=== PATIENT | male | born 1960 | race Two or more races ===

== ENCOUNTER → 2020-01-09 12:40 | Outpatient (BNVA) | payer MEDICAID, SELFPAY | PROVIDERS: PCP Internal Medicine; Visit Provider Nurse Practitioner Family | DX: Z76.89 Persons encountering health services in other specified circumstances (principal) ==

== ENCOUNTER → 2020-03-10 09:43 | Outpatient (BNVA) | payer MEDICAID, SELFPAY | PROVIDERS: PCP Internal Medicine; Referring Provider Internal Medicine; Visit Provider Internal Medicine Endocrinology, Diabetes & Metabolism | DX: E11.65 Type 2 diabetes mellitus with hyperglycemia (principal); E11.21 Type 2 diabetes mellitus with diabetic nephropathy; E11.42 Type 2 diabetes mellitus with diabetic polyneuropathy; E11.649 Type 2 diabetes mellitus with hypoglycemia without coma; E78.00 Pure hypercholesterolemia, unspecified; E66.01 Morbid (severe) obesity due to excess calories; I10 Essential (primary) hypertension; Z79.4 Long term (current) use of insulin | CPT/HCPCS: 82947; 99202 ==

== ENCOUNTER 2020-03-18 07:12 | Day surgery (SDC) | payer MEDICAID, SELFPAY ==
[2020-03-12 15:15] VITALS: BMI 42.7
--- NOTE | 2020-03-17 08:50 | P.CONAN_ITS ---
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 Morbid obesity Polysubstance abuse Sleep apnea Family History Family History (Updated 01/09/20 @ 12:45 by PATRICIA Renee) Father Diabetes Glaucoma Mother Diabetes HTN (hypertension) Asthma Diabetic kidney Brother Spinal cord injuries Diabetes Sister Asthma Surgical History Surgical History (Updated 03/18/20 @ 07:48 by Rae Nguyen RN) H/O hernia repair H/O knee surgery Status post laser lithotripsy of ureteral calculus Social History Social History (Updated 03/12/20 @ 15:31 by Fariha Adames) Household Members: Family Alcohol intake: current Alcohol intake frequency: holidays/special occasions only Smoking Status: Former smoker Tobacco Type: Cigarette Smoked in Last 30 Days: No Smoking Quit Date: 2017 Substance Use Type: Crack/Cocaine, Heroin and Marijuana Substance Use Type Other:: last used 01/2020-taking suboxone Substance Use Frequency: Chronic Longstanding Advance Directives Information Provided: No Recently lost weight without trying: No Meds Allergies Allergy/AdvReac Type Severity Reaction Status Date / Time sulfamethoxazole Allergy Intermediate RASH Verified 03/12/20 15:02 [From BACTRIM DS] trimethoprim Allergy Intermediate RASH Verified 03/12/20 15:02 [From BACTRIM DS] Penicillins Allergy Mild all Verified 03/10/20 10:00 Home Medications Medication Instructions Recorded Confirmed Type albuterol sulfate 90 mcg/actuation 2 puff INHALATION Q6H PRN 01/09/20 03/12/20 History aerosol inhaler aspirin 81 mg tablet,delayed 81 mg PO DAILY 01/09/20 03/12/20 History release atorvastatin 80 mg tablet 80 mg PO DAILY 01/09/20 03/12/20 History buprenorphine 12 mg-naloxone 3 mg 1 film BUCCAL Q24H 01/09/20 03/12/20 History sublingual film clonidine HCl 0.1 mg tablet 0.1 mg PO BEDTIME PRN 01/09/20 03/12/20 History hydrochlorothiazide 25 mg tablet 25 mg PO DAILY 01/09/20 03/12/20 History lisinopril 40 mg tablet 40 mg PO DAILY 01/09/20 03/12/20 History pantoprazole 40 mg tablet,delayed 40 mg PO DAILY 01/09/20 03/12/20 History release blood sugar diagnostic #10 ea 03/10/20 03/10/20 History citalopram 40 mg tablet 40 mg PO DAILY 03/10/20 03/12/20 History lancets 28 gauge #100 ea 03/10/20 03/10/20 History loratadine 10 mg capsule 10 mg PO DAILY 03/10/20 03/12/20 History primidone 50 mg tablet 50 mg PO BEDTIME 03/10/20 03/12/20 History insulin glargine U-300 conc 100 unit SUBCUT QAM 03/12/20 03/12/20 History [Toujeo Max U-300 SoloStar] metformin 2,000 mg PO QAM 03/12/20 03/12/20 History Exam Exam Date and Time: March 17, 2020 0850 Height,Weight and Vital Signs: Height 5 ft 4 in Weight 113 kg Assessment and Plan Assessment Anesthesia Assessment: Chart Reviewed Documented by User: Marcelina Bell 03/18/20 08:35 [facility] Past Medical History 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 with type 2 diabetes mellitus 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 Morbid obesity Polysubstance abuse Sleep apnea Family History Family History (Updated 01/09/20 @ 12:45 by PATRICIA Renee) Father Diabetes Glaucoma Mother Diabetes HTN (hypertension) Asthma Diabetic kidney Brother Spinal cord injuries Diabetes Sister Asthma Surgical History Surgical History (Updated 03/18/20 @ 07:48 by Rae Nguyen RN) H/O hernia repair H/O knee surgery Status post laser lithotripsy of ureteral calculus Social History Social History (Updated 03/12/20 @ 15:31 by Fariha Adames) Household Members: Family Alcohol intake: current Alcohol intake frequency: holidays/special occasions only Smoking Status: Former smoker Tobacco Type: Cigarette Smoked in Last 30 Days: No Smoking Quit Date: 2017 Substance Use Type: Crack/Cocaine, Heroin and Marijuana Substance Use Type Other:: last used 01/2020-taking suboxone Substance Use Frequency: Chronic Longstanding Advance Directives Information Provided: No Recently lost weight without trying: No Meds Allergies Allergy/AdvReac Type Severity Reaction Status Date / Time sulfamethoxazole Allergy Intermediate RASH Verified 03/12/20 15:02 [From BACTRIM DS] trimethoprim Allergy Intermediate RASH Verified 03/12/20 15:02 [From BACTRIM DS] Penicillins Allergy Mild all Verified 03/10/20 10:00 Home Medications Medication Instructions Recorded Confirmed Type albuterol sulfate 90 mcg/actuation 2 puff INHALATION Q6H PRN 01/09/20 03/12/20 History aerosol inhaler aspirin 81 mg tablet,delayed 81 mg PO DAILY 01/09/20 03/12/20 History release atorvastatin 80 mg tablet 80 mg PO DAILY 01/09/20 03/12/20 History buprenorphine 12 mg-naloxone 3 mg 1 film BUCCAL Q24H 01/09/20 03/12/20 History sublingual film clonidine HCl 0.1 mg tablet 0.1 mg PO BEDTIME PRN 01/09/20 03/12/20 History hydrochlorothiazide 25 mg tablet 25 mg PO DAILY 01/09/20 03/12/20 History lisinopril 40 mg tablet 40 mg PO DAILY 01/09/20 03/12/20 History pantoprazole 40 mg tablet,delayed 40 mg PO DAILY 01/09/20 03/12/20 History release blood sugar diagnostic #10 ea 03/10/20 03/10/20 History citalopram 40 mg tablet 40 mg PO DAILY 03/10/20 03/12/20 History lancets 28 gauge #100 ea 03/10/20 03/10/20 History loratadine 10 mg capsule 10 mg PO DAILY 03/10/20 03/12/20 History primidone 50 mg tablet 50 mg PO BEDTIME 03/10/20 03/12/20 History insulin glargine U-300 conc 100 unit SUBCUT QAM 03/12/20 03/12/20 History [Toujeo Max U-300 SoloStar] metformin 2,000 mg PO QAM 03/12/20 03/12/20 History Exam Airway Mallampati Class: III TM Dist: >3cm Neck ROM: Full Heart: RRR Lungs: CTA
[2020-03-18 08:00] VITALS: BP 139/69; PULSE 86; RESP 16; TEMP 36.3; O2SAT 97
[2020-03-18 08:00] LABS: Glucose, Whole Blood 109 mg/dL (60-115)
--- NOTE | 2020-03-18 08:28 | P.HPSUR_ITS ---
Pre-Procedural Eval Section B Chief Complaint: Screening Relevant Family History (Specify if Yes): No Relevant Social History: Other (specify) (cocaine in past, ex smoker) Present Medications: see Short Stay Collaborative assessment Medical History: Significant History (Asthma Diabetes type 2, uncontrolled Diabetic nephropathy associated with type 2 diabetes mellitus Diabetic polyneuropathy associated with type 2 diabetes mellitus HTN (hypertension) Hypercholesteremia 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 associated with type 2 diabetes mellitus alf (current) use of insulin Morbid ob) History of Previous Operations: Relevant previous surgery/procedure and date(s) (hernia, knee surgery) Allergies: Allergies Allergy/AdvReac Type Severity Reaction Status Date / Time sulfamethoxazole Allergy Intermediate RASH Verified 03/12/20 15:02 [From BACTRIM DS] trimethoprim Allergy Intermediate RASH Verified 03/12/20 15:02 [From BACTRIM DS] Penicillins Allergy Mild all Verified 03/10/20 10:00 Review of Systems Sugical H&P ROS: Negative: Constitution, Cardiovascular, Respiratory, Neurologi serena, Psychiatric, Hem-Onc, Allergic/Immunologic, Gastrointestinal, Genitourinary, Musculoskeletal, Integumentary, Endocrine and Eyes/Ears/Nose/Throat Exam Surgical H&P Exam: Normal: HEENT, Normal: Heart, Normal: Lungs, Normal: Extremities, Normal: Abdomen, Normal: Skin and Normal: Neurological Plan Diagnosis/Plan: Unchanged I have reviewed the history and physical and performed a pertinent physical examination on my patient. No changes have occurred unless specified.
--- NOTE | 2020-03-18 08:29 | PM.OP ---
Brief Operative Note Date of Service: 03/18/20 Post-op diagnosis: same Procedure: see op note Surgeon: Maritza Pal MD Anesthesia: MAC Estimated blood loss (mL): 0 Condition: stable Disposition: PACU
--- NOTE | 2020-03-18 08:29 | W.PM.OPN ---
Operative Note Operative Note Date of Service: 03/18/20 Narrative: Operative Information Procedure Description: Colonoscopy COLONOSCOPY Instrument: Olympus variable stiffness pediatric scope 190L Colonoscopy Monitoring: Vital signs and clinical assessment, continuous EKG monitoring, Pulse oximetry, Carbon Dioxide monitoring and blood pressure monitoring were done throughout the procedure. Colon withdrawal time was 32 minutes. Procedure: The patient was placed in the left lateral decubitis position and pre-procedure medications were administered. After a digital rectal examination of the ano-rectum, the video colonoscope was inserted into the rectum and advanced through the colon to the cecum The colonoscope was slowly withdrawn in a retrograde panoramic fashion and the colon mucosa was carefully examined including a retroflexed view of the rectum. Findings and interventions are described below. Procedure Difficulty:moderate difficulty, pressure applied to reach cecum Findings: Terminal Ileum-not intubated due to looping Cecum:normal Ascending Colon: x 2 sessile polyps measuring 7-15 mm removed with cold snare with one clip applied to the large polyp which was oozing, another sessile polyp 6-8 mm seen on retroflexion removed with forceps Transverse Colon - x 2 sessile polyps measuring 8-15 mm removed with cold snare and forceps Descending Colon: 2 cm semi pedunculated polyp injected with few cc of epinephrine and then removed with hot snare, x 2 clips applied to defect. 6-8 mm sessile polyp removed with cold snare Sigmoid Colon: mild diverticulosis noted Rectum: Retroflexion with small internal hemorrhoids, grade I Anorectum - normal Colon preparation: Stryker Bowel Preparation Scale Right colon; 2 Transverse colon: 1 Left colon; 2 (0 = Unprepared colon segment with mucosa not seen due to solid stool that cannot be cleared. 1 = Portion of mucosa of the colon segment seen, but other areas of the colon segment not well seen due to staining, residual stool and/or opaque liquid. 2 = Minor amount of residual staining, small fragments of stool and/or opaque liquid, but mucosa of colon segment seen well. 3 = Entire mucosa of colon segment seen well with no residual staining, small fragments of stool or opaque liquid) Impression and Post Procedure Diagnosis: polyps internal hemorrhoids diverticular disease Plan: High fiber diet leaflet Avoid straining at stool, epsom salts and sitz bath, anusol supps or cream prn Repeat Colonoscopy in 6-12 months or earlier if clinically indicated Next time use adult scope Above findings were reviewed with the patient and relevant handouts were provided if indicated.
[2020-03-18 09:45] VITALS: BP 174/91; PULSE 79; RESP 17; TEMP 37.1; O2SAT 97
[2020-03-18 10:00] VITALS: BP 163/88; PULSE 81; RESP 18; TEMP 37.1; O2SAT 97
--- NOTE | 2020-03-18 10:14 | HO.POSTANES ---
Post Anesthesia Evaluation Post Anesthesia Evaluation Vital Signs: Vital Signs Temp Pulse Resp BP Pulse Ox 03/18/20 10:00 98.8 F 81 18 163/88 H 97 03/18/20 09:45 98.8 F 79 17 174/91 H 97 03/18/20 08:00 97.4 F 86 16 139/69 97 Anesthesia: TIVA Mental Status: Awake Pain Control: Satisfactory Nausea/Vomiting: None Hydration: Adequate Anesthesia-Related Issues: No Anes. Related Issues
== END 2020-03-18 10:21 | disposition home or self-care (01) ==
PROVIDERS: PCP Internal Medicine; Visit Provider Internal Medicine Gastroenterology
PROC: 0DJD8ZZ Inspection of Lower Intestinal Tract, Via Natural or Artificial Opening Endoscopic (ICD-10-PCS; CPT 45378; principal; 2020-03-18 08:40)
DX: Z12.11 Encounter for screening for malignant neoplasm of colon (principal); D12.2 Benign neoplasm of ascending colon; D12.3 Benign neoplasm of transverse colon; D12.4 Benign neoplasm of descending colon; D12.5 Benign neoplasm of sigmoid colon; K57.30 Diverticulosis of large intestine without perforation or abscess without bleeding; K64.0 First degree hemorrhoids; E11.42 Type 2 diabetes mellitus with diabetic polyneuropathy; E11.21 Type 2 diabetes mellitus with diabetic nephropathy; I10 Essential (primary) hypertension; Z79.899 Other long term (current) drug therapy; Z79.82 Long term (current) use of aspirin; E66.01 Morbid (severe) obesity due to excess calories; Z79.4 Long term (current) use of insulin; F11.20 Opioid dependence, uncomplicated
CPT/HCPCS: 45385; 45380; 45381; 82947; 88305

== ENCOUNTER → 2020-03-24 09:23 | Outpatient (BNVA) | payer MEDICAID, SELFPAY | PROVIDERS: PCP Internal Medicine; Visit Provider Internal Medicine Endocrinology, Diabetes & Metabolism | DX: E11.65 Type 2 diabetes mellitus with hyperglycemia (principal); E11.42 Type 2 diabetes mellitus with diabetic polyneuropathy; E11.21 Type 2 diabetes mellitus with diabetic nephropathy; E11.649 Type 2 diabetes mellitus with hypoglycemia without coma; Z79.4 Long term (current) use of insulin; E78.00 Pure hypercholesterolemia, unspecified; I10 Essential (primary) hypertension; E66.01 Morbid (severe) obesity due to excess calories | CPT/HCPCS: 82947; 99212 ==

== ENCOUNTER 2020-03-24 10:34 | Outpatient (REF) | payer MEDICAID, SELFPAY ==
[2020-03-24 14:30] LABS: Alanine Aminotransferase 15 U/L (0-40); Albumin Level 3.9 g/dL (3.5-5.0); Alkaline Phosphatase 123 U/L (39-117); Anion Gap 17 (12-20); Aspartate Amino Transferase 21 U/L (5-37); Bilirubin Total 0.7 mg/dL (0.0-1.0); Blood Urea Nitrogen 29 mg/dL (9-16); Calcium 8.5 mg/dL (8.4-10.2); Carbon Dioxide 28 mmol/L (22-29); Chloride 98 mmol/L (96-108); Cholesterol 137 mg/dL; Estimated Glomerular Filt Rate > 60; Glucose Fasting 209 mg/dL (60-99); HDL Cholesterol 36 mg/dL; LDL Cholesterol Calculated 77 mg/dl; Potassium 3.5 mmol/L (3.3-5.1); Sodium 139 mmol/L (135-145); Total Protein 6.9 g/dL (6.5-8.0); Triglycerides 124 mg/dL
[2020-03-24 14:54] LABS: Free T4 (Free Thyroxine) 1.11 ng/dL (0.71-1.85); Thyroid Stimulating Hormone 1.91 uIU/mL (0.32-4.0)
[2020-03-24 14:57] LABS: Vitamin B12 438 pg/mL (200-900)
[2020-03-25 05:37] LABS: LDL Cholesterol Direct 81 mg/dL (<100)
== END 2020-03-24 10:35 | disposition home or self-care (01) ==
LOC: HO.10HDL 10:34
PROVIDERS: Visit Provider Internal Medicine Endocrinology, Diabetes & Metabolism
DX: E11.65 Type 2 diabetes mellitus with hyperglycemia (principal)
CPT/HCPCS: 36415; 80053; 80061; 82607; 83721; 84439; 84443

== ENCOUNTER 2020-03-26 07:54 | Outpatient (REF) | payer MEDICAID, SELFPAY | END 2020-03-26 07:55 | disposition home or self-care (01) | LOC: HO.LAB 07:54 | PROVIDERS: Visit Provider Internal Medicine | DX: Z20.822 Contact with and (suspected) exposure to COVID-19 (principal) | CPT/HCPCS: 36415; C9803; U0003; U0005 ==

== ENCOUNTER → 2020-04-13 14:17 | Outpatient (BNVA) | payer MEDICAID, SELFPAY | PROVIDERS: PCP Internal Medicine; Visit Provider Nurse Practitioner Family ==

== ENCOUNTER → 2020-04-16 09:10 | Outpatient (BNVA) | payer MEDICAID, SELFPAY | PROVIDERS: PCP Internal Medicine; Visit Provider Dietitian, Registered ==

== ENCOUNTER → 2020-04-20 10:40 | Outpatient (BNVA) | payer MEDICAID, SELFPAY | PROVIDERS: PCP Internal Medicine; Visit Provider Internal Medicine Endocrinology, Diabetes & Metabolism | DX: E11.65 Type 2 diabetes mellitus with hyperglycemia (principal); E11.21 Type 2 diabetes mellitus with diabetic nephropathy; E11.42 Type 2 diabetes mellitus with diabetic polyneuropathy; E11.649 Type 2 diabetes mellitus with hypoglycemia without coma; Z79.4 Long term (current) use of insulin; E78.00 Pure hypercholesterolemia, unspecified; I10 Essential (primary) hypertension; E66.01 Morbid (severe) obesity due to excess calories | CPT/HCPCS: 82947; 99212 ==

== ENCOUNTER → 2020-05-24 10:29 | Outpatient (BNVA) | payer MEDICAID, SELFPAY | PROVIDERS: PCP Internal Medicine; Visit Provider Dietitian, Registered | DX: E11.42 Type 2 diabetes mellitus with diabetic polyneuropathy (principal); E66.01 Morbid (severe) obesity due to excess calories | CPT/HCPCS: 97803 ==

== ENCOUNTER 2020-06-16 14:03 | Emergency (ER) | payer MEDICAID, SELFPAY ==
[2020-06-16 14:30] VITALS: BP 114/60; BP 160/90; PULSE 120; PULSE 126; RESP 16; TEMP 36.6; O2SAT 100; O2SAT 96; BMI 42.9
--- NOTE | 2020-06-16 14:56 | ED.OVERDOSE ---
HPI - Overdose General Chief Complaint: Overdose Stated Complaint: post overdose Source: patient Mode of arrival: ambulatory Limitations: no limitations History of Present Illness HPI Narrative: To the ED for heroin overdose. Patient states she took half a bag of heroin and 2 shots of whiskey. Patient states overdose was not intentional, but accidental. Patient presently denies any physical complaints. Patient does not want detox. Patient denies any suicidal or homicidal ideation. Related Data Home Medications Medication Instructions Recorded Confirmed albuterol sulfate 90 mcg/actuation 2 puff INHALATION Q6H PRN 01/09/20 04/20/20 aerosol inhaler aspirin 81 mg tablet,delayed 81 mg PO DAILY 01/09/20 04/20/20 release atorvastatin 80 mg tablet 80 mg PO DAILY 01/09/20 04/20/20 buprenorphine 12 mg-naloxone 3 mg 1 film BUCCAL Q24H 01/09/20 04/20/20 sublingual film clonidine HCl 0.1 mg tablet 0.1 mg PO BEDTIME PRN 01/09/20 04/20/20 lisinopril 40 mg tablet 40 mg PO DAILY 01/09/20 04/20/20 pantoprazole 40 mg tablet,delayed 40 mg PO DAILY 01/09/20 04/20/20 release blood sugar diagnostic #10 ea 03/10/20 04/20/20 citalopram 40 mg tablet 40 mg PO DAILY 03/10/20 04/20/20 lancets 28 gauge #100 ea 03/10/20 04/20/20 loratadine 10 mg capsule 10 mg PO DAILY 03/10/20 04/20/20 primidone 50 mg tablet 50 mg PO BEDTIME 03/10/20 04/20/20 metformin 2,000 mg PO QAM 03/12/20 04/20/20 Previous Rx's Medication Instructions Recorded bisacodyl 5 mg tablet,delayed 10 mg PO ONCE 1 Days #2 tab 01/09/20 release polyethylene glycol 3350 17 17 g PO ONCE #510 g 01/09/20 gram/dose oral powder dulaglutide 3 mg/0.5 mL 3 mg SUBCUT QWEEK 30 Days #2.5 ml 04/20/20 subcutaneous pen injector insulin glargine U-300 conc 300 80 unit SUBCUT QAM 30 Days #12 ml 04/20/20 unit/mL (3 mL) subcutaneous pen insulin lispro 100 unit/mL 10 unit SUBCUT DAILY 30 Days #15 ml 04/20/20 subcutaneous pen pen needle, diabetic 32 gauge x #100 ea 04/20/20 Allergies Allergy/AdvReac Type Severity Reaction Status Date / Time sulfamethoxazole Allergy Intermediate RASH Verified 03/12/20 15:02 [From BACTRIM DS] trimethoprim Allergy Intermediate RASH Verified 03/12/20 15:02 [From BACTRIM DS] Penicillins Allergy Mild all Verified 03/10/20 10:00 Review of Systems Review of Systems: Yes all other systems are reviewed and are negative Constitutional: Constitutional: Reports as per HPI and Reports no additional constitutional complaints Eyes: Eyes: Reports as per HPI and Reports no additional eye complaints ENT: Reports system reviewed and no additional complaints, except as documented and Reports as per HPI Cardiovascular: Cardiovascular: Reports as per HPI and Reports no additional cardiovascular complaints Respiratory: Respiratory: Reports as per HPI and Reports no additional respiratory complaints Gastrointestinal: Gastrointestinal: Reports as per HPI and Reports no additional gastrointestinal complaints Genitourinary: Genitourinary: Reports no additional male genitourinary complaints and Reports as per HPI Musculoskeletal: Musculoskeletal: Reports no additional musculoskeletal complaints and Reports as per HPI Neurologic: Reports system reviewed and no additional complaints, except as documented and Reports as per HPI Psychiatric: Psychiatric: Reports no additional psychiatric complaints and Reports as per HPI PMF Past Medical History Medical History (Updated 06/16/20 @ 18:25 by ANGEL Brambila) Asthma Diabetes type 2, uncontrolled Diabetic nephropathy associated with type 2 diabetes mellitus Diabetic polyneuropathy associated with type 2 diabetes mellitus HTN (hypertension) Hypercholesteremia 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 associated with type 2 diabetes mellitus 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 Morbid obesity Polysubstance abuse Sleep apnea Tubular adenoma Surgical History (Updated 04/13/20 @ 14:19 by PATRICIA Daniel) H/O hernia repair H/O knee surgery Hx of colonoscopy Status post laser lithotripsy of ureteral calculus Family History Family History (Updated 01/09/20 @ 12:45 by PATRICIA Renee) Father Diabetes Glaucoma Mother Diabetes HTN (hypertension) Asthma Diabetic kidney Brother Spinal cord injuries Diabetes Sister Asthma Social History Social History (Updated 04/13/20 @ 14:22 by PATRICIA Daniel) Household Members: Family Alcohol intake: current Alcohol intake frequency: holidays/special occasions only Smoking Status: Former smoker Tobacco Type: Cigarette Substance Use Type: Crack/Cocaine, Heroin and Marijuana Advance Directives: No Advance Directives Information Provided: No Current occupational status: employed Current occupation: [employer] Physical Exam Vital Signs: Vital Signs: Last Vital Signs Temp 97.7 F 06/16/20 18:00 Pulse 101 H 06/16/20 18:00 Resp 16 06/16/20 18:00 BP 131/81 06/16/20 18:00 Pulse Ox 99 06/16/20 18:00 Body Mass Index 42.9 Const: General: cooperative, healthy appearing, comfortable, no acute distress, well developed, alert and awake Orientation/consciousness: patient oriented x3 HENMT: Head: Yes normal to inspection, Yes No palpable skull fracture present, Yes normocephalic, Yes atraumatic, No abrasion, No Lal's sign, No contusion, No cranial bruits, No hematoma, No laceration, No occipital foramen tenderness, No palpable skull fracture, No raccoon eyes, No scalp lesion, No scalp tenderness, No Temporal artery tenderness present and No periorbital ecchymosis Eyes: General: appearance normal, both eyes and all related structures Neck: Neck: Yes normal visual inspection, Yes full ROM, Yes no lymphadenopathy, Yes no meningeal signs, Yes trachea midline, Yes supple and No tender Chest: Chest palpation & inspection: normal inspection of the chest and normal palpation of entire chest wall Resp: Effort & Inspection: normal respiratory effort and able to speak in complete sentences Auscultation: clear to auscultation bilaterally Cardio: Jugular venous distension: no JVD Heart sounds: S1 normal heart sound present and S2 normal heart sound present GI: Inspection: Yes normal to inspection and No abdominal wall ecchymosis Palpation (GI): Soft to palpation, not firm, nontender, no guarding and not rigid Skin: General skin exam: no rashes or lesions noted and elasticity normal Neuro: General: patient oriented x3, no meningeal signs and CN's II-XI intact bilaterally Cranial nerves: Yes CN's II-XII intact bilaterally Extrem: General: Yes normal to inspection and Yes full ROM Psych: Appearance: grossly normal, well kempt and not disheveled Thought process: Normal thought process present Thought content: Normal thought content present, suicidality and no homicidality Course Course Course Narrative: Patient does not want detox. Patient agreeable to be observed in the ER. Patient informed we will watch his O2 saturation. Reevaluation(s) Reevaluation #1: Patient's O2 saturation has been stable throughout the whole ED visit. Patient once again does not want detox. Patient to be discharged. Time: 18:24 MDM - Overdose MDM Narrative Medical decision making narrative: Opiate abuse Discharge Plan Discharge Clinical Impression: Opiate abuse, continuous Patient Disposition: Home, Self-Care Instructions: Opioid Use Disorder (ED) Additional Instructions: Return to the ED immediately for any chest pain, shortness of breath, weakness, dizziness, headache, vomiting blood, rectal bleeding, abdominal pain, or any other concerning symptoms. Please follow-up with the PCP Prescriptions: No Action metformin 500 mg tablet extended release 24 hr 2,000 mg PO QAM RF: 0 primidone 50 mg tablet 50 mg PO BEDTIME RF: 0 loratadine 10 mg capsule 10 mg PO DAILY RF: 0 citalopram 40 mg tablet 40 mg PO DAILY RF: 0 (DME) lancets [FreeStyle Lancets] 28 gauge misc See Rx Instructions .ROUTE .MEDSUPPLY Qty: 100 RF: 0 (DME) FreeStyle Test Strip See Rx Instructions .ROUTE .MEDSUPPLY Qty: 10 RF: 0 aspirin [Adult Low Dose Aspirin] 81 mg tablet,delayed release (DR/EC) 81 mg PO DAILY RF: 0 lisinopril 40 mg tablet 40 mg PO DAILY RF: 0 atorvastatin 80 mg tablet 80 mg PO DAILY RF: 0 pantoprazole 40 mg tablet,delayed release (DR/EC) 40 mg PO DAILY RF: 0 albuterol sulfate [ProAir HFA] 90 mcg/actuation HFA aerosol inhaler 2 puff inhalation Q6H PRN (Reason: Shortness Of Breath) RF: 0 buprenorphine-naloxone [Suboxone] 12-3 mg film 1 film buccal Q24H RF: 0 clonidine HCl 0.1 mg tablet 0.1 mg PO BEDTIME PRN (Reason: anxiety) RF: 0 bisacodyl [Dulcolax (bisacodyl)] 5 mg tablet,delayed release (DR/EC) 10 mg PO ONCE 1 Days Qty: 2 RF: 0 polyethylene glycol 3350 [Miralax] 17 gram/dose powder 17 g PO ONCE Qty: 510 RF: 0 Toujeo Max U-300 SoloStar 300 unit/mL (3 mL) insulin pen 80 unit SUBCUT QAM 30 Days Qty: 12 RF: 6 insulin lispro [Humalog KwikPen Insulin] 100 unit/mL insulin pen 10 unit subcut DAILY 30 Days Qty: 15 RF: 4 Trulicity 3 mg/0.5 mL pen injector 3 mg subcut QWEEK 30 Days Qty: 2.5 RF: 6 (DME) pen needle, diabetic [BD Ashly 2nd Gen Pen Needle] 32 gauge x 5/32 needle See Rx Instructions .MEDSUPPLY Qty: 100 RF: 4 Interventions: ED Discharge Assessment Last Done: 06/16/20 18:44 Discharge Date/Time: 06/16/20 18:46 Print Language: Bengali
[2020-06-16 15:52] VITALS: BP 97/49; PULSE 109; RESP 16; TEMP 36.6; O2SAT 99
[2020-06-16 18:00] VITALS: BP 131/81; PULSE 101; RESP 16; TEMP 36.5; O2SAT 99
== END 2020-06-16 18:46 | disposition home or self-care (01) ==
PROVIDERS: Emergency Provider Internal Medicine; PCP Internal Medicine
DX: T40.1X1A Poisoning by heroin, accidental (unintentional), initial encounter (principal); Y92.009 Unspecified place in unspecified non-institutional (private) residence as the place of occurrence of the external cause; F11.20 Opioid dependence, uncomplicated; F19.10 Other psychoactive substance abuse, uncomplicated; E11.9 Type 2 diabetes mellitus without complications; I10 Essential (primary) hypertension; E78.00 Pure hypercholesterolemia, unspecified; F17.210 Nicotine dependence, cigarettes, uncomplicated; Z79.4 Long term (current) use of insulin; Z79.02 Long term (current) use of antithrombotics/antiplatelets; Z79.899 Other long term (current) drug therapy
CPT/HCPCS: 99283

== ENCOUNTER 2020-06-21 17:53 | Emergency (ER) | payer MEDICAID, SELFPAY ==
[2020-06-21 18:00] VITALS: BP 160/100; PULSE 115; O2SAT 98
--- NOTE | 2020-06-21 18:04 | PC.NURSE ---
SECURITY AT BEDSIDE FOR A PAT DOWN, PT TO DROWSY TO WALK TO THE BATHROOM. WALLET/PHONE/SHOES TAKEN INTO DECON
[2020-06-21 18:20] VITALS: PULSE 98; RESP 16; TEMP 36.4; O2SAT 96; BMI 42.9
--- NOTE | 2020-06-21 18:50 | MHC.RECOVSUP ---
? Reason for consult Overdose o Current location: [facility] o Identified substance use concern: Heroin - Overdose - Support ? Intervention: o Community resources provided o Harm reduction discussion ? Plan: o Patient to follow up with H after discharge ? Additional information Patient refused any services But we did talk about harm reduction and about resources where he can go to get help when he ready.
--- NOTE | 2020-06-21 19:28 | ED_ITS ---
HPI - Overdose General Chief Complaint: Overdose Stated Complaint: OVERDOSE Source: patient Mode of arrival: ambulatory Limitations: no limitations History of Present Illness HPI Narrative: Patient presents to the ED for heroin overdose. Patient was given Narcan in the field. Patient presently alert oriented x3. Patient does not want detox. Patient would like to be discharged. Patient states overdose was accidental. Patient denies any suicidal thoughts. Related Data Home Medications Medication Instructions Recorded Confirmed albuterol sulfate 90 mcg/actuation 2 puff INHALATION Q6H PRN 01/09/20 04/20/20 aerosol inhaler aspirin 81 mg tablet,delayed 81 mg PO DAILY 01/09/20 04/20/20 release atorvastatin 80 mg tablet 80 mg PO DAILY 01/09/20 04/20/20 buprenorphine 12 mg-naloxone 3 mg 1 film BUCCAL Q24H 01/09/20 04/20/20 sublingual film clonidine HCl 0.1 mg tablet 0.1 mg PO BEDTIME PRN 01/09/20 04/20/20 lisinopril 40 mg tablet 40 mg PO DAILY 01/09/20 04/20/20 pantoprazole 40 mg tablet,delayed 40 mg PO DAILY 01/09/20 04/20/20 release blood sugar diagnostic #10 ea 03/10/20 04/20/20 citalopram 40 mg tablet 40 mg PO DAILY 03/10/20 04/20/20 lancets 28 gauge #100 ea 03/10/20 04/20/20 loratadine 10 mg capsule 10 mg PO DAILY 03/10/20 04/20/20 primidone 50 mg tablet 50 mg PO BEDTIME 03/10/20 04/20/20 metformin 2,000 mg PO QAM 03/12/20 04/20/20 Previous Rx's Medication Instructions Recorded bisacodyl 5 mg tablet,delayed 10 mg PO ONCE 1 Days #2 tab 01/09/20 release polyethylene glycol 3350 17 17 g PO ONCE #510 g 01/09/20 gram/dose oral powder dulaglutide 3 mg/0.5 mL 3 mg SUBCUT QWEEK 30 Days #2.5 ml 04/20/20 subcutaneous pen injector insulin glargine U-300 conc 300 80 unit SUBCUT QAM 30 Days #12 ml 04/20/20 unit/mL (3 mL) subcutaneous pen insulin lispro 100 unit/mL 10 unit SUBCUT DAILY 30 Days #15 ml 04/20/20 subcutaneous pen pen needle, diabetic 32 gauge x #100 ea 04/20/20 Allergies Allergy/AdvReac Type Severity Reaction Status Date / Time sulfamethoxazole Allergy Intermediate RASH Verified 03/12/20 15:02 [From BACTRIM DS] trimethoprim Allergy Intermediate RASH Verified 03/12/20 15:02 [From BACTRIM DS] Penicillins Allergy Mild all Verified 03/10/20 10:00 Review of Systems Review of Systems: Yes all other systems are reviewed and are negative Constitutional: Constitutional: Reports as per HPI and Reports no additional constitutional complaints Eyes: Eyes: Reports as per HPI and Reports no additional eye complaints ENT: Reports system reviewed and no additional complaints, except as documented and Reports as per HPI Cardiovascular: Cardiovascular: Reports as per HPI and Reports no additional cardiovascular complaints Respiratory: Respiratory: Reports as per HPI and Reports no additional respiratory complaints Gastrointestinal: Gastrointestinal: Reports as per HPI and Reports no additional gastrointestinal complaints Genitourinary: Genitourinary: Reports no additional male genitourinary complaints and Reports as per HPI Musculoskeletal: Musculoskeletal: Reports no additional musculoskeletal complaints and Reports as per HPI Neurologic: Reports system reviewed and no additional complaints, except as documented and Reports as per HPI Psychiatric: Psychiatric: Reports no additional psychiatric complaints and Reports as per HPI PMF Past Medical History Medical History (Updated 06/21/20 @ 19:30 by ANGEL Brambila) Asthma Diabetes type 2, uncontrolled Diabetic nephropathy associated with type 2 diabetes mellitus Diabetic polyneuropathy associated with type 2 diabetes mellitus HTN (hypertension) Hypercholesteremia 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 associated with type 2 diabetes mellitus long-term (current) use of insulin Morbid obesity Polysubstance abuse Sleep apnea Tubular adenoma Surgical History (Updated 04/13/20 @ 14:19 by PATRICIA Daniel) H/O hernia repair H/O knee surgery Hx of colonoscopy Status post laser lithotripsy of ureteral calculus Family History Family History (Updated 01/09/20 @ 12:45 by PATRICIA Renee) Father Diabetes Glaucoma Mother Diabetes HTN (hypertension) Asthma Diabetic kidney Brother Spinal cord injuries Diabetes Sister Asthma Social History Social History (Updated 04/13/20 @ 14:22 by PATRICIA aDniel) Household Members: Family Alcohol intake: current Alcohol intake frequency: holidays/special occasions only Smoking Status: Former smoker Tobacco Type: Cigarette Substance Use Type: Crack/Cocaine, Heroin and Marijuana Advance Directives: No Advance Directives Information Provided: Yes Current occupational status: employed Current occupation: [employer] Physical Exam Vital Signs: Vital Signs: Last Vital Signs Temp 97.5 F 06/21/20 18:20 Pulse 98 06/21/20 18:20 Resp 16 06/21/20 18:20 Pulse Ox 96 06/21/20 18:20 Body Mass Index 42.9 Const: General: cooperative, healthy appearing, comfortable, no acute distress, well developed, alert and awake Orientation/consciousness: patient oriented x3 HENMT: Head: Yes normal to inspection, Yes No palpable skull fracture present, Yes normocephalic and Yes atraumatic Eyes: General: appearance normal, both eyes and all related structures Neck: Neck: Yes normal visual inspection, Yes full ROM, Yes no lymphadenopathy, Yes no meningeal signs, Yes trachea midline, Yes supple and No tender Chest: Chest palpation & inspection: normal inspection of the chest and normal palpation of entire chest wall Resp: Effort & Inspection: normal respiratory effort and able to speak in complete sentences Cardio: Jugular venous distension: no JVD Heart sounds: S1 normal heart sound present and S2 normal heart sound present GI: Inspection: Yes normal to inspection and No abdominal wall ecchymosis Palpation (GI): Soft to palpation, not firm, nontender, no guarding and not rigid : General: No CVA tenderness and Yes no CVA tenderness Back/Spine/Pelvis: Back: no CVA tenderness, No CVA tenderness and No back tenderness Skin: General skin exam: no rashes or lesions noted and elasticity normal Neuro: General: patient oriented x3, no meningeal signs and CN's II-XI intact bilaterally Cranial nerves: Yes CN's II-XII intact bilaterally Extrem: General: Yes normal to inspection and Yes full ROM Psych: Appearance: grossly normal, well kempt and not disheveled Course Course Course Narrative: Detox counselor to talk to patient to convince for detox. Reevaluation(s) Reevaluation #1: Detox counselor Dorian spoke with patient and he states patient still refused detox. Patient will be discharged MDM - Overdose MDM Narrative Medical decision making narrative: Opiate abuse Discharge Plan Discharge Clinical Impression: Drug overdose, Opiate abuse, continuous Patient Disposition: Home, Self-Care Instructions: Opioid Use Disorder (ED) Additional Instructions: Return to the ED immediately for any suicidal/homicidal ideation, chest pain, shortness of breath, auditory/visual hallucinations, or any other concerning symptoms. He follow-up with the PCP. Please follow-up with detox resource information given to you by our detox counselor. Prescriptions: No Action metformin 500 mg tablet extended release 24 hr 2,000 mg PO QAM RF: 0 primidone 50 mg tablet 50 mg PO BEDTIME RF: 0 loratadine 10 mg capsule 10 mg PO DAILY RF: 0 citalopram 40 mg tablet 40 mg PO DAILY RF: 0 (DME) lancets [FreeStyle Lancets] 28 gauge misc See Rx Instructions .ROUTE .MEDSUPPLY Qty: 100 RF: 0 (DME) FreeStyle Test Strip See Rx Instructions .ROUTE .MEDSUPPLY Qty: 10 RF: 0 aspirin [Adult Low Dose Aspirin] 81 mg tablet,delayed release (DR/EC) 81 mg PO DAILY RF: 0 lisinopril 40 mg tablet 40 mg PO DAILY RF: 0 atorvastatin 80 mg tablet 80 mg PO DAILY RF: 0 pantoprazole 40 mg tablet,delayed release (DR/EC) 40 mg PO DAILY RF: 0 albuterol sulfate [ProAir HFA] 90 mcg/actuation HFA aerosol inhaler 2 puff inhalation Q6H PRN (Reason: Shortness Of Breath) RF: 0 buprenorphine-naloxone [Suboxone] 12-3 mg film 1 film buccal Q24H RF: 0 clonidine HCl 0.1 mg tablet 0.1 mg PO BEDTIME PRN (Reason: anxiety) RF: 0 bisacodyl [Dulcolax (bisacodyl)] 5 mg tablet,delayed release (DR/EC) 10 mg PO ONCE 1 Days Qty: 2 RF: 0 polyethylene glycol 3350 [Miralax] 17 gram/dose powder 17 g PO ONCE Qty: 510 RF: 0 Toujeo Max U-300 SoloStar 300 unit/mL (3 mL) insulin pen 80 unit SUBCUT QAM 30 Days Qty: 12 RF: 6 insulin lispro [Humalog KwikPen Insulin] 100 unit/mL insulin pen 10 unit subcut DAILY 30 Days Qty: 15 RF: 4 Trulicity 3 mg/0.5 mL pen injector 3 mg subcut QWEEK 30 Days Qty: 2.5 RF: 6 (DME) pen needle, diabetic [BD Ashly 2nd Gen Pen Needle] 32 gauge x 5/32 needle See Rx Instructions .MEDSUPPLY Qty: 100 RF: 4 Interventions: ED Discharge Assessment Last Done: 06/21/20 19:33 Discharge Date/Time: 06/21/20 19:37 Print Language: Stateless
== END 2020-06-21 19:37 | disposition home or self-care (01) ==
PROVIDERS: Emergency Provider Internal Medicine
DX: T40.1X1A Poisoning by heroin, accidental (unintentional), initial encounter (principal); Y92.9 Unspecified place or not applicable; F14.90 Cocaine use, unspecified, uncomplicated; F11.90 Opioid use, unspecified, uncomplicated; I10 Essential (primary) hypertension; E11.9 Type 2 diabetes mellitus without complications; Z79.899 Other long term (current) drug therapy; Z79.82 Long term (current) use of aspirin; Z87.891 Personal history of nicotine dependence; Z71.51 Drug abuse counseling and surveillance of drug abuser; Z79.84 Long term (current) use of oral hypoglycemic drugs
CPT/HCPCS: 99284

== ENCOUNTER 2020-07-20 15:39 | Emergency (ER) | payer MEDICAID, SELFPAY ==
[2020-07-20 15:50] VITALS: BP 129/66; BP 171/79; PULSE 100; PULSE 106; RESP 16; TEMP 36.7; O2SAT 94; O2SAT 95; BMI 45.8
--- NOTE | 2020-07-20 15:50 | ECG_ITS ---
Test Reason : hypertension Blood Pressure : / mmHG Vent. Rate : 095 BPM Atrial Rate : 095 BPM P-R Int : 126 ms QRS Dur : 080 ms QT Int : 356 ms P-R-T Axes : 047 017 031 degrees QTc Int : 447 ms Normal sinus rhythm Normal ECG When compared with ECG of 17-NOV-2010 19:13, Nonspecific T wave abnormality, improved in Inferior leads Referred By: Maricruz Smith Electronically Signed By:Julio C Owen
--- NOTE | 2020-07-20 15:54 | ED_ITS ---
HPI - General Adult General Chief complaint: General Medical Stated complaint: HTN Time Seen by Provider: 07/20/20 15:40 Source: patient and EMS Mode of arrival: EMS Limitations: no limitations History of Present Illness HPI narrative: 59 y/o male with history of DM2, HTN, obesity, active heroin use (last used yesterday) who presents to the ER via EMS with worsening bilateral LE edema. [facility] when he was found to have blood pressure of [address]ations in his EKG. He was sent to ED for evaluation of this. He reports he usually has a small amount of edema in his legs but 2 days ago it got significantly worse. He works at [employer] and is on his feet all day long. He does not elevate his legs when he is home. He used to have compression stockings but lost them. He has been compliant with all of his medications including his Lasix 20 mg per day and HCTZ 12.5. His lisinopril was recently increased to 20 mg per day. BP on arrival 171/78. He denies any chest pain, SOB, headache, vision changes. EKG reviewed - NO ST elevations. MD complaint: LE edema Onset (ago): day(s) (2) Location: left, right and lower extremity Radiation: proximal Severity: moderate Related Data Home Medications Medication Instructions Recorded Confirmed albuterol sulfate 90 mcg/actuation 2 puff INHALATION Q6H PRN 01/09/20 04/20/20 aerosol inhaler aspirin 81 mg tablet,delayed 81 mg PO DAILY 01/09/20 04/20/20 release atorvastatin 80 mg tablet 80 mg PO DAILY 01/09/20 04/20/20 buprenorphine 12 mg-naloxone 3 mg 1 film BUCCAL Q24H 01/09/20 04/20/20 sublingual film clonidine HCl 0.1 mg tablet 0.1 mg PO BEDTIME PRN 01/09/20 04/20/20 lisinopril 40 mg tablet 40 mg PO DAILY 01/09/20 04/20/20 pantoprazole 40 mg tablet,delayed 40 mg PO DAILY 01/09/20 04/20/20 release blood sugar diagnostic #10 ea 03/10/20 04/20/20 citalopram 40 mg tablet 40 mg PO DAILY 03/10/20 04/20/20 lancets 28 gauge #100 ea 03/10/20 04/20/20 loratadine 10 mg capsule 10 mg PO DAILY 03/10/20 04/20/20 primidone 50 mg tablet 50 mg PO BEDTIME 03/10/20 04/20/20 metformin 2,000 mg PO QAM 03/12/20 04/20/20 Previous Rx's Medication Instructions Recorded bisacodyl 5 mg tablet,delayed 10 mg PO ONCE 1 Days #2 tab 01/09/20 release polyethylene glycol 3350 17 17 g PO ONCE #510 g 01/09/20 gram/dose oral powder dulaglutide 3 mg/0.5 mL 3 mg SUBCUT QWEEK 30 Days #2.5 ml 04/20/20 subcutaneous pen injector insulin glargine U-300 conc 300 80 unit SUBCUT QAM 30 Days #12 ml 04/20/20 unit/mL (3 mL) subcutaneous pen insulin lispro 100 unit/mL 10 unit SUBCUT DAILY 30 Days #15 ml 04/20/20 subcutaneous pen pen needle, diabetic 32 gauge x #100 ea 04/20/20 fredi.stocking,knee,reg,xlrg #12 ea 07/20/20 furosemide [Lasix] 40 mg PO QAM #7 tab 07/20/20 Allergies Allergy/AdvReac Type Severity Reaction Status Date / Time sulfamethoxazole Allergy Intermediate RASH Verified 03/12/20 15:02 [From BACTRIM DS] trimethoprim Allergy Intermediate RASH Verified 03/12/20 15:02 [From BACTRIM DS] Penicillins Allergy Mild all Verified 03/10/20 10:00 Review of Systems Review of Systems: Constitutional: No Fever, No Chills ENT/Mouth: No sore throat, No Rhinorrhea, No Swallowing Difficulty Eyes: No Eye Pain, No Swelling, No Redness Cardiovascular: No Chest Pain, No SOB, No Orthopnea, + Edema Respiratory: No Cough, No Sputum, No Wheezing, No dyspnea Gastrointestinal: No Nausea, No Vomiting, No Diarrhea, No abdominal Pain Genitourinary: No Dysuria, No Urinary Frequency, No Hematuria Musculoskeletal: No joint pain, No Myalgias Skin: No Skin Lesions, No rash Neuro: No Weakness, No Numbness, No Dizziness, No Headache Psych: No Anxiety/Panic, No Depression Heme/Lymph: No Bruising, No Lymphadenopathy Endocrine: No Polyuria, No Polydipsia PMFSH Past Medical History Attestation statement: The following information was validated with the patient. 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 Morbid obesity Polysubstance abuse Sleep apnea Tubular adenoma Surgical History (Updated 04/13/20 @ 14:19 by PATRICIA Daniel) H/O hernia repair H/O knee surgery Hx of colonoscopy Status post laser lithotripsy of ureteral calculus Family History Family History (Updated 01/09/20 @ 12:45 by PATRICIA Renee) Father Diabetes Glaucoma Mother Diabetes HTN (hypertension) Asthma Diabetic kidney Brother Spinal cord injuries Diabetes Sister Asthma Social History Social History (Updated 04/13/20 @ 14:22 by PATRICIA Daniel) Household Members: Family Alcohol intake: current Alcohol intake frequency: a few times a week Patient Tobacco Use Status: Never used Tobacco Use of substances other than those prescribed or required for medical reasons: Yes Substance Use Type: Heroin Substance Use Frequency: Occasionally Advance Directives: No Advance Directives Information Provided: No Current occupational status: employed Current occupation: [employer] Physical Exam Vital Signs: Vital Signs: Last Vital Signs Temp 98.1 F 07/20/20 15:50 Pulse 100 07/20/20 17:44 Resp 16 07/20/20 17:44 BP 145/73 H 07/20/20 17:44 Pulse Ox 95 07/20/20 15:50 Body Mass Index 45.8 Appearance: Alert. Oriented X3. No acute distress. Eyes: Pupils equal, round and reactive to light. ENT: Pharynx normal. Neck: Normal inspection. Neck supple. CVS: Normal heart rate and rhythm. Pulses normal. Respiratory: No respiratory distress. Breath sounds normal. Abdomen: Soft and nontender. +BS x4 Skin: Skin warm and dry. Normal skin color. Normal skin turgor. No rashes. Extremities: 3+ lower extremity edema. No calf tenderness. 2+ DP pulses, warm and well perfused Neuro: Oriented X 3. No motor deficit. No sensory deficit. Course Course Course Narrative: 59 y/o male presenting with LE edema and hypertension. Reportedly BP at clinic was 260 systolic. 170/70s here, asymptomatic. No appreciated ST elevations on EKG from clinic, will repeat EKG here. He denies SOB or chest pain. Will check BNP and basic labs. Medical Decision Making Lab Data Result diagrams: 07/20/20 17:12 07/20/20 17:12 Labs: Lab Results 07/20/20 07/20/20 07/20/20 Range/Units 17:12 17:12 17:12 WBC 12.1 H (4.8-10.8) X10*3/uL RBC 3.82 L (4.60-5.80) X10*6/uL Hgb 12.2 L (14.0-18.0) g/dl Hct 36.9 L (42-52) % MCV 96.6 (80-98) fL MCH 31.9 (27.0-33.0) pg MCHC 33.1 (31.0-36.0) g/dl RDW 13.3 (11.0-16.0) % Plt Count 223 (160-400) X10*3/uL MPV 11.2 (9.4-12.4) fL Immature Gran % (Auto) 0.2 (0.0-0.4) % Neut % (Auto) 82.9 H (45-73) % Lymph % (Auto) 10.3 L (20-40) % [place] % (Auto) 3.7 (2-11) % Eos % (Auto) 2.4 (0-4) % Baso % (Auto) 0.5 (0-2) % Lymph # (Auto) 1.2 (1.2-4.9) X10*3/uL [place] # (Auto) 0.5 (0.1-1.2) X10*3/uL Eos # (Auto) 0.3 (0.0-0.4) X10*3/uL Baso # (Auto) 0.1 (0.0-0.2) X10*3/uL Abs Immat Gran (auto) 0.02 (0.00-0.03) X10*3/uL Absolute Neuts (auto) 10.0 H (2.0-8.3) X10*3/uL Absolute Nucleated RBC 0.000 (0.0-0.012) X10*3/uL Nucleated RBC % (auto) 0.0 (0.0-0.2) /100WBC Hold Blue Top SEE NOTE Sodium 141 (135-145) mmol/L Potassium 4.8 D (3.3-5.1) mmol/L Chloride 97 (96-108) mmol/L Carbon Dioxide 35 H (22-29) mmol/L Anion Gap 14 (12-20) BUN 24 H (9-16) mg/dL Creatinine 0.82 (0.5-1.4) mg/dL Estim Creat Clear Calc 115.1 Estimated GFR > 60 Random Glucose 204 H (60-115) mg/dL Calcium 9.3 D (8.4-10.2) mg/dL B-Natriuretic Peptide (<100) pg/mL 07/20/20 Range/Units 17:12 WBC (4.8-10.8) X10*3/uL RBC (4.60-5.80) X10*6/uL Hgb (14.0-18.0) g/dl Hct (42-52) % MCV (80-98) fL MCH (27.0-33.0) pg MCHC (31.0-36.0) g/dl RDW (11.0-16.0) % Plt Count (160-400) X10*3/uL MPV (9.4-12.4) fL Immature Gran % (Auto) (0.0-0.4) % Neut % (Auto) (45-73) % Lymph % (Auto) (20-40) % [place] % (Auto) (2-11) % Eos % (Auto) (0-4) % Baso % (Auto) (0-2) % Lymph # (Auto) (1.2-4.9) X10*3/uL [place] # (Auto) (0.1-1.2) X10*3/uL Eos # (Auto) (0.0-0.4) X10*3/uL Baso # (Auto) (0.0-0.2) X10*3/uL Abs Immat Gran (auto) (0.00-0.03) X10*3/uL Absolute Neuts (auto) (2.0-8.3) X10*3/uL Absolute Nucleated RBC (0.0-0.012) X10*3/uL Nucleated RBC % (auto) (0.0-0.2) /100WBC Hold Blue Top Sodium (135-145) mmol/L Potassium (3.3-5.1) mmol/L Chloride (96-108) mmol/L Carbon Dioxide (22-29) mmol/L Anion Gap (12-20) BUN (9-16) mg/dL Creatinine (0.5-1.4) mg/dL Estim Creat Clear Calc Estimated GFR Random Glucose (60-115) mg/dL Calcium (8.4-10.2) mg/dL B-Natriuretic Peptide 65 (<100) pg/mL ECG Data Attestation: I personally reviewed and interpreted this ECG as follows: Prior ECG tracings: available for review Interpretation: normal sinus rhythm, HR 95 bpm, normal [place] interval, normal QTc, Q waves present in lead III, V1-V2 Critical Care Time Critical Care Time Critical Care Time: No Discharge Plan Discharge Clinical Impression: Bilateral edema of lower extremity Hypertension Qualifiers: Hypertension type: unspecified Qualified Code(s): I10 - Essential (primary) hypertension Patient Disposition: Home, Self-Care Instructions: Leg Edema (ED), Hypertension and Diabetes (ED) Additional Instructions: Your EKG was unremarkable. YOur blood workup was normal. Recommend starting an increased dose of Lasix 40 mg per day, instead of your usual 20 mg per day. This was sent to your pharmacy. You need to be re-evaluated by your doctor next week to see if they would like to continue you on this dose. Recommend medical grade compression stockings. Elevate you feet when able. Stick to a low salt diet. If you develop chest pain, difficulty breathing or any other concerning symptom come back to the ER for further evaluation. Prescriptions: New furosemide [Lasix] 40 mg tablet 40 mg PO QAM Qty: 7 RF: 0 (DME) fredi.stocking,knee,reg,xlrg Misc See Rx Instructions .ROUTE .MEDSUPPLY Qty: 12 RF: 0 No Action metformin 500 mg tablet extended release 24 hr 2,000 mg PO QAM RF: 0 primidone 50 mg tablet 50 mg PO BEDTIME RF: 0 loratadine 10 mg capsule 10 mg PO DAILY RF: 0 citalopram 40 mg tablet 40 mg PO DAILY RF: 0 (DME) lancets [FreeStyle Lancets] 28 gauge misc See Rx Instructions .ROUTE .MEDSUPPLY Qty: 100 RF: 0 (DME) FreeStyle Test Strip See Rx Instructions .ROUTE .MEDSUPPLY Qty: 10 RF: 0 aspirin [Adult Low Dose Aspirin] 81 mg tablet,delayed release (DR/EC) 81 mg PO DAILY RF: 0 lisinopril 40 mg tablet 40 mg PO DAILY RF: 0 atorvastatin 80 mg tablet 80 mg PO DAILY RF: 0 pantoprazole 40 mg tablet,delayed release (DR/EC) 40 mg PO DAILY RF: 0 albuterol sulfate [ProAir HFA] 90 mcg/actuation HFA aerosol inhaler 2 puff inhalation Q6H PRN (Reason: Shortness Of Breath) RF: 0 buprenorphine-naloxone [Suboxone] 12-3 mg film 1 film buccal Q24H RF: 0 clonidine HCl 0.1 mg tablet 0.1 mg PO BEDTIME PRN (Reason: anxiety) RF: 0 bisacodyl [Dulcolax (bisacodyl)] 5 mg tablet,delayed release (DR/EC) 10 mg PO ONCE 1 Days Qty: 2 RF: 0 polyethylene glycol 3350 [Miralax] 17 gram/dose powder 17 g PO ONCE Qty: 510 RF: 0 Toujeo Max U-300 SoloStar 300 unit/mL (3 mL) insulin pen 80 unit SUBCUT QAM 30 Days Qty: 12 RF: 6 insulin lispro [Humalog KwikPen Insulin] 100 unit/mL insulin pen 10 unit subcut DAILY 30 Days Qty: 15 RF: 4 Trulicity 3 mg/0.5 mL pen injector 3 mg subcut QWEEK 30 Days Qty: 2.5 RF: 6 (DME) pen needle, diabetic [BD Ashly 2nd Gen Pen Needle] 32 gauge x 5/32 needle See Rx Instructions .MEDSUPPLY Qty: 100 RF: 4
[2020-07-20 17:16] LABS: MANUAL DIFF FLAG NO
[2020-07-20 17:19] LABS: Basophils Absolute Auto 0.1 X10*3/uL (0.0-0.2); Basophils Percent Auto 0.5 % (0-2); Eosinophils Absolute Auto 0.3 X10*3/uL (0.0-0.4); Eosinophils Percent Auto 2.4 % (0-4); Hematocrit 36.9 % (42-52); Hemoglobin 12.2 g/dl (14.0-18.0); Imm Gran Abs Auto 0.02 X10*3/uL (0.00-0.03); Imm Gran Pct Auto 0.2 % (0.0-0.4); Lymphocytes Absolute Auto 1.2 X10*3/uL (1.2-4.9); Lymphocytes Percent Auto 10.3 % (20-40); Mean Corpuscular HGB Conc 33.1 g/dl (31.0-36.0); Mean Corpuscular Hemoglobin 31.9 pg (27.0-33.0); Mean Corpuscular Volume 96.6 fL (80-98); Mean Platelet Volume 11.2 fL (9.4-12.4); Monocytes Absolute Auto 0.5 X10*3/uL (0.1-1.2); Monocytes Percent Auto 3.7 % (2-11); Neutrophils Percent Auto 82.9 % (45-73); Platelet Count 223 X10*3/uL (160-400); Red Blood Count 3.82 X10*6/uL (4.60-5.80); Red Cell Distribution Width 13.3 % (11.0-16.0); White Blood Count 12.1 X10*3/uL (4.8-10.8)
[2020-07-20 17:44] VITALS: BP 145/73; PULSE 100; RESP 16
[2020-07-20 17:46] LABS: Anion Gap 14 (12-20); Blood Urea Nitrogen 24 mg/dL (9-16); Calcium 9.3 mg/dL (8.4-10.2); Carbon Dioxide 35 mmol/L (22-29); Chloride 97 mmol/L (96-108); Creatinine Clr Calc Pharmacy 115.1; Estimated Glomerular Filt Rate > 60; Glucose Random 204 mg/dL (60-115); Potassium 4.8 mmol/L (3.3-5.1); Sodium 141 mmol/L (135-145)
[2020-07-20 17:54] LABS: B Type Natriuretic Peptide 65 pg/mL (<100)
[2020-07-20 18:27] VITALS: BP 150/67; PULSE 90; RESP 16; O2SAT 96
== END 2020-07-20 18:32 | disposition home or self-care (01) ==
PROVIDERS: Physician Assistant; Emergency Provider Emergency Medicine
DX: R60.0 Localized edema (principal); R06.00 Dyspnea, unspecified; I10 Essential (primary) hypertension; E11.9 Type 2 diabetes mellitus without complications; F11.90 Opioid use, unspecified, uncomplicated; Z79.899 Other long term (current) drug therapy; Z79.82 Long term (current) use of aspirin
CPT/HCPCS: 36415; 80048; 83880; 85025; 93005; 99284

== ENCOUNTER 2020-08-04 13:36 | Outpatient (REF) | payer MEDICAID, SELFPAY ==
--- NOTE | ~2020-08-04 | US_ITS ---
EXAMINATION: US VENOUS ULTRASOUND WITH DOPPLER LOWER EXTREMITY, BILATERAL CLINICAL INFORMATION: Bilateral leg swelling COMPARISON: None TECHNIQUE: Ultrasound of the deep veins is performed from the hip to the calf with compression sonography and color and pulse Doppler assessment. Spectral analysis with color-flow imaging is performed. FINDINGS: RIGHT: There is normal venous compression and respiratory variation and augmented flow. The visualized common femoral vein, superficial femoral vein, profunda femoral vein, popliteal vein, and the trifurcation region shows no evidence of deep venous thrombosis. There is no significant popliteal fossa cyst. LEFT: There is normal venous compression and respiratory variation and augmented flow. The visualized common femoral vein, superficial femoral vein, profunda femoral vein, popliteal vein, and the trifurcation region shows no evidence of deep venous thrombosis. There is no significant popliteal fossa cyst. US/US venous duplex LE BI IMPRESSION: No DVT demonstrated in the bilateral lower extremity.
== END 2020-08-04 13:37 | disposition home or self-care (01) ==
LOC: HO.HMGCX 13:36
PROVIDERS: PCP Internal Medicine; Visit Provider Emergency Medicine
DX: R60.0 Localized edema (principal)
CPT/HCPCS: 93970

== ENCOUNTER → 2021-02-01 13:52 | Outpatient (BNVA) | payer MEDICAID, SELFPAY | PROVIDERS: PCP Internal Medicine; Visit Provider Surgery Vascular Surgery | DX: I83.11 Varicose veins of right lower extremity with inflammation (principal) | CPT/HCPCS: 99202 ==

== ENCOUNTER 2021-02-02 11:34 | Emergency (ER) | payer OTHER, MEDICAID, SELFPAY ==
--- NOTE | ~2021-02-02 | XR_ITS ---
EXAMINATION: XR CHEST CLINICAL INFORMATION: Chest pain. COMPARISON: None TECHNIQUE: 2 views of the chest were obtained. FINDINGS: The lungs are well-expanded and clear. The heart size and pulmonary vascularity is normal. There is moderate spondylosis dorsal spine. No lytic process. XR/XR chest 2V IMPRESSION: Unremarkable chest examination.
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
[2021-02-02 12:03] VITALS: BP 145/81; PULSE 105; RESP 18; TEMP 36.6; O2SAT 98; BMI 41.1
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
[2021-02-02 15:51] VITALS: BP 141/70; PULSE 91; RESP 18; TEMP 36.2; O2SAT 96
== END 2021-02-02 16:07 | disposition home or self-care (01) ==
PROVIDERS: Emergency Provider Emergency Medicine; PCP Internal Medicine
DX: S13.4XXA Sprain of ligaments of cervical spine, initial encounter (principal); R07.89 Other chest pain; M54.9 Dorsalgia, unspecified; I10 Essential (primary) hypertension; E11.9 Type 2 diabetes mellitus without complications; Z79.4 Long term (current) use of insulin; V43.52XA Car driver injured in collision with other type car in traffic accident, initial encounter; Y93.9 Activity, unspecified; Y92.410 Unspecified street and highway as the place of occurrence of the external cause; Y99.9 Unspecified external cause status
CPT/HCPCS: 70450; 71046; 72125; 99283; 99284

== ENCOUNTER 2021-02-17 07:51 | Outpatient (REF) | payer MEDICAID, SELFPAY ==
--- NOTE | ~2021-02-17 | US_ITS ---
EXAMINATION: BILATERAL LOWER EXTREMITY VENOUS ULTRASOUND (Reflux Exam) CLINICAL INDICATION: Bilateral lower extremity varicose veins. History of prior vein procedures bilaterally. COMPARISON: None. TECHNIQUE: Color flow triplex imaging and compression Doppler was performed to evaluate both the deep and the superficial systems bilaterally. To evaluate the superficial system, the examination was performed in the upright position. Color-flow Doppler ultrasound and compression ultrasound were utilized. In addition, maneuvers were utilized to demonstrate reflux. FINDINGS: SUPERFICIAL ULTRASOUND WITH DOPPLER OF RIGHT LOWER EXTREMITY GREAT SAPHENOUS VEIN: Saphenofemoral junction: 0.4 cm Max diameter: 0.5 cm Min diameter: 0.3cm Reflux: No evidence of reflux. DUPLICATED MEDIAL GREAT SAPHENOUS VEIN: Max Diameter: None Imaged Reflux: NA DUPLICATED LATERAL GREAT SAPHENOUS VEIN: Diameter: 0.4 cm at the junction. Reflux: None. SMALL SAPHENOUS VEIN: Proximal Calf: 0.4 cm Distal Calf: 0.3 cm Reflux: No evidence of reflux. VEIN OF GIACOMINI: None Imaged. PERFORATORS: Location: None Imaged Reflux: NA VARICOSITIES: Location: Maximal thigh and distal thigh measuring 3 mm each. Reflux: None. DEEP VENOUS ULTRASOUND OF THE RIGHT LOWER EXTREMITY: Common Femoral Vein: Compressible, normal respiratory variation and augmented flow. Femoral vein: Compressible, normal color flow and augmentation. Popliteal Vein: Compressible, normal augmentation. Deep Reflux: There is no evidence of reflux in the deep system in either the common femoral vein or the popliteal vein. Vega's Cyst: There is no evidence of a Vega's cyst. SUPERFICIAL ULTRASOUND WITH DOPPLER OF LEFT LOWER EXTREMITY GREAT SAPHENOUS VEIN: Saphenofemoral junction: 0.7 cm Max diameter: 0.7 cm Min diameter: 0.2 cm Reflux: No evidence of reflux. DUPLICATED MEDIAL GREAT SAPHENOUS VEIN: Max Diameter: 0.5 cm at the junction. Reflux: None DUPLICATED LATERAL GREAT SAPHENOUS VEIN: Diameter: None Imaged Reflux: NA SMALL SAPHENOUS VEIN: Proximal Calf: 0.3 cm Distal Calf: 0.2 cm Reflux: No evidence of reflux. VEIN OF GIACOMINI: None Imaged. PERFORATORS: Location: Calf, 0.3 cm. Reflux: None. VARICOSITIES: Location: None Imaged Reflux: NA DEEP VENOUS ULTRASOUND OF THE LEFT LOWER EXTREMITY: Common Femoral Vein: Compressible, normal respiratory variation and augmented flow. Femoral vein: Compressible, normal color flow and augmentation. Popliteal Vein: Compressible, normal augmentation. Deep Reflux: There is no evidence of reflux in the deep system in either the common femoral vein or the popliteal vein. Vega's Cyst: There is no evidence of a Vega's cyst. US/US venous duplex LE BI IMPRESSION: 1. No evidence of superficial venous insufficiency. 2. No evidence of deep venous insufficiency. 3. Few nonrefluxing varicosities identified in the right mid thigh. 4. No evidence of DVT.
== END 2021-02-17 07:52 | disposition home or self-care (01) ==
LOC: HO.US 07:51
PROVIDERS: PCP Internal Medicine; Visit Provider Surgery Vascular Surgery
DX: I83.11 Varicose veins of right lower extremity with inflammation (principal)
CPT/HCPCS: 93970

== ENCOUNTER → 2021-02-24 13:49 | Outpatient (BNVA) | payer OTHER, MEDICAID, SELFPAY | PROVIDERS: PCP Internal Medicine; Visit Provider Surgery Vascular Surgery ==

== ENCOUNTER 2021-09-13 02:03 | Emergency (ER) | payer MEDICAID, SELFPAY ==
--- NOTE | 2021-09-13 02:11 | ECG_ITS ---
Test Reason : ALTERED MENTAL Blood Pressure : / mmHG Vent. Rate : 081 BPM Atrial Rate : 081 BPM P-R Int : 144 ms QRS Dur : 086 ms QT Int : 386 ms P-R-T Axes : 051 012 048 degrees QTc Int : 448 ms Normal sinus rhythm Cannot rule out Anterior infarct , age undetermined Abnormal ECG When compared with ECG of 20-JUL-2020 17:22, No significant change was found Referred By: Ana Cortez Electronically Signed By:ISABELLA MENDOZA
[2021-09-13 02:25] VITALS: BP 119/66; BP 123/71; PULSE 81; PULSE 89; RESP 16; TEMP 36.9; O2SAT 94; O2SAT 95; BMI 41.8
[2021-09-13 02:37] LABS: Glucose, Whole Blood 262 mg/dL (60-115)
--- NOTE | 2021-09-13 02:38 | ED.AMS ---
HPI - Altered Mental Status General Chief Complaint: Altered Mental Status Stated Complaint: altered mental Time Seen by Provider: 09/13/21 02:11 Source: patient and EMS Mode of arrival: EMS History of Present Illness HPI narrative: 60-year-old male with history of diabetes who is brought in by EMS who reports that patient has altered mental status. As per EMS patient was found by the police department sleeping in his car outside of [facility]. patient endorses to me that he has consumed 212 packs and then apparently informed the nursing staff that he did 2 bags of heroin. He denies any shortness of breath, chest pain / palpitations, GI or symptoms. Related Data Home Medications Medication Instructions Recorded Confirmed albuterol sulfate 90 mcg/actuation 2 puff inhalation Q6H PRN 01/09/20 04/20/20 aerosol inhaler (ProAir HFA) Shortness Of Breath aspirin 81 mg tablet,delayed 81 mg PO DAILY 01/09/20 04/20/20 release (Adult Low Dose Aspirin) atorvastatin 80 mg tablet 80 mg PO DAILY 01/09/20 04/20/20 buprenorphine 12 mg-naloxone 3 mg 1 film buccal Q24H 01/09/20 04/20/20 sublingual film (Suboxone) clonidine HCl 0.1 mg tablet 0.1 mg PO BEDTIME PRN anxiety 01/09/20 04/20/20 lisinopril 40 mg tablet 40 mg PO DAILY 01/09/20 04/20/20 pantoprazole 40 mg tablet,delayed 40 mg PO DAILY 01/09/20 04/20/20 release blood sugar diagnostic (FreeStyle #10 ea 03/10/20 04/20/20 Test strips) citalopram 40 mg tablet 40 mg PO DAILY 03/10/20 04/20/20 lancets 28 gauge (FreeStyle #100 ea 03/10/20 04/20/20 Lancets) loratadine 10 mg capsule 10 mg PO DAILY 03/10/20 04/20/20 primidone 50 mg tablet 50 mg PO BEDTIME 03/10/20 04/20/20 metformin 500 mg tablet,extended 2,000 mg PO QAM 03/12/20 04/20/20 release 24 hr Previous Rx's Medication Instructions Recorded bisacodyl 5 mg tablet,delayed 10 mg PO ONCE 1 day #2 tabs 01/09/20 release (Dulcolax (bisacodyl)) polyethylene glycol 3350 17 17 g PO ONCE #510 grams 01/09/20 gram/dose oral powder (Miralax) dulaglutide 3 mg/0.5 mL 3 mg (0.5 mL) subcut QWEEK 30 days 04/20/20 subcutaneous pen injector #2.5 mL (Trulicity) insulin glargine U-300 conc 300 80 unit (0.2667 mL) subcut QAM 30 04/20/20 unit/mL (3 mL) subcutaneous pen days #12 mL (Toujeo Max U-300 SoloStar) insulin lispro 100 unit/mL 10 unit (0.1 mL) subcut DAILY 30 04/20/20 subcutaneous pen (Humalog KwikPen days #15 mL (U-100) Insulin) pen needle, diabetic 32 gauge x #100 ea 04/20/20 (BD Ashly 2nd Gen Pen Needle) fredi.stocking,knee,reg,xlrg #12 ea 07/20/20 furosemide 40 mg tablet (Lasix) 40 mg PO QAM #7 tabs 07/20/20 cyclobenzaprine 10 mg tablet 10 mg PO BEDTIME PRN muscle spasm 02/02/21 #7 tabs lidocaine 5 % topical patch 1 patch topical DAILY PRN pain #15 02/02/21 ea naproxen 500 mg tablet 500 mg PO BID PRN pain #14 tabs 02/02/21 Allergies Allergy/AdvReac Type Severity Reaction Status Date / Time sulfamethoxazole Allergy Intermediate RASH Verified 02/24/21 13:56 [From BACTRIM DS] trimethoprim Allergy Intermediate RASH Verified 02/24/21 13:56 [From BACTRIM DS] Penicillins Allergy Mild all Verified 02/24/21 13:56 Review of Systems Review of Systems: Pertinent positives and negatives as stated in HPI 10 point review of systems is otherwise negative. 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 Morbid obesity Polysubstance abuse Sleep apnea Tubular adenoma Surgical History H/O hernia repair H/O knee surgery Hx of colonoscopy Status post laser lithotripsy of ureteral calculus Family History Family History Father Diabetes Glaucoma Mother Diabetes HTN (hypertension) Asthma Diabetic kidney Brother Spinal cord injuries Diabetes Sister Asthma Social History Social History Household Members: Family Alcohol intake: current Alcohol intake frequency: a few times a week Patient Tobacco Use Status: Never used Tobacco Substance Use Type: Heroin Advance Directives: No Advance Directives Information Provided: Yes Current occupational status: employed Current occupation: [employer] Physical Exam ED Vital Signs: Vital Signs - 24 hr 09/13/21 02:25 09/13/21 03:51 Temperature 98.4 F Pulse Rate 81 78 Respiratory Rate 16 16 Blood Pressure 119/66 Pulse Oximetry 94 93 Oxygen Delivery Method Room Air Room Air BMI result Body Mass Index 41.8 VITAL SIGNS: Reviewed. GENERAL: Well developed, well nourished, in no acute distress. HEAD: Normocephalic/atraumatic EYES: PERRLA, EOMI EARS: Ext canals without abnormality OROPHARYNX: no oral lesions noted, posterior pharynx clear LUNGS: Normal breath sounds. No adventitious sounds or accessory muscle use. SpO2<94> CARDIOVASCULAR: Regular rate and rhythm without noted murmurs, no JVD or lower extremity edema. ABDOMEN: Soft, non-tender, non-distended with bowel sounds. MUSCULOSKELETAL: No tenderness, deformities, or effusions noted on gross inspection. EXTREMITIES: No cyanosis, clubbing or edema. SKIN: Inspection of the skin reveals no rashes NEUROLOGIC: Drowsy but easily arousedand oriented x 3. Strength and sensation to light touch were grossly intact x 4. Course Course Course Narrative: 60-year-old male with history and clinical presentation consistent with alcohol and drug use will evaluate and ensure patient is not in DKA / HHS or having any other medical issue and will otherwise allow patient to sober up. CRISTOPHER eval will be [placed And patient will be provided with home Narcan. Patient's sister will be here in 15-20 minutes and he is currently declining any CRISTOPHER evaluation. MDM - Altered Mental Status Lab Data Result diagrams: 09/13/21 03:48 09/13/21 03:48 Labs: Lab Results 09/13/21 09/13/21 09/13/21 Range/Units 02:21 03:48 03:48 WBC 10.9 H (4.8-10.8) X10*3/uL RBC 4.36 L (4.60-5.80) X10*6/uL Hgb 13.5 L (14.0-18.0) g/dl Hct 40.6 L (42.0-52.0) % MCV 93.1 (80.0-98.0) fL MCH 31.0 (27.0-33.0) pg MCHC 33.3 (31.0-36.0) g/dl RDW 12.7 (11.0-16.0) % Plt Count 257 (160-400) X10*3/uL MPV 11.3 (9.4-12.4) fL Immature Gran % (Auto) 0.3 (0.0-0.4) % Neut % (Auto) 64.2 (45-73) % Lymph % (Auto) 26.0 (20-40) % Gulf % (Auto) 5.3 (2-11) % Eos % (Auto) 3.6 (0-4) % Baso % (Auto) 0.6 (0-2) % Lymph # (Auto) 2.8 (1.2-4.9) X10*3/uL Gulf # (Auto) 0.6 (0.1-1.2) X10*3/uL Eos # (Auto) 0.4 (0.0-0.4) X10*3/uL Baso # (Auto) 0.1 (0.0-0.2) X10*3/uL Abs Immat Gran (auto) 0.03 (0.00-0.03) X10*3/uL Absolute Neuts (auto) 7.0 (2.0-8.3) x10*3/uL Absolute Nucleated RBC 0.000 (0.0-0.012) X10*3/uL Nucleated RBC % (auto) 0.0 (0.0-0.2) /100WBC VBG pH (7.32-7.43) VBG pCO2 mmHg VBG pO2 mmHg VBG HCO3 (22-26) mmol/L VBG O2 Saturation % VBG Base Excess mmol/L Sodium 137 (135-145) mmol/L Potassium 4.3 (3.3-5.1) mmol/L Chloride 98 (96-108) mmol/L Carbon Dioxide 29 (22-29) mmol/L Anion Gap 14 (12-20) BUN 28 H (9-16) mg/dL Creatinine 1.45 H (0.5-1.4) mg/dL Estim Creat Clear Calc 61.1 Estimated GFR 50 POC Glucose 262 H (60-115) mg/dL Random Glucose 291 H D (60-115) mg/dL Calcium 9.1 (8.4-10.2) mg/dL Total Bilirubin 1.0 (0.0-1.0) mg/dL AST 13 (5-37) U/L ALT 9 (0-40) U/L Alkaline Phosphatase 114 (39-117) U/L Total Protein 7.0 (6.5-8.0) g/dL Albumin 4.0 (3.5-5.0) g/dL Ethyl Alcohol mg/dL 09/13/21 09/13/21 Range/Units 03:48 03:50 WBC (4.8-10.8) X10*3/uL RBC (4.60-5.80) X10*6/uL Hgb (14.0-18.0) g/dl Hct (42.0-52.0) % MCV (80.0-98.0) fL MCH (27.0-33.0) pg MCHC (31.0-36.0) g/dl RDW (11.0-16.0) % Plt Count (160-400) X10*3/uL MPV (9.4-12.4) fL Immature Gran % (Auto) (0.0-0.4) % Neut % (Auto) (45-73) % Lymph % (Auto) (20-40) % Gulf % (Auto) (2-11) % Eos % (Auto) (0-4) % Baso % (Auto) (0-2) % Lymph # (Auto) (1.2-4.9) X10*3/uL Gulf # (Auto) (0.1-1.2) X10*3/uL Eos # (Auto) (0.0-0.4) X10*3/uL Baso # (Auto) (0.0-0.2) X10*3/uL Abs Immat Gran (auto) (0.00-0.03) X10*3/uL Absolute Neuts (auto) (2.0-8.3) x10*3/uL Absolute Nucleated RBC (0.0-0.012) X10*3/uL Nucleated RBC % (auto) (0.0-0.2) /100WBC VBG pH 7.37 (7.32-7.43) VBG pCO2 55 mmHg VBG pO2 37 mmHg VBG HCO3 33 H (22-26) mmol/L VBG O2 Saturation 59.0 % VBG Base Excess 6.1 mmol/L Sodium (135-145) mmol/L Potassium (3.3-5.1) mmol/L Chloride (96-108) mmol/L Carbon Dioxide (22-29) mmol/L Anion Gap (12-20) BUN (9-16) mg/dL Creatinine (0.5-1.4) mg/dL Estim Creat Clear Calc Estimated GFR POC Glucose (60-115) mg/dL Random Glucose (60-115) mg/dL Calcium (8.4-10.2) mg/dL Total Bilirubin (0.0-1.0) mg/dL AST (5-37) U/L ALT (0-40) U/L Alkaline Phosphatase (39-117) U/L Total Protein (6.5-8.0) g/dL Albumin (3.5-5.0) g/dL Ethyl Alcohol < 10 mg/dL ECG Data ECG #1: Attestation: I personally reviewed and interpreted this ECG as follows: Prior ECG tracings: available for review Interpretation: normal sinus rhythm, HR- 81, no STEMI, MD/QRS/QTC is within normal limits. Discharge Plan Discharge Clinical Impression: Substance use disorder, Heroin use Patient Disposition: Home, Self-Care Instructions: Opioid Use Disorder (ED) Additional Instructions: 1. Stop taking drugs. 2. Drink plenty of water and resume any and all home medications as prescribed. Return to the ER for any worsening of symptoms. Prescriptions: No Action metformin 500 mg tablet extended release 24 hr 2,000 mg PO QAM furosemide [Lasix] 40 mg tablet 40 mg PO QAM Qty: 7 0RF (DME) fredi.stocking,knee,reg,xlrg Misc See Rx Instructions .ROUTE .MEDSUPPLY Qty: 12 0RF Rx Instructions: As directed cyclobenzaprine 10 mg tablet 10 mg PO BEDTIME PRN (Reason: muscle spasm) Qty: 7 0RF naproxen 500 mg tablet 500 mg PO BID PRN (Reason: pain) Qty: 14 0RF Rx Instructions: Take with food lidocaine 5 % adhesive patch,medicated 1 patch topical DAILY PRN (Reason: pain) Qty: 15 0RF Rx Instructions: leave on most painful area for up to 12 hrs primidone 50 mg tablet 50 mg PO BEDTIME loratadine 10 mg capsule 10 mg PO DAILY citalopram 40 mg tablet 40 mg PO DAILY (DME) lancets [FreeStyle Lancets] [facility] See Rx Instructions .ROUTE .MEDSUPPLY Qty: 100 Rx Instructions: As directed (DME) FreeStyle Test Strip See Rx Instructions .ROUTE .MEDSUPPLY Qty: 10 Rx Instructions: As directed aspirin [Adult Low Dose Aspirin] 81 mg tablet,delayed release (DR/EC) 81 mg PO DAILY lisinopril 40 mg tablet 40 mg PO DAILY atorvastatin 80 mg tablet 80 mg PO DAILY pantoprazole 40 mg tablet,delayed release (DR/EC) 40 mg PO DAILY albuterol sulfate [ProAir HFA] 90 mcg/actuation HFA aerosol inhaler 2 puff inhalation Q6H PRN (Reason: Shortness Of Breath) buprenorphine-naloxone [Suboxone] 12-3 mg film 1 film buccal Q24H clonidine HCl 0.1 mg tablet 0.1 mg PO BEDTIME PRN (Reason: anxiety) bisacodyl [Dulcolax (bisacodyl)] 5 mg tablet,delayed release (DR/EC) 10 mg PO ONCE 1 Days Qty: 2 0RF Rx Instructions: take 2 tabs at noon the day before your colonoscopy polyethylene glycol 3350 [Miralax] 17 gram/dose powder 17 g PO ONCE Qty: 510 0RF Rx Instructions: As directed by gastroenterology department at [facility] Elisa Max U-300 SoloStar 300 unit/mL (3 mL) insulin pen 80 unit SUBCUT QAM 30 Days Qty: 12 6RF insulin lispro [Humalog KwikPen Insulin] 100 unit/mL insulin pen 10 unit subcut DAILY 30 Days Qty: 15 4RF Rx Instructions: 10 units with dinner only Trulicity 3 mg/0.5 mL pen injector 3 mg subcut QWEEK 30 Days Qty: 2.5 6RF Rx Instructions: Dose increased to 3 mg weekly (DME) pen needle, diabetic [BD Ashly 2nd Gen Pen Needle] 32 gauge x 5/32 needle See Rx Instructions .MEDSUPPLY Qty: 100 4RF Rx Instructions: Twice a day
[2021-09-13 03:51] VITALS: PULSE 78; RESP 16; O2SAT 93
[2021-09-13 03:53] LABS: MANUAL DIFF FLAG NO
[2021-09-13 03:54] LABS: Basophils Absolute Auto 0.1 X10*3/uL (0.0-0.2); Basophils Percent Auto 0.6 % (0-2); Eosinophils Absolute Auto 0.4 X10*3/uL (0.0-0.4); Eosinophils Percent Auto 3.6 % (0-4); Hematocrit 40.6 % (42.0-52.0); Hemoglobin 13.5 g/dl (14.0-18.0); Imm Gran Abs Auto 0.03 X10*3/uL (0.00-0.03); Imm Gran Pct Auto 0.3 % (0.0-0.4); Lymphocytes Absolute Auto 2.8 X10*3/uL (1.2-4.9); Mean Corpuscular HGB Conc 33.3 g/dl (31.0-36.0); Mean Corpuscular Volume 93.1 fL (80.0-98.0); Mean Platelet Volume 11.3 fL (9.4-12.4); Monocytes Absolute Auto 0.6 X10*3/uL (0.1-1.2); Monocytes Percent Auto 5.3 % (2-11); Neutrophils Percent Auto 64.2 % (45-73); Platelet Count 257 X10*3/uL (160-400); Red Blood Count 4.36 X10*6/uL (4.60-5.80); Red Cell Distribution Width 12.7 % (11.0-16.0); White Blood Count 10.9 X10*3/uL (4.8-10.8)
[2021-09-13 03:57] LABS: Venous Blood Gas Refer to POC result
[2021-09-13 03:57] LABS: VBG Base Excess 6.1 mmol/L; VBG HCO3 33 mmol/L (22-26); VBG pCO2 55 mmHg; VBG pH 7.37 (7.32-7.43); VBG pO2 37 mmHg
[2021-09-13] MEDS: Naloxone HCl Nasal TAKE HOME 4 MG SPRAY NOSTRILALT (04:08)
--- NOTE | 2021-09-13 04:08 | PC.NURSE ---
Fiorella left at bed side for pt to take home.
[2021-09-13 04:10] LABS: Ethanol < 10 mg/dL
[2021-09-13 04:14] LABS: Alanine Aminotransferase 9 U/L (0-40); Alkaline Phosphatase 114 U/L (39-117); Anion Gap 14 (12-20); Aspartate Amino Transferase 13 U/L (5-37); Blood Urea Nitrogen 28 mg/dL (9-16); Calcium 9.1 mg/dL (8.4-10.2); Carbon Dioxide 29 mmol/L (22-29); Chloride 98 mmol/L (96-108); Creatinine Clr Calc Pharmacy 61.1; Estimated Glomerular Filt Rate 50; Glucose Random 291 mg/dL (60-115); Potassium 4.3 mmol/L (3.3-5.1); Sodium 137 mmol/L (135-145)
== END 2021-09-13 06:22 | disposition home or self-care (01) ==
PROVIDERS: Emergency Provider Student in an Organized Health Care Education/Training Program
DX: F19.10 Other psychoactive substance abuse, uncomplicated (principal); E11.9 Type 2 diabetes mellitus without complications; I10 Essential (primary) hypertension; E78.5 Hyperlipidemia, unspecified; E66.01 Morbid (severe) obesity due to excess calories; Z68.41 Body mass index [BMI] 40.0-44.9, adult; Z79.82 Long term (current) use of aspirin; Z79.02 Long term (current) use of antithrombotics/antiplatelets; Z79.899 Other long term (current) drug therapy; Z79.4 Long term (current) use of insulin
CPT/HCPCS: 36415; 80053; 82077; 82803; 82947; 85025; 93005; 99283

== ENCOUNTER 2022-01-26 06:51 | Outpatient (REF) | payer MEDICAID, SELFPAY ==
--- NOTE | ~2022-01-26 | XR_ITS ---
EXAMINATION: BILATERAL AP KNEE STANDING. LEFT KNEE 2 VIEWS CLINICAL INFORMATION: Pain left knee COMPARISON: None TECHNIQUE: AP bilateral knee standing. Left knee 2 views. FINDINGS: AP bilateral knee: There is severe loss of medial compartment joint space with periarticular spurring. The lateral compartment joint space is maintained normal. No visible acute fracture, dislocation subluxation seen. There is no bony erosive changes. Left knee: There is severe loss of patellofemoral and medial compartment joint space. No visible acute fracture, dislocation or subluxation seen. There are no loose bodies. No suprapatellar joint effusion. XR/XR knee standing BI IMPRESSION: Severe degenerative arthritic changes both knees worse in the medial compartment. Mild degenerative changes patellofemoral compartment left knee. . No visible acute fracture, dislocation or subluxation seen.
--- NOTE | ~2022-01-26 | XR_ITS ---
EXAMINATION: BILATERAL AP KNEE STANDING. LEFT KNEE 2 VIEWS CLINICAL INFORMATION: Pain left knee COMPARISON: None TECHNIQUE: AP bilateral knee standing. Left knee 2 views. FINDINGS: AP bilateral knee: There is severe loss of medial compartment joint space with periarticular spurring. The lateral compartment joint space is maintained normal. No visible acute fracture, dislocation subluxation seen. There is no bony erosive changes. Left knee: There is severe loss of patellofemoral and medial compartment joint space. No visible acute fracture, dislocation or subluxation seen. There are no loose bodies. No suprapatellar joint effusion. XR/XR knee LT 2V IMPRESSION: Severe degenerative arthritic changes both knees worse in the medial compartment. Mild degenerative changes patellofemoral compartment left knee. . No visible acute fracture, dislocation or subluxation seen.
== END 2022-01-26 06:52 | disposition home or self-care (01) ==
LOC: HO.HOSX 06:51
PROVIDERS: Visit Provider Physician Assistant
DX: M17.11 Unilateral primary osteoarthritis, right knee (principal); M25.562 Pain in left knee
CPT/HCPCS: 20610; 73560; 73565; 99202; J1020

== ENCOUNTER 2022-12-05 08:44 | Inpatient (IN) | payer MEDICAID, SELFPAY ==
[2022-12-05] VITALS (9 sets, daily range): BP systolic 98–135; BP diastolic 52–69; PULSE 88–111; RESP 14–18; TEMP 36.1–37.9; O2SAT 94–99; BMI 42.9
--- NOTE | ~2022-12-05 | MR_ITS ---
MRI OF THORACIC AND LUMBAR SPINE WITH AND WITHOUT IV CONTRAST INDICATION: Question back trauma. Incontinence of urine. COMPARISON: Thoracolumbar spine CT dated 12/05/2022. Technique: Multiplanar multisequence MR imaging of the thoracolumbar spine obtained before and following the administration of 10 mL of Gadavist intravenous contrast without complication. FINDINGS: THORACIC SPINE MRI: 12 rib bearing thoracic type vertebral bodies. There is a thoracic kyphosis. Moderate to severe disc volume loss at the mid to lower thoracic levels. Modic type I endplate signal changes at T6-T7. No additional bone marrow edema. No acute fractures. No suspicious enhancing intraosseous lesions. There is no pathologic intrathecal enhancement. There are multilevel endplate osteophytes. Chronic endplate Schmorl's nodes at the mid to lower thoracic levels. Nondiagnostic assessment for thoracic cord signal abnormality due to the degree of significant artifact. Paracentral disc protrusions throughout the thoracic spine, the largest at the T5-T6, T6-T7, T7-T8, T8-T9, T9-T10, and T10-T11 levels that mildly flatten the ventral cord at these levels without resulting in significant central canal stenosis. Disc osteophyte and facet arthropathy result in varying degrees of moderate to severe foraminal stenosis bilaterally at the mid to lower thoracic levels. Partially imaged disc osteophyte protrusions at C5-C6 and C6-C7 mildly narrow the central canal at these levels. LUMBAR SPINE MRI: Transitional anatomy with lumbarization of S1 and articulating transverse processes at L1. Bilateral L5 pars defects associated with grade 1 spondylolytic anterolisthesis of L5 on S1 that along with uncovered disc and a diffuse annular disc bulge result in severe bilateral foraminal stenosis with severe compression of the exiting L5 nerve roots bilaterally at L5-S1. There is a thickened fatty filum terminale that is anteriorly positioned at the L2-L4 levels without any enhancing lesion nor collection displacing the thickened fatty filum. Conus is normally positioned however correlation for any tethering symptoms is advised given the history. There are no suspicious enhancing intraosseous lesions. There is no pathologic intrathecal enhancement. There is no pathologic enhancement along the cauda equina nerve roots accounting for artifact. There is no bone marrow edema. There are no acute fractures. Mild chronic upper endplate height loss at the L3-L4 levels and mild chronic inferior endplate height loss at L5. Other than at L5-S1, the remaining lumbar disc contours remain within normal limits and there is no central canal stenosis nor significant foraminal stenosis at the remaining lumbar levels. MR/MR thoracic spine wo/w con IMPRESSION: - No acute fractures within the thoracic spine. Thoracic kyphosis and multilevel thoracic spondylosis. Paracentral disc protrusions throughout the thoracic spine, the largest at the T5-T6, T6-T7, T7-T8, T8-T9, T9-T10, and T10-T11 levels that mildly flatten the ventral cord at these levels without resulting in significant central canal stenosis. Disc osteophyte and facet arthropathy result in varying degrees of moderate to severe foraminal stenosis bilaterally at the mid to lower thoracic levels. Nondiagnostic assessment for thoracic cord signal changes due to the degree of artifact obscuring the thoracic spinal cord. - Bilateral L5 pars defects associated with grade 1 spondylolytic anterolisthesis of L5 on S1 that along with uncovered disc and a diffuse annular disc bulge result in severe bilateral foraminal stenosis with severe compression of the exiting L5 nerve roots bilaterally at L5-S1. - There is a thickened fatty filum terminale that is anteriorly positioned at the L2-L4 levels without any enhancing lesion nor collection displacing the thickened fatty filum. Conus is normally positioned however correlation for any tethering symptoms is advised given the history. Nonspecific undulation of the cauda equina nerve roots without any enhancement nor significant thickening on the axial series. If there is high clinical suspicion for CSF pathology, a lumbar puncture could be performed.
--- NOTE | ~2022-12-05 | CT_ITS ---
CT CERVICAL SPINE WITHOUT IV CONTRAST CT THORACIC SPINE WITHOUT IV CONTRAST CT LUMBAR SPINE WITHOUT IV CONTRAST INDICATION: Weakness. Unable to ambulate. Back pain. COMPARISON: Cervical spine CT 02/02/2021. TECHNIQUE: Multidetector CT acquisitions of the head, maxillofacial region, and cervical spine were obtained without IV contrast. Multiplanar reformats were acquired and utilized for image interpretation. This CT examination was performed using dose optimization techniques as appropriate, variously including the following: *Automated exposure control *Adjustment of mA and/or kV according to patient size (this includes techniques or standardized protocols for targeted exams where dose is matched to indication/reason for exam; i.e. extremities or head) *Use of iterative reconstruction technique FINDINGS: Straightening of the cervical lordosis. The vertebral body heights are maintained. There is moderate disc volume loss at C6-C7 and C7-T1. There are no acute fractures and there are no acute subluxations with assessment partially limited by the degree of motion artifact. Patient's head is tilted to the left side. Nondiagnostic assessment of the central canal the cervical spine due to significant motion artifact. Uncovertebral joint spurring and facet arthropathy result in moderate right-sided bony foraminal encroachment at C6-C7 and mild foraminal encroachment at the remaining cervical levels. Bilateral mastoid effusions. There are 12 rib-bearing thoracic type vertebral bodies. Midthoracic kyphosis. There is severe disc volume loss at the mid to lower thoracic levels with associated vacuum phenomenon and multilevel endplate osteophytes. There is vacuum phenomenon within a few paracentral disc herniations. There is multilevel hypertrophic facet arthropathy. There are paracentral disc osteophyte protrusions at the mid to lower thoracic levels which are not well assessed on CT due to the degree of artifact obscuring the thoracic central canal. Small lymph nodes throughout the mediastinum. There are trickling transverse processes bilaterally at L1. S1 is lumbarized sharing a rudimentary disc with S2. There are bilateral L5 pars defects associated with grade 1 spondylolytic anterolisthesis of L5 and S1 that along with uncovered disc results in severe bilateral foraminal stenosis with compression of the exiting L5 nerve roots bilaterally. There is a thickened fatty filum terminale that appears anteriorly displaced at the L2-L4 level. Lumbar spine MRI with and without IV contrast is recommended to exclude intrathecal/epidural pathology to explain this finding given the patient's symptoms. Vertebral body heights are maintained. Nonobstructing left renal calculus. CT/CT thoracic spine wo IV con IMPRESSION: - There is a thickened fatty filum terminale that appears anteriorly displaced at the L2-L4 level. Lumbar spine MRI with and without IV contrast is recommended to exclude intrathecal/epidural pathology to explain this finding given the patient's symptoms. - Transitional anatomy within the lumbar spine as described with articulating transverse processes at L1 and lumbarization of S1. There are bilateral L5 pars defects associated with grade 1 spondylolytic anterolisthesis of L5 and S1 that along with uncovered disc results in severe bilateral foraminal stenosis with compression of the exiting L5 nerve roots bilaterally. - Moderate to severe mid to lower thoracic spondylosis. There are multilevel paracentral disc osteophyte protrusions or not well characterized on CT and there is nondiagnostic assessment of the central canal due to the degree of artifact. If there is any clinical concern for thoracic myelopathy/thoracic cord compression, a MRI would be recommended for further assessment. Disc osteophyte and facet arthropathy result in varying degrees of moderate to severe bony foraminal stenosis at the mid to lower thoracic levels. There is a thoracic kyphosis. - Very limited and partially nondiagnostic cervical spine CT due to significant motion artifact. There is nondiagnostic assessment of the central canal throughout the cervical spine and if there is any clinical concern for cervical myelopathy/cord compression, a MRI would be recommended for further assessment. Uncovertebral joint spurring and facet arthropathy result in moderate right-sided bony foraminal encroachment at C6-C7 and mild foraminal encroachment at the remaining cervical levels.
--- NOTE | ~2022-12-05 | XR_ITS ---
EXAMINATION: XR CHEST CLINICAL INFORMATION: Altered mental status COMPARISON: Chest 02/02/2021 TECHNIQUE: AP upright view of the chest was obtained. 09:55 FINDINGS: The lungs are well expanded. Trace linear density in the right midlung most likely represents atelectasis. No convincing evidence of focal consolidation. No interstitial pulmonary edema or pneumothorax. No pleural effusion. Again noted is mild elevation the right hemidiaphragm. No significant abnormality is noted involving the heart, mediastinum, bony thorax or soft tissues. XR/XR chest 1V IMPRESSION: No significant cardiopulmonary disease.
--- NOTE | ~2022-12-05 | CT_ITS ---
EXAMINATION: CT HEAD WITHOUT CONTRAST CLINICAL INFORMATION: Headache. Altered mental status. Weakness. COMPARISON: None available. TECHNIQUE: Contiguous axial imaging was performed from the skull base to vertex without intravenous administration of contrast. This CT examination was performed using dose optimization techniques as appropriate, variously including the following: *Automated exposure control. *Adjustment of mA and/or kV according to patient size (this includes techniques or standardized protocols for targeted exams where dose is matched to indication/reason for exam; i.e. extremities or head). *Use of iterative reconstruction technique. DLP: 982 mGy-cm FINDINGS: There is no evidence of acute intracranial hemorrhage or edematous territorial infarction. Freed-white matter differentiation is preserved. A few foci of hypoattenuation in the periventricular and deep white matter are consistent with mild microangiopathy. Proportional prominence of the ventricles and sulcal spaces without evidence of obstructive hydrocephalus. No abnormal mass effect or midline shift. No extra-axial fluid collections. Calcific atherosclerotic disease of the intracranial internal carotid and vertebral arteries. No hyperdense vessel sign. Moderate subgaleal hematoma along the left posterior vertex, measuring up to 1.2 cm in depth. Associated acute osseous abnormalities. Mild mucosal thickening of the paranasal sinuses. Multifocal odontogenic enamel erosions and periapical lucencies. Moderate left-sided mastoid effusion. The right-sided mastoid air cells and middle ear cavity are clear. Multifocal odontogenic enamel erosions and periapical lucencies. CT/CT head/brain wo IV con IMPRESSION: 1. No evidence of acute intracranial hemorrhage or edematous territorial infarction. 2. Moderate left posterior scalp hematoma. No associated osseous abnormalities.
--- NOTE | 2022-12-05 09:27 | ECG_ITS ---
Test Reason : ams Blood Pressure : / mmHG Vent. Rate : 093 BPM Atrial Rate : 093 BPM P-R Int : 138 ms QRS Dur : 072 ms QT Int : 368 ms P-R-T Axes : 071 035 070 degrees QTc Int : 457 ms Sinus rhythm with occasional Premature ventricular complexes Septal infarct (cited on or before 13-SEP-2021) Abnormal ECG When compared with ECG of 13-SEP-2021 02:19, Premature ventricular complexes are now Present Referred By: Annmarie Medellin Electronically Signed By:JOSÉ MIGUEL CASTELLON MD
[2022-12-05 09:44] LABS: Glucose, Whole Blood 474 mg/dL (60-115)
--- NOTE | 2022-12-05 09:53 | ED.GENADULT ---
HPI - General Adult General Chief complaint: Altered Mental Status Stated complaint: HBS-unable to walk/vision issues Time Seen by Provider: 12/05/22 09:53 Source: patient, RN notes reviewed and old records reviewed Mode of arrival: ambulatory History of Present Illness HPI narrative: 62-year-old male with a past medical history of tubular adenoma, polysubstance abuse, sleep apnea, obesity, diabetes, HLD, HTN, asthma, presenting to the ED with sister complaining of weakness, confusion, hyperglycemia, and inability to ambulate x1 week. Sister reports patient was arrested last week, kneeled on by personnel training officer & threw into vehicle w/+LOC. Sister picked patient up from incarceration yesterday & patient was wheelchaired out to her, per officers has not ambulated since his arrest. At baseline patient is A&Ox3 & ambulatory. 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 Patient admits to right-sided neck pain & arm pain with lower extremity weakness & also urinary incontinence x few weeks. Denies chest pain/shortness of breath, abdominal pain, nausea/vomiting Onset (ago): week(s) Related Data Home Medications Medication Instructions Recorded Confirmed albuterol sulfate 90 mcg/actuation 2 puff inhalation Q6H PRN 01/09/20 04/20/20 aerosol inhaler (ProAir HFA) Shortness Of Breath aspirin 81 mg tablet,delayed 81 mg PO DAILY 01/09/20 04/20/20 release (Adult Low Dose Aspirin) atorvastatin 80 mg tablet 80 mg PO DAILY 01/09/20 04/20/20 clonidine HCl 0.1 mg tablet 0.1 mg PO BEDTIME PRN anxiety 01/09/20 04/20/20 lisinopril 40 mg tablet 40 mg PO DAILY 01/09/20 04/20/20 pantoprazole 40 mg tablet,delayed 40 mg PO DAILY 01/09/20 04/20/20 release blood sugar diagnostic (FreeStyle #10 ea 03/10/20 04/20/20 Test strips) citalopram 40 mg tablet 40 mg PO DAILY 03/10/20 04/20/20 lancets 28 gauge (FreeStyle #100 ea 03/10/20 04/20/20 Lancets) loratadine 10 mg capsule 10 mg PO DAILY 03/10/20 04/20/20 primidone 50 mg tablet 50 mg PO BEDTIME 03/10/20 04/20/20 metformin 500 mg tablet,extended 2,000 mg PO QAM 03/12/20 04/20/20 release 24 hr Previous Rx's Medication Instructions Recorded bisacodyl 5 mg tablet,delayed 10 mg (2 x 5 mg) PO ONCE 1 day #2 01/09/20 release (Dulcolax (bisacodyl)) tabs polyethylene glycol 3350 17 17 g PO ONCE #510 grams 01/09/20 gram/dose oral powder (Miralax) dulaglutide 3 mg/0.5 mL 3 mg (0.5 mL) subcut QWEEK 30 days 04/20/20 subcutaneous pen injector #2.5 mL (Trulicity) insulin glargine U-300 conc 300 80 unit (0.2667 mL) subcut QAM 30 04/20/20 unit/mL (3 mL) subcutaneous pen days #12 mL (Toujeo Max U-300 SoloStar) insulin lispro 100 unit/mL 10 unit (0.1 mL) subcut DAILY 30 04/20/20 subcutaneous pen (Humalog KwikPen days #15 mL (U-100) Insulin) fredi.stocking,knee,reg,xlrg #12 ea 07/20/20 cyclobenzaprine 10 mg tablet 10 mg PO BEDTIME PRN muscle spasm 02/02/21 #7 tabs lidocaine 5 % topical patch 1 patch topical DAILY PRN pain #15 02/02/21 ea naproxen 500 mg tablet 500 mg PO BID PRN pain #14 tabs 02/02/21 pen needle, diabetic 32 gauge x #100 ea 02/08/22 (BD Ashly 2nd Gen Pen Needle) Allergies Allergy/AdvReac Type Severity Reaction Status Date / Time sulfamethoxazole Allergy Intermediate RASH Verified 01/26/22 14:55 [From BACTRIM DS] trimethoprim Allergy Intermediate RASH Verified 01/26/22 14:55 [From BACTRIM DS] Penicillins Allergy Mild all Verified 01/26/22 14:55 Review of Systems Review of Systems: Constitutional: No Fever, No Chills, No Fatigue, No Malaise ENT/Mouth: No Ear Pain, No Nasal Congestion, No sore throat, No Rhinorrhea, No Swallowing Difficulty Eyes: No Eye Pain, No Swelling, No Redness, No Vision Changes Cardiovascular: No Chest Pain, No SOB, No Edema, No Palpitations Respiratory: No Cough, No Dyspnea Gastrointestinal: No Nausea, No Vomiting, No Diarrhea, No Constipation, No Abdominal pain Genitourinary: No Dysuria, No Urinary Frequency, No Hematuria, +Urinary Incontinence, No retention, No Flank Pain, No Urinary Flow Changes Musculoskeletal: No joint pain, No Myalgias, No Joint Swelling Skin: No Skin Lesions, No rash Neuro: +Confusion, +Weakness, No Numbness, No Paresthesias, + Loss of Consciousness, No Dizziness, + Headache Yes all other systems are reviewed and are negative Constitutional: Constitutional: Reports as per HPI Neurologic: Denies Abnormal speech present and Denies Sensory deficit (Neuro) (No saddle anesthesia) [facility] Past Medical History Attestation statement: The following information was validated with the patient. 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 Diabetes type 2, uncontrolled Hypercholesteremia HTN (hypertension) Asthma Surgical History Hx of colonoscopy Status post laser lithotripsy of ureteral calculus H/O knee surgery H/O hernia repair Family History Family History Father Diabetes Glaucoma Mother Diabetes HTN (hypertension) Asthma Diabetic kidney Brother Spinal cord injuries Diabetes Sister Asthma Social History Social History Household Members: Family Alcohol intake: current Alcohol intake frequency: a few times a week Patient Tobacco Use Status: Never used Tobacco Smoked in Last 30 Days: Yes Use of substances other than those prescribed or required for medical reasons: Yes Substance Use Type: Heroin Substance Use Frequency: Daily Advance Directives: No Advance Directives Information Provided: Yes Current occupational status: employed 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 Physical Exam ED Vital Signs: Vital Signs - 24 hr 12/05/22 09:00 12/05/22 12:29 12/05/22 12:46 Temperature 97.0 F 97.9 F Pulse Rate 95 88 98 Respiratory Rate 16 16 16 Blood Pressure 98/56 L 117/62 Pulse Oximetry 97 99 99 Oxygen Delivery Method Room Air Room Air Room Air 12/05/22 17:04 Temperature Pulse Rate 100 Respiratory Rate 18 Blood Pressure 135/67 Pulse Oximetry 94 Oxygen Delivery Method Room Air BMI result Body Mass Index 42.9 Const General: cooperative, healthy appearing and no acute distress Orientation/consciousness: oriented to person and oriented to place Limitations: no limitations HENMT Head: Yes normal to inspection and Yes atraumatic Ears: hearing grossly normal bilaterally General nose exam: Normal external nose present Face and sinus: Yes normal facial exam and Yes face symmetric Throat: Yes posterior oropharynx normal, Yes tonsils normal, No uvula laterally displaced and No uvular edema Eyes General: appearance normal, both eyes and all related structures Pupils: Equal, round and reactive pupils present EOM: EOMs intact bilaterally Neck Neck: Yes normal visual inspection and Yes no meningeal signs Resp Effort & Inspection: normal respiratory effort and no respiratory distress Auscultation: clear to auscultation bilaterally Cardio Rate: regular rate Heart sounds: S1 normal heart sound present and S2 normal heart sound present GI Inspection: Yes normal to inspection Palpation (GI): Soft to palpation, nontender, no guarding and not rigid Rectal Exam - Male: Yes normal sphincter tone General: Yes no CVA tenderness Back/Spine/Pelvis Other: No midline cervical/thoracic/lumbar spinous tenderness/step-off or deformity Back: no CVA tenderness Skin Rashes: no rashes Wounds: no wounds Neuro General: oriented to person, oriented to place, tone normal, moves all extremities, no meningeal signs and CN's II-XI intact bilaterally Cranial nerves: Yes CN's II-XII intact bilaterally and Yes Equal, round and reactive pupils present Speech: No Abnormal speech present Motor exam (neuro): Abnormal motor strength present (4/5) right upper extremity Sensory Exam: No Sensory deficit (Neuro) (No saddle anesthesia) Deep tendon reflexes (DTR's): Rt Biceps (C5, C6): 0, Left biceps reflex intensity grade: 0, Right patellar reflex intensity grade: 1+ and Left patellar reflex intensity grade: 1+ Romberg Test: Negative Extrem Other: Chronic bilateral LE skin changes with chronic edema General: Yes edema Course Course Course Narrative: -1113--leukocytosis of 14.9. Mildly acidotic with pH of 7.29 -+ WEN with BUN of 33, creatinine of 2.76 > likely from dehydration/volume depletion rather than severe sepsis. No evidence of infection at this time. Glucose 527. No anion gap. -Mag 1.5 > 2g IV repletion ordered. CK 240. CRP minimally elevated. -1345--UA contaminated, will hold on antibiotic treatment until culture results. Tox screen positive for opiates, fentanyl, benzos, cocaine CT head/brain wo IV con IMPRESSION: 1. No evidence of acute intracranial hemorrhage or edematous territorial infarction. 2. Moderate left posterior scalp hematoma. No associated osseous abnormalities. CT cervical spine wo IV con/CT thoracic spine wo IV con/CT lumbar spine wo IV con IMPRESSION: - There is a thickened fatty filum terminale that appears anteriorly displaced at the L2-L4 level. Lumbar spine MRI with and without IV contrast is recommended to exclude intrathecal/epidural pathology to explain this finding given the patient's symptoms. - Transitional anatomy within the lumbar spine as described with articulating transverse processes at L1 and lumbarization of S1. There are bilateral L5 pars defects associated with grade 1 spondylolytic anterolisthesis of L5 and S1 that along with uncovered disc results in severe bilateral foraminal stenosis with compression of the exiting L5 nerve roots bilaterally. - Moderate to severe mid to lower thoracic spondylosis. There are multilevel paracentral disc osteophyte protrusions or not well characterized on CT and there is nondiagnostic assessment of the central canal due to the degree of artifact. If there is any clinical concern for thoracic myelopathy/thoracic cord compression, a MRI would be recommended for further assessment. Disc osteophyte and facet arthropathy result in varying degrees of moderate to severe bony foraminal stenosis at the mid to lower thoracic levels. There is a thoracic kyphosis. - Very limited and partially nondiagnostic cervical spine CT due to significant motion artifact. There is nondiagnostic assessment of the central canal throughout the cervical spine and if there is any clinical concern for cervical myelopathy/cord compression, a MRI would be recommended for further assessment. Uncovertebral joint spurring and facet arthropathy result in moderate right-sided bony foraminal encroachment at C6-C7 and mild foraminal encroachment at the remaining cervical levels. >> 1400-- Case d/w Dr. Álvarez, patient currently in MRI > will add on MR T-spine MR thoracic spine wo/w conMR lumbar spine wo/w con IMPRESSION: - No acute fractures within the thoracic spine. Thoracic kyphosis and multilevel thoracic spondylosis. Paracentral disc protrusions throughout the thoracic spine, the largest at the T5-T6, T6-T7, T7-T8, T8-T9, T9-T10, and T10-T11 levels that mildly flatten the ventral cord at these levels without resulting in significant central canal stenosis. Disc osteophyte and facet arthropathy result in varying degrees of moderate to severe foraminal stenosis bilaterally at the mid to lower thoracic levels. Nondiagnostic assessment for thoracic cord signal changes due to the degree of artifact obscuring the thoracic spinal cord. - Bilateral L5 pars defects associated with grade 1 spondylolytic anterolisthesis of L5 on S1 that along with uncovered disc and a diffuse annular disc bulge result in severe bilateral foraminal stenosis with severe compression of the exiting L5 nerve roots bilaterally at L5-S1. - There is a thickened fatty filum terminale that is anteriorly positioned at the L2-L4 levels without any enhancing lesion nor collection displacing the thickened fatty filum. Conus is normally positioned however correlation for any tethering symptoms is advised given the history. Nonspecific undulation of the cauda equina nerve roots without any enhancement nor significant thickening on the axial series. If there is high clinical suspicion for CSF pathology, a lumbar puncture could be performed. >> will perform LP. Patient consent signed and in chart. LP performed by myself and Dr. Harrison -1720--ED care transferred to Dr. Harrison pending CSF results & anticipated admission. Medications Administered Discontinued Medications Generic Name Dose Route Start Last Admin Trade Name Freq PRN Reason Stop Dose Admin Gadobutrol 10 ml 12/05/22 15:22 12/05/22 15:22 Gadobutrol 10 Ml Vial IVPUSH 12/05/22 15:23 10 ml ONCE ONE Administration Lactated Ringer's 1,000 mls @ 999 mls/hr 12/05/22 10:15 12/05/22 11:51 Lr IV 12/05/22 11:15 Infused .Q1H1M BETHEL Infusion Lactated Ringer's 1,000 mls @ 999 mls/hr 12/05/22 10:45 12/05/22 13:25 Lr IV 12/05/22 11:45 Infused .Q1H1M BETHEL Infusion Magnesium Sulfate 2 gm in 50 mls @ 25 mls/hr 12/05/22 11:16 12/05/22 18:17 Magnesium Sulfate/H2o IV 12/05/22 13:15 25 mls/hr ONCE ONE Administration Vancomycin HCl 2,000 mg in 500 mls @ 250 mls/hr 12/05/22 11:24 12/05/22 17:26 Vancomycin/Ns IV 12/05/22 13:23 Infused ONCE ONE Infusion Cefepime HCl 2 gm/ Sodium 50 mls @ 100 mls/hr 12/05/22 11:24 12/05/22 13:02 Chloride IV 12/05/22 11:53 Infused ONCE ONE Infusion Insulin Human Regular 10 unit 12/05/22 11:21 12/05/22 12:17 Insulin Regular, Human 100 Unit/Ml 3 Ml Vial IVPUSH 12/05/22 11:22 10 unit ONCE ONE Administration Lidocaine HCl 5 ml 12/05/22 15:57 12/05/22 16:56 Lidocaine Hcl 1 % Mpf 5 Ml Vial INFILTRATI 12/05/22 15:58 5 ml ONCE ONE Administration Lorazepam 2 mg 12/05/22 14:03 12/05/22 14:20 Lorazepam 2 Mg/Ml Vial IVPUSH 12/05/22 14:04 2 mg STAT STA Administration Procedures Lumbar Puncture Patient Position: upright Local Anesthetic: lidocaine 1% Amount of anesthesia used (mL): 5 Spinal Needle Gauge: 22G Interspace Used: L4-L5 Fluid Initially Obtained: clear and bloody Complications: none Additional Comments: LP performed by myself & Dr. Harrison Medical Decision Making Medical Decision Making MDM Narrative: 62-year-old male with a past medical history of tubular adenoma, polysubstance abuse, sleep apnea, obesity, diabetes, HLD, HTN, asthma, presenting to the ED with sister complaining of weakness, confusion, hyperglycemia, and inability to ambulate x1 week. Patient also reports right-sided neck pain & arm pain with lower extremity weakness & also urinary incontinence x few weeks. On exam BP soft, A&Ox2 (unable to tell year), + generalized weakness noted to bilateral lower extremities and RUE. Unable to obtain UE DTRs, LE DRTs present but slightly decreased. Rectal tone WNL. Concern for metabolic/infectious etiologies including cauda equina vs epidural abscess vs fracture vs demyelinating process/mylopathy including Irma [place] or ICH. Concern for hyperglycemia/DKA Case discussed with ED attending Dr. Moreno who evaluated patient and is in agreement with plan Plan: EKG, labs, blood cultures, UA, head/C-spine/thoracic/lumbar CT, MR lumbar spine, admission Low suspicion for severe sepsis at this time Please refer to course for remaining clinical decision making, interpretation of labs/imaging results, and discussions with consultants and/or family members. 630 pm patient diabetic with IV drug user with chronic back problems comes here for increased back pain and weakness difficulty in walking for last 1 week patient walk in the police custody 1 week ago and released today on wheelchair patient stays has lot of back pain and numbness in the lower extremities did not have any viral syndrome or recent vaccine no fever no chills on arrival blood sugar was 527 patient had thoracic and lumbar MRI which was negative for any acute cord compression or osteomyelitis spinal tap was done slightly elevated protein to 79.5 rbc's of 62 WBCs of 4 lymphocyte 100 on examination patient does have decreased sensation to LT and pinprick diminished reflexes but able to elicit Babinski a negative normal tone no weakness in the upper extremities case discussed Dr. Little neurologist seems like diabetic polyneuropathy with elevated glucose likely the cause of elevated protein unlikely GBS at this time advise management will evaluate the patient in the morning Differential Diagnosis Differential Diagnoses: The differential diagnosis associated with the presentation includes As above/GBS/polyneuropathy/acute neuropathy/diabetic/spinal cord compression/epidural abscess Admission/Observation Consideration of admission/observation: Escalation of care including admission/observation considered Consult Healthcare Provider Management of the patient was discussed with: Hospitalist Lab Data [facility] Lab Attestation statement: I reviewed the patient's lab results. 12/05/22 09:50 12/05/22 09:50 Labs: Lab Results 12/05/22 12/05/22 12/05/22 Range/Units 09:39 09:50 09:54 WBC 14.9 H (4.8-10.8) X10*3/uL RBC 5.23 (4.60-5.80) X10*6/uL Hgb 15.2 (14.0-18.0) g/dl Hct 46.6 (42.0-52.0) % MCV 89.1 (80.0-98.0) fL MCH 29.1 (27.0-33.0) pg MCHC 32.6 (31.0-36.0) g/dl RDW 13.9 (11.0-16.0) % Plt Count 260 (160-400) X10*3/uL MPV 12.2 (9.4-12.4) fL Immature Gran % (Auto) 0.5 H (0.0-0.4) % Neut % (Auto) 74.2 H (45-73) % Lymph % (Auto) 12.1 L (20-40) % [place] % (Auto) 6.0 (2-11) % Eos % (Auto) 6.5 H (0-4) % Baso % (Auto) 0.7 (0-2) % Lymph # (Auto) 1.8 (1.2-4.9) X10*3/uL [place] # (Auto) 0.9 (0.1-1.2) X10*3/uL Eos # (Auto) 1.0 H (0.0-0.4) X10*3/uL Baso # (Auto) 0.1 (0.0-0.2) X10*3/uL Abs Immat Gran (auto) 0.08 H (0.00-0.03) X10*3/uL Absolute Neuts (auto) 11.0 H (2.0-8.3) x10*3/uL Absolute Nucleated RBC 0.000 (0.0-0.012) X10*3/uL Nucleated RBC % (auto) 0.0 (0.0-0.2) /100WBC ESR 12 (0-15) MM/HR Hold Purple Top SEE NOTE PT (11.1-13.3) SEC INR (0.9-1.1) VBG pH 7.29 L (7.32-7.43) VBG pCO2 62 mmHg VBG pO2 34 mmHg VBG HCO3 30 H (22-26) mmol/L VBG O2 Saturation 44.0 % VBG Base Excess 2.1 mmol/L Sodium 137 (135-145) mmol/L Potassium 4.1 (3.3-5.1) mmol/L Chloride 99 (96-108) mmol/L Carbon Dioxide 26 (22-29) mmol/L Anion Gap 16 (12-20) BUN 33 H (9-16) mg/dL Creatinine 2.76 H (0.5-1.4) mg/dL Estim Creat Clear Calc 31.7 Estimated GFR 23 POC Glucose 474 H* (60-115) mg/dL Random Glucose 527 H* (60-115) mg/dL Lactic Acid (0.5-2.0) mmol/L Calcium 8.7 (8.4-10.2) mg/dL Magnesium 1.5 L (1.6-2.6) mg/dL Total Bilirubin 0.5 (0.0-1.0) mg/dL Direct Bilirubin 0.2 (0.0-0.5) mg/dL AST 18 (5-37) U/L ALT 23 (0-40) U/L Alkaline Phosphatase 101 (39-117) U/L Ammonia 23 (13-55) umol/L Total Creatine Kinase 240 H (38-174) U/L Troponin I High Sens 4.8 (<3.5-35.0) ng/L C-Reactive Protein 0.98 H (< or = 0.50) mg/dL B-Natriuretic Peptide < 10 (<100) pg/mL Total Protein 7.4 (6.5-8.0) g/dL Albumin 3.8 (3.5-5.0) g/dL Lipase 13 (8-78) U/L Beta-Hydroxybutyrate 0.04 (0.02-0.27) mmol/L Urine Color Urine Appearance Urine pH (5.0-9.0) Ur Specific [place] (1.005-1.025) Urine Protein (Neg-Trace) mg/dL Urine Glucose (UA) (Negative) mg/dL Urine Ketones (Negative) mg/dL Urine Blood (Negative) Urine Nitrite (Negative) Ur Leukocyte Esterase (Negative) Urine RBC (0-2) /HPF Urine WBC (0-5) /HPF Ur Squamous Epith Cells (0-2) /HPF Calcium Oxalate Crystal Urine Bacteria (None Seen) Hyaline Casts (0-2) /LPF CSF Tube Number CSF Volume ML CSF Appearance CSF Color CSF WBC MM*3 CSF RBC MM*3 CSF Neutrophils % CSF Lymphocytes % CSF Monocytes % % CSF Other Cells % % CSF Appearance (b) CSF Glucose mg/dL CSF Total Protein (15-45) mg/dL Urine Opiates Screen (Not Detect) Urine Fentanyl Screen (Not Detect) Ur Barbiturates Screen (Not Detect) Ur Phencyclidine Scrn (Not Detect) Ur Amphetamines Screen (Not Detect) U Benzodiazepines Scrn (Not Detect) Urine Cocaine Screen (Not Detect) U Marijuana (THC) Screen (Not Detect) Ethyl Alcohol < 10 mg/dL COVID-19 ([facility]NY) Negative (Negative) COVID-19 Clin Com See Note 12/05/22 12/05/22 12/05/22 Range/Units 10:27 11:44 12:25 WBC (4.8-10.8) X10*3/uL RBC (4.60-5.80) X10*6/uL Hgb (14.0-18.0) g/dl Hct (42.0-52.0) % MCV (80.0-98.0) fL MCH (27.0-33.0) pg MCHC (31.0-36.0) g/dl RDW (11.0-16.0) % Plt Count (160-400) X10*3/uL MPV (9.4-12.4) fL Immature Gran % (Auto) (0.0-0.4) % Neut % (Auto) (45-73) % Lymph % (Auto) (20-40) % [place] % (Auto) (2-11) % Eos % (Auto) (0-4) % Baso % (Auto) (0-2) % Lymph # (Auto) (1.2-4.9) X10*3/uL [place] # (Auto) (0.1-1.2) X10*3/uL Eos # (Auto) (0.0-0.4) X10*3/uL Baso # (Auto) (0.0-0.2) X10*3/uL Abs Immat Gran (auto) (0.00-0.03) X10*3/uL Absolute Neuts (auto) (2.0-8.3) x10*3/uL Absolute Nucleated RBC (0.0-0.012) X10*3/uL Nucleated RBC % (auto) (0.0-0.2) /100WBC ESR (0-15) MM/HR Hold Purple Top PT 12.4 (11.1-13.3) SEC INR 1.0 (0.9-1.1) VBG pH (7.32-7.43) VBG pCO2 mmHg VBG pO2 mmHg VBG HCO3 (22-26) mmol/L VBG O2 Saturation % VBG Base Excess mmol/L Sodium (135-145) mmol/L Potassium (3.3-5.1) mmol/L Chloride (96-108) mmol/L Carbon Dioxide (22-29) mmol/L Anion Gap (12-20) BUN (9-16) mg/dL Creatinine (0.5-1.4) mg/dL Estim Creat Clear Calc Estimated GFR POC Glucose 390 H* (60-115) mg/dL Random Glucose (60-115) mg/dL Lactic Acid 1.9 (0.5-2.0) mmol/L Calcium (8.4-10.2) mg/dL Magnesium (1.6-2.6) mg/dL Total Bilirubin (0.0-1.0) mg/dL Direct Bilirubin (0.0-0.5) mg/dL AST (5-37) U/L ALT (0-40) U/L Alkaline Phosphatase (39-117) U/L Ammonia (13-55) umol/L Total Creatine Kinase (38-174) U/L Troponin I High Sens (<3.5-35.0) ng/L C-Reactive Protein (< or = 0.50) mg/dL B-Natriuretic Peptide (<100) pg/mL Total Protein (6.5-8.0) g/dL Albumin (3.5-5.0) g/dL Lipase (8-78) U/L Beta-Hydroxybutyrate (0.02-0.27) mmol/L Urine Color Urine Appearance Urine pH (5.0-9.0) Ur Specific [place] (1.005-1.025) Urine Protein (Neg-Trace) mg/dL Urine Glucose (UA) (Negative) mg/dL Urine Ketones (Negative) mg/dL Urine Blood (Negative) Urine Nitrite (Negative) Ur Leukocyte Esterase (Negative) Urine RBC (0-2) /HPF Urine WBC (0-5) /HPF Ur Squamous Epith Cells (0-2) /HPF Calcium Oxalate Crystal Urine Bacteria (None Seen) Hyaline Casts (0-2) /LPF CSF Tube Number CSF Volume ML CSF Appearance CSF Color CSF WBC MM*3 CSF RBC MM*3 CSF Neutrophils % CSF Lymphocytes % CSF Monocytes % % CSF Other Cells % % CSF Appearance (b) CSF Glucose mg/dL CSF Total Protein (15-45) mg/dL Urine Opiates Screen (Not Detect) Urine Fentanyl Screen (Not Detect) Ur Barbiturates Screen (Not Detect) Ur Phencyclidine Scrn (Not Detect) Ur Amphetamines Screen (Not Detect) U Benzodiazepines Scrn (Not Detect) Urine Cocaine Screen (Not Detect) U Marijuana (THC) Screen (Not Detect) Ethyl Alcohol mg/dL COVID-19 ([facility]) (Negative) COVID-19 Clin Com 12/05/22 12/05/22 12/05/22 Range/Units 12:47 12:48 15:21 WBC (4.8-10.8) X10*3/uL RBC (4.60-5.80) X10*6/uL Hgb (14.0-18.0) g/dl Hct (42.0-52.0) % MCV (80.0-98.0) fL MCH (27.0-33.0) pg MCHC (31.0-36.0) g/dl RDW (11.0-16.0) % Plt Count (160-400) X10*3/uL MPV (9.4-12.4) fL Immature Gran % (Auto) (0.0-0.4) % Neut % (Auto) (45-73) % Lymph % (Auto) (20-40) % [place] % (Auto) (2-11) % Eos % (Auto) (0-4) % Baso % (Auto) (0-2) % Lymph # (Auto) (1.2-4.9) X10*3/uL [place] # (Auto) (0.1-1.2) X10*3/uL Eos # (Auto) (0.0-0.4) X10*3/uL Baso # (Auto) (0.0-0.2) X10*3/uL Abs Immat Gran (auto) (0.00-0.03) X10*3/uL Absolute Neuts (auto) (2.0-8.3) x10*3/uL Absolute Nucleated RBC (0.0-0.012) X10*3/uL Nucleated RBC % (auto) (0.0-0.2) /100WBC ESR (0-15) MM/HR Hold Purple Top PT (11.1-13.3) SEC INR (0.9-1.1) VBG pH (7.32-7.43) VBG pCO2 mmHg VBG pO2 mmHg VBG HCO3 (22-26) mmol/L VBG O2 Saturation % VBG Base Excess mmol/L Sodium (135-145) mmol/L Potassium (3.3-5.1) mmol/L Chloride (96-108) mmol/L Carbon Dioxide (22-29) mmol/L Anion Gap (12-20) BUN (9-16) mg/dL Creatinine (0.5-1.4) mg/dL Estim Creat Clear Calc Estimated GFR POC Glucose 146 H (60-115) mg/dL Random Glucose (60-115) mg/dL Lactic Acid (0.5-2.0) mmol/L Calcium (8.4-10.2) mg/dL Magnesium (1.6-2.6) mg/dL Total Bilirubin (0.0-1.0) mg/dL Direct Bilirubin (0.0-0.5) mg/dL AST (5-37) U/L ALT (0-40) U/L Alkaline Phosphatase (39-117) U/L Ammonia (13-55) umol/L Total Creatine Kinase (38-174) U/L Troponin I High Sens (<3.5-35.0) ng/L C-Reactive Protein (< or = 0.50) mg/dL B-Natriuretic Peptide (<100) pg/mL Total Protein (6.5-8.0) g/dL Albumin (3.5-5.0) g/dL Lipase (8-78) U/L Beta-Hydroxybutyrate (0.02-0.27) mmol/L Urine Color Dark Yellow Urine Appearance Cloudy Urine pH 5.0 (5.0-9.0) Ur Specific [place] >= 1.030 H (1.005-1.025) Urine Protein 100 (2+) H (Neg-Trace) mg/dL Urine Glucose (UA) 250 H (Negative) mg/dL Urine Ketones Trace (Negative) mg/dL Urine Blood Negative (Negative) Urine Nitrite Negative (Negative) Ur Leukocyte Esterase Moderate (2+) H (Negative) Urine RBC 0-2 (0-2) /HPF Urine WBC 11-20 H (0-5) /HPF Ur Squamous Epith Cells 11-20 (0-2) /HPF Calcium Oxalate Crystal Present Urine Bacteria None Seen (None Seen) Hyaline Casts 11-20 (0-2) /LPF CSF Tube Number CSF Volume ML CSF Appearance CSF Color CSF WBC MM*3 CSF RBC MM*3 CSF Neutrophils % CSF Lymphocytes % CSF Monocytes % % CSF Other Cells % % CSF Appearance (b) CSF Glucose mg/dL CSF Total Protein (15-45) mg/dL Urine Opiates Screen POSITIVE H (Not Detect) Urine Fentanyl Screen POSITIVE H (Not Detect) Ur Barbiturates Screen Not Detected (Not Detect) Ur Phencyclidine Scrn Not Detected (Not Detect) Ur Amphetamines Screen Not Detected (Not Detect) U Benzodiazepines Scrn POSITIVE H (Not Detect) Urine Cocaine Screen POSITIVE H (Not Detect) U Marijuana (THC) Screen Not Detected (Not Detect) Ethyl Alcohol mg/dL COVID-19 ([facility]) (Negative) COVID-19 Clin Com 12/05/22 12/05/22 Range/Units 16:50 16:50 WBC (4.8-10.8) X10*3/uL RBC (4.60-5.80) X10*6/uL Hgb (14.0-18.0) g/dl Hct (42.0-52.0) % MCV (80.0-98.0) fL MCH (27.0-33.0) pg MCHC (31.0-36.0) g/dl RDW (11.0-16.0) % Plt Count (160-400) X10*3/uL MPV (9.4-12.4) fL Immature Gran % (Auto) (0.0-0.4) % Neut % (Auto) (45-73) % Lymph % (Auto) (20-40) % [place] % (Auto) (2-11) % Eos % (Auto) (0-4) % Baso % (Auto) (0-2) % Lymph # (Auto) (1.2-4.9) X10*3/uL [place] # (Auto) (0.1-1.2) X10*3/uL Eos # (Auto) (0.0-0.4) X10*3/uL Baso # (Auto) (0.0-0.2) X10*3/uL Abs Immat Gran (auto) (0.00-0.03) X10*3/uL Absolute Neuts (auto) (2.0-8.3) x10*3/uL Absolute Nucleated RBC (0.0-0.012) X10*3/uL Nucleated RBC % (auto) (0.0-0.2) /100WBC ESR (0-15) MM/HR Hold Purple Top PT (11.1-13.3) SEC INR (0.9-1.1) VBG pH (7.32-7.43) VBG pCO2 mmHg VBG pO2 mmHg VBG HCO3 (22-26) mmol/L VBG O2 Saturation % VBG Base Excess mmol/L Sodium (135-145) mmol/L Potassium (3.3-5.1) mmol/L Chloride (96-108) mmol/L Carbon Dioxide (22-29) mmol/L Anion Gap (12-20) BUN (9-16) mg/dL Creatinine (0.5-1.4) mg/dL Estim Creat Clear Calc Estimated GFR POC Glucose (60-115) mg/dL Random Glucose (60-115) mg/dL Lactic Acid (0.5-2.0) mmol/L Calcium (8.4-10.2) mg/dL Magnesium (1.6-2.6) mg/dL Total Bilirubin (0.0-1.0) mg/dL Direct Bilirubin (0.0-0.5) mg/dL AST (5-37) U/L ALT (0-40) U/L Alkaline Phosphatase (39-117) U/L Ammonia (13-55) umol/L Total Creatine Kinase (38-174) U/L Troponin I High Sens (<3.5-35.0) ng/L C-Reactive Protein (< or = 0.50) mg/dL B-Natriuretic Peptide (<100) pg/mL Total Protein (6.5-8.0) g/dL Albumin (3.5-5.0) g/dL Lipase (8-78) U/L Beta-Hydroxybutyrate (0.02-0.27) mmol/L Urine Color Urine Appearance Urine pH (5.0-9.0) Ur Specific [place] (1.005-1.025) Urine Protein (Neg-Trace) mg/dL Urine Glucose (UA) (Negative) mg/dL Urine Ketones (Negative) mg/dL Urine Blood (Negative) Urine Nitrite (Negative) Ur Leukocyte Esterase (Negative) Urine RBC (0-2) /HPF Urine WBC (0-5) /HPF Ur Squamous Epith Cells (0-2) /HPF Calcium Oxalate Crystal Urine Bacteria (None Seen) Hyaline Casts (0-2) /LPF CSF Tube Number 4 3 CSF Volume 0.5 ML CSF Appearance CLEAR CSF Color COLORLESS CSF WBC 4 MM*3 CSF RBC 62 MM*3 CSF Neutrophils 0 % CSF Lymphocytes 100 % CSF Monocytes % 0 % CSF Other Cells % 0 % CSF Appearance (b) Bloody CSF Glucose 197 mg/dL CSF Total Protein 79.5 H (15-45) mg/dL Urine Opiates Screen (Not Detect) Urine Fentanyl Screen (Not Detect) Ur Barbiturates Screen (Not Detect) Ur Phencyclidine Scrn (Not Detect) Ur Amphetamines Screen (Not Detect) U Benzodiazepines Scrn (Not Detect) Urine Cocaine Screen (Not Detect) U Marijuana (THC) Screen (Not Detect) Ethyl Alcohol mg/dL COVID-19 ([facility]) (Negative) COVID-19 Clin Com Independent Interpretation I performed an independent interpretation of an: EKG (My interpretation EKG is normal sinus rhythm with occasional PVCs at a rate of 93. UT interval 138. QTC 457. No STEMI. PVC is now present when compared to prior) Radiology Impression Discussion of test interpretation with radiology: I have reviewed the radiologist's reading. Independent Historian Clinical information obtained from an independent historian. History obtained from or confirmed by: Other (Sister) External Record Review External record reviewed: Inpatient record, Office record, Outpatient record, Prior outpatient labs, Prior outpatient radiology, Primary care record and Outside ED record Tests considered The following testing was considered but not selected: As above Prescription Management I considered prescription management with: Antibiotic Chronic Conditions Patient?s care impacted by: Diabetes, Hypertension and Other Social Determinants Patient?s care significantly limited by Social Determinants of Health including: Inadequate housing, Low income, Alcoholism and drug addiction in family, Problems related to primary support group and Other Social Determinant of Health Critical Care Time Critical Care Time Critical Care Time: Yes Total Critical Care Time: 60 Attestation: I have personally provided critical care time exclusive of time spent on separately billable procedures. Time includes review of lab data, radiology results, discussion with consultants, and monitoring for potential decompensation. Intervention performed as documented. Discharge Plan Discharge Clinical Impression: Weakness, Hyperglycemia, WEN (acute kidney injury), Inability to walk, Polysubstance abuse Patient Disposition: Still a Patient Prescriptions: No Action (DME) pen needle, diabetic [BD Ashly 2nd Gen Pen Needle] 32 gauge x / needle See Rx Instructions .MEDSUPPLY Qty: 100 4RF Rx Instructions: Twice a day metformin 500 mg tablet extended release 24 hr 2,000 mg PO QAM (DME) fredi.stocking,knee,reg,xlrg Misc See Rx Instructions .ROUTE .MEDSUPPLY Qty: 12 0RF Rx Instructions: As directed cyclobenzaprine 10 mg tablet 10 mg PO BEDTIME PRN (Reason: muscle spasm) Qty: 7 0RF naproxen 500 mg tablet 500 mg PO BID PRN (Reason: pain) Qty: 14 0RF Rx Instructions: Take with food lidocaine 5 % adhesive patch,medicated 1 patch topical DAILY PRN (Reason: pain) Qty: 15 0RF Rx Instructions: leave on most painful area for up to 12 hrs primidone 50 mg tablet 50 mg PO BEDTIME loratadine 10 mg capsule 10 mg PO DAILY citalopram 40 mg tablet 40 mg PO DAILY (DME) lancets [FreeStyle Lancets] 28 gauge misc See Rx Instructions .ROUTE .MEDSUPPLY Qty: 100 Rx Instructions: As directed (DME) FreeStyle Test Strip See Rx Instructions .ROUTE .MEDSUPPLY Qty: 10 Rx Instructions: As directed aspirin [Adult Low Dose Aspirin] 81 mg tablet,delayed release (DR/EC) 81 mg PO DAILY lisinopril 40 mg tablet 40 mg PO DAILY atorvastatin 80 mg tablet 80 mg PO DAILY pantoprazole 40 mg tablet,delayed release (DR/EC) 40 mg PO DAILY albuterol sulfate [ProAir HFA] 90 mcg/actuation HFA aerosol inhaler 2 puff inhalation Q6H PRN (Reason: Shortness Of Breath) clonidine HCl 0.1 mg tablet 0.1 mg PO BEDTIME PRN (Reason: anxiety) bisacodyl [Dulcolax (bisacodyl)] 5 mg tablet,delayed release (DR/EC) 10 mg PO ONCE 1 Days Qty: 2 0RF Rx Instructions: take 2 tabs at noon the day before your colonoscopy polyethylene glycol 3350 [Miralax] 17 gram/dose powder 17 g PO ONCE Qty: 510 0RF Rx Instructions: As directed by gastroenterology department at [facility] Elisa Cesar U-300 SoloStar 300 unit/mL (3 mL) insulin pen 80 unit SUBCUT QAM 30 Days Qty: 12 6RF insulin lispro [Humalog KwikPen Insulin] 100 unit/mL insulin pen 10 unit subcut DAILY 30 Days Qty: 15 4RF Rx Instructions: 10 units with dinner only Trulicity 3 mg/0.5 mL pen injector 3 mg subcut QWEEK 30 Days Qty: 2.5 6RF Rx Instructions: Dose increased to 3 mg weekly
--- OUTSIDE RECORDS SUMMARY | 2022-12-05 09:53 | XMS_ITS | Continuity of Care Document ---
Author Name Unknown Organization [facility] ter Address [address] [place] [id number]- Care Team Providers Care Telecommunications Analyst Name Role Phone Zee Camacho MD Primary Care Physici an Encounter [facility] Date(s): 05/31/20 - 05/31/[address] [address]- Encounter Diagnosis Opiate overdose(Final) - 05/31/20 Discharge Disposition: A-D/C Home Attending Physician: Joel Trejo DO Admitting Physician: Joel Trejo DO Referring Physician: Not on Staff, Referring MD Allergies, Adverse Reactions, Alerts Substance Reaction Severity Status penicillin Active Immunizations Given and Recorded Vaccine Date Status Refusal Reason pneumococcal 23-valent vaccine 01/24/20 Given Medications Albuterol (Eqv-Proventil HFA) 90 mcg/inh inhalation aerosol TAKE 2 PUFFS BY MOUTH EVERY 4 TO 6 HOURS NEEDED Start Date: 01/22/20 Status: Ordered aspirin 81 mg oral delayed release tablet 81 mg, By Mouth, Daily, Refills 0, Maintenance, 01/24/20 11:16:00 EST, Partial fill upon patient request if the prescription is for a schedule II opioid drug. Start Date: 01/24/20 Status: Ordered atorvastatin 80 mg oral tablet 1 tablet = 80 mg, By Mouth, Daily, # 30 tablet, 0 Refills, Maintenance, 01/22/20 9:34:00 EST, Tablet, Partial fill upon patient request if the prescription is for a schedule II opioid drug. Start Date: 01/22/20 Status: Ordered citalopram 40 mg oral tablet 1 tablet, By Mouth, Daily, # 30 tablet, 0 Refills, Maintenance, Tablet Start Date: 10/23/09 Status: Ordered cloNIDine 0.1 mg oral tablet 0.1 mg, 1, tablet, By Mouth, Daily at bedtime, # 30 tablet, Refills 0, Maintenance, 01/22/20 9:34:00 EST, Partial fill upon patient request if the prescription is for a schedule II opioid drug. Start Date: 01/22/20 Status: Ordered furosemide 20 mg oral tablet 20 mg, 1, tablet, By Mouth, Daily, # 30 tablet, Refills 0, Maintenance, 01/22/20 9:34:00 EST, Partial fill upon patient request if the prescription is for a schedule II opioid drug. Start Date: 01/22/20 Status: Ordered glipiZIDE 5 mg oral tablet TAKE 1 TABLET BY MOUTH TWICE A DAY BEFORE MEALS Start Date: 01/22/20 Status: Ordered hydrochlorothiazide-lisinopril 12.5 mg-20 mg oral tablet 1 tablet, By Mouth, Daily, # 30 tablet, 0 Refills, Maintenance, Tablet Start Date: 10/23/09 Status: Ordered Insulin Lispro 2-10 units, Subcutaneous Injection, 3 times a day before meals, << Sliding Scale Comments >> 150 - 199 2 units Call if less than 100 200 - 249 4 units 250 - 299 6 units 300 - 349 8 units 350 - 399 10 units Call if greater than 400 <... Start Date: 01/24/20 Status: Ordered Lantus Inj 0.4 mL = 40 units, Subcutaneous Injection, Daily at bedtime, 0 Refills, Maintenance, 01/24/20 11:24:00 EST, Injection, Partial fill upon patient request if the prescription is for a schedule II opioid drug. Start Date: 01/24/20 Status: Ordered metformin 1000 mg oral tablet 1 tablet, By Mouth, 2 times a day, # 180 tablet, 0 Refills, Maintenance, Tablet Start Date: 10/23/09 Status: Ordered Narcan 4 mg/0.1 mL nasal spray = 4 mg, Naris, Right, Once, PLEASE SEE ATTACHED FOR DETAILED DIRECTIONS may repeat every 2 to 3 minutes until patient responds, # 2 each, 0 Refills, Soft Stop, 01/24/20 11:32:00 EST, [place], [facility], Partial fill upon patient request... Start Date: 01/24/20 Status: Ordered pantoprazole 40 mg oral delayed release tablet 1 tablet = 40 mg, By Mouth, Daily, # 30 tablet, 0 Refills, Maintenance, 01/22/20 9:34:00 EST, EC Tablet Start Date: 01/22/20 Status: Ordered Trulicity Pen 0.75 mg/0.5 mL subcutaneous solution PLEASE SEE ATTACHED FOR DETAILED DIRECTIONS Start Date: 01/22/20 Status: Ordered Problem List Condition Effective Dates Status Health Status Inform ant Multiple fractures of ribs(Confirmed) 03/02/10 Active Vital Signs Most recent to oldest [Reference Range]: 1 2 3 Oxygen Saturation [94-100 %] 99 % (05/31/20 3:01 PM) 91 % *L* (05/31/20 1:21 PM) 99 % (05/31/20 1:15 PM) Pulse Rate [55-90 bpm] 100 bpm *H* (05/31/20 3:01 PM) 105 bpm *H* (05/31/20 1:15 PM) Blood Pressure [90-138/55-84 mm Hg] 148/63mm Hg *H* (05/31/20 3:01 PM) 152/62mm Hg *H* (05/31/20 1:15 PM) Respiratory Rate [16-30 br/min] 20 br/min (05/31/20 3:01 PM) 20 br/min (05/31/20 1:15 PM) Temperature [96.8-100.4 DegF] 98.5 DegF (05/31/20 3:01 PM) 98.6 DegF (05/31/20 1:15 PM) Mode of Delivery (Oxygen) Room air (05/31/20 3:01 PM) Room air (05/31/20 1:21 PM) Room air (05/31/20 1:15 PM) Blood pressure sites Arm, left (05/31/20 3:01 PM) Leg, left (05/31/20 1:15 PM) Temperature Route Oral (05/31/20 3:01 PM) Oral (05/31/20 1:15 PM)
--- OUTSIDE RECORDS SUMMARY | 2022-12-05 09:53 | XMS_ITS | Continuity of Care Document ---
Author Name Unknown Organization [facility] ter Address [address] [place] [phone]- Care Team Providers Care Aircraft Instrument Mechanic Name Role Phone Zee Camacho MD Primary Care Physici an Encounter [facility] Date(s): 11/16/20 - 11/16/[address] [address]- Encounter Diagnosis Cellulitis of leg, right(Final) - 11/16/20 Cellulitis of leg, right(Final) - 11/16/20 Discharge Disposition: A-D/C Home Attending Physician: Bruce Leo MD Admitting Physician: Bruce Leo MD Referring Physician: Not on Staff, Referring MD [...] opioid drug. Start Date: 01/22/20 Status: Ordered doxycycline hyclate 100 mg oral capsule 1 capsule = 100 mg, By Mouth, 2 times a day, for 7 days, # 14 capsule, 0 Refills, Acute 11/23/20 15:36:00 EDT, 11/16/20 15:36:00 EDT, Capsule, Partial fill upon patient request if the prescription isfor a schedule II opioid drug. Start Date: 11/16/20 Stop Date: 11/23/20 Status: Ordered furosemide 20 mg oral tablet [...] 0 Refills, Soft Stop, 01/24/20 11:32:00 EST, [place], [facility], Partial fill upon patient [...] 1 2 3 Oxygen Saturation [94-100 %] 95 % (11/16/20 11:00 AM) 97 % (11/16/20 10:57 AM) Pulse Rate [55-90 bpm] 96 bpm *H* (11/16/20 5:21 PM) 116 bpm *H* (11/16/20 11:00 AM) 110 bpm *H* (11/16/20 10:57 AM) Blood Pressure [90-138/55-84 mm Hg] 183/81mm Hg *H* (11/16/20 11:00 AM) Respiratory Rate [16-30 br/min] 18 br/min (11/16/20 11:00 AM) Temperature [96.8-100.4 DegF] 99 DegF (11/16/20 11:00 AM) Mode of Delivery (Oxygen) Room air (11/16/20 11:00 AM) Room air (11/16/20 10:57 AM) Blood pressure sites Arm, left (11/16/20 11:00 AM) Temperature Route Oral (11/16/20 11:00 AM)
[2022-12-05 09:56] LABS: MANUAL DIFF FLAG NO
[2022-12-05 10:00] LABS: Basophils Absolute Auto 0.1 X10*3/uL (0.0-0.2); Basophils Percent Auto 0.7 % (0-2); Eosinophils Percent Auto 6.5 % (0-4); Hematocrit 46.6 % (42.0-52.0); Hemoglobin 15.2 g/dl (14.0-18.0); Imm Gran Abs Auto 0.08 X10*3/uL (0.00-0.03); Imm Gran Pct Auto 0.5 % (0.0-0.4); Lymphocytes Absolute Auto 1.8 X10*3/uL (1.2-4.9); Lymphocytes Percent Auto 12.1 % (20-40); Mean Corpuscular HGB Conc 32.6 g/dl (31.0-36.0); Mean Corpuscular Hemoglobin 29.1 pg (27.0-33.0); Mean Corpuscular Volume 89.1 fL (80.0-98.0); Mean Platelet Volume 12.2 fL (9.4-12.4); Monocytes Absolute Auto 0.9 X10*3/uL (0.1-1.2); Neutrophils Percent Auto 74.2 % (45-73); Platelet Count 260 X10*3/uL (160-400); Red Blood Count 5.23 X10*6/uL (4.60-5.80); Red Cell Distribution Width 13.9 % (11.0-16.0); Venous Blood Gas Refer to POC result; White Blood Count 14.9 X10*3/uL (4.8-10.8)
[2022-12-05 10:01] LABS: VBG Base Excess 2.1 mmol/L; VBG HCO3 30 mmol/L (22-26); VBG pCO2 62 mmHg; VBG pH 7.29 (7.32-7.43); VBG pO2 34 mmHg
[2022-12-05 10:10] LABS: Ammonia 23 umol/L (13-55)
[2022-12-05 10:11] LABS: COVID-19 Test Negative (Negative); IDNOW Serial# BCCEAD1C
[2022-12-05 10:25] LABS: Troponin-I High Sensitivity 4.8 ng/L (<3.5-35.0)
[2022-12-05 10:29] LABS: Beta-Hydroxybutyrate 0.04 mmol/L (0.02-0.27)
[2022-12-05] MEDS: Lactated Ringers 1,000 ML 999 ML IV ×2 (10:31→11:50)
[2022-12-05 10:33] LABS: Alanine Aminotransferase 23 U/L (0-40); Albumin Level 3.8 g/dL (3.5-5.0); Alkaline Phosphatase 101 U/L (39-117); Anion Gap 16 (12-20); Aspartate Amino Transferase 18 U/L (5-37); Bilirubin Direct 0.2 mg/dL (0.0-0.5); Bilirubin Total 0.5 mg/dL (0.0-1.0); Blood Urea Nitrogen 33 mg/dL (9-16); Calcium 8.7 mg/dL (8.4-10.2); Carbon Dioxide 26 mmol/L (22-29); Chloride 99 mmol/L (96-108); Creatinine Clr Calc Pharmacy 31.7; Estimated Glomerular Filt Rate 23; Ethanol < 10 mg/dL; Glucose Random 527 mg/dL (60-115); Lipase 13 U/L (8-78); Magnesium 1.5 mg/dL (1.6-2.6); Potassium 4.1 mmol/L (3.3-5.1); Sodium 137 mmol/L (135-145); Total Protein 7.4 g/dL (6.5-8.0)
[2022-12-05 10:57] LABS: C Reactive Protein 0.98 mg/dL (< or = 0.50)
[2022-12-05 11:00] LABS: B Type Natriuretic Peptide < 10 pg/mL (<100)
[2022-12-05 11:30] LABS: Prothrombin Time 12.4 SEC (11.1-13.3)
[2022-12-05 11:39] LABS: Erythrocyte Sedimentation Rate 12 MM/HR (0-15)
--- NOTE | 2022-12-05 11:56 | PC.NURSE ---
delay in starting abx due to medications not crossing over in pyxis, pharmacy aware. MRI screening form completed, pt to CT.
[2022-12-05 12:01] LABS: Lactic Acid 1.9 mmol/L (0.5-2.0)
--- NOTE | 2022-12-05 12:15 | PC.NURSE ---
per pharmacy override pyxis for meds pt medicated per APR, fluids paused for abx.
[2022-12-05] MEDS: Insulin Regular, Human 100 UNIT/ML 3 ML VIAL 10 UNIT IVPUSH (12:17)
[2022-12-05] MEDS: cefEPime HCl 2 GM in 0.9 % Sodium Chloride 50 ML IV (12:19)
[2022-12-05 12:28] LABS: Glucose, Whole Blood 390 mg/dL (60-115)
[2022-12-05 12:57] LABS: Appearance Urine Cloudy; Color Urine Dark Yellow; Glucose Urine UA 250 mg/dL (Negative); Leukocyte Esterase Urine Moderate (2+) (Negative); Nitrite Urine Negative (Negative); Specific Gravity - Urine >= 1.030 (1.005-1.025); UMIC TRIGGER UACC YES; Urine Blood Negative (Negative); Urine Ketones Trace mg/dL (Negative); Urine Protein 100 (2+) mg/dL (Neg-Trace)
[2022-12-05 13:03] LABS: Amphetamine Screen Urine Not Detected (Not Detect); Barbiturates, Urine Not Detected (Not Detect); Benzodiazepines Screen Urine POSITIVE (Not Detect); Cannabinoid Screen Urine Not Detected (Not Detect); Cocaine Screen Urine POSITIVE (Not Detect); Fentanyl, urine POSITIVE (Not Detect); Opiate Screen Urine POSITIVE (Not Detect); Phencyclidine Screen Urine Not Detected (Not Detect)
[2022-12-05 13:09] LABS: Bacteria Urine None Seen (None Seen); Calcium Oxalate Crystals Urine Present; RBC Urine 0-2 /HPF (0-2); UACC Culture Trigger YES
--- NOTE | 2022-12-05 13:25 | PC.NURSE ---
pt to MRI.
[2022-12-05] MEDS: LORazepam 2 MG/ML VIAL IVPUSH (14:20)
--- NOTE | 2022-12-05 14:20 | PC.NURSE ---
UNABLE TO SCAN ATIVAN DUE TO ADMINISTRATION IN MRI
--- NOTE | 2022-12-05 14:47 | PC.NURSE ---
medication continues to be held due to pt in MRI, story teller medicated pt w IV ativan to allow pt to tolerate MRI.
[2022-12-05] MEDS: vancomycin/NS 2,000 MG/500 ML PLAST..BAG 250 MG IV (15:20)
[2022-12-05] MEDS: gadobutroL 10 ML VIAL IVPUSH (15:22)
--- NOTE | 2022-12-05 15:23 | PC.NURSE ---
pt back from MRI, POC 146, medicated per MAR.
[2022-12-05 15:25] LABS: Glucose, Whole Blood 146 mg/dL (60-115)
[2022-12-05] MEDS: Lidocaine HCl 1 % MPF 5 ML VIAL INFILTRATI (16:56)
--- NOTE | 2022-12-05 17:26 | PC.NURSE ---
lumbar puncture performed by provider and another RN, pt tolerated well, instructed to lie flat for 1 hr.
--- NOTE | 2022-12-05 17:30 | PC.NURSE ---
pt continues to report neck/right shoulder pain, intermittent vision changes, provider aware. difficulty ambulating per pt, on further discussion w pt symptoms have been ongoing x 8 months, but worsened after [facility] the past [facility]. pt reports recent ETOH/heroin use yesterday.
[2022-12-05 18:08] LABS: CSF Appearance Bloody; CSF Tube # 4
[2022-12-05 18:17] LABS: Glucose CSF 197 mg/dL; Total Protein CSF 79.5 mg/dL (15-45)
[2022-12-05] MEDS: Magnesium Sulfate/H2O 2 GM/50 ML PIGGYBACK IV (18:17)
[2022-12-05 18:27] LABS: Appearance CSF CLEAR; CSF Monos 0 %; CSF Other Cells % 0 %; CSF Tube # 3; CSF Volume 0.5 ML; Color CSF COLORLESS; Lymphocytes CSF 100 %; Neutrophils CSF 0 %; Red Blood Cell CSF 62 MM*3; White Blood Cell CSF 4 MM*3
--- NOTE | 2022-12-05 19:13 | PHA.MEDREC ---
Pharmacy Consult ? Medication Reconciliation Pharmacy has completed the medication reconciliation. Patient's sister confirmed medications. Billie Phillips, AdeltiaD
[2022-12-05 19:25] LABS: Cryptococcus neoformans/gattii Not Detected (Not Detect.); Enterovirus Not Detected (Not Detect.); Escherichia coli K1 Not Detected (Not Detect.); Haemophilus influenzae Not Detected (Not Detect.); Herpes simplex virus 1 Not Detected (Not Detect.); Herpes simplex virus 2 Not Detected (Not Detect.); Human herpesvirus 6 Not Detected (Not Detect.); Human parechovirus Not Detected (Not Detect.); Listeria monocytogenes Not Detected (Not Detect.); Neisseria meningitidis Not Detected (Not Detect.); Streptococcus agalactiae Not Detected (Not Detect.); Streptococcus pneumoniae Not Detected (Not Detect.); Varicella zoster virus Not Detected (Not Detect.)
[2022-12-05] MEDS: ondansetron HCL 4 MG/2 ML VIAL IVPUSH (19:26)
[2022-12-05] MEDS: Morphine Sulfate 4 MG/ML CARTRIDGE IVPUSH (19:26)
--- NOTE | 2022-12-05 19:31 | PC.NURSE ---
Shayna ORTIZ at bedside for admission. sister at bedside. vss. pt medicated per apr. awaiting bed assignment.
--- NOTE | 2022-12-05 19:44 | PM.IMHP ---
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 severe bilateral foraminal narrowing with severe compression of the exiting nerve roots in the lumbar spine and nonspecific undulation of the cauda equina nerve -lumbar puncture reassuring -resultant weakness in the bilateral upper and lower extremities and inability to walk -neurology consult -PT evaluation # insulin-dependent type 2 diabetes with hyperglycemia -hemoglobin A1c pending -dose adjusted basal insulin -hold Humalog at this time as patient is NPO -advanced a diabetic diet and add sliding scale -hold oral antihyperglycemics # hypertension -blood pressure stable at this time -hold l lisinopril and chlorthalidone in the setting of WEN # mild intermittent asthma -no acute exacerbation -albuterol p.r.n. # GERD -continue PPI # morbid obesity BMI greater than 42\ -weight loss efforts encouraged # nicotine dependence -nicotine patch -smoking cessation encouraged DVT prophylaxis-Lovenox Full code Patient requires inpatient stay at least 2 midnights for management of acute kidney injury with acute toxic metabolic encephalopathy Time Spent With Patient Time: Total time managing care of this patient today ____ minutes. Quality Stroke Does the patient have a stroke diagnosis?: No VTE Prior VTE?: No VTE Risk Level:: Medical - moderate - high VTE Device Contraindication: Treatment Not Indicated VTE Drug Contraindication: N/A - Med Ordered
[2022-12-05 21:12] LABS: Glucose, Whole Blood 181 mg/dL (60-115)
--- NOTE | 2022-12-05 21:12 | PC.NURSE ---
iv infiltrated; attempt 2x however unable to obtain access. pharmacist in charge owner aware will attempt.
[2022-12-05] MEDS: Lactated Ringers 1,000 ML 100 ML IVCONT (22:00)
--- NOTE | 2022-12-05 22:06 | PC.NURSE ---
20G IV placed left upper arm, LR running @ 100ml/hr.
[2022-12-05] MEDS: Enoxaparin Sodium 40 MG/0.4 ML SYRINGE 30 MG SUBCUT (22:07)
[2022-12-05] MEDS: Acetaminophen 325 MG TABLET 650 MG PO (22:07)
--- NOTE | 2022-12-06 01:57 | PC.NURSE ---
pt continent with urine past 2 eisodes able to use urinal appropriately. otherwise no changes to previous assessment by this rn. ivf infusing. pt sleeping in stretcher respirations even and unlabored. awaiting bed assignement. call welch within reach.
--- NOTE | 2022-12-06 04:34 | PC.NURSE ---
pt reports he would like to leave AMA d/t being hungry; i educated him as his orders state NPO and the need for a swallow eval by specialist per Nery ORTIZ however pt refusing. Harman ORTIZ aware.
[2022-12-06] MEDS: LORazepam 2 MG/ML VIAL 1 MG IVPUSH (05:10)
[2022-12-06 06:09] LABS: MANUAL DIFF FLAG NO
[2022-12-06 06:12] LABS: Basophils Absolute Auto 0.1 X10*3/uL (0.0-0.2); Basophils Percent Auto 0.8 % (0-2); Eosinophils Absolute Auto 1.1 X10*3/uL (0.0-0.4); Eosinophils Percent Auto 9.8 % (0-4); Hemoglobin 13.9 g/dl (14.0-18.0); Imm Gran Abs Auto 0.06 X10*3/uL (0.00-0.03); Imm Gran Pct Auto 0.5 % (0.0-0.4); Lymphocytes Absolute Auto 2.8 X10*3/uL (1.2-4.9); Lymphocytes Percent Auto 25.4 % (20-40); Mean Corpuscular HGB Conc 32.3 g/dl (31.0-36.0); Mean Corpuscular Hemoglobin 28.5 pg (27.0-33.0); Mean Corpuscular Volume 88.3 fL (80.0-98.0); Mean Platelet Volume 12.2 fL (9.4-12.4); Monocytes Absolute Auto 0.6 X10*3/uL (0.1-1.2); Monocytes Percent Auto 5.4 % (2-11); Neutrophils Absolute Auto 6.5 x10*3/uL (2.0-8.3); Neutrophils Percent Auto 58.1 % (45-73); Platelet Count 235 X10*3/uL (160-400); Red Blood Count 4.87 X10*6/uL (4.60-5.80); Red Cell Distribution Width 13.7 % (11.0-16.0); White Blood Count 11.1 X10*3/uL (4.8-10.8)
[2022-12-06 06:38] LABS: Anion Gap 16 (12-20); Blood Urea Nitrogen 28 mg/dL (9-16); Calcium 8.1 mg/dL (8.4-10.2); Carbon Dioxide 24 mmol/L (22-29); Chloride 104 mmol/L (96-108); Creatinine Clr Calc Pharmacy 65.3; Estimated Glomerular Filt Rate 54; Glucose Random 236 mg/dL (60-115); Magnesium 1.7 mg/dL (1.6-2.6); Potassium 3.9 mmol/L (3.3-5.1); Sodium 140 mmol/L (135-145)
--- NOTE | 2022-12-06 06:41 | PC.NURSE ---
report given to s3 perla blake.
[2022-12-06 07:21] VITALS: BP 134/82; PULSE 105; RESP 18; TEMP 36.6; O2SAT 95
[2022-12-06 07:40] VITALS: BP 134/82; PULSE 105; O2SAT 95
[2022-12-06 07:42] LABS: Glucose, Whole Blood 334 mg/dL (60-115)
[2022-12-06 08:12] VITALS: BMI 39.0
[2022-12-06] MEDS: Aspirin Enteric Coated 81 MG TABLET.DR PO (08:26)
[2022-12-06] MEDS: Omeprazole 20 MG CAPSULE.DR PO (08:26)
[2022-12-06] MEDS: Lidocaine 4 % Patch ADH..PATCH 1 PATCH TRANSDERMA (08:35)
[2022-12-06] MEDS: Acetaminophen 325 MG TABLET 650 MG PO (11:24)
[2022-12-06 11:30] LABS: Glucose, Whole Blood 380 mg/dL (60-115)
--- NOTE | 2022-12-06 11:38 | P.PNIM_ITS ---
Subjective Subjective Date of Service: 12/06/22 Interval History: Reports pain in LUE, right side neck Denies ongoing radicular pain BLE, RUE No back pain No incontinence still slow to ambulate mentation improved Review of Systems Review of Systems: Yes all other systems are reviewed and are negative Physical Exam 2 Vital Signs: Vital Signs: Last Vital Signs Temp 97.8 F 12/06/22 07:21 Pulse 105 H 12/06/22 07:40 Resp 18 12/06/22 07:21 BP 134/82 12/06/22 07:40 Pulse Ox 95 12/06/22 07:40 O2 Del Method Room Air 12/06/22 07:21 BMI result Body Mass Index 39.0 Constitutional - Awake and Alert, No apparent distress Eyes - PERRLA, EOMI Cardiovascular - S1S2, RRR, No edema Respiratory - Normal lung expansion, Normal respiratory effort, No respiratory distress, CTA bilaterally Extremities - no calf tenderness bilaterally, no swelling Skin - Warm/Dry Neurological - Alert & oriented x3, 5/5 strength BUE and 4/5 BLE Psychological - Appropriate affect Objective Data Active Medications Acetaminophen (Acetaminophen 325 Mg Tablet) 650 mg PO Q6H PRN PRN Reason: Pain, Mild (Pain Scale 1-3) Last Admin: 12/06/22 11:24 Dose: 650 mg Documented By: BEE Albuterol Sulfate (Albuterol Sulfate 90 Mcg 8 Gm Inhaler) 2 puff INHALE Q6H PRN PRN Reason: Shortness Of Breath Aspirin (Aspirin Enteric Coated 81 Mg Tablet.) 81 mg PO DAILY [facility] Last Admin: 12/06/22 08:26 Dose: 81 mg Documented By: BEE Clonidine HCl (Clonidine Hcl 0.1 Mg Tablet) 0.1 mg PO BEDTIME PRN; Protocol PRN Reason: anxiety Cyclobenzaprine HCl (Cyclobenzaprine Hcl 10 Mg Tablet) 10 mg PO BEDTIME PRN PRN Reason: muscle spasm Dextrose (Dextrose 50 % 25 Gm/50 Ml Syringe) 25 gm IVPUSH Q15M PRN; Protocol PRN Reason: per 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 Standing Ord. Docusate Sodium (Docusate Sodium 100 Mg Capsule) 100 mg PO DAILY PRN PRN Reason: Constipation Enoxaparin Sodium (Enoxaparin Sodium 40 Mg/0.4 Ml Syringe) 30 mg SUBCUT Q24H [facility] Last Admin: 12/05/22 22:07 Dose: 30 mg Documented By: KARISHMA Glucose (Glucose Gel 15 Gm Gel..Gram.) 15 gm PO Q15M PRN; Protocol PRN Reason: per 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 Standing Ord. Lactated Ringer's (Lr) 1,000 mls @ 100 mls/hr IVCONT .Q10H [facility] Last Admin: 12/05/22 22:00 Dose: 100 mls/hr Documented By: CHANA Lidocaine (Lidocaine 4 % Patch Adh..Patch) 1 patch TRANSDERMA DAILY [facility] Last Admin: 12/06/22 08:35 Dose: 1 patch Documented By: BEE Loratadine (Loratadine 10 Mg Tablet) 10 mg PO DAILY PRN PRN Reason: Allergy Symptoms Nicotine (Nicotine 21 Mg Patch.Td24) 21 mg TRANSDERMA DAILY [facility] Last Admin: 12/06/22 08:38 Dose: Not Given Documented By: BEE Non-Admin Reason: Patient Refused Omeprazole (Omeprazole 20 Mg Capsule.) 20 mg PO DAILY@0630 [facility] Last Admin: 12/06/22 08:26 Dose: 20 mg Documented By: BEE Ondansetron HCl (Ondansetron Hcl 4 Mg/2 Ml Vial) 4 mg IVPUSH Q8H PRN PRN Reason: Nausea and Vomiting Sodium Chloride (0.9 % Sodium Chloride Flush 3 Ml Syringe) 3 ml IVFLUSH QSHIFT [facility] Last Admin: 12/06/22 08:40 Dose: Not Given Documented By: BEE Non-Admin Reason: IV Running Labs 12/06/22 05:50 12/06/22 05:50 Labs: Laboratory Results - last 24 hr 12/05/22 12/05/22 12/05/22 09:50 11:44 12:25 MCV MCH MCHC RDW Plt Count MPV Immature Gran % (Auto) Neut % (Auto) Lymph % (Auto) [place] % (Auto) Eos % (Auto) Baso % (Auto) Lymph # (Auto) [place] # (Auto) Eos # (Auto) Baso # (Auto) Abs Immat Gran (auto) Absolute Neuts (auto) Absolute Nucleated RBC Nucleated RBC % (auto) ESR 12 Anion Gap Estim Creat Clear Calc Estimated GFR POC Glucose 390 H* Random Glucose Lactic Acid 1.9 Calcium Magnesium Urine Color Urine Appearance Urine pH Ur Specific [place] Urine Protein Urine Glucose (UA) Urine Ketones Urine Blood Urine Nitrite Ur Leukocyte Esterase Urine RBC Urine WBC Ur Squamous Epith Cells Calcium Oxalate Crystal Urine Bacteria Hyaline Casts CSF Tube Number CSF Volume CSF Appearance CSF Color CSF WBC CSF RBC CSF Neutrophils CSF Lymphocytes CSF Monocytes % CSF Other Cells % CSF Appearance (b) CSF Glucose CSF Total Protein CSF C.neoform/gat PCR CSF CMV DNA (PCR) CSF Enterovirus (PCR) CSF E. coli K1 (PCR) CSF H. influenzae (PCR) CSF HSV I (PCR) CSF HSV II (PCR) CSF HHV 6 (PCR) CSF L.monocytogenes PCR CSF N. meningitidis PCR CSF Parechovirus (PCR) CSF S. agalactiae (PCR) CSF S. pneumoniae (PCR) CSF VZV (PCR) Urine Opiates Screen Urine Fentanyl Screen Ur Barbiturates Screen Ur Phencyclidine Scrn Ur Amphetamines Screen U Benzodiazepines Scrn Urine Cocaine Screen U Marijuana (THC) Screen 12/05/22 12/05/22 12/05/22 12:47 12:48 15:21 MCV MCH MCHC RDW Plt Count MPV Immature Gran % (Auto) Neut % (Auto) Lymph % (Auto) [place] % (Auto) Eos % (Auto) Baso % (Auto) Lymph # (Auto) [place] # (Auto) Eos # (Auto) Baso # (Auto) Abs Immat Gran (auto) Absolute Neuts (auto) Absolute Nucleated RBC Nucleated RBC % (auto) ESR Anion Gap Estim Creat Clear Calc Estimated GFR POC Glucose 146 H Random Glucose Lactic Acid Calcium Magnesium Urine Color Dark Yellow Urine Appearance Cloudy Urine pH 5.0 Ur Specific [place] >= 1.030 H Urine Protein 100 (2+) H Urine Glucose (UA) 250 H Urine Ketones Trace Urine Blood Negative Urine Nitrite Negative Ur Leukocyte Esterase Moderate (2+) H Urine RBC 0-2 Urine WBC 11-20 H Ur Squamous Epith Cells 11-20 Calcium Oxalate Crystal Present Urine Bacteria None Seen Hyaline Casts 11-20 CSF Tube Number CSF Volume CSF Appearance CSF Color CSF WBC CSF RBC CSF Neutrophils CSF Lymphocytes CSF Monocytes % CSF Other Cells % CSF Appearance (b) CSF Glucose CSF Total Protein CSF C.neoform/gat PCR CSF CMV DNA (PCR) CSF Enterovirus (PCR) CSF E. coli K1 (PCR) CSF H. influenzae (PCR) CSF HSV I (PCR) CSF HSV II (PCR) CSF HHV 6 (PCR) CSF L.monocytogenes PCR CSF N. meningitidis PCR CSF Parechovirus (PCR) CSF S. agalactiae (PCR) CSF S. pneumoniae (PCR) CSF VZV (PCR) Urine Opiates Screen POSITIVE H Urine Fentanyl Screen POSITIVE H Ur Barbiturates Screen Not Detected Ur Phencyclidine Scrn Not Detected Ur Amphetamines Screen Not Detected U Benzodiazepines Scrn POSITIVE H Urine Cocaine Screen POSITIVE H U Marijuana (THC) Screen Not Detected 12/05/22 12/05/22 12/05/22 16:50 16:50 21:08 MCV MCH MCHC RDW Plt Count MPV Immature Gran % (Auto) Neut % (Auto) Lymph % (Auto) [place] % (Auto) Eos % (Auto) Baso % (Auto) Lymph # (Auto) [place] # (Auto) Eos # (Auto) Baso # (Auto) Abs Immat Gran (auto) Absolute Neuts (auto) Absolute Nucleated RBC Nucleated RBC % (auto) ESR Anion Gap Estim Creat Clear Calc Estimated GFR POC Glucose 181 H Random Glucose Lactic Acid Calcium Magnesium Urine Color Urine Appearance Urine pH Ur Specific [place] Urine Protein Urine Glucose (UA) Urine Ketones Urine Blood Urine Nitrite Ur Leukocyte Esterase Urine RBC Urine WBC Ur Squamous Epith Cells Calcium Oxalate Crystal Urine Bacteria Hyaline Casts CSF Tube Number 4 3 CSF Volume 0.5 CSF Appearance CLEAR CSF Color COLORLESS CSF WBC 4 CSF RBC 62 CSF Neutrophils 0 CSF Lymphocytes 100 CSF Monocytes % 0 CSF Other Cells % 0 CSF Appearance (b) Bloody CSF Glucose 197 CSF Total Protein 79.5 H CSF C.neoform/gat PCR Not Detected CSF CMV DNA (PCR) Not Detected CSF Enterovirus (PCR) Not Detected CSF E. coli K1 (PCR) Not Detected CSF H. influenzae (PCR) Not Detected CSF HSV I (PCR) Not Detected CSF HSV II (PCR) Not Detected CSF HHV 6 (PCR) Not Detected CSF L.monocytogenes PCR Not Detected CSF N. meningitidis PCR Not Detected CSF Parechovirus (PCR) Not Detected CSF S. agalactiae (PCR) Not Detected CSF S. pneumoniae (PCR) Not Detected CSF VZV (PCR) Not Detected Urine Opiates Screen Urine Fentanyl Screen Ur Barbiturates Screen Ur Phencyclidine Scrn Ur Amphetamines Screen U Benzodiazepines Scrn Urine Cocaine Screen U Marijuana (THC) Screen 12/06/22 12/06/22 12/06/22 05:50 07:15 11:14 MCV 88.3 MCH 28.5 MCHC 32.3 RDW 13.7 Plt Count 235 MPV 12.2 Immature Gran % (Auto) 0.5 H Neut % (Auto) 58.1 Lymph % (Auto) 25.4 [place] % (Auto) 5.4 Eos % (Auto) 9.8 H Baso % (Auto) 0.8 Lymph # (Auto) 2.8 [place] # (Auto) 0.6 Eos # (Auto) 1.1 H Baso # (Auto) 0.1 Abs Immat Gran (auto) 0.06 H Absolute Neuts (auto) 6.5 Absolute Nucleated RBC 0.000 Nucleated RBC % (auto) 0.0 ESR Anion Gap 16 Estim Creat Clear Calc 65.3 Estimated GFR 54 POC Glucose 334 H 380 H* Random Glucose 236 H Lactic Acid Calcium 8.1 L D Magnesium 1.7 Urine Color Urine Appearance Urine pH Ur Specific [place] Urine Protein Urine Glucose (UA) Urine Ketones Urine Blood Urine Nitrite Ur Leukocyte Esterase Urine RBC Urine WBC Ur Squamous Epith Cells Calcium Oxalate Crystal Urine Bacteria Hyaline Casts CSF Tube Number CSF Volume CSF Appearance CSF Color CSF WBC CSF RBC CSF Neutrophils CSF Lymphocytes CSF Monocytes % CSF Other Cells % CSF Appearance (b) CSF Glucose CSF Total Protein CSF C.neoform/gat PCR CSF CMV DNA (PCR) CSF Enterovirus (PCR) CSF E. coli K1 (PCR) CSF H. influenzae (PCR) CSF HSV I (PCR) CSF HSV II (PCR) CSF HHV 6 (PCR) CSF L.monocytogenes PCR CSF N. meningitidis PCR CSF Parechovirus (PCR) CSF S. agalactiae (PCR) CSF S. pneumoniae (PCR) CSF VZV (PCR) Urine Opiates Screen Urine Fentanyl Screen Ur Barbiturates Screen Ur Phencyclidine Scrn Ur Amphetamines Screen U Benzodiazepines Scrn Urine Cocaine Screen U Marijuana (THC) Screen Microbiology Microbiology Results: Microbiology 12/05/22 16:50 Gram Stain - Final Cerebrospinal Fluid CSF Examination - Final Fluid Description - Final CSF Culture - Preliminary No growth to date. Assessment and Plan Plan 62-year-old male with history of tubular adenoma, polysubstance abuse, obstructive sleep apnea noncompliant with CPAP, insulin-dependent type 2 diabetes, hyperlipidemia, hypertension, asthma, and morbid obesity admitted for acute toxic metabolic encephalopathy, WEN, and peripheral neuropathy. Today reports improvement in pain with improvement in mentation # acute toxic metabolic encephalopathy- resolved -head CT negative for any acute intracranial abnormality -suspect secondary to polysubstance abuse. Urine tox screen positive for opiates, fentanyl, benzos, and cocaine -monitor mentation -addiction medicine consult # acute kidney injury- resolved -baseline renal function unknown, suspect has CKD stage 4 -creatinine 2.26--> 1.34 -dc ivf -avoid nephrotoxins -follow BMP # peripheral neuropathy/radiculopathy- suspect r/t diabetes -thoracic spine/lumbar spine MRI showing multiple level paracentral disc protrusions with flattening of the ventral cord but no significant spinal canal stenosis as well as severe bilateral foraminal narrowing with severe compression of the exiting nerve roots in the lumbar spine and nonspecific undulation of the cauda equina nerve -lumbar puncture reassuring -resultant weakness in the bilateral upper and lower extremities and inability to walk -neurology consult -PT evaluation # insulin-dependent type 2 diabetes with hyperglycemia -hemoglobin A1c pending -dose adjusted basal insulin -hold Humalog at this time as patient is NPO -advanced a diabetic diet and add sliding scale -hold oral antihyperglycemics # hypertension -blood pressure stable at this time -hold l lisinopril and chlorthalidone in the setting of WEN # mild intermittent asthma -no acute exacerbation -albuterol p.r.n. # GERD -continue PPI # morbid obesity BMI greater than 42 -weight loss efforts encouraged # nicotine dependence -nicotine patch -smoking cessation encouraged DVT prophylaxis-Lovenox Full code Patient requires inpatient stay at least 2 midnights for management of acute kidney injury with acute toxic metabolic encephalopathy Time Spent With Patient Time: Total time managing care of this patient today ____ minutes. Quality Stroke Does the patient have a stroke diagnosis?: No VTE Prior VTE?: No VTE Risk Level:: Medical - moderate - high VTE Device Contraindication: Treatment Not Indicated VTE Drug Contraindication: N/A - Med Ordered
--- NOTE | 2022-12-06 11:47 | PM.NEUROCN ---
History of Present Illness Data of Consult Service Date: 12/06/22 Primary Care Provider: Zee Vasquez MD HPI Reason for consult: Neuropathy 62 years old man with longstanding history of diabetes and polydrug abuse who apparently was incarcerated recently. There was no history of any recent cold or flu-like illness, diarrhea, vaccination or surgical procedure. He came to hospital yesterday complaining that he could and walk well and was investigated for Guillain-Williston syndrome and I was consulted. After listening to his story yesterday, my impression was that the overall story was not consistent with diagnosis of Guillain-Williston syndrome. I saw him today in his room when his only complaint was that his right shoulder was hurting. He said they wanted to go home. I also noted that he was found positive for cocaine and benzodiazepine and his initial blood sugar was 500+. Review of Systems Review of Systems: As in HPI. 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 Diabetes type 2, uncontrolled Hypercholesteremia HTN (hypertension) Asthma Family History Family History Father Diabetes Glaucoma Mother Diabetes HTN (hypertension) Asthma Diabetic kidney Brother Spinal cord injuries Diabetes Sister Asthma Surgical History Surgical History Hx of colonoscopy Status post laser lithotripsy of ureteral calculus H/O knee surgery H/O hernia repair Social History Social History Household Members: Other Household Members Other:: room mate Housing: Apartment Housing Other:: handicapped facility Do you presently have visiting nurse or other home services: No Alcohol intake: current Alcohol intake frequency: a few times a week Patient Tobacco Use Status: Current everyday Tobacco user Tobacco use type: Cigarette Cigarette Packs Per Day: 2 Cigarettes Per Day: 40.0 Second Hand Smoke Exposure: No Substance Use Type: Crack/Cocaine and Heroin Current occupational status: employed 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 Meds Allergies Allergy/AdvReac Type Severity Reaction Status Date / Time sulfamethoxazole Allergy Intermediate RASH Verified 01/26/22 14:55 [From BACTRIM DS] trimethoprim Allergy Intermediate RASH Verified 01/26/22 14:55 [From BACTRIM DS] Penicillins Allergy Mild all Verified 01/26/22 14:55 Active Medications: Current Medications Acetaminophen (Acetaminophen 325 Mg Tablet) 650 mg PO Q6H PRN PRN Reason: Pain, Mild (Pain Scale 1-3) Last Admin: 12/06/22 11:24 Dose: 650 mg Albuterol Sulfate (Albuterol Sulfate 90 Mcg 8 Gm Inhaler) 2 puff INHALE Q6H PRN PRN Reason: Shortness Of Breath Aspirin (Aspirin Enteric Coated 81 Mg Tablet.Dr) 81 mg PO DAILY [facility] Last Admin: 12/06/22 08:26 Dose: 81 mg Clonidine HCl (Clonidine Hcl 0.1 Mg Tablet) 0.1 mg PO BEDTIME PRN; Protocol PRN Reason: anxiety Cyclobenzaprine HCl (Cyclobenzaprine Hcl 10 Mg Tablet) 10 mg PO BEDTIME PRN PRN Reason: muscle spasm Dextrose (Dextrose 50 % 25 Gm/50 Ml Syringe) 25 gm IVPUSH Q15M PRN; Protocol PRN Reason: per 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 Standing Ord. Docusate Sodium (Docusate Sodium 100 Mg Capsule) 100 mg PO DAILY PRN PRN Reason: Constipation Enoxaparin Sodium (Enoxaparin Sodium 40 Mg/0.4 Ml Syringe) 30 mg SUBCUT Q24H [facility] Last Admin: 12/05/22 22:07 Dose: 30 mg Glucose (Glucose Gel 15 Gm Gel..Gram.) 15 gm PO Q15M PRN; Protocol PRN Reason: per 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 Standing Ord. Lactated Ringer's (Lr) 1,000 mls @ 100 mls/hr IVCONT .Q10H [facility] Last Admin: 12/05/22 22:00 Dose: 100 mls/hr Lidocaine (Lidocaine 4 % Patch Adh..Patch) 1 patch TRANSDERMA DAILY [facility] Last Admin: 12/06/22 08:35 Dose: 1 patch Loratadine (Loratadine 10 Mg Tablet) 10 mg PO DAILY PRN PRN Reason: Allergy Symptoms Nicotine (Nicotine 21 Mg Patch.Td24) 21 mg TRANSDERMA DAILY [facility] Last Admin: 12/06/22 08:38 Dose: Not Given Omeprazole (Omeprazole 20 Mg Capsule.) 20 mg PO DAILY@0630 [facility] Last Admin: 12/06/22 08:26 Dose: 20 mg Ondansetron HCl (Ondansetron Hcl 4 Mg/2 Ml Vial) 4 mg IVPUSH Q8H PRN PRN Reason: Nausea and Vomiting Sodium Chloride (0.9 % Sodium Chloride Flush 3 Ml Syringe) 3 ml IVFLUSH QSHIFT [facility] Last Admin: 12/06/22 08:40 Dose: Not Given Home Medications Medication Instructions Recorded Confirmed Last Taken Type albuterol sulfate 90 mcg/actuation 2 puff inhalation Q6H PRN 01/09/20 12/05/22 Unknown History aerosol inhaler (ProAir HFA) Shortness Of Breath aspirin 81 mg tablet,delayed 81 mg PO DAILY 01/09/20 12/05/22 Unknown History release (Adult Low Dose Aspirin) atorvastatin 80 mg tablet 80 mg PO BEDTIME 01/09/20 12/05/22 Unknown History clonidine HCl 0.1 mg tablet 0.1 mg PO BEDTIME PRN anxiety 01/09/20 12/05/22 Unknown History lisinopril 40 mg tablet 40 mg PO DAILY 01/09/20 12/05/22 12/05/22 History pantoprazole 40 mg tablet,delayed 40 mg PO DAILY 01/09/20 12/05/22 Unknown History release blood sugar diagnostic (FreeStyle #10 ea 03/10/20 04/20/20 Unknown History Test strips) lancets 28 gauge (FreeStyle #100 ea 03/10/20 04/20/20 Unknown History Lancets) loratadine 10 mg capsule 10 mg PO DAILY PRN Allergy Symptoms 03/10/20 12/05/22 Unknown History chlorthalidone 25 mg tablet 25 mg PO QAM 12/05/22 12/05/22 12/05/22 History insulin glargine U-300 conc 300 70 unit subcut QAM 12/05/22 12/05/22 Unknown History unit/mL (3 mL) subcutaneous pen (Toujeo Max U-300 SoloStar) insulin lispro 100 unit/mL See Protocol subcut QIDACHS 12/05/22 12/05/22 12/05/22 History subcutaneous pen (Humalog KwikPen (U-100) Insulin) lidocaine 5 % topical patch 1 patch topical DAILY pain 12/05/22 12/05/22 Unknown History metformin 1,000 mg tablet 1,000 mg PO BID 12/05/22 12/05/22 12/05/22 History naproxen 500 mg tablet 500 mg PO DAILY pain 12/05/22 12/05/22 Unknown History Physical Exam Vital Signs: Vital Signs: Last Vital Signs Temp 97.8 F 12/06/22 07:21 Pulse 105 H 12/06/22 07:40 Resp 18 12/06/22 07:21 BP 134/82 12/06/22 07:40 Pulse Ox 95 12/06/22 07:40 O2 Del Method Room Air 12/06/22 07:21 BMI result Body Mass Index 39.0 Neuro: Other: He is alert and awake with normal spontaneity of speech fluency comprehension and affect. Scaly darken rashes noted on is for legs. Deep tendon reflexes are absent with flexor plantars. Results Labs 12/06/22 05:50 12/06/22 05:50 Labs: Short CBC 12/06/22 Range/Units 05:50 WBC 11.1 H (4.8-10.8) X10*3/uL Hgb 13.9 L (14.0-18.0) g/dl Hct 43.0 (42.0-52.0) % Plt Count 235 (160-400) X10*3/uL BMP 12/06/22 05:50 Sodium 140 Potassium 3.9 Chloride 104 Carbon Dioxide 24 BUN 28 H Creatinine 1.34 Calcium 8.1 L D Urine 12/05/22 Range/Units 12:47 Urine Color Dark Yellow Urine Appearance Cloudy Urine pH 5.0 (5.0-9.0) Ur Specific [place] >= 1.030 H (1.005-1.025) Urine Protein 100 (2+) H (Neg-Trace) mg/dL Urine Glucose (UA) 250 H (Negative) mg/dL CSF results were reviewed. His MRI of lumbosacral spine revealed L5-S1 disc osteophyte complexes narrowing the left exiting for a min. Microbiology Microbiology Results: Microbiology 12/05/22 16:50 Cerebrospinal Fluid Gram Stain - Final 12/05/22 16:50 Cerebrospinal Fluid CSF Examination - Final 12/05/22 16:50 Cerebrospinal Fluid Fluid Description - Final 12/05/22 16:50 Cerebrospinal Fluid CSF Culture - Preliminary No growth to date. Assessment and Plan (1) Polysubstance abuse: Status: Acute (2) Lumbar disc disease: Status: Acute (3) Diabetic neuropathy: Status: Acute 62 years old man with chronic probably diabetic peripheral neuropathy. Overall clinical picture was not typical of or suggestive of Guillain-Williston syndrome. There when number of confounding factors including uncontrolled diabetes with quite high sugar, polydrug abuse, and chronic signs of peripheral neuropathy. As far as disc osteophyte complexes concerned, it was asymptomatic and not causing any symptoms at this time. Recommendation is better control of diabetes, PT OT, avoidance of drug of abuse, and conservative pain management with avoidance of habit-forming medicines. Time Spent With Patient Time: Total time managing care of this patient today ____ minutes. Procedures Date of Service Date of Service: 12/06/22
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
--- NOTE | 2022-12-06 13:22 | MHC.CM.PN ---
Referrals were sent to 27 VNA's for skilled home care services including OT and PT per PT and Neurologist recommendations. None have accepted patient. CM sent message to Pt's PCP to request she refer him to outpt PT and OT.
--- NOTE | 2022-12-06 13:35 | MHC.CM.PN ---
Pt was accepted by a [facility]NA called [facility].
--- NOTE | 2022-12-06 14:21 | MHC.RECOVRN ---
Met with pt in 380 after consult placed to Addiction Medicine for polysubstance use. Pt had presented to the ED complaining of weakness, confusion, hyperglycemia, and inability to ambulate x1 week. Upon evaluation, pt admitted for treatment of acute toxic metabolic encephalopathy, WEN, hyperglycemia, and diabetic polyneuropathy. Pt sitting on edge of bed, reporting pain in right shoulder, writhing around at times on bed. Difficult to engage in conversation. Pt requesting discharge. Pts sister had called the hospital asking for information how to connect pt to [facility] as pt had expressed interest in ATS to sister. When t/w spoke with pt, pt states Yeah, I'm going to but I have some things to take care of first. Pt is not interested in ATS today. Pt denies current withdrawal symptoms, continues to c/o right shoulder pain. Pt does not engage in further conversation. Discussed with Zee Farnsworth APRN.
[2022-12-13 19:34] LABS: Lyme IgG CSF Immunoblot NO BANDS DETECTED; Lyme IgM CSF Immunoblot NO BANDS DETECTED
== END 2022-12-06 15:59 | disposition home health service (06) | DRG 420 ==
LOC: HO.ED 18:53 → HO.EDOVER 19:47 → HO.S3 12-06 05:59
PROVIDERS: Physician Assistant; Student in an Organized Health Care Education/Training Program; Admitting Provider Physician Assistant; Emergency Provider Emergency Medicine Emergency Medical Services; PCP Internal Medicine; Visit Provider Physician Assistant
DX: E11.65 Type 2 diabetes mellitus with hyperglycemia (principal); G92.8 Other toxic encephalopathy; N17.9 Acute kidney failure, unspecified; N18.4 Chronic kidney disease, stage 4 (severe); E11.42 Type 2 diabetes mellitus with diabetic polyneuropathy; K21.9 Gastro-esophageal reflux disease without esophagitis; E78.00 Pure hypercholesterolemia, unspecified; G47.30 Sleep apnea, unspecified; F19.90 Other psychoactive substance use, unspecified, uncomplicated; E66.01 Morbid (severe) obesity due to excess calories; E11.22 Type 2 diabetes mellitus with diabetic chronic kidney disease; M51.36 Other intervertebral disc degeneration, lumbar region; I12.9 Hypertensive chronic kidney disease with stage 1 through stage 4 chronic kidney disease, or unspecified chronic kidney disease; F17.210 Nicotine dependence, cigarettes, uncomplicated; Z20.822 Contact with and (suspected) exposure to COVID-19; Z91.199 Patient's noncompliance with other medical treatment and regimen due to unspecified reason; Z71.6 Tobacco abuse counseling; Z79.4 Long term (current) use of insulin; Z68.39 Body mass index [BMI] 39.0-39.9, adult; Z79.82 Long term (current) use of aspirin; Z79.84 Long term (current) use of oral hypoglycemic drugs; Z79.899 Other long term (current) drug therapy
CPT/HCPCS: 36415; 70450; 71045; 72125; 72128; 72131; 72157; 72158; 80048; 80076; 80307; 81001; 82010; 82140; 82550; 82803; 82945; 82947; 83605; 83690; 83735; 83880; 84157; 84484; 85025; 85610; 85652; 86140; 86617; 87015; 87040; 87070; 87086; 87205; 87483; 87635; 89051; 93005; 97162; 99285; A9585; J0692; J1650; J2060; J2270; J2405; J3370; J3475

== ENCOUNTER → 2022-12-05 19:34 | Outpatient (BNV) | payer MEDICAID, SELFPAY | PROVIDERS: Admitting Provider Physician Assistant; Emergency Provider Emergency Medicine Emergency Medical Services; PCP Internal Medicine; Visit Provider Physician Assistant | DX: F19.10 Other psychoactive substance abuse, uncomplicated (principal); N17.9 Acute kidney failure, unspecified; R73.9 Hyperglycemia, unspecified; E11.42 Type 2 diabetes mellitus with diabetic polyneuropathy; M51.9 Unspecified thoracic, thoracolumbar and lumbosacral intervertebral disc disorder; E11.40 Type 2 diabetes mellitus with diabetic neuropathy, unspecified | CPT/HCPCS: 99223; 99239 ==

== ENCOUNTER 2022-12-07 17:22 | Emergency (ER) | payer MEDICAID, SELFPAY ==
[2022-12-07 17:47] VITALS: BP 100/68; PULSE 106; RESP 14; TEMP 36.7; O2SAT 91
[2022-12-07 17:56] VITALS: BP 152/80; PULSE 105; O2SAT 94; BMI 38.1
[2022-12-07 18:01] VITALS: BP 112/55; PULSE 99; RESP 12; O2SAT 97
[2022-12-07] MEDS: Naloxone HCl Nasal 4 MG SPRAY NOSTRILALT (18:01)
[2022-12-07 18:11] LABS: Glucose, Whole Blood 576 mg/dL (60-115)
--- NOTE | 2022-12-07 18:22 | ED.AMS ---
HPI - Altered Mental Status General Chief Complaint: Altered Mental Status Stated Complaint: coming from home w/ hyperglycemia Time Seen by Provider: 12/07/22 17:35 Source: patient, family and EMS Mode of arrival: EMS History of Present Illness HPI narrative: Is a 62-year-old male who is arriving via EMS from home with hyperglycemia. EMS noted that he was very altered on their arrival and received report from family at the home stated that patient was given 20 units of Humalog prior to arrival without good results and endorse that patient took an oxy prior to arrival. Although patient has history of overdose EMS did not provide any Narcan. Related Data Home Medications Medication Instructions Recorded Confirmed albuterol sulfate 90 mcg/actuation 2 puff inhalation Q6H PRN 01/09/20 12/05/22 aerosol inhaler (ProAir HFA) Shortness Of Breath aspirin 81 mg tablet,delayed 81 mg PO DAILY 01/09/20 12/05/22 release (Adult Low Dose Aspirin) atorvastatin 80 mg tablet 80 mg PO BEDTIME 01/09/20 12/05/22 clonidine HCl 0.1 mg tablet 0.1 mg PO BEDTIME PRN anxiety 01/09/20 12/05/22 lisinopril 40 mg tablet 40 mg PO DAILY 01/09/20 12/05/22 pantoprazole 40 mg tablet,delayed 40 mg PO DAILY 01/09/20 12/05/22 release blood sugar diagnostic (FreeStyle #10 ea 03/10/20 04/20/20 Test strips) lancets 28 gauge (FreeStyle #100 ea 03/10/20 04/20/20 Lancets) loratadine 10 mg capsule 10 mg PO DAILY PRN Allergy Symptoms 03/10/20 12/05/22 chlorthalidone 25 mg tablet 25 mg PO QAM 12/05/22 12/05/22 insulin lispro 100 unit/mL See Protocol subcut QIDACHS 12/05/22 12/05/22 subcutaneous pen (Humalog KwikPen (U-100) Insulin) lidocaine 5 % topical patch 1 patch topical DAILY pain 12/05/22 12/05/22 metformin 1,000 mg tablet 1,000 mg PO BID 12/05/22 12/05/22 naproxen 500 mg tablet 500 mg PO DAILY pain 12/05/22 12/05/22 Previous Rx's Medication Instructions Recorded fredi.stocking,knee,reg,xlrg #12 ea 07/20/20 cyclobenzaprine 10 mg tablet 10 mg PO BEDTIME PRN muscle spasm 02/02/21 #7 tabs pen needle, diabetic 32 gauge x #100 ea 02/08/22/32 (BD Ashly 2nd Gen Pen Needle) gabapentin 300 mg capsule 300 mg PO BEDTIME #30 caps 12/06/22 insulin glargine U-300 conc 300 80 unit (0.2667 mL) subcut QAM #24 12/06/22 unit/mL (3 mL) subcutaneous pen mL (Toujeo Max U-300 SoloStar) nicotine 21 mg/24 hr daily 21 mg transdermal DAILY #28 ea 12/06/22 transdermal patch clindamycin HCl 300 mg capsule 600 mg (2 x 300 mg) PO TID 5 days 12/07/22 #30 caps Allergies Allergy/AdvReac Type Severity Reaction Status Date / Time sulfamethoxazole Allergy Intermediate RASH Verified 01/26/22 14:55 [From BACTRIM DS] trimethoprim Allergy Intermediate RASH Verified 01/26/22 14:55 [From BACTRIM DS] Penicillins Allergy Mild all Verified 01/26/22 14:55 Review of Systems Review of Systems: Pertinent positives and negatives as stated in HPI [facility] Past Medical History Source: nursing notes reviewed Medical History Tubular adenoma Polysubstance abuse Sleep apnea Morbid obesity 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 associated with type 2 diabetes mellitus Diabetic polyneuropathy associated with type 2 diabetes mellitus Diabetic nephropathy associated with type 2 diabetes mellitus 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 Diabetes type 2, uncontrolled Hypercholesteremia HTN (hypertension) Asthma Surgical History Hx of colonoscopy Status post laser lithotripsy of ureteral calculus H/O knee surgery H/O hernia repair Family History Family History Father Diabetes Glaucoma Mother Diabetes HTN (hypertension) Asthma Diabetic kidney Brother Spinal cord injuries Diabetes Sister Asthma Social History Social History Household Members: Other Household Members Other:: room mate Housing: Apartment Housing Other:: handicapped facility Do you presently have visiting nurse or other home services: No Alcohol intake: current Alcohol intake frequency: a few times a week Patient Tobacco Use Status: Current everyday Tobacco user Tobacco use type: Cigarette Cigarette Packs Per Day: 2 Cigarettes Per Day: 40.0 Second Hand Smoke Exposure: No Substance Use Type: Crack/Cocaine and Heroin Advance Directives: No Advance Directives Information Provided: No Current occupational status: employed 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 GENERAL: Well nourished, in no acute distress. HEAD: Normocephalic/atraumatic EYES: PERRLA, EOMI EARS: Ext canals without abnormality NOSE: Nares patent bilateral OROPHARYNX: no oral lesions noted, posterior pharynx clear NECK: Supple, no adenopathy LUNGS: Normal breath sounds. No adventitious sounds or accessory muscle use. SpO2<97> CARDIOVASCULAR: Regular rate and rhythm without noted murmurs ABDOMEN: Soft, non-tender, non-distended with bowel sounds. MUSCULOSKELETAL: No tenderness, deformities, or effusions noted on gross inspection. EXTREMITIES: No cyanosis, clubbing or edema. SKIN: Inspection of the skin reveals no rashes NEUROLOGIC: Drowsy and oriented x 2. Strength and sensation to light touch were grossly intact x 4. Medications Administered Discontinued Medications Generic Name Dose Route Start Last Admin Trade Name Freq PRN Reason Stop Dose Admin Insulin Human Lispro 6 unit 12/07/22 18:17 12/07/22 19:18 Insulin Lispro 100 Unit/Ml 3 Ml Vial SUBCUT 12/07/22 18:18 6 unit ONCE ONE Administration Naloxone HCl 4 mg 12/07/22 17:55 12/07/22 18:01 Naloxone Hcl Nasal 4 Mg [place] NOSTRILALT 12/07/22 17:56 4 mg ONCE ONE Administration Medical Decision Making Medical Decision Making MDM Narrative: 62-year-old male with history and clinical presentation of being discharged from this hospital yesterday and known to have polysubstance abuse disorder as well as overdose history, 4 mg of intranasal Narcan provided, 6 units of subcutaneous list pro provided, will obtain basic lab work if there are no changes from yesterday he will be discharged back home. I reviewed all investigations and hematologic indices are negative for leukocytosis or left shift, there is no anemia but there is thrombocytopenia -150. Chemistry indices are grossly within normal limits, there is no WEN or electrolyte/liver enzyme abnormalities. Patient arrived hyperglycemic without evidence of DKA are HHS and after the 6 units as well as the insulin that he received a home glucose levels are starting to trend down words. When I discussed the results with the patient and his family member at bedside they say that he has been having right lower jaw pain and on clinical exam patient has an obvious draining tooth abscess with some gingival swelling. After reviewing patient's chart he is allergic to penicillins and will be started on clindamycin 600 mg. In addition, will provide patient with combination analgesics. Otherwise, patient will be discharged after repeat point of care as long as glucose level continues to trend downward. Differential Diagnosis Differential Diagnoses: The differential diagnosis associated with the presentation includes Please see the discussion above Admission/Observation Consideration of admission/observation: Escalation of care including admission/observation considered Please see the discussion above Lab Data MDM Lab Attestation statement: I reviewed the patient's lab results. Please see the discussion above 12/07/22 19:04 12/07/22 19:04 Labs: Lab Results 12/07/22 12/07/22 12/07/22 Range/Units 17:51 19:04 19:10 WBC 9.8 (4.8-10.8) X10*3/uL RBC 5.22 (4.60-5.80) X10*6/uL Hgb 14.9 (14.0-18.0) g/dl Hct 44.9 (42.0-52.0) % MCV 86.0 (80.0-98.0) fL MCH 28.5 (27.0-33.0) pg MCHC 33.2 (31.0-36.0) g/dl RDW 13.4 (11.0-16.0) % Plt Count 150 L D (160-400) X10*3/uL MPV 11.9 (9.4-12.4) fL Immature Gran % (Auto) 0.3 (0.0-0.4) % Neut % (Auto) 68.6 (45-73) % Lymph % (Auto) 19.0 L (20-40) % [place] % (Auto) 4.4 (2-11) % Eos % (Auto) 6.9 H (0-4) % Baso % (Auto) 0.8 (0-2) % Lymph # (Auto) 1.9 (1.2-4.9) X10*3/uL [place] # (Auto) 0.4 (0.1-1.2) X10*3/uL Eos # (Auto) 0.7 H (0.0-0.4) X10*3/uL Baso # (Auto) 0.1 (0.0-0.2) X10*3/uL Abs Immat Gran (auto) 0.03 (0.00-0.03) X10*3/uL Absolute Neuts (auto) 6.8 (2.0-8.3) x10*3/uL Absolute Nucleated RBC 0.000 (0.0-0.012) X10*3/uL Nucleated RBC % (auto) 0.0 (0.0-0.2) /100WBC Sodium 136 (135-145) mmol/L Potassium 4.0 (3.3-5.1) mmol/L Chloride 100 (96-108) mmol/L Carbon Dioxide 23 (22-29) mmol/L Anion Gap 17 (12-20) BUN 18 H (9-16) mg/dL Creatinine 1.25 (0.5-1.4) mg/dL Estim Creat Clear Calc 65.7 Estimated GFR 59 POC Glucose 576 H* 530 H* (60-115) mg/dL Random Glucose 550 H* (60-115) mg/dL Calcium 9.2 D (8.4-10.2) mg/dL Total Bilirubin 0.5 (0.0-1.0) mg/dL AST 13 (5-37) U/L ALT 20 (0-40) U/L Alkaline Phosphatase 125 H (39-117) U/L Total Protein 7.6 (6.5-8.0) g/dL Albumin 3.9 (3.5-5.0) g/dL 10/19/23 Range/Units 19:31 WBC (4.8-10.8) X10*3/uL RBC (4.60-5.80) X10*6/uL Hgb (14.0-18.0) g/dl Hct (42.0-52.0) % MCV (80.0-98.0) fL MCH (27.0-33.0) pg MCHC (31.0-36.0) g/dl RDW (11.0-16.0) % Plt Count (160-400) X10*3/uL MPV (9.4-12.4) fL Immature Gran % (Auto) (0.0-0.4) % Neut % (Auto) (45-73) % Lymph % (Auto) (20-40) % [place] % (Auto) (2-11) % Eos % (Auto) (0-4) % Baso % (Auto) (0-2) % Lymph # (Auto) (1.2-4.9) X10*3/uL [place] # (Auto) (0.1-1.2) X10*3/uL Eos # (Auto) (0.0-0.4) X10*3/uL Baso # (Auto) (0.0-0.2) X10*3/uL Abs Immat Gran (auto) (0.00-0.03) X10*3/uL Absolute Neuts (auto) (2.0-8.3) x10*3/uL Absolute Nucleated RBC (0.0-0.012) X10*3/uL Nucleated RBC % (auto) (0.0-0.2) /100WBC Sodium (135-145) mmol/L Potassium (3.3-5.1) mmol/L Chloride (96-108) mmol/L Carbon Dioxide (22-29) mmol/L Anion Gap (12-20) BUN (9-16) mg/dL Creatinine (0.5-1.4) mg/dL Estim Creat Clear Calc Estimated GFR POC Glucose 486 H* (60-115) mg/dL Random Glucose (60-115) mg/dL Calcium (8.4-10.2) mg/dL Total Bilirubin (0.0-1.0) mg/dL AST (5-37) U/L ALT (0-40) U/L Alkaline Phosphatase (39-117) U/L Total Protein (6.5-8.0) g/dL Albumin (3.5-5.0) g/dL External Record Review External record reviewed: Inpatient record, Outpatient record and Prior outpatient labs Chronic Conditions Patient?s care impacted by: Diabetes Critical Care Time Critical Care Time Critical Care Time: Yes Total Critical Care Time: 30 Attestation: I personally attest to this time spent taking care of the patient. Discharge Plan Discharge Clinical Impression: Hyperglycemia due to diabetes mellitus, Abscess, dental, Overdose Patient Disposition: Home, Self-Care Instructions: Dental Abscess (ED), Diabetic Hyperglycemia (ED), Adult Overdose (ED) Additional Instructions: 1. Reanude todos los medicamentos caseros seg?n lo prescrito, lo m?s importante es shah insulina. 2. Complete todo el ciclo de antibi?ticos seg?n lo prescrito. Por favor hamida un seguimiento con shah dentista lo antes posible. 3. Recomiende Tylenol/ibuprofeno de venta padmini para shah dolor dental. Tambi?n puede usar Anbesol, que es un medicamento anest?sico y est? disponible sin receta. 4. Hamida un seguimiento con shah m?dico de atenci?n primaria llamando al consultorio a primera hora de la ma?meño. Regrese a la ene de emergencias si los s?ntomas empeoran. 1. Resume all home medications as prescribed, most importantly your insulin. 2. Complete the entire course of antibiotics as prescribed. Please follow-up with your dentist as soon as possible. 3. Recommend kukk-yvi-rpjqqor Tylenol/ibuprofen for your dental pain, you can also use Anbesol which is a numbing medication and available mrno-xoo-updsbdm. 4. Follow-up with your primary care doctor by calling the office 1st thing in the morning. Return to the ER for any worsening symptoms. Prescriptions: New clindamycin HCl 300 mg capsule 600 mg PO TID 5 Days Qty: 30 0RF No Action (DME) pen needle, diabetic [BD Ashly 2nd Gen Pen Needle] 32 gauge x 5/32 needle See Rx Instructions .MEDSUPPLY Qty: 100 4RF Rx Instructions: Twice a day (DME) fredi.stocking,knee,reg,xlrg Misc See Rx Instructions .ROUTE .MEDSUPPLY Qty: 12 0RF Rx Instructions: As directed cyclobenzaprine 10 mg tablet 10 mg PO BEDTIME PRN (Reason: muscle spasm) Qty: 7 0RF chlorthalidone 25 mg tablet 25 mg PO QAM metformin 1,000 mg tablet 1,000 mg PO BID lidocaine 5 % adhesive patch,medicated 1 patch topical DAILY Rx Instructions: leave on most painful area for up to 12 hrs naproxen 500 mg tablet 500 mg PO DAILY Rx Instructions: Take with food insulin lispro [Humalog KwikPen Insulin] 100 unit/mL insulin pen See Protocol subcut QIDACHS Protocol: Insulin Correction Scale Less than or equal to 110 ---- Give (units): 0 111 to 150 Give (units): 0 151 to 200 Give (units): 2 201 to 250 Give (units): 4 251 to 300 Give (units): 6 301 to 350 Give (units): 8 Greater than 350 Give (units): 10 Call MD if Blood Glucose > : 350 gabapentin 300 mg capsule 300 mg PO BEDTIME Qty: 30 1RF nicotine 21 mg/24 hr Patch 24 Hour 21 mg transdermal DAILY Qty: 28 2RF Toujeo Max U-300 SoloStar 300 unit/mL (3 mL) insulin pen 80 unit SUBCUT QAM Qty: 24 0RF loratadine 10 mg capsule 10 mg PO DAILY PRN (Reason: Allergy Symptoms) (DME) lancets [FreeStyle Lancets] 28 gauge misc See Rx Instructions .ROUTE .MEDSUPPLY Qty: 100 Rx Instructions: As directed (DME) FreeStyle Test Strip See Rx Instructions .ROUTE .MEDSUPPLY Qty: 10 Rx Instructions: As directed aspirin [Adult Low Dose Aspirin] 81 mg tablet,delayed release (DR/EC) 81 mg PO DAILY lisinopril 40 mg tablet 40 mg PO DAILY atorvastatin 80 mg tablet 80 mg PO BEDTIME pantoprazole 40 mg tablet,delayed release (DR/EC) 40 mg PO DAILY albuterol sulfate [ProAir HFA] 90 mcg/actuation HFA aerosol inhaler 2 puff inhalation Q6H PRN (Reason: Shortness Of Breath) clonidine HCl 0.1 mg tablet 0.1 mg PO BEDTIME PRN (Reason: anxiety) Referrals: [facility] [Primary Care Provider] - Print Language: Arabic
[2022-12-07 18:28] VITALS: BP 92/59; PULSE 103; RESP 20; O2SAT 100
[2022-12-07 19:08] LABS: MANUAL DIFF FLAG NO
[2022-12-07 19:15] LABS: Glucose, Whole Blood 530 mg/dL (60-115)
[2022-12-07 19:15] LABS: Basophils Absolute Auto 0.1 X10*3/uL (0.0-0.2); Basophils Percent Auto 0.8 % (0-2); Eosinophils Absolute Auto 0.7 X10*3/uL (0.0-0.4); Eosinophils Percent Auto 6.9 % (0-4); Hematocrit 44.9 % (42.0-52.0); Hemoglobin 14.9 g/dl (14.0-18.0); Imm Gran Abs Auto 0.03 X10*3/uL (0.00-0.03); Imm Gran Pct Auto 0.3 % (0.0-0.4); Lymphocytes Absolute Auto 1.9 X10*3/uL (1.2-4.9); Mean Corpuscular HGB Conc 33.2 g/dl (31.0-36.0); Mean Corpuscular Hemoglobin 28.5 pg (27.0-33.0); Mean Platelet Volume 11.9 fL (9.4-12.4); Monocytes Absolute Auto 0.4 X10*3/uL (0.1-1.2); Monocytes Percent Auto 4.4 % (2-11); Neutrophils Absolute Auto 6.8 x10*3/uL (2.0-8.3); Neutrophils Percent Auto 68.6 % (45-73); PLT CLUMP 1; Red Blood Count 5.22 X10*6/uL (4.60-5.80); Red Cell Distribution Width 13.4 % (11.0-16.0); SCAN SMEAR FLAG 1
[2022-12-07] MEDS: Insulin Lispro 100 UNIT/ML 3 ML VIAL 6 UNIT SUBCUT (19:18)
--- NOTE | 2022-12-07 19:22 | PC.NURSE ---
Took over care at 19:00 from ALICIA Small, Medicated per Apr , pt reposition for care, Notified provider of elevated POC, Will continue to monitor.
[2022-12-07 19:27] LABS: Alanine Aminotransferase 20 U/L (0-40); Albumin Level 3.9 g/dL (3.5-5.0); Alkaline Phosphatase 125 U/L (39-117); Anion Gap 17 (12-20); Aspartate Amino Transferase 13 U/L (5-37); Bilirubin Total 0.5 mg/dL (0.0-1.0); Blood Urea Nitrogen 18 mg/dL (9-16); Calcium 9.2 mg/dL (8.4-10.2); Carbon Dioxide 23 mmol/L (22-29); Chloride 100 mmol/L (96-108); Creatinine Clr Calc Pharmacy 65.7; Estimated Glomerular Filt Rate 59; Glucose Random 550 mg/dL (60-115); Sodium 136 mmol/L (135-145); Total Protein 7.6 g/dL (6.5-8.0)
[2022-12-07 19:34] LABS: Platelet Count 150 X10*3/uL (160-400); White Blood Count 9.8 X10*3/uL (4.8-10.8)
[2022-12-07 19:35] LABS: Glucose, Whole Blood 486 mg/dL (60-115)
[2022-12-07 20:00] VITALS: BP 120/59; PULSE 99; RESP 18; TEMP 36.8; O2SAT 95
--- NOTE | 2022-12-07 20:05 | MHC.EDTECH ---
Patient check for inc and is dry
[2022-12-07] MEDS: Acetaminophen 325 MG TABLET 975 MG PO (20:11)
[2022-12-07] MEDS: Naloxone HCl Nasal TAKE HOME 4 MG SPRAY 8 MG NOSTRILALT (20:12)
[2022-12-07] MEDS: Ibuprofen 400 MG TABLET PO (20:12)
[2022-12-07] MEDS: Clindamycin HCL 300 MG CAPSULE 600 MG PO (20:12)
--- NOTE | 2022-12-07 20:17 | PC.NURSE ---
pt a&o, no respiratory distress, Medicated pt Mar. Will continue to monitor.
[2022-12-07 20:22] LABS: Glucose, Whole Blood 478 mg/dL (60-115)
[2022-12-07] MEDS: Insulin Lispro 100 UNIT/ML 3 ML VIAL SUBCUT (20:29)
== END 2022-12-07 20:33 | disposition home or self-care (01) ==
PROVIDERS: Emergency Provider Student in an Organized Health Care Education/Training Program
DX: E11.65 Type 2 diabetes mellitus with hyperglycemia (principal); K04.7 Periapical abscess without sinus; T50.901A Poisoning by unspecified drugs, medicaments and biological substances, accidental (unintentional), initial encounter; R41.82 Altered mental status, unspecified; Y92.9 Unspecified place or not applicable; F19.10 Other psychoactive substance abuse, uncomplicated; F17.210 Nicotine dependence, cigarettes, uncomplicated
CPT/HCPCS: 36415; 80053; 82947; 85025; 99284; 99285

== ENCOUNTER 2023-01-17 09:14 | Outpatient (REF) | payer MEDICAID, SELFPAY | END 2023-01-17 09:15 | disposition home or self-care (01) | LOC: HO.HOSX 09:14 | PROVIDERS: Visit Provider Physician Assistant | DX: M17.12 Unilateral primary osteoarthritis, left knee (principal) | CPT/HCPCS: 20610; 99212; J1020 ==

== ENCOUNTER 2023-01-17 13:04 | Outpatient (AMB) | payer MEDICAID, SELFPAY ==
--- NOTE | 2023-01-17 13:18 | MHC.OFFVIS ---
Intake Vital Signs 01/17/23 13:27 Height 5 ft 4 in Weight 222 lb BMI 38.1 Intake Visit Reasons: ov- b/l knee pain Intake Note: Amber 62 year old male presents today for an evaluation of bilateral knee pain, last left knee injection on 01/26/22. Patient reports injection to left knee provided him relief for about 3 months. He states his left knee is the worse and hears clunking. States his knees have been giving out frequently. Finds no relief with Tylenol and Motrin. Allergies sulfamethoxazole [From BACTRIM DS] Allergy (Intermediate, Verified 01/26/22 14:55) RASH trimethoprim [From BACTRIM DS] Allergy (Intermediate, Verified 01/26/22 14:55) RASH Penicillins Allergy (Mild, Verified 01/26/22 14:55) all HPI ov- b/l knee pain HPI Details 62-year-old male who returns to the office today for a follow-up of bilateral knee pain. He had his last left knee injection on 01/26/22 which provided him relief for about 3 months. He currently states he has bilateral knee pain which is worse on his left knee and he hears a ?clunking? sound from the left knee. He also c/o knee giving out frequently. He finds no relief with Tylenol and Motrin. He has a history of diabetes. 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 Diabetes type 2, uncontrolled Hypercholesteremia HTN (hypertension) Asthma Surgical History Hx of colonoscopy Status post laser lithotripsy of ureteral calculus H/O knee surgery H/O hernia repair Family History Father Diabetes Glaucoma Mother Diabetes HTN (hypertension) Asthma Diabetic kidney Brother Spinal cord injuries Diabetes Sister Asthma Social History Household Members: Other Household Members Other:: room mate Housing: Apartment Housing Other:: handicapped facility Do you presently have visiting nurse or other home services: No Alcohol intake: current Alcohol intake frequency: a few times a week Patient Tobacco Use Status: Current everyday Tobacco user Tobacco use type: Cigarette Cigarette Packs Per Day: 2 Cigarettes Per Day: 40.0 Second Hand Smoke Exposure: No Substance Use Type: Prescription Drugs Current occupational status: employed 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 Tenderness along the medial and lateral joint line. Full ROM with crepitus. Negative Radha?s. No ligamentous laxity. NVI. Office Procedures Joint Injection/Drain Joint Injection/Drain Primary Site: left knee Prep: site was prepped using aseptic technique, ethochloride spray was applied and injection warnings given Injected: 40 mg of, 80 mg of, with 8 mL of, 1% plain lidocaine and in the joint Approach Used: anterolateral Procedure: The patient tolerated the procedure well and there was some relief with the local anesthesia Coding 14837 - Glenohumeral/Tronchanteric Bursa/Intraarticular Procedure code (CPT) selection complete Assessment & Plan Assessment & Plan (1) Osteoarthritis of left knee: Code(s): M17.12 - Unilateral primary osteoarthritis, left knee Qualifiers: Osteoarthritis type: primary Qualified Code(s): M17.12 - Unilateral primary osteoarthritis, left knee Plan We discussed options today which include steroid injection. They did consent to move forward with the left knee injection, which was tolerated well. I recommended rest, ice and elevation and OTC anti-inflammatories PRN for discomfort. We also discussed their diabetes and the effect the steroid can have on their blood glucose levels; therefore, they will continue to monitor these very closely over the next 72 hours. If there are any concerns, they should report to the ED immediately. Orders: Orders XR shoulder LT min 2V Today M25.512 - Pain in left shoulder Patient Instructions: Scribed for Ally Tran PA-C, by Mor Sierra certified medical records coder, on 01/17/2023 at 1:30 PM TIARA. I, Ally Tran PA-C, have personally reviewed and agree with the information entered by the scribe. Coding Level of Care Code Est Pt Level 3 (74138) Diagnoses Primary osteoarthritis of left knee M17.12 Osteoarthritis type: primary CPT Codes Coding - Joint 7: 60807 - Glenohumeral/Tronchanteric Bursa/Intraarticular ([id number])
[2023-01-17 13:27] VITALS: BMI 38.1
== END 2023-01-17 13:45 | disposition home or self-care (01) ==
PROVIDERS: Visit Provider Physician Assistant
DX: M17.12 Unilateral primary osteoarthritis, left knee (principal)
CPT/HCPCS: 20610; 99213

== ENCOUNTER 2023-01-24 08:59 | Outpatient (AMB) | payer MEDICAID, SELFPAY ==
--- NOTE | 2023-01-24 09:18 | A.OFFVIS_ITS ---
Intake Vital Signs 01/24/23 09:29 Height 5 ft 4 in Weight 222 lb BMI 38.1 Intake Visit Reasons: Ov- RT knee injection, last injection 01/26/22 Intake Note: Amber 62 year old male presents today for a follow up of right knee pain, last right knee injection on 01/26/22. Patient reports this injection helped and would like to repeat today . Allergies sulfamethoxazole [From BACTRIM DS] Allergy (Intermediate, Verified 01/24/23 09:28) RASH trimethoprim [From BACTRIM DS] Allergy (Intermediate, Verified 01/24/23 09:28) RASH Penicillins Allergy (Mild, Verified 01/24/23 09:28) all HPI Ov- RT knee injection, last injection 01/26/22 HPI Details 62-year-old male who returns to the [facility] today for a follow-up of left knee pain. He saw me on 01/17/23 for right knee injection and is doing well. He had his last left knee injection on 01/26/22 which provided him relief up until recently. [facility] Medical History Tubular adenoma Polysubstance abuse Sleep apnea Morbid obesity 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 associated with type 2 diabetes mellitus Diabetic polyneuropathy associated with type 2 diabetes mellitus Diabetic nephropathy associated with type 2 diabetes mellitus [employer] (current) use of insulin Diabetes type 2, uncontrolled Hypercholesteremia HTN (hypertension) Asthma Surgical History Hx of colonoscopy Status post laser lithotripsy of ureteral calculus H/O knee surgery H/O hernia repair Family History Father Diabetes Glaucoma Mother Diabetes HTN (hypertension) Asthma Diabetic kidney Brother Spinal cord injuries Diabetes Sister Asthma Social History Household Members: Other Household Members Other:: room mate Housing: Apartment Housing Other:: handicapped facility Do you presently have visiting nurse or other home services: No Alcohol intake: current Alcohol intake frequency: a few times a week Patient Tobacco Use Status: Current everyday Tobacco user Tobacco use type: Cigarette Cigarette Packs Per Day: 2 Cigarettes Per Day: 40.0 Second Hand Smoke Exposure: No Substance Use Type: Prescription Drugs Current occupational status: employed 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 Tenderness along the medial and lateral joint line. Full ROM with crepitus. Negative Radha?s. No ligamentous laxity. NVI. Office Procedures Joint Injection/Drain Joint Injection/Drain Primary Site: left knee Prep: site was prepped using aseptic technique, ethochloride spray was applied and injection warnings given Injected: 40 mg of, 80 mg of, DepoMedrol, with 8 mL of, 1% plain lidocaine and in the joint Approach Used: anterolateral Procedure: The patient tolerated the procedure well and there was some relief with the local anesthesia Coding 06672 - Glenohumeral/Tronchanteric Bursa/Intraarticular Procedure code (CPT) selection complete Assessment & Plan Assessment & Plan (1) Osteoarthritis of left knee: Code(s): M17.12 - Unilateral primary osteoarthritis, left knee Plan We discussed options today which include steroid injection. They did consent to move forward with the left knee injection, which was tolerated well. I recomm ended rest, ice and elevation and OTC anti-inflammatories PRN for discomfort. We also discussed their diabetes and the effect the steroid can have on their blood glucose levels; therefore, they will continue to monitor these very closely over the next 72 hours. If there are any concerns, they should report to the ED immediately. Patient Instructions: Scribed for Ally Tran PA-C, by Mor Sierra medical officer psychiatry, on 01/24/2023 at 9:30 AM Ally ALLNE PA-C, have personally reviewed and agree with the information entered by the scribe. Coding Level of Care Code Est Pt Level 3 (68069) Diagnoses Osteoarthritis of left knee M17.12 CPT Codes Coding - Joint 7: 94312 - Glenohumeral/Tronchanteric Bursa/Intraarticular ([id number])
[2023-01-24 09:29] VITALS: BMI 38.1
== END 2023-01-24 10:25 | disposition home or self-care (01) ==
PROVIDERS: Visit Provider Physician Assistant
DX: M17.12 Unilateral primary osteoarthritis, left knee (principal)
CPT/HCPCS: 20610; 99213

== ENCOUNTER → 2023-01-24 08:59 | Outpatient (BNVA) | payer MEDICAID, SELFPAY | PROVIDERS: Visit Provider Physician Assistant | DX: M17.12 Unilateral primary osteoarthritis, left knee (principal) | CPT/HCPCS: 20610; 99212 ==

== ENCOUNTER 2023-02-14 06:31 | Outpatient (REF) | payer MEDICAID, SELFPAY | END 2023-02-14 06:32 | disposition home or self-care (01) | LOC: HO.HOSX 06:31 | PROVIDERS: Visit Provider Physician Assistant | DX: M19.011 Primary osteoarthritis, right shoulder (principal); M75.81 Other shoulder lesions, right shoulder | CPT/HCPCS: 73030; 99212 ==

== ENCOUNTER 2023-02-14 09:17 | Outpatient (AMB) | payer MEDICAID, SELFPAY ==
[2023-02-14 09:29] VITALS: BMI 38.1
--- NOTE | 2023-02-14 09:29 | A.OFFVIS_ITS ---
Intake Vital Signs 02/14/23 09:29 Height 5 ft 4 in Weight 222 lb BMI 38.1 Intake Visit Reasons: New Prob- right shoulder pain Intake Note: Amber 62 year old male presents today for an evaluation of right shoulder pain. Patient reports pain has been present for a few months. He states pain starts in his shoulder and at times radiates into his shoulder blade. No other tx. Allergies sulfamethoxazole [From BACTRIM DS] Allergy (Intermediate, Verified 02/14/23 09:33) RASH trimethoprim [From BACTRIM DS] Allergy (Intermediate, Verified 02/14/23 09:33) RASH Penicillins Allergy (Mild, Verified 02/14/23 09:33) all HPI New Prob- right shoulder pain HPI Details 62-year-old male who presents to the off ice today for evaluation of right shoulder pain. He states he has pain in his right shoulder which occasional radiates into his shoulder blade. His pain is aggravated with sleeping at night. He denies pain with overhead reaching or reaching back. He has not had any treatment in the past. He has a history of diabetes. 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 Diabetes type 2, uncontrolled Hypercholesteremia HTN (hypertension) Asthma Surgical History Hx of colonoscopy Status post laser lithotripsy of ureteral calculus H/O knee surgery H/O hernia repair Family History Father Diabetes Glaucoma Mother Diabetes HTN (hypertension) Asthma Diabetic kidney Brother Spinal cord injuries Diabetes Sister Asthma Social History Household Members: Other Household Members Other:: room mate Housing: Apartment Housing Other:: handicapped facility Do you presently have visiting nurse or other home services: No Alcohol intake: current Alcohol intake frequency: a few times a week Patient Tobacco Use Status: Current everyday Tobacco user Tobacco use type: Cigarette Cigarette Packs Per Day: 2 Cigarettes Per Day: 40.0 Second Hand Smoke Exposure: No Substance Use Type: Prescription Drugs Current occupational status: employed 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 Tenderness over the bicipital groove and along the deltoid region of the shoulder. Forward flexion to 175, external rotation to 90, internal rotation to S1. 5/5 RTC strength. Negative Holder and cross body abduction. NVI. Results Reviewed Results Reviewed: Xrays were obtained in the office today and personally reviewed by me of the right shoulder show mild ghj oa Assessment & Plan Assessment & Plan (1) Arthritis of right shoulder region: Code(s): M19.011 - Primary osteoarthritis, right shoulder (2) Rotator cuff tendonitis: Code(s): M75.80 - Other shoulder lesions, unspecified shoulder Qualifiers: Laterality: right Qualified Code(s): M75.81 - Other shoulder lesions, right shoulder Plan We discussed options which include PT, NSAIDs and injections. The patient will defer on the injection today and proceed with PT and NSAIDs. If symptoms persist, the patient will contact me for an injection, otherwise, PRN. Orders: Orders XR shoulder RT min 2V Today M25.511 - Pain in right shoulder PT Evaluation and Treatment Today M19.011 - Primary osteoarthritis, right shoulder, M75.80 - Other shoulder lesions, unspecified shoulder Patient Instructions: Scribed for Ally Tran PA-C, by Mor Sierra nuclear medicine medical director, on 02/14/2023 at 9:30 AM EST. IAlly PA-C, have personally reviewed and agree with the information entered by the scribe. Coding Level of Care Code Est Pt Level 3 (05997) Diagnoses Arthritis of right shoulder region M19.011 Tendinitis of right rotator cuff M75.81 Laterality: right
== END 2023-02-14 10:03 | disposition home or self-care (01) ==
PROVIDERS: Visit Provider Physician Assistant
DX: M19.011 Primary osteoarthritis, right shoulder (principal); M75.81 Other shoulder lesions, right shoulder
CPT/HCPCS: 99213

== ENCOUNTER 2023-03-26 14:31 | Outpatient (REF) | payer MEDICAID, SELFPAY ==
[2023-03-26 17:13] LABS: Alanine Aminotransferase 13 U/L (0-40); Albumin Level 3.9 g/dL (3.5-5.0); Alkaline Phosphatase 125 U/L (39-117); Anion Gap 16 (12-20); Aspartate Amino Transferase 17 U/L (5-37); Bilirubin Total 0.3 mg/dL (0.0-1.0); Blood Urea Nitrogen 34 mg/dL (9-16); Calcium 9.4 mg/dL (8.4-10.2); Carbon Dioxide 32 mmol/L (22-29); Chloride 102 mmol/L (96-108); Cholesterol 122 mg/dL (<200); Estimated Glomerular Filt Rate 50; Glucose Random 243 mg/dL (60-115); HDL Cholesterol 31 mg/dL (>40); LDL Cholesterol Calculated 49 mg/dL (<100); Potassium 4.4 mmol/L (3.3-5.1); Sodium 146 mmol/L (135-145); Total Protein 7.3 g/dL (6.5-8.0); Triglycerides 214 mg/dL (<150)
[2023-03-26 17:27] LABS: Estimated Average Glucose 183 mg/dL
[2023-03-26 18:53] LABS: Creatinine Urine 74.26 mg/dL; Microalbum/Creatinine Ratio Ur 118.5 ug/mg cr (<30)
== END 2023-03-26 14:32 | disposition home or self-care (01) ==
LOC: HO.HHCL 14:31
PROVIDERS: Visit Provider General Practice
DX: E11.65 Type 2 diabetes mellitus with hyperglycemia (principal); Z79.4 Long term (current) use of insulin
CPT/HCPCS: 36415; 80053; 80061; 82043; 82570; 83036

== ENCOUNTER 2023-07-06 12:05 | Outpatient (AMB) | payer MEDICAID, SELFPAY ==
[2023-07-06 12:12] VITALS: BP 132/68; PULSE 115; O2SAT 97; BMI 42.9
--- NOTE | 2023-07-06 12:12 | HO.NEPHOV_ITS ---
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 He has diabetes over 20 years. He has history of polysubstance abuse. He continues to use cocaine, last usage was a week ago. He has no hypoglycemia. He takes nonsteroidal anti-inflammatories. He is on CARYN inhibitor and diuretics. He has obesity. He denies any retinopathy, coronary artery disease, congestive heart failure, CVA, carotid stenosis, renal artery stenosis or peripheral arterial disease. He maintains good hydration. His mother was on hemodialysis due to ESRD from diabetes mellitus. He does not monitor his blood pressure at home. He has no history of any hepatitis C or HIV. There were no new complaints at the time of this office visit. 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 Diabetes type 2, uncontrolled Hypercholesteremia Asthma Surgical History Hx of colonoscopy Status post laser lithotripsy of ureteral calculus H/O knee surgery H/O hernia repair Family History Father Diabetes Glaucoma Mother Diabetes HTN (hypertension) Asthma Diabetic kidney Brother Spinal cord injuries Diabetes Sister Asthma Social History Household Members: Other Household Members Other:: room mate Housing: Apartment Housing Other:: handicapped facility Do you presently have visiting nurse or other home services: No Alcohol intake: current Alcohol intake frequency: a few times a week Patient Tobacco Use Status: Current everyday Tobacco user Tobacco use type: Cigarette Cigarette Packs Per Day: 2 Cigarettes Per Day: 40.0 Second Hand Smoke Exposure: No Substance Use Type: Prescription Drugs Current occupational status: employed 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 Physical Exam Vital Signs: Last Vital Signs Pulse 115 H 07/06/23 12:12 BP 132/68 07/06/23 12:12 Pulse Ox 97 07/06/23 12:12 Oxygen Delivery Method Room Air 07/06/23 12:12 BMI result Body Mass Index 42.9 Const General: comfortable and no acute distress Orientation/consciousness: patient oriented x3 HEENT Head: Yes normocephalic Mouth: Normal oral and palatal mucosa present Eyes EOM: EOMs intact bilaterally Neck Neck: Yes supple Resp Auscultation: clear to auscultation bilaterally Cardio Jugular venous distension: no JVD Rate: regular rate GI Palpation (GI): Soft to palpation Auscultation: normal bowel sounds General: Yes no CVA tenderness Back/Spine/Pelvis Back: no CVA tenderness Skin General skin exam: no rashes or lesions noted Neuro General: patient oriented x3 and moves all extremities Extrem General: Yes no pedal edema Results Reviewed Nephrology Results: Hgb 14.9 g/dl (14.0-18.0) 12/07/22 WBC 9.8 X10*3/uL (4.8-10.8) 12/07/22 Plt Count 150 X10*3/uL (160-400) L 12/07/22 Sodium 146 mmol/L (135-145) H 03/26/23 Potassium 4.4 mmol/L (3.3-5.1) 03/26/23 Chloride 102 mmol/L (96-108) 03/26/23 Carbon Dioxide 32 mmol/L (22-29) H 03/26/23 BUN 34 mg/dL (9-16) H 03/26/23 Creatinine 1.43 mg/dL (0.5-1.4) H 03/26/23 Calcium 9.4 mg/dL (8.4-10.2) 03/26/23 Urine Protein 100 (2+) mg/dL (Neg-Trace) H 12/05/22 Urine Creatinine 74.26 mg/dL 03/26/23 Assessment & Plan Assessment & Plan (1) Diabetic nephropathy associated with type 2 diabetes mellitus: Code(s): E11.21 - Type 2 diabetes mellitus with diabetic nephropathy Category: Medical (2) WEN (acute kidney injury): Code(s): N17.9 - Acute kidney failure, unspecified Category: Medical Plan Merlin has CKD stage 3 at baseline. He has acute kidney injury due to compromise in renal perfusion as a result of using cocaine and in his 80s while being on CARYN inhibitor when having CKD. He has not on any Jardiance or Farxiga. I discontinued his naproxen. I reduced his chlorthalidone to 12.5 mg daily. He has good urine output. There was no recent suspect any obstructive uropathy. Though AIN or GN are in the differentials, it seems unlikely. Given history of cocaine use I have ordered ANCA. I asked him to abstain from nonsteroidal anti- inflammatories and maintain good hydration. He should stay away from cocaine as well. Hopefully just with continue supportive care his serum creatinine will settle to baseline. If not, he will need more workup including renal biopsy. He is going to be seeing me in follow-up in 4-6 weeks for continued care. Orders: Orders Immunofixation Pnl, Serum Today E11.21 - Type 2 diabetes mellitus with diabetic nephropathy Creatinine Today E11.21 - Type 2 diabetes mellitus with diabetic nephropathy Blood Urea Nitrogen Today E11.21 - Type 2 diabetes mellitus with diabetic nephropathy Electrolytes Today E11.21 - Type 2 diabetes mellitus with diabetic nephropathy Protein Creatinine Ratio, Ur Today E11.21 - Type 2 diabetes mellitus with diabetic nephropathy Hepatitis A,B,C Profile Today E11.21 - Type 2 diabetes mellitus with diabetic nephropathy Calcium Today E11.21 - Type 2 diabetes mellitus with diabetic nephropathy ANCA Vasculitides Today N17.9 - Acute kidney failure, unspecified Coding Level of Care Code New Pt Level 4 (24680) Diagnoses Diabetic nephropathy associated with type 2 diabetes mellitus E11.21 WEN (acute kidney injury) N17.9
== END 2023-07-06 12:34 | disposition home or self-care (01) ==
PROVIDERS: Referring Provider Internal Medicine; Visit Provider Internal Medicine Nephrology
DX: E11.21 Type 2 diabetes mellitus with diabetic nephropathy (principal); N17.9 Acute kidney failure, unspecified
CPT/HCPCS: 99204

== ENCOUNTER → 2023-07-06 12:05 | Outpatient (BNVA) | payer MEDICAID, SELFPAY | PROVIDERS: Referring Provider Internal Medicine; Visit Provider Internal Medicine Nephrology | DX: E11.21 Type 2 diabetes mellitus with diabetic nephropathy (principal); E11.22 Type 2 diabetes mellitus with diabetic chronic kidney disease; I12.9 Hypertensive chronic kidney disease with stage 1 through stage 4 chronic kidney disease, or unspecified chronic kidney disease; N18.30 Chronic kidney disease, stage 3 unspecified; E66.01 Morbid (severe) obesity due to excess calories; Z68.41 Body mass index [BMI] 40.0-44.9, adult; N17.9 Acute kidney failure, unspecified | CPT/HCPCS: 99202 ==

== ENCOUNTER 2023-07-25 10:14 | Outpatient (AMB) | payer MEDICAID, SELFPAY ==
--- NOTE | 2023-07-25 10:18 | A.OFFVIS_ITS ---
Intake Visit Reasons: [facility] Req./ last seen 2021/ leg edema Intake Note: Patient presemnts for bilateral leg swelling. He has been experiencing leg swelling for about a year. He has a open blister on the left leg. Patient states his legs get numb occasionally. Also has discoloration on both legs in the pretibial area. Accompanied by: Self / Same As Patient Allergies sulfamethoxazole [From BACTRIM DS] Allergy (Intermediate, Verified 07/25/23 10:21) RASH trimethoprim [From BACTRIM DS] Allergy (Intermediate, Verified 07/25/23 10:21) RASH Penicillins Allergy (Mild, Verified 07/25/23 10:21) all HPI HPI [facility] Req./ last seen 2021/ leg edema: Details: Very pleasant 62-year-old gentleman presents for evaluation regarding swollen lower extremities and nonhealing ulcer. 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 He developed this left pretibial ulcer. He would nearly seen us 2- 1/2 years prior and at that time he had a right pretibial ulcer. 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 Diabetes type 2, uncontrolled Hypercholesteremia Asthma Surgical History Hx of colonoscopy Status post laser lithotripsy of ureteral calculus H/O knee surgery H/O hernia repair Family History Father Diabetes Glaucoma Mother Diabetes HTN (hypertension) Asthma Diabetic kidney Brother Spinal cord injuries Diabetes Sister Asthma Social History Household Members: Other Household Members Other:: room mate Housing: Apartment Housing Other:: handicapped facility Do you presently have visiting nurse or other home services: No Alcohol intake: current Alcohol intake frequency: a few times a week Patient Tobacco Use Status: Current everyday Tobacco user Tobacco use type: Cigarette Cigarette Packs Per Day: 2 Cigarettes Per Day: 40.0 Second Hand Smoke Exposure: No Substance Use Type: Prescription Drugs Current occupational status: employed 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 Review of Systems Const Reports as per HPI ENT Reports no additional complaints Card Denies chest pain, Denies chest pain at rest and Denies chest pain with activity Resp Denies chest congestion and Denies cough GI Reports no additional complaints Musc Details: pain over varicosities, aching of lower extremities, swelling, cramping, heaviness and tiredness, itching Denies abnormal gait Skin/Breast Reports pruritus and Denies wounds Neuro Reports no additional complaints and Denies abnormal gait Psych Denies no additional complaints Physical Exam Const General: cooperative, healthy appearing and comfortable Orientation/consciousness: oriented to person, oriented to place and oriented to time Neck Carotids: no bruits Chest Chest palpation & inspection: normal inspection of the chest and normal palpation of entire chest wall Resp Effort & Inspection: normal respiratory effort and able to speak in complete sentences Cardio Rate: regular rate Heart sounds: S1 normal heart sound present and S2 normal heart sound present Peripheral pulses: Peripheral pulses 2+ throughout GI Inspection: Yes normal to inspection Skin Other: +2 edema, left pretibial ulcer CEAP Classification C6r - recurrent venous ulceration Ep - Etiology Primary As - superficial veins P - reflux General skin exam: dry skin Neuro General: oriented to person, oriented to place and oriented to time Extrem Right lower extremity: full ROM, normal capillary refill and edema Left lower extremity: full ROM, normal capillary refill and edema Psych Mental Status: mental status grossly normal Results Reviewed Results Reviewed: Venous insufficiency testing from 02/17/2021 was negative for reflux at that time. Assessment & Plan Assessment & Plan (1) Varicose veins of right lower extremity with inflammation: Code(s): I83.11 - Varicose veins of right lower extremity with inflammation Category: Medical Plan: In short patient has significantly swollen lower extremities. This may be multifactorial in nature as he is morbidly obese. We did discuss routine conservative measures including compression elevation and exercise. Sample compression stocks were given to the patient. We did discuss conservative measures including compression elevation and exercise. He will follow up with us after testing. Thank you for allowing us to assist in his care. Orders: Orders US venous duplex LE BI 1 Week I83.11 - Varicose veins of right lower extremity with inflammation Coding Level of Care Code Est Pt Level 4 (19645) Diagnoses Varicose veins of right lower extremity with inflammation I83.11
== END 2023-07-25 10:37 | disposition home or self-care (01) ==
PROVIDERS: PCP Internal Medicine; Visit Provider Surgery Vascular Surgery
DX: I83.11 Varicose veins of right lower extremity with inflammation (principal)
CPT/HCPCS: 99213

== ENCOUNTER → 2023-07-25 10:14 | Outpatient (BNVA) | payer MEDICAID, SELFPAY | PROVIDERS: PCP Internal Medicine; Visit Provider Surgery Vascular Surgery | DX: I83.11 Varicose veins of right lower extremity with inflammation (principal) | CPT/HCPCS: 99212 ==

== ENCOUNTER → 2023-07-27 14:48 | Outpatient (REF) | payer MEDICAID, SELFPAY ==
--- NOTE | 2023-07-27 14:54 | CA_ITS ---
Transthoracic Echocardiogram Patient (Last, First, Middle): Merlin Cm R Gender: Male Date of : 1960 Age: 62 Procedure Date: 07/27/2023 Procedure Type: Transthoracic Echocardiogram Location: OP Height: 162.56 cm Weight: 113.4 kg BSA: 2.15 m2 Heart Rate: 109 bpm BP: 122 / 76 mmHg Steam Station Supervisor: TATE Referring MD: Zee Vasquez MD Clip On Sunglasses Assembler: Rolly Humphrey MD Symptoms: R60.0 L EXT EDEMA Study Quality: Technically Difficult ECG Rhythm: Tachycardia Conclusions: - 1. Technically limited study despite use of contrast agent 2. Hyperdynamic LV EF of greater than 70% 3. Cardiac valvular Doppler was within normal limits Findings Procedure Information Contrast agent, definity, is being given per protocol without apparent complications. The quality of the study was technically difficult. The study quality is limited by patients body habitus. Left Ventricle Normal left ventricular cavity size. There is normal left ventricular wall thickness. The left ventricular systolic function is hyperdynamic. The visually estimated ejection fraction is >70%. Spectral Doppler is indicative of an impaired relaxation filling pattern. Elevated filling pressures. E/E prime ratio is >15, consistent with elevated filling pressures. Right Ventricle The right ventricle was not well visualized. There is normal right ventricular systolic function. Atria The left atrium is likely dilated. Interatrial shunt cannot be excluded. The right atrium was not well visualized. Aortic Valve The aortic valve was not well visualized. There is no aortic valve stenosis. There is no aortic valve regurgitation. Mitral Valve The mitral valve was not well visualized. There is trace mitral valve regurgitation. There is no mitral valve stenosis. Pulmonic Valve The pulmonic valve was not well visualized. Tricuspid Valve The tricuspid valve was not well visualized. Tricuspid regurgitation envelope is inadequate for calculation of right ventricular systolic pressure. Indeterminate right atrial pressure. Great Vessels The aorta was not well visualized. The pulmonary artery was not well visualized. Venous The inferior vena cava was not well visualized. Pericardium/Pleural The pericardium was not well visualized. Prior Study Comparison no previous study in the last 5 years for comparison Measurements 2D Linear Measurements IVSd: 1.61 0.6-0.9/0.6-1.0 cm LVIDd: 3.40 3.9-5.3/4.2-5.9 cm LVIDd Index: 1.58 2.4-3.2/2.2-3.1 cm/m2 LVPWd: 1.04 0.7-1.1 cm LA Diam: 3.80 2.7-3.8/3.0-4.0 cm LAIDs Index: 1.77 1.5-2.3 cm/m2 LV Mass: 189.43 67-162/88-224 g LV Mass Index: 88.11 43-95/49-115 g/m2 LVOT Diam: 2.40 3.0+(-)1.3 cm 2D Systolic Function EF 4C: 74.50 >55% EF 2C: 72.40 >55% EF BiP: 73.30 >55% Mitral Valve MV Pk E: 1.22 MV PK A: 1.34 MV Decel Time: 139.00 E/A: 0.90 E'Lateral: 7.29 E'Medial: 7.83 E/E' Med: 15.60 E/E' Lat: 16.70 PHT: 41.00 MVA PHT: 5.37 Decel Lamar: 8.78 Aortic Valve AoV Pk Hakan: 1.35 AoV Pk Grad: 7.00 JUS: 3.74 LVOT LVOT Pk Hakan: 1.16 LVOT Mn Hakan: 0.82 LVOT VTI: 0.22 LVOT Pk Grad: 5.00 LVOT Mn Grad: 3.00 LVOT Diam: 2.40 LVOT Area: 4.52 Diastolic Function MV Pk E: 1.22 MV Pk A: 1.34 E/A: 0.90 E'Medial: 7.83 E/E' Med: 15.60 E' Laterial: 7.29 E/E' Lat: 16.70 Right Ventricle TAPSE (mm): 33.00 TVS' Hakan: 23.00 Tricuspid Valve RA Press: 3.00 Great Vessels Aorta Sinus of Valsalva: 3.60 2.0-3.5 cm Ao Asc: 3.20 2.1-3.4 cm Pulmonary Veins Pulm Vein S/D 1.60 Pulmonary Valve PV Pk Hakan: 1.35 Peak PV Grad: 7.00 Updated in Other Vendor System with Status of Final Rolly Humphrey MD electronically signed on 07/30/2023 12:29:12 PM with status of Final
== END ==
LOC: HO.CARD 14:48
PROVIDERS: Visit Provider Internal Medicine
DX: R60.0 Localized edema (principal)
CPT/HCPCS: 93306; Q9957

== ENCOUNTER → 2023-07-27 14:54 | Outpatient (BNV) | payer MEDICAID, SELFPAY | PROVIDERS: Visit Provider Internal Medicine Cardiovascular Disease | DX: I34.0 Nonrheumatic mitral (valve) insufficiency (principal) | CPT/HCPCS: 93306 ==

== ENCOUNTER 2023-08-15 10:27 | Outpatient (REF) | payer MEDICAID, SELFPAY ==
--- NOTE | ~2023-08-15 | US_ITS ---
EXAMINATION: US LOWER EXTREMITY VENOUS (REFLUX EXAM), BILATERAL CLINICAL INDICATION: Chronic venous insufficiency with lower extremity varicose veins with inflammation COMPARISON: 02/17/2021 TECHNIQUE: Color flow triplex imaging and compression Doppler was performed to evaluate both the deep and the superficial systems bilaterally. To evaluate the superficial system, the examination was performed in the upright position. Color-flow Doppler ultrasound and compression ultrasound were utilized. In addition, maneuvers were utilized to demonstrate reflux. FINDINGS: 1. DEEP VENOUS ULTRASOUND OF THE RIGHT LOWER EXTREMITY: Common Femoral Vein: Compressible, normal respiratory variation and augmented flow. Femoral Vein: Compressible, normal color flow and augmentation. Popliteal Vein: Compressible, normal augmentation. Deep Reflux: There is no evidence of reflux in the deep system in either the common femoral vein, superficial femoral or the popliteal vein. There is no evidence of a Vega's cyst. 2. SUPERFICIAL ULTRASOUND WITH DOPPLER OF RIGHT LOWER EXTREMITY: GREAT SAPHENOUS VEIN: Saphenofemoral Junction: 0.5 cm; Reflux: 0 ms Proximal Thigh: 0.4 cm; Reflux: 0 ms Mid Thigh: 0.2 cm; Reflux: 0 ms Above Knee: 0.2 cm; Reflux: 0 ms At Knee: 0.3 cm; Reflux: 0 ms Below Knee: 0.2 cm; Reflux: 0 ms Mid Calf: 0.3 cm; Reflux: 0 ms Ankle: 0.3 cm; Reflux: 0 ms DUPLICATED MEDIAL GREAT SAPHENOUS VEIN: Diameter: None imaged Reflux: NA DUPLICATED LATERAL GREAT SAPHENOUS VEIN: Diameter: 0.3 cm Reflux: None SMALL SAPHENOUS VEIN: Saphenopopliteal Junction: 0.4 cm; Reflux: 0 ms with scattered wall calcifications Mid: 0.3 cm; Reflux: 0 ms. Scattered wall adherent calcifications Distal: 0.2 cm; Reflux: 0 ms VEIN OF GIACOMINI: Size: NA Reflux: NA PERFORATORS: Location: Mid thigh Size: 0.3 cm Reflux: None VARICOSITIES: Location: Proximal thigh off the great saphenous vein and posterior calf off the small saphenous vein Size: 0.3 cm Reflux: None 3. DEEP VENOUS ULTRASOUND OF THE LEFT LOWER EXTREMITY: Common Femoral Vein: Compressible, normal respiratory variation and augmented flow. Femoral Vein: Compressible, normal color flow and augmentation. Popliteal Vein: Compressible, normal augmentation. Deep Reflux: There is no evidence of reflux in the deep system in either the common femoral vein, superficial femoral or the popliteal vein. There is no evidence of a Vega's cyst. 4. SUPERFICIAL ULTRASOUND WITH DOPPLER OF LEFT LOWER EXTREMITY: GREAT SAPHENOUS VEIN: Saphenofemoral Junction: 0.5 cm; Reflux: 0 ms Proximal Thigh: 0.4 cm; Reflux: 0 ms Mid Thigh: 0.2 cm; Reflux: 0 ms Above Knee: 0.4 cm; Reflux: 0 ms At Knee: 0.4 cm; Reflux: 0 ms Below Knee: 0.1 cm; Reflux: 0 ms Mid Calf: 0.2 cm; Reflux: 0 ms Ankle: 0.2 cm; Reflux: 0 ms DUPLICATED MEDIAL GREAT SAPHENOUS VEIN: Diameter: None imaged Reflux: NA DUPLICATED LATERAL GREAT SAPHENOUS VEIN: Diameter: 0.2 cm Reflux: None SMALL SAPHENOUS VEIN: Saphenopopliteal Junction: 0.4 cm; Reflux: 0 ms. Scattered wall calcifications Proximal: 0.2 cm; Reflux: 0 ms Distal: 0.1 cm; Reflux: 0 ms VEIN OF GIACOMINI: Size: NA Reflux: NA PERFORATORS: Location: Distal calf Size: 0.3 cm Reflux: None VARICOSITIES: Location: Proximal and mid to thigh, medial knee off the great saphenous vein Size: 0.3 to 0.4 cm Reflux: None US/US venous duplex LE BI IMPRESSION: Right: No significant venous insufficiency or reflux in the great saphenous vein or small saphenous vein. Chronic findings in the small saphenous vein consistent with prior thrombophlebitis with recanalization. Scattered nonrefluxing varicose veins as described above Left: No significant venous insufficiency or reflux in the great saphenous vein or small saphenous vein. Chronic findings in the small saphenous vein consistent with prior thrombophlebitis with recanalization. Scattered nonrefluxing varicose veins as described above
== END 2023-08-15 10:28 | disposition home or self-care (01) ==
LOC: HO.US 10:27
PROVIDERS: Visit Provider Surgery Vascular Surgery
DX: I83.11 Varicose veins of right lower extremity with inflammation (principal)
CPT/HCPCS: 93970

== ENCOUNTER 2023-08-29 10:19 | Outpatient (REF) | payer MEDICAID, SELFPAY ==
[2023-08-29 13:32] LABS: Anion Gap 14 (12-20); Blood Urea Nitrogen 35 mg/dL (9-16); Calcium 8.8 mg/dL (8.4-10.2); Carbon Dioxide 32 mmol/L (22-29); Chloride 104 mmol/L (96-108); Estimated Glomerular Filt Rate 59; Potassium 4.6 mmol/L (3.3-5.1); Sodium 145 mmol/L (135-145)
[2023-08-29 14:56] LABS: Creatinine Urine 121.17 mg/dL; Protein/Creatinine Ratio, Ur 0.12 (<0.2); Total Protein Urine Random 15 mg/dL (<12)
[2023-08-30 08:39] LABS: HBS Num1 > 1000.00 mIU/mL (0-7.99); HBc Num1 0.11 S/CO (0.00-0.79); HBsAGNum1 0.27 S/CO (0.00-0.99); Hepatitis B Core Antibody Nonreactive (Nonreactive); Hepatitis B Surface Antigen Negative (Negative); ~Hepatitis A Antibody IgM Nonreactive (Nonreactive); ~Hepatitis B Surface Antibody REACTIVE (Nonreactive); ~Hepatitis C Antibody Nonreactive (Nonreactive)
[2023-08-30 22:28] LABS: Myeloperoxidase Antibody <1.0 AI; Proteinase 3 PR3 Antibodies <1.0 AI
[2023-09-04 11:20] LABS: IgA 339 mg/dL (70-320); IgG 851 mg/dL (600-1540); IgM 31 mg/dL (50-300)
== END 2023-08-29 10:20 | disposition home or self-care (01) ==
LOC: HO.HHCL 10:19
PROVIDERS: Visit Provider Internal Medicine Nephrology
DX: N17.9 Acute kidney failure, unspecified (principal); E11.21 Type 2 diabetes mellitus with diabetic nephropathy
CPT/HCPCS: 36415; 80051; 82310; 82565; 82570; 82784; 84156; 84520; 86021; 86334; 86704; 86706; 86709; 86803; 87340

== ENCOUNTER 2023-09-03 11:56 | Outpatient (AMB) | payer MEDICAID, SELFPAY ==
[2023-09-03 11:58] VITALS: BP 158/70; PULSE 127; O2SAT 96; BMI 42.7
--- NOTE | 2023-09-03 11:58 | HO.NEPHOV ---
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 He has diabetes over 20 years. He has history of polysubstance abuse. He continues to use cocaine, last usage was a week ago. He has no hypoglycemia. He takes nonsteroidal anti-inflammatories. He is on CARYN inhibitor and diuretics. He has obesity. He denies any retinopathy, coronary artery disease, congestive heart failure, CVA, carotid stenosis, renal artery stenosis or peripheral arterial disease. He maintains good hydration. His mother was on hemodialysis due to ESRD from diabetes mellitus. He does not monitor his blood pressure at home. He has no history of any hepatitis C or HIV. There were no new complaints at the time of this office visit. COUNT INCLUDES [facility] Medical History HTN (hypertension) Tubular adenoma Polysubstance abuse Sleep apnea Morbid obesity 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 associated with type 2 diabetes mellitus Diabetic polyneuropathy associated with type 2 diabetes mellitus Diabetic nephropathy associated with type 2 diabetes mellitus correction (current) use of insulin Diabetes type 2, uncontrolled Hypercholesteremia Asthma Surgical History Hx of colonoscopy Status post laser lithotripsy of ureteral calculus H/O knee surgery H/O hernia repair Family History Father Diabetes Glaucoma Mother Diabetes HTN (hypertension) Asthma Diabetic kidney Brother Spinal cord injuries Diabetes Sister Asthma Social History Household Members: Other Household Members Other:: room mate Housing: Apartment Housing Other:: handicapped facility Do you presently have visiting nurse or other home services: No Alcohol intake: current Alcohol intake frequency: a few times a week Patient Tobacco Use Status: Current everyday Tobacco user Tobacco use type: Cigarette Cigarette Packs Per Day: 2 Cigarettes Per Day: 40.0 Second Hand Smoke Exposure: No Substance Use Type: Prescription Drugs Current occupational status: employed 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 Physical Exam Vital Signs: Last Vital Signs Pulse 127 H 09/03/23 11:58 BP 158/70 H 09/03/23 11:58 Pulse Ox 96 09/03/23 11:58 Oxygen Delivery Method Room Air 09/03/23 11:58 BMI result Body Mass Index 42.7 Const General: comfortable and no acute distress Orientation/consciousness: patient oriented x3 HEENT Head: Yes normocephalic Mouth: Normal oral and palatal mucosa present Eyes EOM: EOMs intact bilaterally Neck Neck: Yes supple Resp Auscultation: clear to auscultation bilaterally Cardio Jugular venous distension: no JVD Rate: regular rate GI Palpation (GI): Soft to palpation Auscultation: normal bowel sounds General: Yes no CVA tenderness Back/Spine/Pelvis Back: no CVA tenderness Skin General skin exam: no rashes or lesions noted Neuro General: patient oriented x3 and moves all extremities Extrem General: Yes no pedal edema Results Reviewed Nephrology Results: Sodium 145 mmol/L (135-145) 08/29/23 Potassium 4.6 mmol/L (3.3-5.1) 08/29/23 Chloride 104 mmol/L (96-108) 08/29/23 Carbon Dioxide 32 mmol/L (22-29) H 08/29/23 BUN 35 mg/dL (9-16) H 08/29/23 Creatinine 1.24 mg/dL (0.5-1.4) 08/29/23 Calcium 8.8 mg/dL (8.4-10.2) 08/29/23 Urine Creatinine 121.17 mg/dL 08/29/23 Protein/Creatinin Ratio 0.12 (<0.2) 08/29/23 Assessment & Plan Assessment & Plan (1) HTN (hypertension): Code(s): I10 - Essential (primary) hypertension Category: Medical Qualifiers: Hypertension type: primary hypertension Qualified Code(s): I10 - Essential (primary) hypertension (2) CKD stage 3a, GFR 45-59 ml/min: Code(s): N18.31 - Chronic kidney disease, stage 3a Category: Medical Plan Merlin has CKD stage 3 at baseline. He had acute kidney injury due to compromise in renal perfusion as a result of using cocaine and in his 80s while being on CARYN inhibitor when having CKD. He is not on any Jardiance or Farxiga. I discontinued his naproxen at the last visit. I reduced his chlorthalidone to 12.5 mg daily at the last visit which he could continue at the current dose. He has good urine output. I asked him to abstain from nonsteroidal anti-inflammatories and maintain good hydration. He should stay away from cocaine as well. I did not make any medication changes today. Labs ordered for F/U. Answered all questions Orders: Orders Blood Urea Nitrogen Today I10 - Essential (primary) hypertension, N18.31 - Chronic kidney disease, stage 3a Creatinine Today I10 - Essential (primary) hypertension, N18.31 - Chronic kidney disease, stage 3a Electrolytes Today I10 - Essential (primary) hypertension, N18.31 - Chronic kidney disease, stage 3a Coding Level of Care Code Est Pt Level 4 (19266) Diagnoses Primary hypertension I10 Hypertension type: primary hypertension CKD stage 3a, GFR 45-59 ml/min N18.31
== END 2023-09-03 12:38 | disposition home or self-care (01) ==
LOC: HO.HKA 11:56
PROVIDERS: Visit Provider Internal Medicine Nephrology
DX: I10 Essential (primary) hypertension (principal); N18.31 Chronic kidney disease, stage 3a
CPT/HCPCS: 99214

== ENCOUNTER → 2023-09-03 11:56 | Outpatient (BNVA) | payer MEDICAID, SELFPAY | PROVIDERS: Visit Provider Internal Medicine Nephrology | DX: I12.9 Hypertensive chronic kidney disease with stage 1 through stage 4 chronic kidney disease, or unspecified chronic kidney disease (principal); N18.31 Chronic kidney disease, stage 3a | CPT/HCPCS: 99212 ==

== ENCOUNTER 2023-10-09 15:00 | Outpatient (AMB) | payer MEDICAID, SELFPAY ==
--- NOTE | 2023-10-09 15:02 | MHC.OFFVIS ---
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 Accompanied by: Self / Same As Patient Allergies sulfamethoxazole [From BACTRIM DS] Allergy (Intermediate, Verified 09/03/23 12:00) RASH trimethoprim [From BACTRIM DS] Allergy (Intermediate, Verified 09/03/23 12:00) RASH Penicillins Allergy (Mild, Verified 09/03/23 12:00) all Medication List - Last Reconciled 10/09/23 by Walt Whitman MD albuterol sulfate 90 mcg/actuation (ProAir HFA) 2 puffs inhalation Q6H PRN aspirin (Adult Low Dose Aspirin) 81 mg PO DAILY atorvastatin 80 mg PO BEDTIME blood sugar diagnostic (FreeStyle Test strips) As directed chlorthalidone 25 mg PO QAM fredi.stocking,knee,reg,xlrg As directed cyclobenzaprine 10 mg PO BEDTIME PRN gabapentin 300 mg PO BEDTIME insulin glargine U-300 conc (Toujeo Max U-300 SoloStar) 80 units (0.2667 mL) subcut QAM insulin lispro (Humalog KwikPen (U-100) Insulin) See Protocol sliding scale doses subcut QIDACHS lancets (FreeStyle Lancets) As directed lidocaine 5% 1 patch topical DAILY lisinopril 40 mg PO DAILY loratadine 10 mg PO DAILY PRN metformin 1,000 mg PO BID naproxen 500 mg PO DAILY pantoprazole 40 mg PO DAILY pen needle, diabetic (BD Ashly 2nd Gen Pen Needle) Twice a day HPI Comments Details: Meriln has been referred for evaluation because of lower extremity edema. Patient himself does not have any known cardiac issues like coronary disease myocardial infarction. Many comorbidities including diabetes, high blood pressure, dyslipidemia, active drug use including cocaine and heroin. He states that he used drugs just last week. He does not have any complaints like angina or shortness of breath. He does have chronic leg swelling but not profound. Patient states he does have sleep apnea as well but does not use CPAP mask. [facility]LY [facility], [facility] Medical History HTN (hypertension) Tubular adenoma Polysubstance abuse Sleep apnea Morbid obesity 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 associated with type 2 diabetes mellitus Diabetic polyneuropathy associated with type 2 diabetes mellitus Diabetic nephropathy associated with type 2 diabetes mellitus residential (current) use of insulin Diabetes type 2, uncontrolled Hypercholesteremia Asthma Surgical History Hx of colonoscopy Status post laser lithotripsy of ureteral calculus H/O knee surgery H/O hernia repair Family History Father Diabetes Glaucoma Mother Diabetes HTN (hypertension) Asthma Diabetic kidney Brother Spinal cord injuries Diabetes Sister Asthma Social History Household Members: Other Household Members Other:: room mate Housing: Apartment Housing Other:: handicapped facility Do you presently have visiting nurse or other home services: No Alcohol intake: current Alcohol intake frequency: a few times a week Patient Tobacco Use Status: Current everyday Tobacco user Tobacco use type: Cigarette Cigarette Packs Per Day: 2 Cigarettes Per Day: 40.0 Second Hand Smoke Exposure: No Substance Use Type: Prescription Drugs Current occupational status: employed 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 Review of Systems Const Denies chills, Denies daytime sleepiness, Denies fatigue, Denies fever(s), Denies poor appetite, Denies snoring, Denies stops breathing during sleep, Denies weakness, Denies weight gain and Denies weight loss Eyes Denies loss of vision ENT Denies dizziness and Denies hearing loss Card Denies chest pain, Denies irregular heart rhythm, Denies claudication, Denies leg edema, Denies lightheadedness, Denies palpitations, Denies dyspnea on exertion and Denies orthopnea Resp Denies cough, Denies excessive phlegm production, Denies dyspnea on exertion, Denies snoring and Denies wheezing GI Denies abdominal pain, Denies hematochezia, Denies change in bowel habits, Denies nausea and Denies vomiting Denies dysuria and Denies urinary frequency Musc Denies arthralgias, Denies muscle weakness, Denies numbness and Denies other Skin/Breast Denies nail changes and Denies rash Neuro Denies Abnormal speech present, Denies dizziness, Denies loss of vision, Denies memory loss, Denies numbness and Denies weakness Psych Denies depression and Denies memory loss Endo Denies fatigue and Denies palpitations Blaine/Lymph Denies easy bruising Aller/Immun Denies wheezing Physical Exam Vital Signs: Last Vital Signs Pulse 107 H 10/09/23 15:03 BP 144/78 H 10/09/23 15:03 BMI result Body Mass Index 42.7 Const General: comfortable and no acute distress Orientation/consciousness: patient oriented x3 HEENT Other: Unremarkable Head: Yes normal to inspection Neck Neck: Yes normal visual inspection Chest Chest palpation & inspection: normal inspection of the chest Resp Auscultation: clear to auscultation bilaterally Cardio Palpation: normal PMI Heart sounds: S1 normal heart sound present, S2 normal heart sound present, no gallops, no murmurs and no rubs GI Palpation (GI): Soft to palpation Back/Spine/Pelvis Other: unremarkable Skin General skin exam: no rashes or lesions noted Neuro General: patient oriented x3 Speech: No Abnormal speech present Extrem Other: 1+ leg swelling General: Yes normal to inspection Psych Mental Status: mental status grossly normal Office Procedures EKG Details: EKG with underlying sinus tachycardia at 107/Min; no significant ST-T changes; [place] [id number], Complete Assessment & Plan Assessment & Plan (1) Edema: Code(s): R60.9 - Edema, unspecified Category: Medical (2) Diabetic nephropathy associated with type 2 diabetes mellitus: Code(s): E11.21 - Type 2 diabetes mellitus with diabetic nephropathy Category: Medical (3) Morbid obesity: Code(s): E66.01 - Morbid (severe) obesity due to excess calories Category: Medical (4) HTN (hypertension): Code(s): I10 - Essential (primary) hypertension Category: Medical Qualifiers: Hypertension type: primary hypertension Qualified Code(s): I10 - Essential (primary) hypertension (5) Polysubstance abuse: Code(s): F19.10 - Other psychoactive substance abuse, uncomplicated Category: Medical Plan In the recent echocardiogram, hyperdynamic LVEF > 70%; no significant valvular findings. Inadequate TR jet to calculate RVSP. Overall, suspect edema is multifactorial and could be related to some combination of obesity, venous insufficiency, right heart dysfunction related to untreated sleep apnea, chronic kidney disease. Also, actively using drugs including heroin and cocaine. Discussed in detail about dangers from above including myocardial infarction, stroke and . Strongly advised to refrain. With regard to treatment for edema, he is already on some diuretics through Nephrology. Aggressive risk factor modification including management of diabetes, hypertension and CKD. His RAFAEL will also need to be appropriately treated for the swelling to improve. Plan discussed and patient states he understood. Coding Level of Care Code New Pt Level 4 (34279) Diagnoses Edema R60.9 Diabetic nephropathy associated with type 2 diabetes mellitus E11.21 Morbid obesity E66.01 Primary hypertension I10 Hypertension type: primary hypertension Polysubstance abuse F19.10 CPT Codes EKG - CPT: 12199-[id number], Complete ([id number])
[2023-10-09 15:03] VITALS: BP 144/78; PULSE 107; BMI 42.7
== END 2023-10-09 15:20 | disposition home or self-care (01) ==
PROVIDERS: Referring Provider Internal Medicine; Visit Provider Internal Medicine
DX: E11.21 Type 2 diabetes mellitus with diabetic nephropathy (principal); F19.10 Other psychoactive substance abuse, uncomplicated; E66.01 Morbid (severe) obesity due to excess calories; R60.9 Edema, unspecified; I10 Essential (primary) hypertension; R00.0 Tachycardia, unspecified
CPT/HCPCS: 93010; 99214

== ENCOUNTER → 2023-10-09 15:00 | Outpatient (BNVA) | payer MEDICAID, SELFPAY | PROVIDERS: Visit Provider Internal Medicine | DX: R60.9 Edema, unspecified (principal); E11.649 Type 2 diabetes mellitus with hypoglycemia without coma; E11.65 Type 2 diabetes mellitus with hyperglycemia; E11.42 Type 2 diabetes mellitus with diabetic polyneuropathy; E11.21 Type 2 diabetes mellitus with diabetic nephropathy; I10 Essential (primary) hypertension; E66.01 Morbid (severe) obesity due to excess calories; F19.10 Other psychoactive substance abuse, uncomplicated; Z68.41 Body mass index [BMI] 40.0-44.9, adult; Z79.4 Long term (current) use of insulin | CPT/HCPCS: 93005; 99212 ==

== ENCOUNTER 2023-10-11 14:25 | Outpatient (AMB) | payer MEDICAID, SELFPAY ==
[2023-10-11 14:26] VITALS: BMI 42.6
--- NOTE | 2023-10-11 14:26 | A.OFFVIS_ITS ---
Vital Signs 10/11/23 14:26 Height 5 ft 4 in Weight 248 lb BMI 42.6 Intake Visit Reasons: follow up s/p US 08/27/23 Intake Note: follow up US bilateral LE 08/27/23. Pt has bilateral LE swelling w/ reoccuring blisters on Left LE that keep rupturing causing ulcers. Has bandage on Left pre- tibial wound. Also has bilateral LE discoloration. Accompanied by: Self / Same As Patient Allergies sulfamethoxazole [From BACTRIM DS] Allergy (Intermediate, Verified 10/11/23 14:30) RASH trimethoprim [From BACTRIM DS] Allergy (Intermediate, Verified 10/11/23 14:30) RASH Penicillins Allergy (Mild, Verified 10/11/23 14:30) all HPI HPI follow up s/p US 08/27/23: Details: Really obese 62-year-old gentleman presents for follow-up regarding venous insufficiency. CAD significant swelling bilateral lower extremities including pretibial blistering of the left lower extremity. Now presents for routine follow-up with venous insufficiency testing. There have been no significant interval changes. He reports that the swelling and discomfort have been quite an issue for him. [facility] Medical History HTN (hypertension) Tubular adenoma Polysubstance abuse Sleep apnea Morbid obesity 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 associated with type 2 diabetes mellitus Diabetic polyneuropathy associated with type 2 diabetes mellitus Diabetic nephropathy associated with type 2 diabetes mellitus FPC (current) use of insulin Diabetes type 2, uncontrolled Hypercholesteremia Asthma Surgical History Hx of colonoscopy Status post laser lithotripsy of ureteral calculus H/O knee surgery H/O hernia repair Family History Father Diabetes Glaucoma Mother Diabetes HTN (hypertension) Asthma Diabetic kidney Brother Spinal cord injuries Diabetes Sister Asthma Social History (Updated 10/11/23 @ 14:31 by PATRICIA Daugherty) Household Members: Other Household Members Other:: room mate Housing: Apartment Housing Other:: handicapped facility Do you presently have visiting nurse or other home services: No Alcohol intake: current Alcohol intake frequency: a few times a week Patient Tobacco Use Status: Current everyday Tobacco user Tobacco use type: Cigarette Cigarette Packs Per Day: 0.5 Cigarettes Per Day: 10 Second Hand Smoke Exposure: No Substance Use Type: Prescription Drugs Current occupational status: employed 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 Review of Systems Const All systems reviewed & are unremarkable except as noted in HPI and below Reports no additional complaints ENT Reports Normal hearing present Card Denies chest pain, Denies chest pain at rest, Denies chest pain with activity and Denies pedal edema Resp Denies cough GI Denies abdominal pain Musc Denies abnormal gait, Denies muscle cramps and Denies radiating pain into limb Skin/Breast Denies skin ulcer and Denies wounds Neuro Reports Normal hearing present and Denies abnormal gait Psych Reports no additional complaints Physical Exam Vital Signs: BMI result Body Mass Index 42.6 Const General: cooperative, healthy appearing and comfortable Orientation/consciousness: oriented to person, oriented to place and oriented to time HEENT Head: Yes normal to inspection Neck Neck: Yes normal visual inspection Carotids: no bruits Chest Chest palpation & inspection: normal inspection of the chest Resp Effort & Inspection: normal respiratory effort and able to speak in complete sentences Auscultation: clear to auscultation bilaterally, no crackles, no rales, no rhonchi and no wheezes Cardio Rate: regular rate Rhythm: regular rhythm Heart sounds: S1 normal heart sound present and S2 normal heart sound present Bruits: no carotid bruits Peripheral pulses: Peripheral pulses 2+ throughout GI Inspection: Yes normal to inspection Skin Wounds: no wounds Hair: normal Neuro General: oriented to person, oriented to place and oriented to time Cranial nerves: Yes CN's II-XII intact bilaterally and Yes Normal hearing present Cognition (Neuro): normal cognition Motor exam (neuro): 5/5 motor strength present throughout Extrem Other: venous exam: +2 edema Right in cm: Thigh 59 Knee 47 Calf 45.5 Ankle 32 Left in cm: Thigh 61 Knee 46.5 Calf 46 Ankle 32.5 Hip/waist 133 General: No clubbing, No cyanosis and Yes edema Psych Appearance: grossly normal Mental Status: mental status grossly normal Speech and movement: Normal speech and movement present Results Reviewed Results Reviewed: Brief summary of venous insufficiency testing is as follows: right great saphenous vein: negative right small saphenous vein: negative right accessory vein: none present left great saphenous vein: negative left small saphenous vein: negative left accessory vein: none present Please note there is no evidence of any venous aneurysms or significant tortuosity Assessment & Plan Assessment & Plan (1) Varicose veins of right lower extremity with inflammation: Code(s): I83.11 - Varicose veins of right lower extremity with inflammation Category: Medical Plan: Findings are negative. Will treat for lymphedema (2) Lymphedema: Code(s): I89.0 - Lymphedema, not elsewhere classified Category: Medical Plan: In short the patient has late on sent lymphedema. The patient has been on conservative treatment for at least 3 months with minimal relief. Patient has tried 30 mm of mercury compression garments, elevation, exercise healthy diet and doing manual says self MLD to the best of their ability for over 4 weeks but with no significant relief. She has been compliant with the program but has provided minimal relief. In addition on physical we are noticing hyperpigmentation, lymphorrhea, and hyperplasia. It appears that she has stage 2 lymphedema. Patient has completed multiple forms of conservative therapy yet significant symptoms remain. Patient requires the use of a pneumatic compression device which we will assist in trying to have the patient obtain them. A pneumatic compression device will help reduce swelling and other lymphedema comorbidities. Thank you for allowing us to assist in this patient's care. Coding Level of Care Code Est Pt Level 4 (67485) Diagnoses Varicose veins of right lower extremity with inflammation I83.11 Lymphedema I89.0
== END 2023-10-11 14:45 | disposition home or self-care (01) ==
PROVIDERS: Visit Provider Surgery Vascular Surgery
DX: I83.11 Varicose veins of right lower extremity with inflammation (principal); I89.0 Lymphedema, not elsewhere classified
CPT/HCPCS: 99214

== ENCOUNTER → 2023-10-11 14:25 | Outpatient (BNVA) | payer MEDICAID, SELFPAY | PROVIDERS: Visit Provider Surgery Vascular Surgery | DX: I83.11 Varicose veins of right lower extremity with inflammation (principal); I89.0 Lymphedema, not elsewhere classified; I25.10 Atherosclerotic heart disease of native coronary artery without angina pectoris | CPT/HCPCS: 99212 ==

== ENCOUNTER 2023-10-20 06:17 | Emergency (ER) | payer MEDICAID, SELFPAY ==
--- NOTE | ~2023-10-20 | XR_ITS ---
EXAMINATION: XR CHEST CLINICAL INFORMATION: Shortness of breath and chest pain COMPARISON: Chest 12/05/2022 TECHNIQUE: 2 views of the chest were obtained. FINDINGS: No significant abnormality is noted involving the heart, lungs, mediastinum, bony thorax or soft tissues. XR/XR chest 2V IMPRESSION: Unremarkable chest examination. Electronically signed by: Eric Kim MD 10/20/2023 07:39 AM EDT RP
[2023-10-20 06:21] VITALS: BP 169/75; PULSE 97; RESP 20; TEMP 36.7; O2SAT 92; BMI 42.6
--- NOTE | 2023-10-20 06:24 | ECG_ITS ---
Test Reason : SOB Blood Pressure : / mmHG Vent. Rate : 079 BPM Atrial Rate : 079 BPM P-R Int : 124 ms QRS Dur : 076 ms QT Int : 370 ms P-R-T Axes : 041 007 064 degrees QTc Int : 424 ms Normal sinus rhythm with sinus arrhythmia Septal infarct (cited on or before 13-SEP-2021) Abnormal ECG When compared with ECG of 05-DEC-2022 09:32, Premature ventricular complexes are no longer Present Referred By: Generic ED Physician Electronically Signed By:DENISE MOLINA
--- NOTE | 2023-10-20 06:46 | ED_ITS ---
HPI - General Adult General Chief complaint: Dyspnea Stated complaint: SOB Time Seen by Provider: 10/20/23 06:46 Source: patient Mode of arrival: ambulatory Limitations: no limitations History of Present Illness ED Provider: wild MCBRIDE narrative: Patient is a 62-year-old male with history of CKD, smoking, HTN, sleep apnea, morbid obesity, T2 DM, diabetic neuropathy, asthma, hypercholesterolemia, polysubstance abuse on Suboxone presenting to the emergency department with 2 days of shortness of breath, productive cough, subjective fever. Reports he is coughing up white sputum. Yesterday felt hot to touch, did not check temperature with a thermometer. Also complains of chest tightness as well as heartburn. Used Tums without relief. Denies palpitations. Reports chronic bilateral lower extremity edema with blisters. Denies recent medication changes. MD complaint: shortness of breath Onset (ago): day(s) Associated symptoms: chest pain, cough, fever/chills and shortness of breath Treatments prior to arrival: other Related Data Home Medications ?Medication ?Instructions ?Recorded ?Confirmed albuterol sulfate 90 mcg/actuation 2 puff inhalation Q6H PRN 01/09/20 10/09/23 aerosol inhaler (ProAir HFA) Shortness Of Breath aspirin 81 mg tablet,delayed 81 mg PO DAILY 01/09/20 10/09/23 release (Adult Low Dose Aspirin) atorvastatin 80 mg tablet 80 mg PO BEDTIME 01/09/20 10/09/23 lisinopril 40 mg tablet 40 mg PO DAILY 01/09/20 10/09/23 pantoprazole 40 mg tablet,delayed 40 mg PO DAILY 01/09/20 10/09/23 release blood sugar diagnostic (FreeStyle #10 ea 03/10/20 10/09/23 Test strips) lancets 28 gauge (FreeStyle #100 ea 03/10/20 10/09/23 Lancets) loratadine 10 mg capsule 10 mg PO DAILY PRN Allergy Symptoms 03/10/20 10/09/23 chlorthalidone 25 mg tablet 25 mg PO QAM 12/05/22 10/09/23 insulin lispro 100 unit/mL See Protocol subcut QIDACHS 12/05/22 10/09/23 subcutaneous pen (Humalog KwikPen (U-100) Insulin) lidocaine 5 % topical patch 1 patch topical DAILY pain 12/05/22 10/09/23 metformin 1,000 mg tablet 1,000 mg PO BID 12/05/22 10/09/23 naproxen 500 mg tablet 500 mg PO DAILY pain 12/05/22 10/09/23 Previous Rx's ?Medication ?Instructions ?Recorded fredi.stocking,knee,reg,xlrg #12 ea 07/20/20 cyclobenzaprine 10 mg tablet 10 mg PO BEDTIME PRN muscle spasm 02/02/21 #7 tabs pen needle, diabetic 32 gauge x #100 ea 02/08/22 (BD Ashly 2nd Gen Pen Needle) gabapentin 300 mg capsule 300 mg PO BEDTIME #30 caps 12/06/22 insulin glargine U-300 conc 300 80 unit (0.2667 mL) subcut QAM #24 12/06/22 unit/mL (3 mL) subcutaneous pen mL (Toujeo Max U-300 SoloStar) albuterol sulfate 90 mcg/actuation 2 puff inhalation Q4-6H PRN 10/20/23 aerosol inhaler shortness of breath or wheezing #6.7 grams azithromycin 250 mg tablet 250 mg PO DAILY 4 days #4 tabs 10/20/23 prednisone 20 mg tablet 40 mg (2 x 20 mg) PO DAILY #10 tabs 10/20/23 Allergies Allergy/AdvReac Type Severity Reaction Status Date / Time sulfamethoxazole Allergy Intermediate RASH Verified 10/20/23 06:23 [From BACTRIM DS] trimethoprim Allergy Intermediate RASH Verified 10/20/23 06:23 [From BACTRIM DS] Penicillins Allergy Mild all Verified 10/20/23 06:23 Review of Systems 2 Review of Systems: As per HPI. Yes all other systems are reviewed and are negative Constitutional: Constitutional: Reports as per HPI [facility] Past Medical History Medical History HTN (hypertension) Tubular adenoma Polysubstance abuse Sleep apnea Morbid obesity 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 associated with type 2 diabetes mellitus Diabetic polyneuropathy associated with type 2 diabetes mellitus Diabetic nephropathy associated with type 2 diabetes mellitus residential (current) use of insulin Diabetes type 2, uncontrolled Hypercholesteremia Asthma Surgical History Hx of colonoscopy Status post laser lithotripsy of ureteral calculus H/O knee surgery H/O hernia repair Family History Family History Father Diabetes Glaucoma Mother Diabetes HTN (hypertension) Asthma Diabetic kidney Brother Spinal cord injuries Diabetes Sister Asthma Social History Social History (Updated 10/11/23 @ 14:31 by PATRICIA Daugherty) Household Members: Other Household Members Other:: room mate Housing: Apartment Housing Other:: handicapped facility Do you presently have visiting nurse or other home services: No Alcohol intake: current Alcohol intake frequency: a few times a week Patient Tobacco Use Status: Current everyday Tobacco user Tobacco use type: Cigarette Cigarette Packs Per Day: 0.5 Cigarettes Per Day: 10 Second Hand Smoke Exposure: No Substance Use Type: Prescription Drugs Advance Directives: No Advance Directives Information Provided: Yes Do you have a plan to hurt others: No Plan Current occupational status: employed 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 Blood pressure elevated. Heart rate normal. Respiratory rate normal. Temperature normal. Oxygen saturation normal. Const General: cooperative and no acute distress Orientation/consciousness: oriented to person, oriented to place, oriented to time and patient oriented x3 Limitations: no limitations [facility] Head: Yes normocephalic and Yes atraumatic Ears: external ears normal General nose exam: Normal external nose present Face and sinus: Yes face symmetric Mouth: oropharynx normal and moist mucous membranes Throat: Yes uvula midline Eyes Pupils: Equal, round and reactive pupils present Neck Neck: Yes normal visual inspection and Yes supple Resp Effort & Inspection: normal respiratory effort and able to speak in complete sentences Auscultation: wheezes throughout Cardio Rate: regular rate Rhythm: regular rhythm Heart sounds: S1 normal heart sound present and S2 normal heart sound present GI Palpation (GI): Soft to palpation and nontender Auscultation: normoactive bowel sounds General: Yes no CVA tenderness Back/Spine/Pelvis Back: no CVA tenderness Skin General skin exam: elasticity normal and turgor normal Neuro General: oriented to person, oriented to place, oriented to time, patient oriented x3, moves all extremities, no focal motor deficits and CN's II-XI intact bilaterally Cranial nerves: Yes Equal, round and reactive pupils present Cognition (Neuro): normal cognition Extrem Other: 3+ bilateral lower extremity edema, 2+ DP and PT pulses, chronic bilateral skin changes General: Yes full ROM and Yes no calf tenderness Psych Mental Status: mental status grossly normal Affect: normal affect Thought process: Normal thought process present Medications Administered Discontinued Medications Generic Name Dose Route Start Last Admin Trade Name Freq PRN Reason Stop Dose Admin Azithromycin 500 mg 10/20/23 08:45 10/20/23 09:01 Azithromycin 500 Mg Tablet PO 10/20/23 08:46 500 mg ONCE ONE Administration Albuterol Sulfate 2.5 mg/ 0 mg 10/20/23 08:54 10/20/23 09:01 Albuterol/Ipratropium 3 ml INHALE 10/20/23 08:55 3 dose ONCE ONE Administration Prednisone 60 mg 10/20/23 08:45 10/20/23 09:01 Prednisone 20 Mg Tablet PO 10/20/23 08:46 60 mg ONCE ONE Administration Medical Decision Making Medical Decision Making [facility] Narrative: Patient is a 62-year-old male with history of CKD, smoking, HTN, sleep apnea, morbid obesity, T2 DM, diabetic neuropathy, asthma, hypercholesterolemia, polysubstance abuse on Suboxone presenting to the emergency department with 2 days of shortness of breath, productive cough, subjective fever. On exam patient is awake, A+Ox3, BP elevated, VS otherwise WNL, afebrile, normal neurological exam without focal deficits, physical exam findings as above. Given reported symptoms and physical exam findings, initial differential includes viral illness, covid, flu, bronchitis, pneumonia, CHF, ACS. Labs notable for hyperglycemia without anion gap, normal beta hydroxybutyrate, no leukocytosis. Initial troponin 7.4, repeat down trending. X-ray notable for no evidence of CHF, pneumonia. My interpretation is in agreement with the radiologist's interpretation. EKG shows normal sinus rhythm. Will discharge patient home on azithromycin, prednisone. All results discussed with patient and all questions answered. Follow-up with PCP. Return precautions discussed at bedside. Patient verbalized understanding of and agreement with plan. Differential Diagnosis Differential Diagnoses: The differential diagnosis associated with the presentation includes As per [facility] Admission/Observation Consideration of admission/observation: Escalation of care including admission/observation considered Patient would have been admitted to the hospital had their work up had any findings where hospital admission was appropriate and their clinical presentation warranted hospital admission. Lab Data [facility] Lab Attestation statement: I reviewed the patient's lab results. As per [facility] 10/20/23 07:01 10/20/23 07:01 Labs: Lab Results 10/20/23 10/20/23 10/20/23 Range/Units 06:55 07:01 07:09 WBC 7.0 (4.8-10.8) X10*3/uL RBC 3.77 L D (4.60-5.80) X10*6/uL Hgb 12.0 L (14.0-18.0) g/dl Hct 34.9 L D (42.0-52.0) % MCV 92.6 (80.0-98.0) fL MCH 31.8 (27.0-33.0) pg MCHC 34.4 (31.0-36.0) g/dl RDW 13.0 (11.0-16.0) % Plt Count 222 D (160-400) X10*3/uL MPV 11.4 (9.4-12.4) fL Immature Gran % (Auto) 0.4 (0.0-0.4) % Neut % (Auto) 77.9 H (45-73) % Lymph % (Auto) 12.1 L (20-40) % [place] % (Auto) 4.4 (2-11) % Eos % (Auto) 4.5 H (0-4) % Baso % (Auto) 0.7 (0-2) % Lymph # (Auto) 0.9 L (1.2-4.9) X10*3/uL [place] # (Auto) 0.3 (0.1-1.2) X10*3/uL Eos # (Auto) 0.3 (0.0-0.4) X10*3/uL Baso # (Auto) 0.1 (0.0-0.2) X10*3/uL Abs Immat Gran (auto) 0.03 (0.00-0.03) X10*3/uL Absolute Neuts (auto) 5.5 (2.0-8.3) x10*3/uL Absolute Nucleated RBC 0.000 (0.0-0.012) X10*3/uL Nucleated RBC % (auto) 0.0 (0.0-0.2) /100WBC VBG pH 7.38 (7.32-7.43) VBG pCO2 55 mmHg VBG pO2 45 mmHg VBG HCO3 33 H (22-26) mmol/L VBG O2 Saturation 80.0 % VBG Base Excess 6.9 mmol/L Sodium 142 (135-145) mmol/L Potassium 4.6 (3.3-5.1) mmol/L Chloride 101 (96-108) mmol/L Carbon Dioxide 32 H (22-29) mmol/L Anion Gap 14 (12-20) BUN 14 (9-16) mg/dL Creatinine 1.00 (0.5-1.4) mg/dL Estim Creat Clear Calc 87.2 Estimated GFR > 60 Random Glucose 405 H* (60-115) mg/dL Calcium 9.2 (8.4-10.2) mg/dL Total Bilirubin 0.2 (0.0-1.0) mg/dL AST 11 (5-37) U/L ALT 13 (0-40) U/L Alkaline Phosphatase 129 H (39-117) U/L Troponin I High Sens 7.4 D (<3.5-35.0) ng/L B-Natriuretic Peptide 32 (<100) pg/mL Total Protein 7.1 (6.5-8.0) g/dL Albumin 3.7 (3.5-5.0) g/dL Beta-Hydroxybutyrate 0.09 (0.02-0.27) mmol/L Influenza Type A (PCR) NEGATIVE (Negative) Influenza Type B (PCR) NEGATIVE (Negative) RSV RNA Qual (PCR) NEGATIVE (Negative) SARS-CoV-2 RNA (RT-PCR) NEGATIVE (Negative) 10/20/23 Range/Units 09:06 WBC (4.8-10.8) X10*3/uL RBC (4.60-5.80) X10*6/uL Hgb (14.0-18.0) g/dl Hct (42.0-52.0) % MCV (80.0-98.0) fL MCH (27.0-33.0) pg MCHC (31.0-36.0) g/dl RDW (11.0-16.0) % Plt Count (160-400) X10*3/uL MPV (9.4-12.4) fL Immature Gran % (Auto) (0.0-0.4) % Neut % (Auto) (45-73) % Lymph % (Auto) (20-40) % [place] % (Auto) (2-11) % Eos % (Auto) (0-4) % Baso % (Auto) (0-2) % Lymph # (Auto) (1.2-4.9) X10*3/uL [place] # (Auto) (0.1-1.2) X10*3/uL Eos # (Auto) (0.0-0.4) X10*3/uL Baso # (Auto) (0.0-0.2) X10*3/uL Abs Immat Gran (auto) (0.00-0.03) X10*3/uL Absolute Neuts (auto) (2.0-8.3) x10*3/uL Absolute Nucleated RBC (0.0-0.012) X10*3/uL Nucleated RBC % (auto) (0.0-0.2) /100WBC VBG pH (7.32-7.43) VBG pCO2 mmHg VBG pO2 mmHg VBG HCO3 (22-26) mmol/L VBG O2 Saturation % VBG Base Excess mmol/L Sodium (135-145) mmol/L Potassium (3.3-5.1) mmol/L Chloride (96-108) mmol/L Carbon Dioxide (22-29) mmol/L Anion Gap (12-20) BUN (9-16) mg/dL Creatinine (0.5-1.4) mg/dL Estim Creat Clear Calc Estimated GFR Random Glucose (60-115) mg/dL Calcium (8.4-10.2) mg/dL Total Bilirubin (0.0-1.0) mg/dL AST (5-37) U/L ALT (0-40) U/L Alkaline Phosphatase (39-117) U/L Troponin I High Sens 5.4 (<3.5-35.0) ng/L B-Natriuretic Peptide (<100) pg/mL Total Protein (6.5-8.0) g/dL Albumin (3.5-5.0) g/dL Beta-Hydroxybutyrate (0.02-0.27) mmol/L Influenza Type A (PCR) (Negative) Influenza Type B (PCR) (Negative) RSV RNA Qual (PCR) (Negative) SARS-CoV-2 RNA (RT-PCR) (Negative) Independent Interpretation I performed an independent interpretation of an: Plain X-Ray Interpretation: No evidence of pneumonia or CHF on x-ray Radiology Impression Discussion of test interpretation with radiology: I have reviewed the radiologist's reading. Radiologist Impression: XR/XR chest 2V IMPRESSION: Unremarkable chest examination. Electronically signed by: Eric Kim MD 10/20/2023 07:39 AM EDT RP External Record Review External record reviewed: Inpatient record, Office record and Outpatient record Prescription Management I considered prescription management with: Antibiotic and Other Discharge Plan Discharge Clinical Impression: Bronchitis Patient Disposition: Home, Self-Care Instructions: How to Use a Metered-Dose Inhaler (ED), Acute Bronchitis (ED) Additional Instructions: You were evaluated in the emergency department today for cough and shortness of breath. You are being treated for bronchitis with an antibiotic, please complete the full course as prescribed. You are also being prescribed a short course of steroids to decrease inflammation. You are being prescribed an inhaler which you can use every 4-6 hours as needed for shortness of breath. Please follow-up with your primary care provider this week. Return to the emergency department if you develop worsening shortness of breath, difficulty breathing, chest pain, fever not improved with Tylenol or ibuprofen, or any other concerning symptoms. Prescriptions: New azithromycin 250 mg tablet 250 mg PO DAILY 4 Days Qty: 4 0RF Rx Instructions: start on day 2 of therapy prednisone 20 mg tablet 40 mg PO DAILY Qty: 10 0RF albuterol sulfate 90 mcg/actuation HFA aerosol inhaler 2 puff inhalation Q4-6H PRN (Reason: shortness of breath or wheezing) Qty: 6.7 0RF No Action (DME) pen needle, diabetic [BD Ashly 2nd Gen Pen Needle] 32 gauge x 5/32 needle See Rx Instructions .MEDSUPPLY Qty: 100 4RF Rx Instructions: Twice a day (DME) fredi.stocking,knee,reg,xlrg Misc See Rx Instructions .ROUTE .MEDSUPPLY Qty: 12 0RF Rx Instructions: As directed cyclobenzaprine 10 mg tablet 10 mg PO BEDTIME PRN (Reason: muscle spasm) Qty: 7 0RF chlorthalidone 25 mg tablet 25 mg PO QAM metformin 1,000 mg tablet 1,000 mg PO BID lidocaine 5 % adhesive patch,medicated 1 patch topical DAILY Rx Instructions: leave on most painful area for up to 12 hrs naproxen 500 mg tablet 500 mg PO DAILY Rx Instructions: Take with food insulin lispro [Humalog KwikPen Insulin] 100 unit/mL insulin pen See Protocol subcut QIDACHS Protocol: Insulin Correction Scale Less than or equal to 110 ---- Give (units): 0 111 to 150 Give (units): 0 151 to 200 Give (units): 2 201 to 250 Give (units): 4 251 to 300 Give (units): 6 301 to 350 Give (units): 8 Greater than 350 Give (units): 10 Call MD if Blood Glucose > : 350 gabapentin 300 mg capsule 300 mg PO BEDTIME Qty: 30 1RF Toujeo Max U-300 SoloStar 300 unit/mL (3 mL) insulin pen 80 unit SUBCUT QAM Qty: 24 0RF loratadine 10 mg capsule 10 mg PO DAILY PRN (Reason: Allergy Symptoms) (DME) lancets [FreeStyle Lancets] 28 gauge [facility] See Rx Instructions .ROUTE .MEDSUPPLY Qty: 100 Rx Instructions: As directed (DME) FreeStyle Test Strip See Rx Instructions .ROUTE .MEDSUPPLY Qty: 10 Rx Instructions: As directed aspirin [Adult Low Dose Aspirin] 81 mg tablet,delayed release (DR/EC) 81 mg PO DAILY lisinopril 40 mg tablet 40 mg PO DAILY atorvastatin 80 mg tablet 80 mg PO BEDTIME pantoprazole 40 mg tablet,delayed release (DR/EC) 40 mg PO DAILY albuterol sulfate [ProAir HFA] 90 mcg/actuation HFA aerosol inhaler 2 puff inhalation Q6H PRN (Reason: Shortness Of Breath) Print Language: Belarusian
--- NOTE | 2023-10-20 06:46 | PC.NURSE ---
pt to ed3 from reporting sob. sats 89-92% on RA. +3 pitting edema noted BLE. pt reports its been the same x 3 months. is on 20mg lasix. rales/wheezing ausc. no accessory muscle use noted ,resp even and unlabored. ekg obtained and viewed by MD. Morrell [employer]PERVISOR [employer] made aware.
[2023-10-20 07:09] LABS: MANUAL DIFF FLAG NO
[2023-10-20 07:16] LABS: VBG Base Excess 6.9 mmol/L; VBG HCO3 33 mmol/L (22-26); VBG pCO2 55 mmHg; VBG pH 7.38 (7.32-7.43); VBG pO2 45 mmHg
[2023-10-20 07:20] LABS: Basophils Absolute Auto 0.1 X10*3/uL (0.0-0.2); Basophils Percent Auto 0.7 % (0-2); Eosinophils Absolute Auto 0.3 X10*3/uL (0.0-0.4); Eosinophils Percent Auto 4.5 % (0-4); Hematocrit 34.9 % (42.0-52.0); Imm Gran Abs Auto 0.03 X10*3/uL (0.00-0.03); Imm Gran Pct Auto 0.4 % (0.0-0.4); Lymphocytes Absolute Auto 0.9 X10*3/uL (1.2-4.9); Lymphocytes Percent Auto 12.1 % (20-40); Mean Corpuscular HGB Conc 34.4 g/dl (31.0-36.0); Mean Corpuscular Hemoglobin 31.8 pg (27.0-33.0); Mean Corpuscular Volume 92.6 fL (80.0-98.0); Mean Platelet Volume 11.4 fL (9.4-12.4); Monocytes Absolute Auto 0.3 X10*3/uL (0.1-1.2); Monocytes Percent Auto 4.4 % (2-11); Neutrophils Absolute Auto 5.5 x10*3/uL (2.0-8.3); Neutrophils Percent Auto 77.9 % (45-73); Platelet Count 222 X10*3/uL (160-400); Red Blood Count 3.77 X10*6/uL (4.60-5.80)
[2023-10-20 07:34] LABS: Venous Blood Gas Refer to POC result
[2023-10-20 07:42] LABS: B Type Natriuretic Peptide 32 pg/mL (<100)
[2023-10-20 07:42] LABS: Troponin-I High Sensitivity 7.4 ng/L (<3.5-35.0)
[2023-10-20 07:43] LABS: Alanine Aminotransferase 13 U/L (0-40); Albumin Level 3.7 g/dL (3.5-5.0); Alkaline Phosphatase 129 U/L (39-117); Anion Gap 14 (12-20); Aspartate Amino Transferase 11 U/L (5-37); Bilirubin Total 0.2 mg/dL (0.0-1.0); Blood Urea Nitrogen 14 mg/dL (9-16); Calcium 9.2 mg/dL (8.4-10.2); Carbon Dioxide 32 mmol/L (22-29); Chloride 101 mmol/L (96-108); Creatinine Clr Calc Pharmacy 87.2; Estimated Glomerular Filt Rate > 60; Glucose Random 405 mg/dL (60-115); Potassium 4.6 mmol/L (3.3-5.1); Sodium 142 mmol/L (135-145); Total Protein 7.1 g/dL (6.5-8.0)
[2023-10-20 07:52] LABS: Influenza A PCR NEGATIVE (Negative); Influenza B PCR NEGATIVE (Negative); Resp Syncy Virus RNA Qual PCR NEGATIVE (Negative); SARS COV2 PCR INHOUSE NEGATIVE (Negative)
[2023-10-20 08:12] VITALS: BP 160/78; PULSE 78; RESP 16; TEMP 36.9; O2SAT 95
[2023-10-20 08:18] LABS: Beta-Hydroxybutyrate 0.09 mmol/L (0.02-0.27)
[2023-10-20] MEDS: Azithromycin 500 MG TABLET PO (09:01)
[2023-10-20] MEDS: predniSONE 20 MG TABLET 60 MG PO (09:01)
[2023-10-20] MEDS: Albuterol Sulfate 2.5 MG, Albuterol/Iprat 2.5/0.5MG 3 ML 3 ML INHALE (09:01)
[2023-10-20 09:03] VITALS: PULSE 76; RESP 18; O2SAT 97
[2023-10-20 09:38] LABS: Troponin-I High Sensitivity 5.4 ng/L (<3.5-35.0)
[2023-10-20 10:01] VITALS: BP 172/83; PULSE 89; RESP 18; O2SAT 96
[2023-10-20 10:12] VITALS: BP 172/83; PULSE 89; RESP 18; TEMP 36.7; O2SAT 96
== END 2023-10-20 10:12 | disposition home or self-care (01) ==
PROVIDERS: Registered Nurse Emergency; Emergency Provider Emergency Medicine; PCP Internal Medicine
DX: J40 Bronchitis, not specified as acute or chronic (principal); Z03.818 Encounter for observation for suspected exposure to other biological agents ruled out; R06.02 Shortness of breath; J45.909 Unspecified asthma, uncomplicated; E11.9 Type 2 diabetes mellitus without complications; I10 Essential (primary) hypertension; E78.00 Pure hypercholesterolemia, unspecified; F19.10 Other psychoactive substance abuse, uncomplicated; F17.210 Nicotine dependence, cigarettes, uncomplicated; Z79.82 Long term (current) use of aspirin; Z79.02 Long term (current) use of antithrombotics/antiplatelets; Z79.899 Other long term (current) drug therapy; Z79.84 Long term (current) use of oral hypoglycemic drugs; Z79.4 Long term (current) use of insulin
CPT/HCPCS: 0241U; 36415; 71046; 80053; 82010; 82803; 83880; 84484; 85025; 93005; 94640; 99284

== ENCOUNTER → 2023-10-29 13:33 | Outpatient (BNVA) | payer MEDICAID, SELFPAY | PROVIDERS: PCP Internal Medicine; Visit Provider Surgery Vascular Surgery ==

== ENCOUNTER 2023-12-07 10:31 | Outpatient (AMB) | payer MEDICAID, SELFPAY ==
[2023-12-07 10:58] VITALS: BP 144/72; PULSE 111; O2SAT 93; BMI 41.2
--- NOTE | 2023-12-07 10:58 | HO.NEPHOV ---
Vital Signs 12/07/23 10:58 Height 5 ft 4 in Weight 240 lb BMI 41.2 BP 144/72 H Blood Pressure Location Lt brachial Position Sitting Pulse 111 H Pulse Source Pulse Oximeter Pulse Oximetry (%) 93 Oxygen Delivery Method Room Air Intake Visit Reasons: WEN Educational/Development Assistant Required: No Accompanied by: Self / Same As Patient Allergies sulfamethoxazole [From BACTRIM DS] Allergy (Intermediate, Verified 12/07/23 11:02) RASH trimethoprim [From BACTRIM DS] Allergy (Intermediate, Verified 12/07/23 11:02) RASH Penicillins Allergy (Mild, Verified 12/07/23 11:02) all HPI Comments Details: I had the pleasure of seeing Merlin in follow up for WEN on a backdrop of CKD and hypertension. He has diabetes over 20 years. He has history of polysubstance abuse. He continues to use cocaine. He has no hypoglycemia. He takes nonsteroidal anti-inflammatories. He is on CARYN inhibitor and diuretics. He has obesity. He denies any retinopathy, coronary artery disease, congestive heart failure, CVA, carotid stenosis, renal artery stenosis or peripheral arterial disease. He maintains good hydration. His mother was on hemodialysis due to ESRD from diabetes mellitus. He does not monitor his blood pressure at home. He has no history of any hepatitis C or HIV. There were no new complaints at the time of this office visit. 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 Diabetes type 2, uncontrolled Hypercholesteremia Asthma Surgical History Hx of colonoscopy Status post laser lithotripsy of ureteral calculus H/O knee surgery H/O hernia repair Family History Father Diabetes Glaucoma Mother Diabetes HTN (hypertension) Asthma Diabetic kidney Brother Spinal cord injuries Diabetes Sister Asthma Social History Household Members: Other Household Members Other:: room mate Housing: Apartment Housing Other:: handicapped facility Do you presently have visiting nurse or other home services: No Alcohol intake: current Alcohol intake frequency: a few times a week Patient Tobacco Use Status: Current everyday Tobacco user Tobacco use type: Cigarette Cigarettes Per Day: 1 Second Hand Smoke Exposure: No Substance Use Type: Prescription Drugs Current occupational status: employed 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 Review of Systems Const All systems reviewed & are unremarkable except as noted in HPI and below Physical Exam Vital Signs: Last Vital Signs Pulse 111 H 12/07/23 10:58 BP 144/72 H 12/07/23 10:58 Pulse Ox 93 12/07/23 10:58 Oxygen Delivery Method Room Air 12/07/23 10:58 BMI result Body Mass Index 41.2 Const General: comfortable and no acute distress Orientation/consciousness: patient oriented x3 HEENT Head: Yes normocephalic Mouth: Normal oral and palatal mucosa present Eyes EOM: EOMs intact bilaterally Neck Neck: Yes supple Resp Auscultation: clear to auscultation bilaterally Cardio Jugular venous distension: no JVD Rate: regular rate GI Palpation (GI): Soft to palpation Auscultation: normal bowel sounds General: Yes no CVA tenderness Back/Spine/Pelvis Back: no CVA tenderness Skin General skin exam: no rashes or lesions noted Neuro General: patient oriented x3 and moves all extremities Results Reviewed Nephrology Results: Hgb 12.0 g/dl (14.0-18.0) L 10/20/23 WBC 7.0 X10*3/uL (4.8-10.8) 10/20/23 Plt Count 222 X10*3/uL (160-400) 10/20/23 Sodium 142 mmol/L (135-145) 10/20/23 Potassium 4.6 mmol/L (3.3-5.1) 10/20/23 Chloride 101 mmol/L (96-108) 10/20/23 Carbon Dioxide 32 mmol/L (22-29) H 10/20/23 BUN 14 mg/dL (9-16) 10/20/23 Creatinine 1.00 mg/dL (0.5-1.4) 10/20/23 Calcium 9.2 mg/dL (8.4-10.2) 10/20/23 Urine Creatinine 121.17 mg/dL 08/29/23 Protein/Creatinin Ratio 0.12 (<0.2) 08/29/23 Assessment & Plan Assessment & Plan (1) CKD stage 3a, GFR 45-59 ml/min: Code(s): N18.31 - Chronic kidney disease, stage 3a Category: Medical (2) HTN (hypertension): Code(s): I10 - Essential (primary) hypertension Category: Medical Qualifiers: Hypertension type: primary hypertension Qualified Code(s): I10 - Essential (primary) hypertension Plan Merlin has CKD stage 3 at baseline. He had acute kidney injury due to compromise in renal perfusion as a result of using cocaine and in his 80s while being on CARYN inhibitor when having CKD. He is not on any Jardiance or Farxiga. He has good urine output. I asked him to abstain from nonsteroidal anti-inflammatories and maintain good hydration. He should stay away from cocaine as well. I did not make any medication changes today. Labs ordered for F/U. Answered all questions Orders: Orders Electrolytes 6 Months I10 - Essential (primary) hypertension, N18.31 - Chronic kidney disease, stage 3a Creatinine 6 Months I10 - Essential (primary) hypertension, N18.31 - Chronic kidney disease, stage 3a Blood Urea Nitrogen 6 Months I10 - Essential (primary) hypertension, N18.31 - Chronic kidney disease, stage 3a Coding Level of Care Code Est Pt Level 4 (99844) Diagnoses CKD stage 3a, GFR 45-59 ml/min N18.31 Primary hypertension I10 Hypertension type: primary hypertension
== END 2023-12-07 11:18 | disposition home or self-care (01) ==
PROVIDERS: Visit Provider Internal Medicine Nephrology
DX: I12.9 Hypertensive chronic kidney disease with stage 1 through stage 4 chronic kidney disease, or unspecified chronic kidney disease (principal); N18.31 Chronic kidney disease, stage 3a
CPT/HCPCS: 99214

== ENCOUNTER → 2023-12-07 10:31 | Outpatient (BNVA) | payer MEDICAID, SELFPAY | PROVIDERS: Visit Provider Internal Medicine Nephrology | DX: I12.9 Hypertensive chronic kidney disease with stage 1 through stage 4 chronic kidney disease, or unspecified chronic kidney disease (principal); N18.31 Chronic kidney disease, stage 3a | CPT/HCPCS: 99212 ==

== ENCOUNTER 2024-05-05 08:48 | Outpatient (REF) | payer MEDICAID, SELFPAY ==
[2024-05-05 11:55] LABS: Anion Gap 12 (12-20); Blood Urea Nitrogen 13 mg/dL (9-16); Carbon Dioxide 33 mmol/L (22-29); Chloride 102 mmol/L (96-108); Cholesterol 153 mg/dL (<200); Estimated Average Glucose 200 mg/dL; Estimated Glomerular Filt Rate > 60; HDL Cholesterol 29 mg/dL (>40); Hemoglobin A1c % 8.6 % (<6.0); LDL Cholesterol Calculated 82 mg/dL (<100); Potassium 4.2 mmol/L (3.3-5.1); Sodium 143 mmol/L (135-145); Triglycerides 212 mg/dL (<150)
[2024-05-05 12:22] LABS: Vitamin B12 315 pg/mL (200-900)
[2024-05-05 12:30] LABS: Creatinine Urine 106.85 mg/dL; Microalbum/Creatinine Ratio Ur 382.7 ug/mg cr (<30)
== END 2024-05-05 08:49 | disposition home or self-care (01) ==
LOC: HO.HHCL 08:48
PROVIDERS: Internal Medicine; Visit Provider Internal Medicine Nephrology
DX: E11.65 Type 2 diabetes mellitus with hyperglycemia (principal); Z79.4 Long term (current) use of insulin; I10 Essential (primary) hypertension; N18.31 Chronic kidney disease, stage 3a
CPT/HCPCS: 36415; 80051; 80061; 82043; 82565; 82570; 82607; 83036; 84520

== ENCOUNTER 2024-06-06 10:43 | Outpatient (AMB) | payer MEDICAID, SELFPAY ==
--- NOTE | 2024-06-06 11:06 | HO.NEPHOV ---
Vital Signs 06/06/24 11:10 Height 5 ft 4 in Weight 247 lb 2 oz BMI 42.4 BP 136/70 Blood Pressure Location Lt brachial Position Sitting Pulse 104 H Pulse Source Pulse Oximeter Pulse Oximetry (%) 96 Oxygen Delivery Method Room Air Intake Visit Reasons: 6mon follow up-[facility] Mercantile Agent Required: No Accompanied by: Self / Same As Patient Allergies sulfamethoxazole [From BACTRIM DS] Allergy (Intermediate, Verified 06/06/24 11:10) RASH trimethoprim [From BACTRIM DS] Allergy (Intermediate, Verified 06/06/24 11:10) RASH Penicillins Allergy (Mild, Verified 06/06/24 11:10) all HPI Comments Details: I had the pleasure of seeing Merlin in follow up for CKD and hypertension. He has diabetes over 20 years. He has history of polysubstance abuse. He denies using cocaine now. He has no hypoglycemia. He takes nonsteroidal anti-inflammatories. He is on CARYN inhibitor and diuretics.He denies any retinopathy, coronary artery disease, congestive heart failure, CVA, carotid stenosis, renal artery stenosis or peripheral arterial disease. He maintains good hydration. His mother was on hemodialysis due to ESRD from diabetes mellitus. He does not monitor his blood pressure at home. He has no history of any hepatitis C or HIV. 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 Diabetes type 2, uncontrolled Hypercholesteremia Asthma Surgical History Hx of colonoscopy Status post laser lithotripsy of ureteral calculus H/O knee surgery H/O hernia repair Family History Father Diabetes Glaucoma Mother Diabetes HTN (hypertension) Asthma Diabetic kidney Brother Spinal cord injuries Diabetes Sister Asthma Social History Household Members: Other Household Members Other:: room mate Housing: Apartment Housing Other:: handicapped facility Do you presently have visiting nurse or other home services: No Alcohol intake: current Alcohol intake frequency: a few times a week Patient Tobacco Use Status: Current everyday Tobacco user Tobacco use type: Cigarette Cigarettes Per Day: 1 Second Hand Smoke Exposure: No Substance Use Type: Prescription Drugs Current occupational status: employed 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 Review of Systems Const All systems reviewed & are unremarkable except as noted in HPI and below Physical Exam Vital Signs: Last Vital Signs Pulse 104 H 06/06/24 11:10 BP 136/70 06/06/24 11:10 Pulse Ox 96 06/06/24 11:10 Oxygen Delivery Method Room Air 06/06/24 11:10 BMI result Body Mass Index 42.4 Const General: comfortable and no acute distress Orientation/consciousness: patient oriented x3 HEENT Head: Yes normocephalic Mouth: Normal oral and palatal mucosa present Eyes EOM: EOMs intact bilaterally Neck Neck: Yes supple Resp Auscultation: clear to auscultation bilaterally Cardio Jugular venous distension: no JVD Rate: regular rate GI Palpation (GI): Soft to palpation Auscultation: normal bowel sounds General: Yes no CVA tenderness Back/Spine/Pelvis Back: no CVA tenderness Skin General skin exam: no rashes or lesions noted Neuro General: patient oriented x3 and moves all extremities Extrem General: Yes no pedal edema Results Reviewed Nephrology Results: Sodium 143 mmol/L (135-145) 05/05/24 Potassium 4.2 mmol/L (3.3-5.1) 05/05/24 Chloride 102 mmol/L (96-108) 05/05/24 Carbon Dioxide 33 mmol/L (22-29) H 05/05/24 BUN 13 mg/dL (9-16) 05/05/24 Creatinine 0.77 mg/dL (0.5-1.4) 05/05/24 Protein/Creatinin Ratio 0.12 (<0.2) 08/29/23 Assessment & Plan Assessment & Plan (1) HTN (hypertension): Code(s): I10 - Essential (primary) hypertension Category: Medical Qualifiers: Hypertension type: primary hypertension Qualified Code(s): I10 - Essential (primary) hypertension (2) Diabetic nephropathy associated with type 2 diabetes mellitus: Code(s): E11.21 - Type 2 diabetes mellitus with diabetic nephropathy Category: Medical (3) CKD stage 3a, GFR 45-59 ml/min: Code(s): N18.31 - Chronic kidney disease, stage 3a Category: Medical Plan Merlin has CKD stage 3 at baseline. He had acute kidney injury due to compromise in renal perfusion as a result of using cocaine while being on CARYN inhibitor when having CKD, which has resolved now. He is on Jardiance as well as ACEI now. He has good urine output. I asked him to abstain from nonsteroidal anti-inflammatories and maintain good hydration. He should stay away from cocaine as well. I did not make any medication changes today. Labs ordered for F/U. Answered all questions Orders: Orders Creatinine 3 Months N18.31 - Chronic kidney disease, stage 3a, I10 - Essential (primary) hypertension, E11.21 - Type 2 diabetes mellitus with diabetic nephropathy Electrolytes 3 Months N18.31 - Chronic kidney disease, stage 3a, I10 - Essential (primary) hypertension, E11.21 - Type 2 diabetes mellitus with diabetic nephropathy Blood Urea Nitrogen 3 Months N18.31 - Chronic kidney disease, stage 3a, I10 - Essential (primary) hypertension, E11.21 - Type 2 diabetes mellitus with diabetic nephropathy Protein Creatinine Ratio, Ur 3 Months N18.31 - Chronic kidney disease, stage 3a, I10 - Essential (primary) hypertension, E11.21 - Type 2 diabetes mellitus with diabetic nephropathy Medications: New empagliflozin (Jardiance) 10 mg PO DAILY 30 tabs 3RF Coding Level of Care Code Est Pt Level 4 (50278) Diagnoses Primary hypertension I10 Hypertension type: primary hypertension Diabetic nephropathy associated with type 2 diabetes mellitus E11.21 CKD stage 3a, GFR 45-59 ml/min N18.31
[2024-06-06 11:10] VITALS: BP 136/70; PULSE 104; O2SAT 96; BMI 42.4
--- OUTSIDE RECORDS SUMMARY | 2024-06-06 11:46 | XMS_ITS | Encounter Summary ---
Author Organization [employer] Address [address] [facility] 7t [place] [address] Care Team Providers Care Emergency Worker Name Role Phone Zee Camacho MD Primary Care Provide r Sebastián Duncan PharmD Unavailable [phone] Encounter Details Date Type Department Care Team (Late st Contact Info) Description 08/27/2023 Telephone [facility] [address] [place], [place] [phone] Zee Camacho MD [address] [place], [place] [phone] Social History Tobacco Use Types Packs/Day Years Used Date Smoking Tobacco: Some Days Cigarettes Passive Smoke Exposure: Current Smokeless Tobacco: Never Alcohol Use Standard Drinks/Week Comments Yes 0 (1 standard drink = 0.6 oz pur e alcohol) Depression Answer Date Recorded Patient Health Questionnaire-9 Score 16 06/20/2023 Patient Health Questionnaire-9 Score 16 06/20/2023 Last PHQ-9: Questionnaire Data Not on file 0 06/20/2023 Housing Stability Answer Date Recorded What is your housing situation today? I have julio del angel 06/20/[address] you li ve. Do you have problems with any of the following? None of the above 06/20/2023 Food Insecurity Answer Date Recorded Within the past 12 months, y ou worried that your food would run out before you got money to buy more: Never True 06/20/2023 Within the past 12 months,th e food you bought just didn't last and you didn't have enough money to get more: Never True 02/2023 Transportation Answer Date Recorded In the past 12 months, has l ack of transportation kept you from medical appts, meetings, work or from getting things needed for daily living? I am not sure 06/20/2023 Utilities Answer Date Recorded In the past 12 months, has t he electric, gas, oil or water company threatened to shut off services in your home? I am not sure 06/20/2023 Depression Answer Date Recorded Patient Health Questionnaire-2 Score 3 06/20/2023 Sex and Gender Information Value Date Recorded Sex Assigned at Male 12/19/2021 10:20 AM EDT Legal Sex Male 10:20 AM EDT Gender Identity Male 12/19/2021 10:20 AM EDT Sexual Orientation Straight 12/19/2021 10 :20 AM EDT documented as of this encounter Plan of Treatment Not on file documented as of this encounter Visit Diagnoses Not on filedocumented in this encounter Additional Health Concerns Assessment Noted Time PHQ-9 Depression Total Score: 16 024 10:03 AM EDT documented as of this encounter Care Teams Emergency Worker Relationship Specialty Start Date End Date Zee Camacho MD [address] [place] [address] PCP - General Family Medicine 09/17/20 Sebastián Duncan, AdelitaD [address] [place] [address] Pharmacist Internal Medicine 05/01/24 Verito 03/13/24 documented as of this encounter
--- OUTSIDE RECORDS SUMMARY | 2024-06-06 11:46 | XMS_ITS | Encounter Summary ---
Author Organization [employer] [facility] Address [address] [facility] 7t [place] [address] Care Team Providers Care Telegraph Office Manager Name Role Phone Zee Camacho MD Primary Care Provide r Sebastián Duncan PharmD Unavailable [phone] Reason for Visit * Reason Comments Med Refill Encounter Details Date Type Department Care Team ([facility] st Contact Info) Description 12/07/2022 Refill [facility] [address] [place] [phone] Adam Cazares MD [address] [place] [id number] Social History Tobacco Use Types Packs/Day Years Used Date Smoking Tobacco: Some Days Cigarettes Passive Smoke Exposure: Current Smokeless Tobacco: Never Sex and Gender Information Value Date Recorded Sex Assigned at Male 12/19/2021 10:20 AM EDT Legal Sex Male 10:20 AM EDT Gender Identity Male 12/19/2021 10:20 AM EDT Sexual Orientation Straight 12/19/2021 10 :20 AM EDT documented as of this encounter Plan of Treatment Not on file documented as of this encounter Visit Diagnoses Not on filedocumented in this encounter Care Teams Telegraph Office Manager Relationship Specialty Start Date End Date Zee Camacho MD [address] [place] [phone] PCP - General Family Medicine 09/17/20 Sebastián Duncan, PharmD [address] [place] [phone] Pharmacist Internal Medicine 05/01/24 Verito 03/13/24 documented as of this encounter
--- OUTSIDE RECORDS SUMMARY | 2024-06-06 11:46 | XMS_ITS | Encounter Summary ---
Author Organization [employer] [facility] Address [address] [facility] 7t [place] [address] Care Team Providers Care Panel Coverer Name Role Phone Zee Camacho MD Primary Care Provide r Sebastián Duncan PharmD Unavailable [phone] Encounter Details Date Type Department Care Team (Late st Contact Info) Description 10/30/2022 Orders Only [facility] MEDICINE [address] [place] [address] Provider, Libert[place], Social History Tobacco Use Types Packs/Day Years [...] on file documented as of this encounter Procedures Procedure Name Priority Date/Time Associated Diagnosis Comments HM COLONOSCOPY Routine 03/18/2020 documented in this encounter Results * Hm Colonoscopy (03/18/2020) Historical Provider HEALTH MAINTENANCE Final Result documented in this encounter Visit Diagnoses Not on filedocumented in this encounter Care Teams Panel Coverer Relationship Specialty Start Date End Date Zee Camacho MD [address] [place] [address] PCP - General Family Medicine 09/17/20 Sebastián Duncan, PharmD [address] [place] [phone] Pharmacist Internal Medicine 05/01/24 Verito 03/13/24 documented as of this encounter
--- OUTSIDE RECORDS SUMMARY | 2024-06-06 11:46 | XMS_ITS | Encounter Summary ---
Author Organization [employer] Address [address] [facility] [address] 7t [place] [address] Care Team Providers Care Steel Barrel Reamer Name Role Phone Zee Camacho MD Primary Care Provide r Sebastián Duncan PharmD Unavailable [phone] Encounter Details Date Type Department Care Team (Late st Contact Info) Description 12/07/2022 Orders Only [facility] MED [facility] PEDS [address] [place] [address] Charlene Aranda LPN Social History Tobacco Use Types Packs/Day Years [...] Procedure Name Priority Date/Time Associated Diagnosis Comments GLUCOSE, WHOLE BLOOD Routine 12/07/2022 8:18 PM EDT GLUCOSE, WHOLE BLOOD Routine 12/07/2022 7:31 PM EDT GLUCOSE, WHOLE BLOOD Routine 12/07/2022 7:10 PM EDT CBC WITH AUTO DIFFERENTIAL Routine 12/07/2022 7:04 PM EDT COMPREHENSIVE METABOLIC PANEL Routine 12/07/2022 7:04 PM EDT documented in this encounter Results * (ABNORMAL) Glucose, Whole Blood (12/07/2022 8:18 PM EDT) Glucose, Whole Blood 478(HH) 60 - 115 mg/dL [facility] Comment:METER #: [id number] 12/07/2022 8:18 PM EDT 12/07/2022 8:22 PM EDT [facility] External Provider LAB BLO OD ORDERABLES Final Result Performing Organization Address City/[facility]/ZIP Co de Phone Number [facility] [address] [place] [address] [phone] * (ABNORMAL) Glucose, Whole Blood (12/07/2022 7:31 PM EDT) Glucose, Whole Blood 486(HH) 60 - 115 mg/dL [facility] Comment:METER #: [id number] 12/07/2022 7:31 PM EDT 12/07/2022 7:35 PM EDT Result [facility] External Provider LAB BLO OD ORDERABLES Final Result Performing Organization Address [facility]/ZIP Co de Phone Number [facility] [address] [place] [phone] * (ABNORMAL) Glucose, Whole Blood (12/07/2022 7:10 PM EDT) Glucose, Whole Blood 530(HH) 60 - 115 mg/dL [facility] Comment:METER #: [id number] 12/07/2022 7:10 PM EDT 12/07/2022 7:15 PM EDT [facility] External Provider LAB BLO OD ORDERABLES Final Result Performing Organization Address City/[facility]/ZIP Co de Phone Number [facility] [address] [place] [address] [phone] * (ABNORMAL) CBC auto differential (12/07/2022 7:04 PM EDT) White Blood Count 9.8 4.8 - 10.8 X10*3/uL [facility] Red Blood Count 5.22 4.60 - 5.80 X10*6/uL [facility] Hemoglobin 14.9 14.0 - 18.0 g/dl [facility] Hematocrit 44.9 42.0 - 52.0 % [facility] Mean Corpuscular Volume 86.0 80.0 - 98.0 fL [facility] Mean Corpuscular Hemoglobin 28.5 27.0 - 33.0 pg [facility] Mean Corpuscular HGB Conc 33.2 31.0 - 36.0 g/dl [facility] Red Cell Distribution Width 13.4 11.0 - 16.0 % [facility] Platelet Count 150(L) 160 - 400 X10*3/uL [facility] Mean Platelet Volume 11.9 9.4 - 12.4 fL [facility] Neutrophils Percent Auto 68.6 45 - 73 % [facility] Imm Gran Pct Auto 0.3 0.0 - 0.4 % [facility] Lymphocytes Percent Auto 19.0(L) 20 - 40 % [facility] Monocytes Percent Auto 4.4 2 - 11 % [facility] Eosinophils Percent Auto 6.9(H) 0 - 4 % [facility] Basophils Percent Auto 0.8 0 - 2 % [facility] NRBC Pct Auto 0.0 0.0 - 0.2 /100WBC [facility] Neutrophils Absolute Auto 6.8 2.0 - 8.3 x10*3/uL [facility] Imm Gran Abs Auto 0.03 0.00 - 0.03 X10*3/uL [facility] Lymphocytes Absolute Auto 1.9 1.2 - 4.9 X10*3/uL [facility] Monocytes Absolute Auto 0.4 0.1 - 1.2 X10*3/uL [facility] Eosinophils Absolute Auto 0.7(H) 0.0 - 0.4 X10*3/uL [facility] Basophils Absolute Auto 0.1 0.0 - 0.2 X10*3/uL [facility] NRBC Abs Auto 0.000 0.0 - 0.012 X10*3/uL [facility] 12/07/2022 7:04 PM EDT 12/07/2022 7:07 PM EDT us [facility] External Provider LAB BLO OD ORDERABLES Final Result [facility] [address] [place], [place] [phone] * (ABNORMAL) Comprehensive Metabolic Panel (12/07/2022 7:04 PM EDT) Sodium 136 135 - 145 mmol/L [facility] Potassium 4.0 3.3 - 5.1 mmol/L [facility] Chloride 100 96 - 108 mmol/L [facility] Carbon Dioxide 23 22 - 29 mmol/L [facility] Anion Gap 17 12 - 20 [facility] Urea Nitrogen (BUN) 18(H) 9 - 16 mg/dL [facility] Creatinine, Serum 1.25 0.5 - 1.4 mg/dL [facility] Creatinine Clr Calc Pharmacy 65.7 [facility] Comment:eGFR (calculated fro m the MDRD study equation) and eCrCl(calculated from the Cockcroft-Gault equation) are based ondifferent parameters and may not yield comparable results.If eCrCl result is absurd, please check patient'sheight/weight. Estimated Glomerular Filt Rate 59 [facility] Comment:NOTE: For -Am erican individuals, multiply the result by 1.210.Chronic Kidney Disease: Estimated GFR < 60 mL/min/1.88x1Ubaiaj Kidney Disease: Estimated GFR < 15 mL/min/1.73m2 Glucose 550(HH) 60 - 115 mg/dL [facility] Comment:Critical value for t est(s): GLUR Results called to and readback by: ARIAS Person calling: ANGIE Date: 12/07/22Time: 1926 Calcium 9.2 8.4 - 10.2 mg/dL [facility] Bilirubin, Total 0.5 0.0 - 1.0 mg/dL [facility] Aspartate Amino Transferase 13 5 - 37 U/L [facility] Alanine Aminotransferase 20 0 - 40 U/L [facility] Total Protein 7.6 6.5 - 8.0 g/dL [facility] Albumin Level 3.9 3.5 - 5.0 g/dL [facility] Alkaline Phosphatase 125(H) 39 - 117 U/L [facility] 12/07/2022 7:04 PM EDT 12/07/2022 7:07 PM EDT us [facility] External Provider LAB BLO OD ORDERABLES Final Result Performing Organization Address City/State/[facility] Co de Phone Number [facility] [address] [place] [address] [phone] documented in this encounter Visit Diagnoses Not on filedocumented in this encounter Care Teams Steel Barrel Reamer Relationship Specialty Start Date End Date Zee Camacho MD [address] [place] [address] PCP - General Family Medicine 09/17/20 Sebastián Duncan, Val [address] [place] [address] Pharmacist Internal Medicine 05/01/24 Verito 03/13/24 documented as of this encounter
--- OUTSIDE RECORDS SUMMARY | 2024-06-06 11:46 | XMS_ITS | Encounter Summary ---
Author Organization [employer] Address [address] [facility] 7t [place] [address] Care Team Providers Care Solar Panel Installer Name Role Phone Zee Camacho MD Primary Care Provide r Sebastián Duncan PharmD Unavailable [phone] Encounter Details Date Type Department Care Team (Late st Contact Info) Description 09/20/2022 Orders Only [facility] MED & PEDS [address] [place], [place] [phone] Charlene Aranda LPN Social History Tobacco Use Types Packs/Day Years Used Date Smoking Tobacco: Never Assessed Sex and Gender Information Value Date Recorded Sex Assigned at Male 12/19/2021 10:20 AM EDT Legal Sex Male 10:20 AM EDT Gender Identity Male 12/19/2021 10:20 AM EDT Sexual Orientation Straight 12/19/2021 10 :20 AM EDT documented as of this encounter Plan of Treatment Not on file documented as of this encounter Visit Diagnoses Not on filedocumented in this encounter Care Teams Solar Panel Installer Relationship Specialty Start Date End Date Zee Camacho MD [address] [place] [address] PCP - General Family Medicine 09/17/20 Sebastián Duncan, PharmD [address] [place], [place] [phone] Pharmacist Internal Medicine 05/01/24 Melissaevelyn 03/13/24 documented as of this encounter
--- OUTSIDE RECORDS SUMMARY | 2024-06-06 11:46 | XMS_ITS | Encounter Summary ---
Author Organization [employer] Address [address] [facility] 7t [place] [address] Care Team Providers Care Migration Agent Name Role Phone Zee Camacho MD Primary Care Provide r Sebastián Duncan PharmD Unavailable [phone] Reason for Visit * Reason Comments Med Refill Encounter Details Date Type Department Care Team ([facility] st Contact Info) Description 06/02/2024 Refill [facility] MEDICINE [address] [place], [place] [phone] Zee Camacho MD [address] [place] [address] Essential hypertension; Gastroesophageal reflux disease, unspecified whether esophagitis present Social History Tobacco Use Types Packs/Day Years [...] documented as of this encounter Visit Diagnoses Diagnosis Essential hypertension Unspecified essential hypertension Gastroesophageal reflux disease, unspecified whether esophagitis present documented in this encounter Additional Health Concerns Assessment Noted Time PHQ-9 Depression Total Score: 16 024 10:03 AM EDT documented as of this encounter Care Teams Migration Agent Relationship Specialty Start Date End Date Zee Camacho MD [address] [place] [address] PCP - General Family Medicine 09/17/20 Sebastián Duncan, Val [address] [place] [address] Pharmacist Internal Medicine 05/01/24 Verito 03/13/24 documented as of this encounter
--- OUTSIDE RECORDS SUMMARY | 2024-06-06 11:46 | XMS_ITS | Encounter Summary ---
Author Organization [employer] Address [address] [facility] 7t [place] [address] Care Team Providers Care Die Set Up Worker Name Role Phone Zee Camacho MD Primary Care Provide r Sebastián Duncan PharmD Unavailable [phone] Reason for Visit * Reason Comments Med Refill Encounter Details Date Type Department Care Team ([facility] st Contact Info) Description 08/21/2023 Refill [facility] MEDICINE [address] [place], [place] [phone] Zee Camacho MD [address] [place] [address] Mild intermittent asthma, unspecified whether complicated Social History Tobacco Use Types Packs/Day Years [...] as of this encounter Visit Diagnoses Diagnosis Mild intermittent asthma, unspecified whether complicated documented in this encounter Additional Health Concerns Assessment Noted Time PHQ-9 Depression Total Score: 16 024 10:03 AM EDT documented as of this encounter Care Teams Die Set Up Worker Relationship Specialty Start Date End Date Zee Camacho MD [address] [place], [place] [phone] PCP - General Family Medicine 09/17/20 Sebastián Duncan, AdelitaD [address] [place] [address] Pharmacist Internal Medicine 05/01/24 Verito 03/13/24 documented as of this encounter
--- OUTSIDE RECORDS SUMMARY | 2024-06-06 11:46 | XMS_ITS | Encounter Summary ---
Author Organization [employer] Address [address] [facility] 7t [place] [address] Care Team Providers Care Property Preservation Specialist Name Role Phone Zee Camacho MD Primary Care Provide r Sebastián Duncan PharmD Unavailable [phone] Reason for Visit * Reason Comments Med Refill Encounter Details Date Type Department Care Team ([facility] st Contact Info) Description 01/15/2024 Refill [facility] MEDICINE [address] [place], [place] [phone] Zee Camacho MD [address] [place] [address] Primary hypertension; Onychomycosis Social History Tobacco Use Types Packs/Day Years [...] is your housing situation today? I have julioneno del angel 06/20/[address] [...] as of this encounter Visit Diagnoses Diagnosis Primary hypertension Unspecified essential hypertension Onychomycosis Dermatophytosis of nail documented in this encounter Additional Health Concerns Assessment Noted Time PHQ-9 Depression Total Score: 16 024 10:03 AM EDT documented as of this encounter Care Teams Property Preservation Specialist Relationship Specialty Start Date End Date Zee Camacho MD [address] [place] [address] PCP - General Family Medicine 09/17/20 Sebastián Duncan, AdelitaD [address] [place] [address] Pharmacist Internal Medicine 05/01/24 Verito 03/13/24 documented as of this encounter
--- OUTSIDE RECORDS SUMMARY | 2024-06-06 11:46 | XMS_ITS | Encounter Summary ---
Author Organization [employer] Address [facility] [address] [place] [address] Care Team Providers Care Washroom Attendant Name Role Phone Zee Camacho MD Primary Care Provide r Sebastián Duncan PharmD Unavailable [phone] Reason for Visit * Reason Comments Med Refill Encounter Details Date Type Department Care Team ([facility] st Contact Info) Description 04/27/2024 Refill [facility] [address] [place], [place] [phone] Zee Camacho MD [address] [place] [address] Onychomycosis Social History Tobacco Use Types Packs/Day [...] your housing situation today? I have julio sing 06/20/[address] you li [...] as of this encounter Visit Diagnoses Diagnosis Onychomycosis Dermatophytosis of nail documented in this encounter Additional Health Concerns Assessment Noted Time PHQ-9 Depression Total Score: 16 024 10:03 AM EDT documented as of this encounter Care Teams Washroom Attendant Relationship Specialty Start Date End Date Zee Camacho MD [address] [place] [address] PCP - General Family Medicine 09/17/20 Sebastián Duncan, AdelitaD [address] [place] [address] Pharmacist Internal Medicine 05/01/24 Verito 03/13/24 documented as of this encounter
--- OUTSIDE RECORDS SUMMARY | 2024-06-06 11:46 | XMS_ITS | Encounter Summary ---
Author Organization [employer] Address 75 [facility] 7t [place] [address] Care Team Providers Care Commercial Truck Driver Name Role Phone Zee Camacho MD Primary Care Provide r Sebastián Duncan PharmD Unavailable [phone] Encounter Details Date Type Department Care Team (Late st Contact Info) Description 08/27/2023 Orders Only [facility] MEDIC[facility] [address] [place], [place] [phone] Zee Camacho MD [address] [place], [place] [phone] Social History Tobacco Use Types Packs/Day Years [...] documented as of this encounter Care Teams Commercial Truck Driver Relationship Specialty Start Date End Date Zee Camacho MD [address] [place] [address] PCP - General Family Medicine 09/17/20 Sebastián Duncan, AdelitaD [address] [place] [address] Pharmacist Internal Medicine 05/01/24 Verito 03/13/24 documented as of this encounter
--- OUTSIDE RECORDS SUMMARY | 2024-06-06 11:46 | XMS_ITS | Clinical Summary ---
Author Organization [employer] Address 75 [facility] 7t [place] [address] Care Team Providers Care Web Operations Administrator Name Role Phone Zee Camacho MD Primary Care Provide r Sebastián Duncan PharmD Unavailable [phone] Allergies Active Allergy Reactions Criticality Noted Date Comments Penicillin G 06/02/2020 Other reaction(s): Rash, Rash Medications lidocaine (Lidoderm) 5 % patch APPLY 1 TO 2 PATCHES TOPICALLY EVERY DAY. MAY WEAR FOR 12 HOURS NEEDED FOR PAIN 60 patch 1 Active insulin aspart FlexPen (NovoLOG) 100 UNIT/ML penIndications: Type 2 diabetes mellitus with hyperglycemia, with long-term current use of insulin ([facility]) Inject 10 Units under the skin with breakfast, with lunch, and with evening meal. 1 each 11 024 2024 Active Ventolin HFA 108 (90 Base) MCG/ACT inhalerIndicati ons:Mild intermittent asthma, unspecified whether complicated INHALE 2 PUFFS EVERY 6 HOURS IF NEEDED FOR WHEEZING. 18 g 1 Active insulin pen needle (B-D UF III MINI PEN NEEDLES) 31G x 5 mm miscIndications :Type 2 diabetes mellitus with hyperglycemia, with long-term current use of insulin ([facility]) Please 4 times a day INSTRUCTED 100 each 12 Active bacitracin 500 UNIT/GM ointmentIndicat ions:Bilateral lower leg cellulitis,Woun d of left lower extremity, initial encounter Apply topically 2 times daily. 28 g 024 Active Aspirin Low Dose 81 MG EC tabletIndicatio ns:Primary hypertension TAKE 1 TABLET (81 MG) BY MOUTH ONCE PER DAY. 90 tablet 1 024 Active chlorthalidone (Hygroton) 25 MG tabletIndicatio ns:Primary hypertension TAKE 1 TABLET BY MOUTH EVERY DAY 90 tablet 1 024 Active atorvastatin (Lipitor) 80 MG tablet TAKE 1 TABLET BY MOUTH EVERY DAY 90 tablet 1 025 Active metFORMIN (Glucophage) 1000 MG tablet TAKE 1 TABLET BY MOUTH TWICE A DAY WITH BREAKFAST AND DINNER 180 tablet 1 025 Active Lantus SoloStar 100 UNIT/ML pen INJECT 70 UNITS SUBCUTANEOUSLY 2 TIMES EVERY DAY PER INSULIN PROTOCOL 45 mL 3 025 Active Continuous Glucose Edge Gluer (FreeStyle Omer 3 Moline) deviceIndicatio ns:Type 2 diabetes mellitus with hyperglycemia, with long-term current use of insulin (CMS/HCC) 1 each Once per day. Use as directed for CGM 1 each 025 Active Continuous Glucose Sensor (FreeStyle Omer 3 Plus Sensor) miscIndications :Type 2 diabetes mellitus with hyperglycemia, with long-term current use of insulin (CMS/HCC) 1 each every 15 days. Apply 1 every 15 days as directed for CGM 2 each 025 Active glucose blood (FreeStyle Precision Leo Test) test stripIndication s:Type 2 diabetes mellitus with hyperglycemia, with long-term current use of insulin (CMS/HCC) Use to test blood sugar 3 times daily in case of CGM failure or extremes of BG 100 each 025 2025 Active semaglutide (Ozempic, 1 MG/DOSE,) 4 MG/3ML solution pen-injectorInd ications:Type 2 diabetes mellitus with hyperglycemia, with long-term current use of insulin (CMS/HCC) Inject 1 mg under the skin 1 (one) time per week. 3 mL 5 025 Active lisinopril 40 MG tabletIndicatio ns:Essential hypertension TAKE 1 TABLET (40 MG) BY MOUTH ONCE PER DAY. 90 tablet 1 025 Active pantoprazole (ProtoNix) 40 MG EC tabletIndicatio ns:Gastroesopha geal reflux disease, unspecified whether esophagitis present TAKE 1 TABLET BY MOUTH EVERY DAY 90 tablet 1 025 Active lisinopril 40 MG tabletIndicatio ns:Essential hypertension Take 1 tablet (40 mg) by mouth Once per day. 90 tablet 1 024 2024 Discontinued pantoprazole (ProtoNix) 40 MG EC tabletIndicatio ns:Gastroesopha geal reflux disease, unspecified whether esophagitis present TAKE 1 TABLET BY MOUTH EVERY DAY 90 tablet 1 024 2024 Discontinued Active Problems Problem Noted Date Diagnosed Date Bilateral lower leg cellulitis 12/28/2023 Onychomycosis 12/28/2023 Leg wound, left 12/28/2023 Lower extremity edema 06/20/2023 Assessment & Plan (06/20/2023 11:01 AM EDT): Echocardiogram ordered Cardiology and vascular referral Stage 3a chronic kidney disease 06/20/2023 Mild intermittent asthma 06/20/2023 Assessment & Plan (06/20/2023 10:58 AM EDT): Patient educated to avoid asthma triggers Albuterol inhaler prescribed Uncomplicated opioid dependence 06/20/2023 Assessment & Plan (06/20/2023 11:05 AM EDT): Patient is thinking to start program methadone or suboxone going more for methadone Bilateral primary osteoarthritis of knee Assessment & Plan (03/29/2023 2:10 PM EST): Continue to follow with ortho Walker ordered for safety with walking Try to reduce heroin use for pain control, recommend and we discussed considering Suboxone or methadone treatment for OUD Essential hypertension 03/26/2023 Assessment & Plan (12/28/2023 4:26 PM EST): Today blood pressure is elevated, he is clinically asymptomatic, he forgot to take his medications for blood pressure, I advise to take them as soon as he gets home, I advise low Na diet and weight reduction Assessment & Plan (09/14/2023 8:14 PM EDT): Elevated today, he is clinically asymptomatic, I advise low Na diet and weigh reduction I advise to monitor blood pressure at home and bring log for next visit C/w lisinopril 40mg daily, and chlorthalidone 25mg daily Assessment & Plan (06/20/2023 11:00 AM EDT): Maintenance: BMP: up to date Lipid Panel: up to date ASCVD Risk: high he is on atorvastatin 80mg I re-initiated Asa 81mg daily Uncontrolled - I started him again on chlorthalidone, I advise to take also his lisinopril as soon as he gets home I also advise: - Aerobic exercise to reduce BP. Initial goal of 30 min walk 3-5x/week. Increase as tolerated. - low-sodium diet (goal: <2g/day) and heart healthy diet such as DASH to reduce BP and prevent ASCVD. - Home BP monitoring 1-2 x day with goal of <140/90. - Seek immediate medical attention for chest pain, palpitations, SOB, syncope, or sudden changes in mental status. - Do not change or discontinue current prescriptions without first consulting health care provider Paresthesia of foot 03/26/2023 03/26/2023 Polysubstance abuse 03/26/2023 03/26/2023 Tubular adenoma 03/26/2023 03/26/2023 Depressive disorder 03/04/2015 03/26/2023 Type 2 diabetes mellitus 03/04/2015 024 Assessment & Plan (09/14/2023 8:13 PM EDT): Diabetes is: not controlled - Lab Results Component Value Date HGBA1C 9.9 (A) 06/20/2023 HGBA1C 8.0 (H) 03/26/2023 HGBA1C 8.2 (H) 06/08/2020 - Lab Results Component Value Date MICROALBUR 88.0 03/26/2023 CREATININE 1.43 (H) 03/26/2023 -Changes: I added today novolog 10 U TID before meals, c/w rest of medications - Diabetic eye exam:up to date - Diabetic foot exam:pending - Continue lifestyle modifications - Continue current medications - f/u 1 month Assessment & Plan (06/20/2023 11:04 AM EDT): Diabetes is: not controlled - Lab Results Component Value Date HGBA1C 9.9 (A) 06/20/2023 HGBA1C 8.0 (H) 03/26/2023 HGBA1C 8.2 (H) 06/08/2020 - Lab Results Component Value Date MICROALBUR 88.0 03/26/2023 CREATININE 1.43 (H) 03/26/2023 -Changes: I started him on ozempic 0.25mg weekly, I also prescribed for him CGM and refer him for diabetes management to our pharmacy - Diabetic eye exam:pending - Diabetic foot exam:pending - Continue lifestyle modifications - Continue current medications - Follow up: 3 months Assessment & Plan (03/29/2023 2:11 PM EST): Increase Trulicity to 3mg weekly Continue Lantus 70 units BID Continue Metformin 1000mg BID Referred to [facility] CDTM Labs done today Fracture of multiple ribs 03/02/20102023 Encounters Date Type Department Care Team Description 06/02/2024 Refill [facility] [address] [place] [address] Zee Camacho MD Essential hypertension; Gastroesophageal reflux disease, unspecified whether esophagitis present 05/05/2024 Orders Only [facility] [address] [place] [address] Zee Camacho MD 05/05/2024 Travel 05/02/2024 Population Health Risk Score [facility] Department [address] [place] [address] [phone] Provider, Population Health Generic 04/30/2024 3:00 PM EDT Telemedicine [facility] [address] [place] [address] Sebastián Duncan, PharmD Type 2 diabetes mellitus with hyperglycemia, with long-term current use of insulin ([facility]) (Primary Dx); Essential hypertension 04/30/2024 Travel 04/27/2024 Refill [facility] [address] [place] [address] Zee Camacho MD Onychomycosis 04/23/2024 Orders Only [facility] [address] [place] [address] Zee Camacho MD Type 2 diabetes mellitus with hyperglycemia, with long-term current use of insulin ([facility]) (Primary Dx) 04/23/2024 Telephone [facility] [address] [place] [address] Zee Camacho MD 04/21/2024 Refill [facility] [address] [place] [address] Елена Duron MD 04/02/2024 Refill [facility] [address] [place] [address] Zee Camacho MD 03/27/2024 Refill [facility] [address] [place] [address] Zee Camacho MD 03/24/2024 Refill [facility] [address] [place] [address] Zee Camacho MD 03/18/2024 Refill [facility] [address] [place] [address] Zee Camacho MD 03/11/2024 Telephone [facility] [address] [place] [address] Zee Camacho MD from Last 3 Months Immunizations Name Administration Dates Next Due Hep A, Adult 09/25/2017 Influenza Injectable Quadriv alant Preservative Free IIV4 MDCK 11/01/2022,02/14/2021,01/05/2020 Influenza injectable quadriv alent IIV4 with preservative 12/08/2016,12/28/2015 Influenza, Injectable, MDCK, preservative free 10/08/2023 Pneumococcal Conjugate PCV 20 10/08/2023 Pneumococcal Polysaccharide PPSV23 01/24/2020 Tdap 12/28/2015 Zoster, Recombinant 11/01/2022 Family History Medical History Relation Name Comments Diabetes Brother Diabetes Father Diabetes Mother Kidney cancer Mother Relation Name Status Comments Brother Father Mother Social History Tobacco Use Types Packs/Day Years Used Date Smoking Tobacco: Some Days Cigarettes Passive Smoke Exposure: Current Smokeless Tobacco: Never Tobacco Cessation:Ready to Q uit: Not Asked; Counseling Given: Not Answered Alcohol Use Standard Drinks/Week Comments Yes 0 [...] Orientation Straight 12/19/2021 10 :20 AM EDT Last Filed Vital Signs Vital Sign Reading Time Taken Comments Blood Pressure 124/66 05/05/2024 9:28 AM EDT Pulse 99 05/05/2024 9:28 AM EDT Temperature 37 ??C (98.6 ??F) 12/28/2023 2:08 PM EST Respiratory Rate 22 12/28/2023 2:08 PM EST Oxygen Saturation 99% 07/04/2023 2:47 PM EDT Inhaled Oxygen Concentration - - Weight 109 kg (240 lb 3.2 oz) 12/28/2023 2:08 PM EST Height 162.6 cm (5' 4 ) 12/28/2023 2:08 PM EST Body Mass Index 41.23 12/28/2023 2:08 PM EST Plan of Treatment Health Maintenance Due Date Last Done Comments CT Colonography 1960 FIT DNA/Cologuard 1960 FIT 1960 FOBT 1960 HIV Screening 1960 Sigmoidoscopy 1960 Diabetes: Foot Exam 1970 Alcohol/Substance Use Screening 1972 RSV Patients and Patients Aged 60 years or older (1 - Risk 60-74 years 1-dose series) 2020 Colonoscopy 03/18/2021 03/18/2020 Colorectal Cancer Screening 03/18/2021 Zoster Vaccines (2 of 2) 12/27/2022 11/01/2022 COVID-19 Vaccine ( season) 2023 02/10/2021, 07/26/2020, 06/10/2020 Depression Monitoring 12/21/2023 06/20/2023, 024 Lipid Panel 03/26/2024 03/26/2023, 09/20, 06/08/2020, Additional history exists Eye Exam 04/18/2024 04/19/2023, 03/23, 04/19/2023, Additional history exists Depression Screening 06/19/2024 06/20/2023, 06/20/19 24 SDOH Screening 06/19/2024 06/20/2023 Diabetes: Hemoglobin A1C 08/05/2024 025, 06/20/2023, 03/26/2023, Additional history exists Tobacco Screening 09/13/2024 09/14/2023 Diabetes: Urine Protein Screening 05/05/2025 05/05/2024, 03/26/2023, 10/12/2021, Additional history exists DTaP/Tdap/Td Vaccines (2 - Td or Tdap) 12/27/2025 12/28/2015 Hepatitis A Vaccines Aged Out 09/25/2017 No long er eligible based on patient's age to complete this topic Hepatitis C Screening Completed 11/12/2020 Influenza Vaccine Completed 10/08/2023, , 02/14/2021, Additional history exists Pneumococcal Vaccine: 50+ Years Completed 10/08/2023, 01/24/2020 HIB Vaccines Aged Out No longer eligi ble based on patient's age to complete this topic HPV Vaccines Aged Out No longer eligi ble based on patient's age to complete this topic Hepatitis B Vaccines Aged Out No long er eligible based on patient's age to complete this topic IPV Vaccines Aged Out No longer eligi ble based on patient's age to complete this topic Meningococcal Vaccine Aged Out No ruthie ena eligible based on patient's age to complete this topic RSV under 20 months Aged Out No longe r eligible based on patient's age to complete this topic Rotavirus Vaccines Aged Out No longer eligible based on patient's age to complete this topic Procedures Procedure Name Priority Date/Time Associated Diagnosis Comments ALBUMIN, RANDOM URINE W/CREATININE Routine 05/05/2024 8:55 AM EDT VITAMIN B12 Routine 05/05/2024 8:55 AM EDT HEMOGLOBIN A1C Routine 05/05/2024 8:55 AM EDT LIPID PANEL, STANDARD Routine 03/26/2023 2:33 PM EST Type 2 diabetes mellitus with hyperglycemia, with long-term current use of insulin ([facility]) ZZZ HISTORICAL HEPATITIS C AB W/REFL TO HCV RNA, QN, PCR Routine 11/12/2020 3:53 PM EDT HM COLONOSCOPY Routine 03/18/2020 from Last 3 Months or Most Recently Relevant to Health Maintenance Results * (ABNORMAL) Albumin, Random Urine W/Creatinine (05/05/2024 8:55 AM EDT) Creatinine, Urine 106.85 mg/dL [facility] Microalbumin Urine 409.0 mg/L [facility] Microalbum Creatinine Ratio Ur 382.7(H) <30 ug/mg cr [facility] Comment:Albumin/Creatinine R atio Reference Ranges: Normal: < 30 ug/mg creatinine Microalbuminuria: 30 - 300 ug/mg creatinineClinical Albuminuria: > 300 ug/mg creatinine 05/05/2024 8:55 AM EDT 05/05/2024 11:50 AM EDT Zee Vasquez MD LAB URINE ORDERABLES Final Result Performing Organization Address [facility] Co de Phone Number [facility] [address] [place] [address] [phone] * (ABNORMAL) Hemoglobin A1c (05/05/2024 8:55 AM EDT) Hemoglobin A1c 8.6(H) <6.0 % [facility] Comment:Hemoglobin A1C Refer ence Range Adults: 4.8 - 6.0 % Non diabetic: < 6.0 % Goal: < 7.0 %Additional Action Suggested: > 8.0 %Note: Hemoglobin A1c results are invalid for patients with abnormal amounts of HbF. Blood transfusions may impact the HbA1c concentration in the patient sample. Estimated Average Glucose 200 mg/dL [facility] Comment:eAG = Estimated ave rage glucose which is %A1C expressed asaverage glucose, using the formula of the G6Y-[id number] Glucose study (ADAG), Diabetes Care, Vol.31,#8,Sep. 2007 05/05/2024 8:55 AM EDT 05/05/2024 11:18 AM EDT us Zee Vasquez MD LAB BLOOD ORDERABLES Final Result Performing Organization Address [facility] Co de Phone Number [facility] [address] [place] [address] [phone] * Vitamin B12 (05/05/2024 8:55 AM EDT) Vitamin B12 315 200 - 900 pg/mL [facility] Comment:NORMAL 200-900 PG/ML INDETERMINATE 160-199 PG/ML DEFICIENT < 160 PG/ML 05/05/2024 8:55 AM EDT 05/05/2024 11:18 AM EDT us Zee Vasquez MD LAB BLOOD ORDERABLES Final Result Performing Organization Address [facility] Co de Phone Number [facility] [address] [place] [address] [phone] * (ABNORMAL) Lipid Panel, Standard (03/26/2023 2:33 PM EST) Triglycerides 214(H) <150 mg/dL [facility] Comment:Desirable Triglyceri de: less than 150 mg/dLBorderline High Triglyceride 150-199 mg/dLHigh Triglyceride: 200-499 mg/dLVery High Triglyceride: greater than or equal to 5OO mg/dL Cholesterol 122 <200 mg/dL [facility] Comment:Desirable Cholestero l: less than 200 mg/dLBorderline High Cholesterol: 200-239 mg/dLHigh Cholesterol: greater than 239 mg/dL LDL Cholesterol Calculated 49 <100 mg/dL [facility] Comment:Desirable LDL: less than 100 mg/dLNear Optimal/Above Optimal LDL: 110- 129 mg/dLBorderline High LDL: 130-159 mg/dLHigh LDL: 160-189 mg/dLVery High LDL: greater than or equal to 190 mg/dL HDL Cholesterol 31(L) >40 mg/dL [facility] Comment:Desirable HDL: great er than 40 mg/dL Note: This HDL assay may give artificially low results in patients with liver disease. Blood Venous blood specimen / Unknown 03/26/2023 2:33 PM EST 03/26/2023 4:18 PM EST us Елена Duron MD LAB BLOOD ORDERABLES Final Res ult Performing Organization Address [facility]/ZIP Co de Phone Number [facility] [address] [place] [address] [phone] * HEPATITIS C AB W/REFL TO HCV RNA, QN, PCR (11/12/2020 3:53 PM EDT) HEPATITIS C ANTIBODY NON-REACT URI NON-REACT URI [facility] INDEX 0.01 <1.00 [facility] Comment: ?? HCV antibody was non-reactive. There is no laboratory ?? evidence of HCV infection. ?? In most cases, no further action is required. However, if recent HCV exposure is suspected, a test for HCV RNA (test code 72855) is suggested. ?? For additional information please refer to http://education.[facility]/faq/LLE01b5 (This link is being provided for informational/ educational purposes only.) ?? 11/12/2020 3:53 PM EDT [facility] PATIÑOP HISTORICAL/NON ORDERABLE LABS Final Result [facility] [address] [place] [address], * Hm Colonoscopy (03/18/2020) Historical Provider HEALTH MAINTENANCE Final Result from Last 3 Months or Most Recently Relevant to Health Maintenance Insurance [facility] C3 Care Teams Web Operations Administrator Relationship Specialty Start Date End Date Zee Camacho MD [address] [place], [place] [phone] PCP - General Family Medicine 09/17/20 Sebastián Duncan, AdelitaD [address] [place], [place] [phone] Pharmacist Internal Medicine 05/01/24 Verito 03/13/24
--- OUTSIDE RECORDS SUMMARY | 2024-06-06 11:46 | XMS_ITS | Encounter Summary ---
Author Organization [employer] Address 75 [facility] [address]t [place] [address] Care Team Providers Care Lead Investigator Name Role Phone Zee Camacho MD Primary Care Provide r Sebastián Duncan PharmD Unavailable [phone] Reason for Visit * Reason Comments Med Refill Encounter Details Date Type Department Care Team ([facility] st Contact Info) Description 08/29/2023 Refill [facility] [address] [place], [place] [phone] Zee Camacho MD [address] [place] [address] Social History Tobacco Use Types Packs/Day Years [...] documented as of this encounter Care Teams Lead Investigator Relationship Specialty Start Date End Date Zee Camacho MD [address] [place] [address] PCP - General Family Medicine 09/17/20 Sebastián Duncan, AdelitaD [address] [place] [address] Pharmacist Internal Medicine 05/01/24 Verito 03/13/24 documented as of this encounter
--- OUTSIDE RECORDS SUMMARY | 2024-06-06 11:46 | XMS_ITS | Encounter Summary ---
Author Organization [employer] Address [address] [facility] [address]t [place] [address] Care Team Providers Care Drilling Inspector Name Role Phone Zee Camacho MD Primary Care Provide r Sebastián Duncan PharmD Unavailable [phone] Reason for Visit * Reason Comments Med Refill Encounter Details Date Type Department Care Team ([facility] st Contact Info) Description 03/27/2024 Refill [facility] [address] [place], [place] [phone] Zee Camacho MD [address] [place] [address] Social History Tobacco Use Types Packs/Day Years [...] documented as of this encounter Care Teams Drilling Inspector Relationship Specialty Start Date End Date Zee Camacho MD [address] [place] [address] PCP - General Family Medicine 09/17/20 Sebastián Duncan, AdelitaD [address] [place] [address] Pharmacist Internal Medicine 05/01/24 Verito 03/13/24 documented as of this encounter
--- OUTSIDE RECORDS SUMMARY | 2024-06-06 11:46 | XMS_ITS | Encounter Summary ---
Author Organization [facility] Address [address] [place] [address] [address] [place] [address] Care Team Providers Care Manager Studio Name Role Phone Zee Camacho MD Primary Care Provide r Sebastián Duncan PharmD Unavailable [phone] Reason for Visit * Reason Comments Med Refill Encounter Details Date Type Department Care Team ([facility] st Contact Info) Description 04/17/2023 Refill [facility] [address] [place] [phone] Zee Camacho MD [address] [place] [phone] Social History Tobacco Use Types Packs/Day Years [...] on filedocumented in this encounter Care Teams Manager Studio Relationship Specialty Start Date End Date Zee Camacho MD [address] [place] [address] [phone] PCP - General Family Medicine 09/17/20 Sebastián Duncan, PharmD [address] [place] [address] [phone] Pharmacist Internal Medicine 05/01/24 Verito 03/13/24 documented as of this encounter
--- OUTSIDE RECORDS SUMMARY | 2024-06-06 11:46 | XMS_ITS | Clinical Summary ---
Author Organization [facility] Address [address] [place] [address] Phone Care Team Providers Care Practice Clinician Name Role Phone Zee Camacho MD Primary Care Provide r Social History Tobacco Use Types Packs/Day Years Used Date Smoking Tobacco: Never Assessed Sex and Gender Information Value Date Recorded Sex Assigned at Not on file Legal Sex Male 4:35 AM EST Gender Identity Not on file Sexual Orientation Not on file Plan of Treatment Health Maintenance Due Date Last Done Comments DTaP,Tdap,and Td Vaccines (1 - Tdap) 11/05/1979 Pneumococcal Vaccine: 50+ Ye ars (1 of 1 - PCV) 2010 Zoster Vaccines (1 of 2) 2010 Cholesterol Screening (Lipid Panel) 01/22/2022 Colorectal Cancer Screening: Colonoscopy 01/22/2022 Depression Screening 01/22/2022 HIV Screening 01/22/2022 Hepatitis C Screening 01/22/2022 Social Influencers of Health Screening 01/22/2022 COVID-19 Vaccine ( - 2023-2 5 season) 2023 Influenza Vaccine (Season Ended) 2024 RSV Immunization Adult Patie nts (1 - 1-dose 75+ series) 11/05/2035 HIB Vaccines Aged Out No longer eligi ble based on patient's age to complete this topic HPV Vaccines Aged Out No longer eligi ble based on patient's age to complete this topic Hepatitis A Vaccines Aged Out No long er eligible based on patient's age to complete this topic Hepatitis B Vaccines Aged Out No long er eligible based on patient's age to complete this topic IPV Vaccines Aged Out No longer eligi ble based on patient's age to complete this topic MMR Vaccines Aged Out No longer eligi ble based on patient's age to complete this topic Meningococcal ACWY Vaccine Aged Out N o longer eligible based on patient's age to complete this topic Meningococcal B Vaccine Aged Out No l onger eligible based on patient's age to complete this topic Pneumococcal Vaccine: Pediat rics (0 to 5 Years) and At-Risk Patients (6 to 64 Years) Aged Out No longer eligible b ased on patient's age to complete this topic RSV Immunization Patients Un coby 20 months Aged Out No longer eligible b ased on patient's age to complete this topic Varicella Vaccines Aged Out No longer eligible based on patient's age to complete this topic Insurance MEDICAID - [place] Care Teams Practice Clinician Relationship Specialty Start Date End Date Zee Camacho MD [address] [place] [id number] PCP - General Internal Medicine 01/08/24
--- OUTSIDE RECORDS SUMMARY | 2024-06-06 11:46 | XMS_ITS | Encounter Summary ---
Author Organization [facility] Address 75 [facility] 7t [place] [address] Care Team Providers Care Plant Pathology Teacher Name Role Phone Zee Camacho MD Primary Care Provide r Sebastián Duncan PharmD Unavailable [phone] Reason for Visit * Reason Comments Med Refill Encounter Details Date Type Department Care Team ([facility] st Contact Info) Description 01/07/2023 Refill [facility] [address] [place] [phone] Adam Cazares MD [address] [place] [phone] Social History Tobacco Use Types Packs/Day Years [...] on filedocumented in this encounter Care Teams Plant Pathology Teacher Relationship Specialty Start Date End Date Zee Camacho MD [address] [place] [address] [phone] PCP - General Family Medicine 09/17/20 Sebastián Duncan, PharmD [address] [place] [address] [phone] Pharmacist Internal Medicine 05/01/24 Verito 03/13/24 documented as of this encounter
--- OUTSIDE RECORDS SUMMARY | 2024-06-06 11:46 | XMS_ITS | Encounter Summary ---
Author Organization [employer] Address 75 [facility] 7t [place] [address] Care Team Providers Care Carton Wrapper Name Role Phone Zee Camacho MD Primary Care Provide r Sebastián Duncan PharmD Unavailable [phone] Encounter Details Date Type Department Care Team (Late st Contact Info) Description 06/26/2022 Orders Only [facility] [address] [place], [place] [phone] Charlene Aranda LPN Social History Tobacco Use [...] on filedocumented in this encounter Care Teams Carton Wrapper Relationship Specialty Start Date End Date Zee Camacho MD [address] [place] [address] PCP - General Family Medicine 09/17/20 Sebastián Duncan, PharmD [address] [place], [place] [phone] Pharmacist Internal Medicine 05/01/24 Melissaevelyn 03/13/24 documented as of this encounter
--- OUTSIDE RECORDS SUMMARY | 2024-06-06 11:46 | XMS_ITS | Encounter Summary ---
Author Organization [facility] Address [address] [place] [address] 7[address] [place] [address] Care Team Providers Care Infant And Toddler Teacher Name Role Phone Zee Camacho MD Primary Care Provide r Sebastián Duncan PharmD Unavailable [phone] Reason for Visit * Reason Comments Med Refill Encounter Details Date Type Department Care Team ([facility] st Contact Info) Description 04/15/2023 Refill [facility] [address] [place] [phone] Zee Camacho MD [address] [place] [phone] Social History Tobacco Use Types Packs/Day Years [...] on filedocumented in this encounter Care Teams Infant And Toddler Teacher Relationship Specialty Start Date End Date Zee Camacho MD [address] [place] [address] [phone] PCP - General Family Medicine 09/17/20 Sebastián Duncan, PharmD [address] [place] [address] [phone] Pharmacist Internal Medicine 05/01/24 Veriot 03/13/24 documented as of this encounter
== END 2024-06-06 11:28 | disposition home or self-care (01) ==
LOC: HO.HKA 10:44
PROVIDERS: Visit Provider Internal Medicine Nephrology
DX: I10 Essential (primary) hypertension (principal); E11.21 Type 2 diabetes mellitus with diabetic nephropathy; N18.31 Chronic kidney disease, stage 3a
CPT/HCPCS: 99214

== ENCOUNTER → 2024-06-06 10:43 | Outpatient (BNVA) | payer MEDICAID, SELFPAY | PROVIDERS: Visit Provider Internal Medicine Nephrology | DX: E11.22 Type 2 diabetes mellitus with diabetic chronic kidney disease (principal); I12.9 Hypertensive chronic kidney disease with stage 1 through stage 4 chronic kidney disease, or unspecified chronic kidney disease; N18.31 Chronic kidney disease, stage 3a; E11.21 Type 2 diabetes mellitus with diabetic nephropathy | CPT/HCPCS: 99212 ==

== ENCOUNTER 2025-02-14 15:41 | Emergency (ER) | payer MEDICAID, SELFPAY ==
[2025-02-14 16:05] VITALS: BP 154/73; PULSE 112; RESP 16; TEMP 36.6; O2SAT 96; BMI 44.6
--- NOTE | 2025-02-14 16:08 | ED.GENADULT ---
HPI - General Adult General Chief complaint: General Medical Stated complaint: Water blisters on both legs Related Data Home Medications ?Medication ?Instructions ?Recorded ?Confirmed albuterol sulfate 90 mcg/actuation 2 puff inhalation Q6H PRN 01/09/20 10/09/23 aerosol inhaler (ProAir HFA) Shortness Of Breath aspirin 81 mg tablet,delayed 81 mg PO DAILY 01/09/20 10/09/23 release (Adult Low Dose Aspirin) atorvastatin 80 mg tablet 80 mg PO BEDTIME 01/09/20 10/09/23 lisinopril 40 mg tablet 40 mg PO DAILY 01/09/20 10/09/23 pantoprazole 40 mg tablet,delayed 40 mg PO DAILY 01/09/20 10/09/23 release blood sugar diagnostic (FreeStyle #10 ea 03/10/20 10/09/23 Test strips) lancets 28 gauge (FreeStyle #100 ea 03/10/20 10/09/23 Lancets) loratadine 10 mg capsule 10 mg PO DAILY PRN Allergy Symptoms 03/10/20 10/09/23 chlorthalidone 25 mg tablet 25 mg PO QAM 12/05/22 10/09/23 insulin lispro 100 unit/mL See Protocol subcut QIDACHS 12/05/22 10/09/23 subcutaneous pen (Humalog KwikPen (U-100) Insulin) lidocaine 5 % topical patch 1 patch topical DAILY pain 12/05/22 10/09/23 metformin 1,000 mg tablet 1,000 mg PO BID 12/05/22 10/09/23 naproxen 500 mg tablet 500 mg PO DAILY pain 12/05/22 10/09/23 semaglutide 0.25 mg or 0.5 mg (2 0.25 mg subcut QWEEK 10/29/23 mg/1.5 mL) subcutaneous pen injector (Ozempic) insulin glargine 100 unit/mL (3 70 unit subcut BID 06/06/24 mL) subcutaneous pen (Lantus Solostar U-100 Insulin) Previous Rx's ?Medication ?Instructions ?Recorded fredi.stocking,knee,reg,xlrg #12 ea 07/20/20 cyclobenzaprine 10 mg tablet 10 mg PO BEDTIME PRN muscle spasm 02/02/21 #7 tabs pen needle, diabetic 32 gauge x #100 ea 02/08/22 (BD Ashly 2nd Gen Pen Needle) gabapentin 300 mg capsule 300 mg PO BEDTIME #30 caps 12/06/22 albuterol sulfate 90 mcg/actuation 2 puff inhalation Q4-6H PRN 10/20/23 aerosol inhaler shortness of breath or wheezing #6.7 grams empagliflozin 10 mg tablet 10 mg PO DAILY #30 tabs 06/06/24 (Jardiance) Allergies Allergy/AdvReac Type Severity Reaction Status Date / Time sulfamethoxazole (From Allergy Intermediate RASH Verified 02/14/25 16:08 BACTRIM DS) trimethoprim (From BACTRIM Allergy Intermediate RASH Verified 02/14/25 16:08 DS) Penicillins Allergy Mild all Verified 02/14/25 16:08 [facility] Past Medical History Medical History HTN (hypertension) Tubular adenoma Polysubstance abuse Sleep apnea Morbid obesity 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 associated with type 2 diabetes mellitus Diabetic polyneuropathy associated with type 2 diabetes mellitus Diabetic nephropathy associated with type 2 diabetes mellitus detention (current) use of insulin Diabetes type 2, uncontrolled Hypercholesteremia Asthma Surgical History Hx of colonoscopy Status post laser lithotripsy of ureteral calculus H/O knee surgery H/O hernia repair Family History Family History Father Diabetes Glaucoma Mother Diabetes HTN (hypertension) Asthma Diabetic kidney Brother Spinal cord injuries Diabetes Sister Asthma Social History Social History Household Members: Other Household Members Other:: room mate Housing: Apartment Housing Other:: handicapped facility Do you presently have visiting nurse or other home services: No Alcohol intake: current Alcohol intake frequency: a few times a week Patient Tobacco Use Status: Current everyday Tobacco user Tobacco use type: Cigarette Cigarettes Per Day: 1 Second Hand Smoke Exposure: No Substance Use Type: Prescription Drugs Advance Directives: No Advance Directives Information Provided: No Do you have a plan to hurt others: No Plan Current occupational status: employed 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 Plan for cellulitis workup with labs and blood cultures. Medical Decision Making Lab Data 02/14/25 17:12 02/14/25 17:12 Labs: Lab Results 02/14/25 Range/Units 17:12 WBC 10.8 (4.8-10.8) X10*3/uL RBC 4.27 L (4.60-5.80) X10*6/uL Hgb 13.1 L (14.0-18.0) g/dl Hct 39.5 L (42.0-52.0) % MCV 92.5 (80.0-98.0) fL MCH 30.7 (27.0-33.0) pg MCHC 33.2 (31.0-36.0) g/dl RDW 14.4 (11.0-16.0) % Plt Count 253 (160-400) X10*3/uL MPV 11.3 (9.4-12.4) fL Immature Gran % (Auto) 0.3 (0.0-0.4) % Neut % (Auto) 69.5 (45-73) % Lymph % (Auto) 22.4 (20-40) % [place] % (Auto) 4.2 (2-11) % Eos % (Auto) 2.8 (0-4) % Baso % (Auto) 0.8 (0-2) % Lymph # (Auto) 2.4 (1.2-4.9) X10*3/uL [place] # (Auto) 0.5 (0.1-1.2) X10*3/uL Eos # (Auto) 0.3 (0.0-0.4) X10*3/uL Baso # (Auto) 0.1 (0.0-0.2) X10*3/uL Abs Immat Gran (auto) 0.03 (0.00-0.03) X10*3/uL Absolute Neuts (auto) 7.5 (2.0-8.3) x10*3/uL Absolute Nucleated RBC 0.000 (0.0-0.012) X10*3/uL Nucleated RBC % (auto) 0.0 (0.0-0.2) /100WBC ESR 41 H (1-20) MM/HR Sodium 142 (135-145) mmol/L Potassium 4.7 (3.3-5.1) mmol/L Chloride 102 (96-108) mmol/L Carbon Dioxide 33 H (22-29) mmol/L Anion Gap 12 (12-20) BUN 18 H (9-16) mg/dL Creatinine 0.78 (0.5-1.4) mg/dL Estim Creat Clear Calc 111.9 Estimated GFR > 60 Random Glucose 209 H (60-115) mg/dL Lactic Acid 2.3 H* (0.5-2.0) mmol/L Calcium 9.3 (8.4-10.2) mg/dL Total Bilirubin 0.2 (0.0-1.0) mg/dL AST 22 (5-37) U/L ALT 20 (0-40) U/L Alkaline Phosphatase 129 H (39-117) U/L C-Reactive Protein 2.44 H (< or = 0.50) mg/dL Total Protein 6.8 (6.5-8.0) g/dL Albumin 3.7 (3.5-5.0) g/dL Discharge Plan Discharge Clinical Impression: Cellulitis Patient Disposition: Left W/O Completing Treatment Prescriptions: No Action (DME) pen needle, diabetic [BD Ashly 2nd Gen Pen Needle] 32 gauge x 5/32 needle See Rx Instructions .MEDSUPPLY Qty: 100 4RF Rx Instructions: Twice a day (DME) fredi.stocking,knee,reg,xlrg Misc See Rx Instructions .ROUTE .MEDSUPPLY Qty: 12 0RF Rx Instructions: As directed cyclobenzaprine 10 mg tablet 10 mg PO BEDTIME PRN (Reason: muscle spasm) Qty: 7 0RF chlorthalidone 25 mg tablet 25 mg PO QAM metformin 1,000 mg tablet 1,000 mg PO BID lidocaine 5 % adhesive patch,medicated 1 patch topical DAILY Rx Instructions: leave on most painful area for up to 12 hrs naproxen 500 mg tablet 500 mg PO DAILY Rx Instructions: Take with food insulin lispro [Humalog KwikPen Insulin] 100 unit/mL insulin pen See Protocol subcut QIDACHS Protocol: Insulin Correction Scale Less than or equal to 110 ---- Give (units): 0 111 to 150 Give (units): 0 151 to 200 Give (units): 2 201 to 250 Give (units): 4 251 to 300 Give (units): 6 301 to 350 Give (units): 8 Greater than 350 Give (units): 10 Call MD if Blood Glucose > : 350 gabapentin 300 mg capsule 300 mg PO BEDTIME Qty: 30 1RF albuterol sulfate 90 mcg/actuation HFA aerosol inhaler 2 puff inhalation Q4-6H PRN (Reason: shortness of breath or wheezing) Qty: 6.7 0RF loratadine 10 mg capsule 10 mg PO DAILY PRN (Reason: Allergy Symptoms) (DME) lancets [FreeStyle Lancets] 28 gauge misc See Rx Instructions .ROUTE .MEDSUPPLY Qty: 100 Rx Instructions: As directed (DME) FreeStyle Test Strip See Rx Instructions .ROUTE .MEDSUPPLY Qty: 10 Rx Instructions: As directed aspirin [Adult Low Dose Aspirin] 81 mg tablet,delayed release (DR/EC) 81 mg PO DAILY lisinopril 40 mg tablet 40 mg PO DAILY atorvastatin 80 mg tablet 80 mg PO BEDTIME pantoprazole 40 mg tablet,delayed release (DR/EC) 40 mg PO DAILY albuterol sulfate [ProAir HFA] 90 mcg/actuation HFA aerosol inhaler 2 puff inhalation Q6H PRN (Reason: Shortness Of Breath) Ozempic 0.25 mg or 0.5 mg(2 mg/1.5 mL) pen injector 0.25 mg subcut QWEEK Rx Instructions: for 4 weeks insulin glargine [Lantus Solostar U-100 Insulin] 100 unit/mL (3 mL) insulin pen 70 unit subcut BID Jardiance 10 mg tablet 10 mg PO DAILY Qty: 30 3RF Discharge Date/Time: 02/14/25 20:29
[2025-02-14 17:19] LABS: MANUAL DIFF FLAG NO
[2025-02-14 17:29] LABS: Hematocrit 39.5 % (42.0-52.0); Hemoglobin 13.1 g/dl (14.0-18.0); Imm Gran Abs Auto 0.03 X10*3/uL (0.00-0.03); Imm Gran Pct Auto 0.3 % (0.0-0.4); Lymphocytes Absolute Auto 2.4 X10*3/uL (1.2-4.9); Mean Corpuscular HGB Conc 33.2 g/dl (31.0-36.0); Mean Corpuscular Hemoglobin 30.7 pg (27.0-33.0); Mean Corpuscular Volume 92.5 fL (80.0-98.0); NRBC Abs Auto 0.000 X10*3/uL (0.0-0.012); NRBC Pct Auto 0.0 /100WBC (0.0-0.2); Platelet Count 253 X10*3/uL (160-400); Red Blood Count 4.27 X10*6/uL (4.60-5.80); White Blood Count 10.8 X10*3/uL (4.8-10.8)
[2025-02-14 17:38] LABS: Alanine Aminotransferase 20 U/L (0-40); Albumin Level 3.7 g/dL (3.5-5.0); Alkaline Phosphatase 129 U/L (39-117); Anion Gap 12 (12-20); Aspartate Amino Transferase 22 U/L (5-37); Blood Urea Nitrogen 18 mg/dL (9-16); Calcium 9.3 mg/dL (8.4-10.2); Carbon Dioxide 33 mmol/L (22-29); Chloride 102 mmol/L (96-108); Creatinine Clr Calc Pharmacy 111.9; Estimated Glomerular Filt Rate > 60; Potassium 4.7 mmol/L (3.3-5.1); Sodium 142 mmol/L (135-145); Total Protein 6.8 g/dL (6.5-8.0)
[2025-02-14 19:18] LABS: Reflex Lactate? Lactic Acid Added
--- OUTSIDE RECORDS SUMMARY | 2025-02-14 20:19 | XMS_ITS | Encounter Summary ---
Author Organization [employer] [facility] Address [address] [facility] 7t [place] [address] Care Team Providers Care Financial Reporting Advisor Name Role Phone Zee Camacho MD Primary Care Provide r Sebastián Duncan PharmD Unavailable Johnnie Avalos RN Unavailable Cheyenne García Unavailable Encounter Details Date Type Department Care Team (Late st Contact Info) Description 10/30/2022 Orders Only [facility] [address] [place], [place] [phone] Provider, MD Libertad Social History Tobacco Use Types Packs/Day Years [...] on filedocumented in this encounter Care Teams Financial Reporting Advisor Relationship Specialty Start Date End Date Zee Camacho MD [address] [place], [place] [phone] PCP - General Family Medicine 7/30/21 Sebastián Duncan, AdelitaD [address] [place] [address] Pharmacist Internal Medicine 05/01/24 Johnnie Avalos, ALICIA [address] [place] [address] Registered Nurse Family Medicine 02/04/25 Cheyenne García 02/04/25 Verito 03/13/24 02/02/25 documented as of this encounter
--- OUTSIDE RECORDS SUMMARY | 2025-02-14 20:19 | XMS_ITS | Encounter Summary ---
Author Organization [employer] Address [address] [facility] [address] [place] [address] Care Team Providers Care Balance Bridge Assembler Name Role Phone Zee Camacho MD Primary Care Provide r Sebastián Duncan PharmD Unavailable [phone] Johnnie Avalos RN Unavailable [phone] Cheyenne García Unavailable Reason for Visit * Reason Comments Med Refill Encounter Details Date Type Department Care Team (Late st Contact Info) Description 04/27/2024 Refill [facility] [address] [place], [place] [phone] Zee Camacho MD [address] [place], [place] [phone] Onychomycosis Social History Tobacco Use Types Packs/Day [...] documented as of this encounter Care Teams Balance Bridge Assembler Relationship Specialty Start Date End Date Zee Camacho MD [address] [place] [address] PCP - General Family Medicine 09/17/20 Sebastián Duncan PharmD [address] [place] [address] Pharmacist Internal Medicine 05/01/24 Johnnie Avalos, ALICIA [address] [place] [address] Registered Nurse Family Medicine 02/04/25 Cheyenne García 02/04/25 Verito 03/13/24 02/02/25 documented as of this encounter
--- OUTSIDE RECORDS SUMMARY | 2025-02-14 20:19 | XMS_ITS | Encounter Summary ---
Author Organization [employer] Address 75 [facility] 7t [place] [address] Care Team Providers Care Licensed Aircraft Maintenance Engineer Name Role Phone Zee Camacho MD Primary Care Provide r Sebastián Duncan PharmD Unavailable [phone] Johnnie Avalos RN Unavailable [phone] Cheyenne García Unavailable Reason for Visit * Reason Comments Med Refill Encounter Details Date Type Department Care Team (Late st Contact Info) Description 01/15/2024 Refill [facility] [address] [place], [place] [phone] Zee Camacho MD [address] [place], [place] [phone] Primary hypertension; Onychomycosis Social History Tobacco Use [...] documented as of this encounter Care Teams Licensed Aircraft Maintenance Engineer Relationship Specialty Start Date End Date Zee Camacho MD [address] [place] [address] PCP - General Family Medicine 09/17/20 Sebastián Duncan, AdelitaD [address] [place] [address] Pharmacist Internal Medicine 05/01/24 Johnnie Avalos, ALICIA [address] [place] [address] Registered Nurse Family Medicine 02/04/25 Cheyenne García 02/04/25 Verito 03/13/24 02/02/25 documented as of this encounter
--- OUTSIDE RECORDS SUMMARY | 2025-02-14 20:19 | XMS_ITS | Encounter Summary ---
Author Organization [facility] Address 75 [facility] 7t [place] [address] Care Team Providers Care Centrifugal Extractor Operator Name Role Phone Zee Camacho MD Primary Care Provide r Sebastián Duncan PharmD Unavailable [phone] Johnnie Avalos RN Unavailable [phone] Cheyenne García Unavailable Reason for Visit * Reason Comments Care Coordination CHW chart review Encounter Details Date Type Department Care Team (Latest Contact Info) Description 02/04/2025 Patient Outreach [facility] [address] [place], [place] [phone] Zee Camacho MD [address] [place], [place] [phone] Care Coordination (CHW chart review) Social History Tobacco Use Types Packs/Day Years [...] AM EDT documented as of this encounter Progress Notes * Cheyenne García - 02/04/2025 2:35 PM EST CM/C3 LEIGHTON García chart review LEIGHTON García reviewed chart review completed by JUAN R Avalos RN JUAN R Avalos RN, performed chart review, in anticipation of initial assessment with patient, as patient has stratified for C3 Adult Complex Care through the Home Health Utilization. History significant for hypertension, fracture of multiple ribs, depressive disorder, paresthesia of foot, polysu bstance abuse, tubular adenoma, Type 2 DM, bilateral primary osteoarthritis of knee, lower extremity edema, Stage 3 CKD, mild intermittent asthma, uncomplicated opioid dependence, bilateral lower legcellulitis, onychomycosis, and left leg wound. Specialists include Pharmacy [facility], [facility] Optometry, Wound Clinic, Podiatry, Nephrology, Vascular Surgery, and Cardiology. Last appointment in PCP office on 06/18/24. No future appointments scheduled at this time. documented in this encounter Plan of Treatment Not on file documented as of this encounter Goals Goal Patient Goal Type Associated Problems Recent Progress Patient-Stated? Author Help patients manage their type 2 diabetes Care Plan Help patients manage their type 2 diabetes Jojo Frausto MA Weekly blood pressure task Care Plan Weekly blood pressure task No Keith, Louyomy, [place] Help patients manage their type 2 diabetes Care Plan Help patients manage their type 2 diabetes No KeithJojo merino, ENRIQUE Patient has chronic kidney disease Care Plan Patient has chronic kidney disease No KeithJojo merino, [place] Weekly blood pressure task Care Plan Weekly blood pressure task No KeithMelvina merinoomy, [place] Patient has chronic kidney disease Care Plan Patient has chronic kidney disease No KeithMelvina merinoomy, [place] Weekly blood pressure task Care Plan Weekly blood pressure task No JefferyEnriqueYumiko, TOOL GRINDER SET UP OPERATOR GEAR Weekly blood pressure task Care Plan Weekly blood pressure task No JefferyEnriqueYumiko, TOOL GRINDER SET UP OPERATOR GEAR Patient has chronic kidney disease Care Plan Patient has chronic kidney disease No JefferyEnriqueYumiko, TOOL GRINDER SET UP OPERATOR GEAR Patient has chronic kidney disease Care Plan Patient has chronic kidney disease No JefferyEnriqueYumiko, TOOL GRINDER SET UP OPERATOR GEAR Weekly blood pressure task Care Plan Weekly blood pressure task No JefferyEnriqueYumiko, TOOL GRINDER SET UP OPERATOR GEAR Weekly blood pressure task Care Plan Weekly blood pressure task No JefferyEnriqueYumiko, TOOL GRINDER SET UP OPERATOR GEAR Patient has chronic kidney disease Care Plan Patient has chronic kidney disease No JefferyYumiko stearns, TOOL GRINDER SET UP OPERATOR GEAR Patient has chronic kidney disease Care Plan Patient has chronic kidney disease No JefferyYumiko stearns, TOOL GRINDER SET UP OPERATOR GEAR Weekly blood pressure task Care Plan Weekly blood pressure task No Ilana Abraham RN Weekly blood pressure task Care Plan Weekly blood pressure task No Ilana Abraham RN Patient has chronic kidney disease Care Plan Patient has chronic kidney disease No Ilana Abraham RN Patient has chronic kidney disease Care Plan Patient has chronic kidney disease No Ilana Abraham RN Weekly blood pressure task Care Plan Weekly blood pressure task No Johnnie Avalos RN Weekly blood pressure task Care Plan Weekly blood pressure task No Johnnie Avalos RN Patient has chronic kidney disease Care Plan Patient has chronic kidney disease No Johnnie Avalos RN Patient has chronic kidney disease Care Plan Patient has chronic kidney disease No Johnnie Avalos RN Weekly blood pressure task Care Plan Weekly blood pressure task No Cheyenne García Weekly blood pressure task Care Plan Weekly blood pressure task No Cheyenne García Patient has chronic kidney disease Care Plan Patient has chronic kidney disease No Cheyenne García Patient has chronic kidney disease Care Plan Patient has chronic kidney disease No Cheyenne García documented as of this encounter Visit Diagnoses Not on filedocumented in this encounter Additional Health Concerns Active Problems Noted Date Diagnosed Date Help patients manage their type 2 diabetes 01/20 Weekly blood pressure task 01/20/2025 Help patients manage their type 2 diabetes 01/20 Patient has chronic kidney disease 01/20/2025 Weekly blood pressure task 01/20/2025 Patient has chronic kidney disease 01/20/2025 Weekly blood pressure task 01/22/2025 Weekly blood pressure task 01/22/2025 Patient has chronic kidney disease 01/22/2025 Patient has chronic kidney disease 01/22/2025 Weekly blood pressure task 02/03/2025 Weekly blood pressure task 02/03/2025 Patient has chronic kidney disease 02/03/2025 Patient has chronic kidney disease 02/03/2025 Weekly blood pressure task 02/04/2025 Weekly blood pressure task 02/04/2025 Patient has chronic kidney disease 02/04/2025 Patient has chronic kidney disease 02/04/2025 Weekly blood pressure task 02/04/2025 Weekly blood pressure task 02/04/2025 Patient has chronic kidney disease 02/04/2025 Patient has chronic kidney disease 02/04/2025 Weekly blood pressure task 02/04/2025 Weekly blood pressure task 02/04/2025 Patient has chronic kidney disease 02/04/2025 Patient has chronic kidney disease 02/04/2025 Assessment Noted Time PHQ-9 Depression Total Score: 16 024 10:03 AM EDT documented as of this encounter Care Teams Centrifugal Extractor Operator Relationship Specialty Start Date End Date Zee Camacho MD [address] [place] [address] PCP - General Family Medicine 09/17/20 Sebastián Duncan, aVl [address] [place] [address] Pharmacist Internal Medicine 05/01/24 Johnnie Avalos, ALICIA [address] [place] [phone] Registered Nurse Family Medicine 02/04/25 Cheyenne García 02/04/25 documented as of this encounter
--- OUTSIDE RECORDS SUMMARY | 2025-02-14 20:19 | XMS_ITS ---
Author Organization [employer] Address 75 [facility] 7t [place] [address] Care Team Providers Care Sorter Operator Name Role Phone Zee Camacho MD Primary Care Provide r Sebastián Duncan PharmD Unavailable Johnnie Avalos RN Unavailable [phone] Cheyenne García Unavailable CM Complex Status:Outreach In Progress (Enrolling) Start date:02/04/2025 Enrollment reason:Home Health Overview Home Health Utilization- Collaboration with HH Utilization nurse for connection with appropriate resources for reduction of skilled home care services. Case Team Name Relationship Phone Johnnie Avalos RN(Responsible Staff) Registered Nurse [phone] Continued Care and Services Coordination
--- OUTSIDE RECORDS SUMMARY | 2025-02-14 20:19 | XMS_ITS | Encounter Summary ---
Author Organization [employer] Address 75 [facility] 7t [place] [address] Care Team Providers Care Helmet Hat Puncher Name Role Phone Zee Camacho MD Primary Care Provide r Sebastián Duncan PharmD Unavailable [phone] Johnnie Avalos RN Unavailable [phone] Cheyenne García Unavailable Reason for Visit * Reason Comments Med Refill Encounter Details Date Type Department Care Team (Late st Contact Info) Description 08/29/2023 Refill [facility] [address] [place], [place] [phone] Zee Camacho MD [address] [place], [place] [phone] Social History Tobacco Use Types Packs/Day Years [...] documented as of this encounter Care Teams Helmet Hat Puncher Relationship Specialty Start Date End Date Zee Camacho MD [address] [place] [address] PCP - General Family Medicine 09/17/20 Sebastián Duncan, AdelitaD [address] [place] [address] Pharmacist Internal Medicine 05/01/24 Johnnie Avalos, ALICIA [address] [place] [address] Registered Nurse Family Medicine 02/04/25 Cheyenne García 02/04/25 Verito 03/13/24 02/02/25 documented as of this encounter
--- OUTSIDE RECORDS SUMMARY | 2025-02-14 20:19 | XMS_ITS | Encounter Summary ---
Author Organization [employer] Address [address] [facility] [address] 7t [place] [address] Care Team Providers Care Macadam Raker Name Role Phone Zee Camacho MD Primary Care Provide r Sebastián Duncan PharmD Unavailable [phone] Johnnie Avalos RN Unavailable [phone] Cheyenne García Unavailable Encounter Details Date Type Department Care Team (Late st Contact Info) Description 08/27/2023 Telephone [facility] [address] [place], [place] [phone] Zee Camacho MD [address] [place], [place] [phone] Social History Tobacco Use Types Packs/Day Years [...] documented as of this encounter Care Teams Macadam Raker Relationship Specialty Start Date End Date Zee Camacho MD [address] [place] [address] PCP - General Family Medicine 09/17/20 Sebastián Duncan, AdelitaD [address] [place] [address] Pharmacist Internal Medicine 05/01/24 Johnnie Avalos, ALICIA [address] [place] [address] Registered Nurse Family Medicine 02/04/25 Cheyenne García 02/04/25 Verito 03/13/24 02/02/25 documented as of this encounter
--- OUTSIDE RECORDS SUMMARY | 2025-02-14 20:19 | XMS_ITS | Encounter Summary ---
Author Organization [employer] Address [address] [facility] [address] 7t [place] [address] Care Team Providers Care Title Insurance Examiner Name Role Phone Zee Camacho MD Primary Care Provide r Sebastián Duncan PharmD Unavailable [phone] Johnnie Avalos RN Unavailable [phone] Cheyenne García Unavailable Reason for Visit * Reason Comments Med Refill Encounter Details Date Type Department Care Team (Late st Contact Info) Description 12/04/2024 Refill [facility] [address] [place], [place] [phone] Zee Camacho MD [address] [place], [place] [phone] Bilateral lower leg cellulitis; Wound of left lower extremity, initial encounter Social History Tobacco Use Types Packs/Day Years [...] as of this encounter Visit Diagnoses Diagnosis Bilateral lower leg cellulitis Wound of left lower extremity, initial encounter documented in this encounter Additional Health Concerns Assessment Noted Time PHQ-9 Depression Total Score: 16 024 10:03 AM EDT documented as of this encounter Care Teams Title Insurance Examiner Relationship Specialty Start Date End Date Zee Camacho MD [address] [place] [address] PCP - General Family Medicine 09/17/20 Sebastián Duncan, AdelitaD [address] [place] [address] Pharmacist Internal Medicine 05/01/24 Johnnie Avalos, ALICIA [address] [place] [address] Registered Nurse Family Medicine 02/04/25 Cheyenne García 02/04/25 Verito 03/13/24 02/02/25 documented as of this encounter
--- OUTSIDE RECORDS SUMMARY | 2025-02-14 20:19 | XMS_ITS | Encounter Summary ---
Author Organization [employer] Address 75 [facility] 7t [place] [address] Care Team Providers Care Exploration Geologist Name Role Phone Zee Camacho MD Primary Care Provide r Sebastián Duncan PharmD Unavailable [phone] Johnnie Avalos RN Unavailable [phone] Cheyenne García Unavailable Reason for Visit * Reason Comments Med Refill Encounter Details Date Type Department Care Team (Late st Contact Info) Description 01/07/2023 Refill [facility] [address] [place] [address] [phone] Adam Cazares MD [address] [place] [address] [phone] Social History Tobacco Use Types Packs/Day Years [...] on filedocumented in this encounter Care Teams Exploration Geologist Relationship Specialty Start Date End Date Zee Camacho MD [address] [place] [phone] PCP - General Family Medicine 09/17/20 Sebatsián Duncan, PharmD 230 [place] [address] Pharmacist Internal Medicine 05/01/24 Johnnie Avalos RN [address] [place] [phone] Registered Nurse Family Medicine 02/04/25 Cheyenne García 02/04/25 Verito 03/13/24 02/02/25 documented as of this encounter
--- OUTSIDE RECORDS SUMMARY | 2025-02-14 20:19 | XMS_ITS | Encounter Summary ---
Author Organization [employer] Address [address] [facility] [address] 7[address] [place] [address] Care Team Providers Care Supervisor Powdered Sugar Name Role Phone Zee Camacho MD Primary Care Provide r Sebastián Duncan PharmD Unavailable [phone] Johnnie Avalos RN Unavailable [phone] Cheyenne García Unavailable Encounter Details Date Type Department Care Team (Late st Contact Info) Description 08/27/2023 Orders Only [facility] [address] [place], [place] [phone] Zee Camacho MD [address] [place], [place] [phone] Social History Tobacco Use Types Packs/Day Years [...] documented as of this encounter Care Teams Supervisor Powdered Sugar Relationship Specialty Start Date End Date Zee Camacho MD [address] [place] [address] PCP - General Family Medicine 09/17/20 Sebastián Duncan, AdelitaD [address] [place] [address] Pharmacist Internal Medicine 05/01/24 Johnnie Avalos, ALICIA [address] [place] [address] Registered Nurse Family Medicine 02/04/25 Cheyenne García 02/04/25 Verito 03/13/24 02/02/25 documented as of this encounter
--- OUTSIDE RECORDS SUMMARY | 2025-02-14 20:19 | XMS_ITS | Encounter Summary ---
Author Organization [employer] Address 75 [facility] 7t [place] [address] Care Team Providers Care Combat Systems Officer Name Role Phone Zee Camacho MD Primary Care Provide r Sebastián Duncan PharmD Unavailable Johnnie Avalos RN Unavailable [phone] Cheyenne García Unavailable Encounter Details Date Type Department Care Team (Late st Contact Info) Description 09/20/2022 Orders Only [facility] [address] [place] [address] Charlene Aranda LPN Social History Tobacco Use [...] on filedocumented in this encounter Care Teams Combat Systems Officer Relationship Specialty Start Date End Date Zee Camacho MD [address] [place], [place] PCP - General Family Medicine 09/17/20 Sebastián Duncan, PharmD [address] [place] [address] Pharmacist Internal Medicine 05/01/24 Johnnie Avalos, RN [address] [place] [phone] Registered Nurse Family Medicine 02/04/25 Cheyenne García 02/04/25 Verito 03/13/24 02/02/25 documented as of this encounter
--- OUTSIDE RECORDS SUMMARY | 2025-02-14 20:19 | XMS_ITS | Encounter Summary ---
Author Organization [employer] Address 75 [facility] 7t [place] [address] Care Team Providers Care Editorial Intern Name Role Phone Zee Camacho MD Primary Care Provide r Sebastián Duncan PharmD Unavailable [phone] Johnnie Avalos RN Unavailable [phone] Cheyenne García Unavailable Reason for Visit * Reason Comments Med Refill Encounter Details Date Type Department Care Team (Late st Contact Info) Description 12/07/2022 Refill [facility] [address] [place] [phone] Adam Cazares MD [address] [place] [phone] Social History Tobacco Use Types Packs/Day Years [...] on filedocumented in this encounter Care Teams Editorial Intern Relationship Specialty Start Date End Date Zee Camacho MD [address] [place] [address] PCP - General Family Medicine 09/17/20 Sebastián Duncan, PharmD [address] [place] [address] Pharmacist Internal Medicine 05/01/24 Johnnie Avalos RN [address] [place] [phone] Registered Nurse Family Medicine 02/04/25 Cheyenne García 02/04/25 Verito 03/13/24 02/02/25 documented as of this encounter
--- OUTSIDE RECORDS SUMMARY | 2025-02-14 20:19 | XMS_ITS | Clinical Summary ---
Author Organization [facility] Address [address] [place] [address] Phone Care Team Providers Care Rock Cutter Name Role Phone Zee Camacho MD Primary Care Provide r Social History Tobacco Use Types Packs/Day Years Used Date Smoking Tobacco: Never Assessed Sex and Gender Information Value Date Recorded Sex Assigned at Not on file Legal Sex Male 4:35 AM EST Gender Identity Not on file Sexual Orientation Not on file Plan of Treatment Health Maintenance Due Date Last Done Comments Colorectal Cancer Screening: Colonoscopy 1960 DTaP,Tdap,and Td Vaccines (1 - Tdap) 11/05/1979 Pneumococcal Vaccine: 50+ Ye ars (1 of 1 - PCV) 2010 Zoster Vaccines (1 of 2) 2010 Cholesterol Screening (Lipid Panel) 01/22/2022 HIV Screening 01/22/2022 Hepatitis C Screening 01/22/2022 Social Influencers of Health Screening 01/22/2022 Depression Screening 02/20/2024 COVID-19 Vaccine (1 - 2024-2 6 season) 2024 Influenza Vaccine (#1) 2024 RSV Immunization Adult Patie nts (1 [...] topic Insurance MEDICAID - [place] Care Teams Rock Cutter Relationship Specialty Start Date End Date Zee Camacho MD [address] [place] [phone] PCP - General Internal Medicine 01/08/24
--- OUTSIDE RECORDS SUMMARY | 2025-02-14 20:19 | XMS_ITS | Encounter Summary ---
Author Organization [employer] Address 75 [facility] 7t [place] [address] Care Team Providers Care Membership Secretary Name Role Phone Zee Camacho MD Primary Care Provide r Sebastián Duncan PharmD Unavailable [phone] Johnnie Avalos RN Unavailable [phone] Cheyenne García Unavailable Reason for Visit * Reason Comments Med Refill Encounter Details Date Type Department Care Team (Late st Contact Info) Description 04/15/2023 Refill [facility] [address] [place] [address] Zee Camacho MD [address] [place], [place] [phone] Social History Tobacco Use Types Packs/Day Years [...] on filedocumented in this encounter Care Teams Membership Secretary Relationship Specialty Start Date End Date Zee Camacho MD [address] [place], [place] [phone] PCP - General Family Medicine 09/17/20 Sebastián Duncan, PharmD [address] [place] [address] Pharmacist Internal Medicine 05/01/24 Johnnie Avalos, ALICIA [address] [place] [address] Registered Nurse Family Medicine 02/04/25 Cheyenne García 02/04/25 Verito 03/13/24 02/02/25 documented as of this encounter
--- OUTSIDE RECORDS SUMMARY | 2025-02-14 20:19 | XMS_ITS | Clinical Summary ---
Author Organization #[employer] Address [address] [place] [address] Care Team Providers Care Traffic Analyst Name Role Phone Zee Camacho MD Primary Care Provide r Sebastián Duncan PharmD Unavailable Johnnie Avalos RN Unavailable [phone] Cheyenne García Unavailable Allergies Active Allergy Reactions Criticality Noted Date Comments Penicillin G 06/02/2020 Other reaction(s): Rash, Rash Medications lidocaine (Lidoderm) 5 % patch APPLY 1 TO 2 PATCHES TOPICALLY EVERY DAY. MAY WEAR FOR 12 HOURS NEEDED FOR PAIN 60 patch 1 024 Active Ventolin HFA 108 (90 Base) MCG/ACT inhalerIndicati ons:Mild intermittent asthma, unspecified whether complicated INHALE 2 PUFFS EVERY 6 HOURS IF NEEDED FOR WHEEZING. 18 g 1 024 Active insulin pen needle (B-D UF III MINI PEN NEEDLES) 31G x 5 mm miscIndications :Type 2 diabetes mellitus with hyperglycemia, with long-term current use of insulin (HCC) Please 4 times a day INSTRUCTED 100 each 12 024 Active bacitracin 500 UNIT/GM ointmentIndicat ions:Bilateral lower leg cellulitis,Woun d of left lower extremity, initial encounter Apply topically 2 times daily. 28 g 024 Active chlorthalidone (Hygroton) 25 MG tabletIndicatio ns:Primary hypertension TAKE 1 TABLET BY MOUTH EVERY DAY 90 tablet 1 024 Active atorvastatin (Lipitor) 80 MG tablet TAKE 1 TABLET BY MOUTH EVERY DAY 90 tablet 1 025 Active Continuous Glucose Braille Proofreader (FreeStyle Omer 3 [place]) deviceIndicatio ns:Type 2 diabetes mellitus with hyperglycemia, with long-term current use of insulin ([facility]) 1 each Once per day. Use as directed for CGM 1 each 025 Active Continuous Glucose Sensor (FreeStyle Omer 3 Plus Sensor) miscIndications :Type 2 diabetes mellitus with hyperglycemia, with long-term current use of insulin ([facility]) 1 each every 15 days. Apply 1 every 15 days as directed for CGM 2 each 01/27/20 10:45 AM EST 025 Active glucose blood (FreeStyle Precision Leo Test) test stripIndication s:Type 2 diabetes mellitus with hyperglycemia, with long-term current use of insulin ([facility]) Use to test blood sugar 3 times daily in case of CGM failure or extremes of BG 100 each 01/27/20 10:45 AM EST 025 2025 Active semaglutide (Ozempic, 1 MG/DOSE,) 4 MG/3ML solution pen-injectorInd ications:Type 2 diabetes mellitus with hyperglycemia, with long-term current use of insulin ([facility]) Inject 1 mg under the skin 1 (one) time per week. 3 mL 5 025 Active Jardiance 10 MG Take 1 tablet by mouth Once per day. 025 Active insulin degludec (Tresiba FlexTouch) 200 UNIT/ML injectionIndica tions:Type 2 diabetes mellitus with hyperglycemia, with long-term current use of insulin ([facility]) Inject 112 units subcutaneously daily. 9 mL 5 025 Active metFORMIN (Glucophage) 1000 MG tablet TAKE 1 TABLET BY MOUTH TWICE A DAY WITH BREAKFAST AND DINNER 180 tablet 1 025 Active insulin aspart FlexPen (NovoLOG) 100 UNIT/ML penIndications: Type 2 diabetes mellitus with hyperglycemia, with long-term current use of insulin ([facility]) INJECT 10 UNITS SUBCUTANEOUSLY WITH BREAKFAST, LUNCH AND EVENING MEAL 15 mL 3 025 Active lisinopril 40 MG tabletIndicatio ns:Essential hypertension TAKE 1 TABLET BY MOUTH EVERY DAY 90 tablet 1 025 Active pantoprazole (ProtoNix) 40 MG EC tabletIndicatio ns:Gastroesopha geal reflux disease, unspecified whether esophagitis present TAKE 1 TABLET BY MOUTH EVERY DAY 90 tablet 025 Active Aspirin Low Dose 81 MG EC tabletIndicatio ns:Primary hypertension TAKE 1 TABLET (81 MG) BY MOUTH ONCE PER DAY. 90 tablet 025 Active Aspirin Low Dose 81 MG EC tabletIndicatio ns:Primary hypertension TAKE 1 TABLET (81 MG) BY MOUTH ONCE PER DAY. 90 tablet 1 025 2024 Discontinued Active Problems Problem Noted Date Diagnosed Date Bilateral lower leg cellulitis 12/28/2023 Onychomycosis 12/28/2023 Leg wound, left 12/28/2023 Lower extremity edema 06/20/2023 Assessment & Plan (06/20/2023 11:01 AM EDT): Echocardiogram ordered Cardiology and vascular referral Stage 3a [place] [place] Mild intermittent asthma 06/20/2023 Assessment & Plan (06/20/2023 10:58 AM EDT): Patient educated to avoid asthma triggers Albuterol inhaler prescribed Uncomplicated opioid dependence ([facility]) 2023 Assessment & Plan (06/20/2023 11:05 AM EDT): Patient is thinking to start program methadone or suboxone going more for methadone Bilateral primary osteoarthritis of knee 024 Assessment & Plan (03/29/2023 2:10 PM EST): [...] BID Continue Metformin 1000mg BID Referred to [facility] done today Fracture of multiple ribs 03/02/20102023 Encounters Date Type Department Care Team Description 02/14/2025 Orders Only GENERIC EXTERNAL DATA DEPARTMENT Provider, Generic External Data 02/09/[address] [address] Zee Camacho MD Care Coordination (Home Care utilization Review) 02/09/2025 Patient Outreach [address] [address] Zee Camacho MD Care Coordination (CM/CHW outreach) 02/04/2025 Patient Outreach [address] [address] Zee Camacho MD Care Coordination (CHW chart review) 02/04/2025 Patient Outreach [address] [address] Zee Camacho MD Care Management (CM- chart review) 02/04/2025 Patient Outreach [address] [address] Zee Camacho MD 02/03/2025 Telephone [facility] [address] [place] [address] Zee Camacho MD Care Coordination (Utilization Review) 01/22/2025 Telephone [facility] [address] [place] [address] Zee Camacho MD Care Coordination (Utilization Review) 01/20/2025 Telephone [facility] [address] [place] [address] Zee Camacho MD outreach 01/17/2025 Refill [facility] [address] [place] [address] Zee Camacho MD Primary hypertension 01/04/2025 Refill [facility] [address] [place] [address] Zee Camacho MD Gastroesophageal reflux disease, unspecified whether esophagitis present 12/15/2024 Refill [facility] [address] [place] [address] Zee Camacho MD Essential hypertension 12/04/2024 Refill [facility] [address] [place] [address] Zee Camacho MD Bilateral lower leg cellulitis; Wound of left lower extremity, initial encounter from Last 3 Months Immunizations Immunization Administration Dates Next Due Hep A, Adult [...] your housing situation today? I have julio mer 06/20/[address] you li [...] 99 05/05/2024 9:28 AM EDT Temperature 37 C (98.6 F) 12/28/2023 2:08 PM EST Respiratory Rate 22 [...] FOBT 1960 HIV Screening 1960 Sigmoidoscopy 1960 Disability Screening 1960 Diabetes: Foot Exam 1970 Alcohol/Substance Use Screening 1972 RSV Patients and Patients Aged 60 years or older (1 - Risk 50-74 years 1-dose series) 2010 Colonoscopy 09/15/2020 03/18/2020 Colorectal Cancer Screening 09/15/2020 Zoster Vaccines (2 of 2) 12/27/2022 11/01/2022 Depression Monitoring 12/21/2023 06/20/2023, 024 Lipid Panel 03/26/2024 03/26/2023, 09/20, 06/08/2020, Additional history exists Eye Exam 04/18/2024 04/19/2023, 03/23, 04/19/2023, Additional history exists SDOH Screening 06/19/2024 06/20/2023 Diabetes: Hemoglobin A1C 08/05/2024 025, 06/20/2023, 03/26/2023, Additional history exists Tobacco Screening 09/13/2024 09/14/2023 COVID-19 Vaccine ( season) 2024 Diabetes: Urine Protein Screening 05/05/2025 05/05/2024, 05/05/2024, 03/26/2023, Additional history exists DTaP/Tdap/Td Vaccines (2 - Td or Tdap) 12/27/2025 12/28/2015 Hepatitis A Vaccines Aged Out 09/25/2017 No long er eligible based on patient's age to complete this topic Hepatitis C Screening Completed 11/12/2020 Pneumococcal Vaccine: 50+ Years Completed 10/08/2023, 01/24/2020 Influenza Vaccine Completed 11/20/2024, , 11/01/2022, Additional history exists HIB Vaccines Aged Out No longer eligi [...] on patient's age to complete this topic Goals Goal Patient Goal Type Associated Problems Recent Progress Patient-Stated? Author Help patients manage their type 2 diabetes Care Plan Help patients manage their type 2 diabetes No Jojo Keith MA Weekly blood pressure task Care Plan Weekly blood pressure task No Jojo Keith MA Help patients manage their type 2 diabetes Care Plan Help patients manage their type 2 diabetes No KeithFifi merinouyomy, [place] Patient has chronic kidney disease Care Plan Patient has chronic kidney disease No KeithFifi merinouyomy, [place] Weekly blood pressure task Care Plan Weekly blood pressure task No KeithFifiuyomy [place] Patient has chronic kidney disease Care Plan Patient has chronic kidney disease No KeithFifi merinouyomy, [place] Weekly blood pressure task Care Plan Weekly blood pressure task No Yumiko Gil, REGRIND MILL OPERATOR Weekly blood pressure task Care Plan Weekly blood pressure task No Yumiko Gil, REGRIND MILL OPERATOR Patient has chronic kidney disease Care Plan Patient has chronic kidney disease No JefferyFranco stearnsura, REGRIND MILL OPERATOR Patient has chronic kidney disease Care Plan Patient has chronic kidney disease No JefferyFranco stearnsura, REGRIND MILL OPERATOR Weekly blood pressure task Care Plan Weekly blood pressure task No JefferyFrancoYumiko, REGRIND MILL OPERATOR Weekly blood pressure task Care Plan Weekly blood pressure task No JefferyFranco stearnsura, REGRIND MILL OPERATOR Patient has chronic kidney disease Care Plan Patient has chronic kidney disease No JefferyFrancoYumiko, REGRIND MILL OPERATOR Patient has chronic kidney disease Care Plan Patient has chronic kidney disease No JefferyYumiko stearns, REGRIND MILL OPERATOR Weekly blood pressure task Care Plan Weekly blood pressure task No Ilana Abraham, ALICIA Weekly blood pressure task Care Plan Weekly [...] Plan Weekly blood pressure task No Cheyenne Garcaí Patient has chronic kidney disease Care Plan Patient has chronic kidney disease No Cheyenne García Patient has chronic kidney disease Care Plan Patient has chronic kidney disease No Cheyenne García Weekly blood pressure task Care Plan Weekly blood pressure task No Cheyenne García Weekly blood pressure task Care Plan Weekly blood pressure task No Cheyenne García Patient has chronic kidney disease Care Plan Patient has chronic kidney disease No Cheyenne García Patient has chronic kidney disease Care Plan Patient has chronic kidney disease No Cheyenne García Weekly blood pressure task Care Plan Weekly blood pressure task No Yumiko Gil LPN Weekly blood pressure task Care Plan Weekly blood pressure task No Yumiko Gil LPN Patient has chronic kidney disease Care Plan Patient has chronic kidney disease No Yumiko Gil LPN Patient has chronic kidney disease Care Plan Patient has chronic kidney disease No Yumiko Gil LPN Procedures Procedure Name Priority Date/Time Associated Diagnosis Comments LACTIC ACID Routine 02/14/2025 5:12 PM EST C-REACTIVE PROTEIN Routine 02/14/2025 5: 12 PM EST COMPREHENSIVE METABOLIC PANEL Routine 02/14/2025 5:12 PM EST SED RATE BY MODIFIED WESTERGREN Routine 02/14/2025 5:12 PM EST CBC WITH AUTO DIFFERENTIAL Routine 02/14/2025 5:12 PM EST ALBUMIN, RANDOM URINE W/CREATININE Routine 05/05/2024 8:55 AM EDT HEMOGLOBIN A1C Routine 05/05/2024 8:55 AM EDT LIPID PANEL, STANDARD Routine 03/26/2023 2:33 PM EST Type 2 diabetes mellitus with hyperglycemia, with long-term current use of insulin (CMS/HCC) ZZZ HISTORICAL HEPATITIS C AB W/REFL TO HCV RNA, QN, PCR Routine 11/12/2020 3:53 PM EDT HM COLONOSCOPY Routine 03/18/2020 from Last 3 Months or Most Recently Relevant to Health Maintenance Results * (ABNORMAL) CBC auto differential (02/14/2025 5:12 PM EST) White Blood Count 10.8 4.8 - 10.8 X10*3/uL [facility] Red Blood Count 4.27(L) 4.60 - 5.80 X10*6/uL [facility] Hemoglobin 13.1(L) 14.0 - 18.0 g/dl [facility] Hematocrit 39.5(L) 42.0 - 52.0 % [facility] Mean Corpuscular Volume 92.5 80.0 - 98.0 fL [facility] Mean Corpuscular Hemoglobin 30.7 27.0 - 33.0 pg [facility] Mean Corpuscular HGB Conc 33.2 31.0 - 36.0 g/dl [facility] Red Cell Distribution Width 14.4 11.0 - 16.0 % [facility] Platelet Count 253 160 - 400 X10*3/uL [facility] Mean Platelet Volume 11.3 9.4 - 12.4 fL [facility] Neutrophils Percent Auto 69.5 45 - 73 % [facility] Imm Gran Pct Auto 0.3 0.0 - 0.4 % [facility] Lymphocytes Percent Auto 22.4 20 - 40 % [facility] Monocytes Percent Auto 4.2 2 - 11 % [facility] Eosinophils Percent Auto 2.8 0 - 4 % [facility] Basophils Percent Auto 0.8 0 - 2 % [facility] NRBC Pct Auto 0.0 0.0 - 0.2 /100WBC [facility] Neutrophils Absolute Auto 7.5 2.0 - 8.3 x10*3/uL [facility] Imm Gran Abs Auto 0.03 0.00 - 0.03 X10*3/uL [facility] Lymphocytes Absolute Auto 2.4 1.2 - 4.9 X10*3/uL [facility] Monocytes Absolute Auto 0.5 0.1 - 1.2 X10*3/uL [facility] Eosinophils Absolute Auto 0.3 0.0 - 0.4 X10*3/uL [facility] Basophils Absolute Auto 0.1 0.0 - 0.2 X10*3/uL [facility] NRBC Abs Auto 0.000 0.0 - 0.012 X10*3/uL [facility] 02/14/2025 5:12 PM EST 02/14/2025 5:18 PM EST Generic External Data Provider LAB BLOOD ORDERAB LES Final Result Performing Organization Address [facility]/ZIP Co de Phone Number [facility] [address] [place] [phone] * (ABNORMAL) Sed Rate by Modified Latonia (02/14/2025 5:12 PM EST) Erythrocyte Sedimentation Rate 41(H) 1 - 20 MM/HR [facility] Comment:Patients with polycy themia and many hemoglobin abnormalitiesmay have depressed sed rates whereas patients with anemiamay have elevated sed rates. 02/14/2025 5:12 PM EST 02/14/2025 5:18 PM EST us Generic External Data Provider LAB BLOOD ORDERAB LES Final Result Performing Organization Address [facility]/ZIP Co de Phone Number [facility] [address] [place] [address] [phone] * (ABNORMAL) C-reactive Protein (02/14/2025 5:12 PM EST) Pathologist [facility] C Reactive Protein 2.44(H) < or = 0.50 mg/dL [facility] 02/14/2025 5:12 PM EST 02/14/2025 5:18 PM EST Generic External Data Provider LAB BLOOD ORDERAB LES Final Result Performing Organization Address [facility] de Phone Number [facility] [address] [place] [phone] * (ABNORMAL) Lactic Acid (02/14/2025 5:12 PM EST) [facility] Lactic Acid 2.3(HH) 0.5 - 2.0 mmol/L [facility] Comment:Critical value for t est(s):LA Results called to and readback by:REBECCA Person calling:KUSF Date: 04-35-08Letw:1745 02/14/2025 5:12 PM EST 02/14/2025 5:18 PM EST Generic External Data Provider LAB BLOOD ORDERAB LES Final Result Performing Organization Address [facility] de Phone Number [facility] [address] [place] [phone] * (ABNORMAL) Comprehensive Metabolic Panel (02/14/2025 5:12 PM EST) [facility] Sodium 142 135 - 145 mmol/L [facility] Potassium 4.7 3.3 - 5.1 mmol/L [facility] Chloride 102 96 - 108 mmol/L [facility] Carbon Dioxide 33(H) 22 - 29 mmol/L [facility] Anion Gap 12 12 - 20 [facility] Urea Nitrogen (BUN) 18(H) 9 - 16 mg/dL [facility] Creatinine, Serum 0.78 0.5 - 1.4 mg/dL [facility] Creatinine Clr Calc Pharmacy 111.9 [facility] Comment:eGFR (calculated fro m the MDRD study equation) and eCrCl(calculated from the Cockcroft-Gault equation) are based ondifferent parameters and may not yield comparable results.If eCrCl result is absurd, please check patient'sheight/weight. Estimated Glomerular Filt Rate >60 [facility] Comment:Chronic Kidney Disea se: Estimated GFR < 60 mL/min/1.78h7Otazzw Kidney Disease: Estimated GFR < 15 mL/min/1.73m2 Glucose 209(H) 60 - 115 mg/dL [facility] Calcium 9.3 8.4 - 10.2 mg/dL [facility] Bilirubin, Total 0.2 0.0 - 1.0 mg/dL [facility] Aspartate Amino Transferase 22 5 - 37 U/L [facility] Alanine Aminotransferase 20 0 - 40 U/L [facility] Total Protein 6.8 6.5 - 8.0 g/dL [facility] Albumin Level 3.7 3.5 - 5.0 g/dL [facility] Alkaline Phosphatase 129(H) 39 - 117 U/L [facility] 02/14/2025 5:12 PM EST 02/14/2025 5:18 PM EST us Generic External Data Provider LAB BLOOD ORDERAB LES Final Result [facility] [address] [place] [phone] * (ABNORMAL) Albumin, Random Urine W/Creatinine (05/05/2024 8:55 AM EDT) Creatinine, Urine 106.85 mg/dL [facility] Microalbumin Urine 409.0 mg/L [facility] Microalbum Creatinine Ratio Ur 382.7(H) <30 ug/mg cr [facility] Comment:Albumin/Creatinine R atio Reference Ranges: Normal: < 30 ug/mg creatinine Microalbuminuria: 30 - 300 ug/mg creatinineClinical Albuminuria: > 300 ug/mg creatinine 05/05/2024 8:55 AM EDT 05/05/2024 11:50 AM EDT us Zee Vasquez MD LAB URINE ORDERABLES Final Result Performing Organization Address [facility] Co de Phone Number [facility] [address] [place] [phone] * (ABNORMAL) Hemoglobin A1c (05/05/2024 8:55 AM EDT) Hemoglobin A1c 8.6(H) <6.0 % [facility] Comment:Hemoglobin A1C Refer ence Range Adults: 4.8 - 6.0 % Non diabetic: < 6.0 % Goal: < 7.0 %Additional Action Suggested: > 8.0 %Note: Hemoglobin A1c results are invalid for patients with abnormal amounts of HbF. Blood transfusions may impact the HbA1c concentration in the patient sample. Estimated Average Glucose 200 mg/dL [facility] Comment:eAG = Estimated ave rage glucose which is %A1C expressed asaverage glucose, using the formula of the R9V-MewwehoLwasltb Glucose study (ADAG), Diabetes Care, Vol.31,#8,2007 05/05/2024 8:55 AM EDT 05/05/2024 11:18 AM EDT us Zee Vasquez MD LAB BLOOD ORDERABLES Final Result Performing Organization Address [facility] Co de Phone Number [facility] [address] [place] [phone] * (ABNORMAL) Lipid Panel, Standard (03/26/2023 2:33 PM EST) Triglycerides 214(H) <150 mg/dL [facility] Comment:Desirable Triglyceri de: less than 150 mg/dLBorderline High Triglyceride 150-199 mg/dLHigh Triglyceride: 200-499 mg/dLVery High Triglyceride: greater than or equal to 5OO mg/dL Cholesterol 122 <200 mg/dL [facility] Comment:Desirable Cholestero l: less than 200 mg/dLBorderline High Cholesterol: 200-239 mg/dLHigh Cholesterol: greater than 239 mg/dL LDL Cholesterol Calculated 49 <100 mg/dL [facility] Comment:Desirable LDL: less than 100 mg/dLNear Optimal/Above Optimal LDL: 110- 129 mg/dLBorderline High LDL: 130-159 mg/dLHigh LDL: 160-189 mg/dLVery High LDL: greater than or equal to 190 mg/dL HDL Cholesterol 31(L) >40 mg/dL [facility] Comment:Desirable HDL: great er than 40 mg/dL Note: This HDL assay may give artificially low results in patients with liver disease. Blood Venous blood specimen / Unknown 03/26/2023 2:33 PM EST 03/26/2023 4:18 PM EST us Елена Duron MD LAB BLOOD ORDERABLES Final Res ult Performing Organization Address [facility]/ZIP Co de Phone Number [facility] [address] [place] [phone] * HEPATITIS C AB W/REFL TO HCV RNA, QN, PCR (11/12/2020 3:53 PM EDT) HEPATITIS C ANTIBODY NON-REACT URI NON-REACT [facility] INDEX 0.01 <1.00 [facility] Comment: HCV antibody was non-reactive. There is no laboratory evidence of HCV infection. In most cases, no further action is required. However, if recent HCV exposure is suspected, a test for HCV RNA (test code 27409) is suggested. For additional information please refer to http://education.ZEB.[employer]/faq/JBV48g5 (This link is being provided for informational/ educational purposes only.) 11/12/2020 3:53 PM EDT us Osiris Conte ACCOUNTING SPECIALIST HISTORICAL/NON ORDERABLE LABS Final Result Performing Organization Address City/[facility]/ZIP Co de Phone Number [facility] [address] [place] [address], * Hm Colonoscopy (03/18/2020) Historical Provider HEALTH MAINTENANCE Final Result from Last 3 Months or Most Recently Relevant to Health Maintenance Additional Health Concerns Active Problems Noted Date [...] kidney disease 02/04/2025 Weekly blood pressure task 02/09/2025 Weekly blood pressure task 02/09/2025 Patient has chronic kidney disease 02/09/2025 Patient has chronic kidney disease 02/09/2025 Weekly blood pressure task 02/09/2025 Weekly blood pressure task 02/09/2025 Patient has chronic kidney disease 02/09/2025 Patient has chronic kidney disease 02/09/2025 Insurance [facility] C3 Care Teams Traffic Analyst Relationship Specialty Start Date End Date Zee Camacho MD [address] [place] [address] PCP - General Family Medicine 09/17/20 Sebastián Duncan, AdelitaD [address] [place] [address] Pharmacist Internal Medicine 05/01/24 Johnnie Avalos, RN [address] [place] [phone] Registered Nurse Family Medicine 02/04/25 Cheyenne García 02/04/25
--- OUTSIDE RECORDS SUMMARY | 2025-02-14 20:19 | XMS_ITS | Encounter Summary ---
Author Organization [employer] Address [address] [facility] [address] [place] [address] Care Team Providers Care Sanforizer Name Role Phone Zee Camacho MD Primary Care Provide r Sebastián Duncan PharmD Unavailable Johnnie Avalos RN Unavailable [phone] Cheyenne García Unavailable Encounter Details Date Type Department Care Team (Late st Contact Info) Description 12/07/2022 Orders Only [facility] PEDS [address] [place] [address] Charlene Aranda LPN Social History Tobacco Use [...] Whole Blood 478(HH) 60 - 115 mg/dL [facility] Comment:METER #: [id number] 12/07/2022 8:18 PM EDT 12/07/2022 8:22 PM EDT [facility] External Provider LAB BLO OD ORDERABLES Final Result Performing Organization Address [facility] de Phone Number [facility] [address] [place] [phone] * (ABNORMAL) Glucose, Whole Blood (12/07/2022 7:31 PM EDT) Glucose, Whole Blood 486(HH) 60 - 115 mg/dL [facility] Comment:METER #: [id number] 12/07/2022 7:31 PM EDT 12/07/2022 7:35 PM EDT Result [facility] External Provider LAB BLO OD ORDERABLES Final Result Performing Organization Address [facility] Co de Phone Number [facility] [address] [place] [phone] * (ABNORMAL) Glucose, Whole Blood (12/07/2022 7:10 PM EDT) Glucose, Whole Blood 530(HH) 60 - 115 mg/dL [facility] Comment:METER #: [id number] 12/07/2022 7:10 PM EDT 12/07/2022 7:15 PM EDT [facility] External Provider LAB BLO OD ORDERABLES Final Result Performing Organization Address [facility]/ZIP Co de Phone Number [facility] [address] [place] [phone] [phone] * (ABNORMAL) CBC auto differential (12/07/2022 7:04 PM EDT) White Blood Count 9.8 4.8 - 10.8 X10*3/uL [facility] Red Blood Count 5.22 4.60 - 5.80 X10*6/uL [facility] Hemoglobin 14.9 14.0 - 18.0 g/dl [facility] Hematocrit 44.9 42.0 - 52.0 % [facility] Mean Corpuscular Volume 86.0 80.0 - 98.0 fL [facility] Mean Corpuscular Hemoglobin 28.5 27.0 - 33.0 pg [facility] Mean Corpuscular HGB Conc 33.2 31.0 - 36.0 g/dl [facility] Red Cell Distribution Width 13.4 11.0 - 16.0 % [facility] Platelet Count 150(L) 160 - 400 X10*3/uL [facility] Mean Platelet Volume 11.9 9.4 - 12.4 fL [facility] Neutrophils Percent Auto 68.6 45 - 73 % [facility] Imm Gran Pct Auto 0.3 0.0 - 0.4 % [facility] Lymphocytes Percent Auto 19.0(L) 20 - 40 % [facility] Monocytes Percent Auto 4.4 2 - 11 % [facility] Eosinophils Percent Auto 6.9(H) 0 - 4 % [facility] Basophils Percent Auto 0.8 0 - 2 % [facility] NRBC Pct Auto 0.0 0.0 - 0.2 /100WBC [facility] Neutrophils Absolute Auto 6.8 2.0 - 8.3 x10*3/uL [facility] Imm Gran Abs Auto 0.03 0.00 - 0.03 X10*3/uL [facility] Lymphocytes Absolute Auto 1.9 1.2 - 4.9 X10*3/uL [facility] Monocytes Absolute Auto 0.4 0.1 - 1.2 X10*3/uL [facility] Eosinophils Absolute Auto 0.7(H) 0.0 - 0.4 X10*3/uL [facility] Basophils Absolute Auto 0.1 0.0 - 0.2 X10*3/uL [facility] NRBC Abs Auto 0.000 0.0 - 0.012 X10*3/uL [facility] 12/07/2022 7:04 PM EDT 12/07/2022 7:07 PM EDT [facility] External Provider LAB BLO OD ORDERABLES Final Result [facility] [address] [place] [phone] * (ABNORMAL) Comprehensive Metabolic Panel (12/07/2022 7:04 PM EDT) Sodium 136 135 - 145 mmol/L [facility] Potassium 4.0 3.3 - 5.1 mmol/L [facility] Chloride 100 96 - 108 mmol/L [facility] Carbon Dioxide 23 22 - 29 mmol/L [facility] Anion Gap 17 12 - 20 [facility] Urea Nitrogen (BUN) 18(H) 9 - 16 mg/dL [facility] Creatinine, Serum 1.25 0.5 - 1.4 mg/dL [facility] Creatinine Clr Calc Pharmacy 65.7 [facility] Comment:eGFR (calculated fro m the MDRD study equation) and eCrCl(calculated from the Cockcroft-Gault equation) are based ondifferent parameters and may not yield comparable results.If eCrCl result is absurd, please check patient'sheight/weight. Estimated Glomerular Filt Rate 59 [facility] Comment:NOTE: For -Am erican individuals, multiply the result by 1.210.Chronic Kidney Disease: Estimated GFR < 60 mL/min/[id number] Kidney Disease: Estimated GFR < 15 mL/min/1.73m2 Glucose 550(HH) 60 - 115 mg/dL [facility] Comment:Critical value for t est(s): GLUR Results called to and readback by: ARIAS Person calling: NASRINMINC Date: 12/07/22Time: 1926 Calcium 9.2 8.4 - 10.2 mg/dL [facility] Bilirubin, Total 0.5 0.0 - 1.0 mg/dL [facility] Aspartate Amino Transferase 13 5 - 37 U/L [facility] Alanine Aminotransferase 20 0 - 40 U/L [facility] Total Protein 7.6 6.5 - 8.0 g/dL [facility] Albumin Level 3.9 3.5 - 5.0 g/dL [facility] Alkaline Phosphatase 125(H) 39 - 117 U/L [facility] 12/07/2022 7:04 PM EDT 12/07/2022 7:07 PM EDT [facility] External Provider LAB BLO OD ORDERABLES Final Result [facility] [address] [place] [phone] documented in this encounter Visit Diagnoses Not on filedocumented in this encounter Care Teams Sanforizer Relationship Specialty Start Date End Date Zee Camacho MD [address] [place] [address] PCP - General Family Medicine 09/17/20 Sebastián Duncan, PharmD [address] [place] [address] Pharmacist Internal Medicine 05/01/24 Johnnie Avalos, ALICIA [address] [place] [phone] Registered Nurse Family Medicine 02/04/25 Cheyenne García 02/04/25 [facility] 03/13/24 02/02/25 documented as of this encounter
--- OUTSIDE RECORDS SUMMARY | 2025-02-14 20:19 | XMS_ITS ---
Author Organization [employer] Address [address] [facility] [address] [place] [address] Care Team Providers Care Matcher Offbearer Name Role Phone Zee Camacho MD Primary Care Provide r Sebastián Duncan PharmD Unavailable Johnnie Avalos RN Unavailable [phone] Cheyenne García Unavailable CHW Complex Status:Outreach In Progress (Enrolling) Start date:02/04/2025 Enrollment reason:Home Health Overview Home Health Utilization- Collaboration with HH Utilization nurse for connection with appropriate resources for reduction of skilled home care services. Please outreach for enrollment. Case Team Name Relationship Phone Cheyenne García(Responsible Staff) [phone] Continued Care and Services Coordination
--- OUTSIDE RECORDS SUMMARY | 2025-02-14 20:19 | XMS_ITS | Encounter Summary ---
Author Organization [employer] Address [address] [facility] [address]t [place] [address] Care Team Providers Care Washery Engineer Name Role Phone Zee Camacho MD Primary Care Provide r Sebastián Duncan PharmD Unavailable [phone] Johnnie Avalos RN Unavailable [phone] Cheyenne García Unavailable Reason for Visit * Reason Onset Date Comments Care Coordination 02/09/2025 Home Care util ization Review Encounter Details Date Type Department Care Team ([facility] st Contact Info) Description 02/09/2025 Telephone [facility] MEDICINE [address] [place], [place] [phone] Zee Camacho MD [address] [place], [place] [phone] Care Coordination (Home Care utilization Review) Social History Tobacco Use Types Packs/Day Years [...] AM EDT documented as of this encounter Miscellaneous Notes * Telephone Encounter - Yumiko Gil LPN - 02/09/2025 3:52 PM EST Return telephone call received at this time. Per Garrett with [facility] patient was discharged from Home Care services on 11/26/24. documented in this encounter Plan of Treatment [...] type 2 diabetes No Jojo Keith MA Patient has chronic kidney disease Care Plan Patient has chronic kidney disease Jojo Frausto MA Weekly blood pressure task Care Plan Weekly blood pressure task Jojo Frausto [place] Patient has chronic kidney disease Care Plan Patient has chronic kidney disease Jojo rFausto [place] Weekly blood pressure task Care Plan Weekly blood pressure task Yumiko Serna LPN Weekly blood pressure task Care Plan Weekly blood pressure task Trina Gil Maura, [employer] Patient has chronic kidney disease Care Plan Patient has chronic kidney disease No JefferyYumiko stearns [employer] Patient has chronic kidney disease Care Plan Patient has chronic kidney disease No JefferyYumiko stearns [employer] Weekly blood pressure task Care Plan Weekly blood pressure task No JefferyYumiko stearns, [employer] Weekly blood pressure task Care Plan Weekly blood pressure task No JefferyYumiko stearns, [employer] Patient has chronic kidney disease Care Plan Patient has chronic kidney disease No Yumiko Gil [employer] Patient has chronic kidney disease Care Plan Patient has chronic kidney disease No JefferyYumiko stearns [employer] Weekly blood pressure task Care Plan Weekly [...] Weekly blood pressure task No Yumiko Gil [employer] Weekly blood pressure task Care Plan Weekly blood pressure task No Yumiko Gil, [employer] Patient has chronic kidney disease Care Plan Patient has chronic kidney disease No JefferyYumiko stearns, [employer] Patient has chronic kidney disease Care Plan Patient has chronic kidney disease No Yumiko Gil LPN documented as of this encounter Visit Diagnoses [...] 02/09/2025 Patient has chronic kidney disease 02/09/2025 Assessment Noted Time PHQ-9 Depression Total Score: 16 024 10:03 AM EDT documented as of this encounter Care Teams Washery Engineer Relationship Specialty Start Date End Date Zee Camacho MD [address] [place] [address] PCP - General Family Medicine 09/17/20 Sebastián Duncan, PharmD [address] [place] [address] Pharmacist Internal Medicine 05/01/24 Johnnie Avalos, ALICIA [address] [place] [address] ENRIQUE Guardado [phone] Registered Nurse Family Medicine 02/04/25 Cheyenne García 02/04/25 documented as of this encounter
--- OUTSIDE RECORDS SUMMARY | 2025-02-14 20:19 | XMS_ITS | Encounter Summary ---
Author Organization [employer] Address [address] [facility] 7t [place] [address] Care Team Providers Care Resource Specialist Name Role Phone Zee Camacho MD Primary Care Provide r Sebastián Duncan PharmD Unavailable Johnnie Avalos RN Unavailable [phone] Cheyenne García Unavailable Encounter Details Date Type Department Care Team (Late st Contact Info) Description 06/26/2022 Orders Only [facility] MED & PEDS [address] [place] [address] Charlene Aranda LPN Social History Tobacco Use [...] on filedocumented in this encounter Care Teams Resource Specialist Relationship Specialty Start Date End Date Zee Camacho MD [address] [place], [place] PCP - General Family Medicine 09/17/20 Sebastián Duncan, PharmD [address] [place] [address] Pharmacist Internal Medicine 05/01/24 Johnnie Avalos, RN [address] [place] [phone] Registered Nurse Family Medicine 02/04/25 Cheyenne García 02/04/25 Verito 03/13/24 02/02/25 documented as of this encounter
--- OUTSIDE RECORDS SUMMARY | 2025-02-14 20:19 | XMS_ITS | Encounter Summary ---
Author Organization [employer] Address 75 [facility] 7t [place] [address] Care Team Providers Care Radio Time Sales Supervisor Name Role Phone Zee Camacho MD Primary Care Provide r Sebastián Duncan PharmD Unavailable [phone] Johnnie Avalos RN Unavailable [phone] Cheyenne García Unavailable Reason for Visit * Reason Comments Med Refill Encounter Details Date Type Department Care Team (Late st Contact Info) Description 03/27/2024 Refill [facility] MEDICINE [address] [place], [place] [phone] Zee Camacho MD [address] [place], [place] [phone] Social History Tobacco Use Types Packs/Day Years [...] documented as of this encounter Care Teams Radio Time Sales Supervisor Relationship Specialty Start Date End Date Zee Camacho MD [address] [place] [address] PCP - General Family Medicine 09/17/20 Sebastián Duncan, AdelitaD [address] [place] [address] Pharmacist Internal Medicine 05/01/24 Johnnie Avalos, ALICIA [address] [place] [address] Registered Nurse Family Medicine 02/04/25 Cheyenne García 02/04/25 Verito 03/13/24 02/02/25 documented as of this encounter
--- OUTSIDE RECORDS SUMMARY | 2025-02-14 20:19 | XMS_ITS | Encounter Summary ---
Author Organization [employer] Address [address] [facility] 7t [place] [address] Care Team Providers Care Pharmacogeneticist Name Role Phone Zee Camacho MD Primary Care Provide r Sebastián Duncan PharmD Unavailable [phone] Johnnie Avalos RN Unavailable [phone] Cheyenne García Unavailable Reason for Visit * Reason Comments Med Refill Encounter Details Date Type Department Care Team (Late st Contact Info) Description 08/21/2023 Refill [facility] MEDICINE [address] [place], [place] [phone] Zee Camacho MD [address] [place], [place] [phone] Mild intermittent asthma, unspecified whether complicated Social [...] documented as of this encounter Care Teams Pharmacogeneticist Relationship Specialty Start Date End Date Zee Camacho MD [address] [place] [address] PCP - General Family Medicine 09/17/20 Sebastián Duncan PharmD [address] [place] [address] Pharmacist Internal Medicine 05/01/24 Johnnie Avalos, ALICIA [address] [place] [address] Registered Nurse Family Medicine 02/04/25 Cheyenne García 02/04/25 Verito 03/13/24 02/02/25 documented as of this encounter
--- OUTSIDE RECORDS SUMMARY | 2025-02-14 20:19 | XMS_ITS | Encounter Summary ---
Author Organization [employer] Address [address] [facility] 7t [place] [address] Care Team Providers Care Director Software Quality Assurance Name Role Phone Zee Camacho MD Primary Care Provide r Sebastián Duncan PharmD Unavailable [phone] Johnnie Avalos RN Unavailable [phone] Cheyenne García Unavailable Reason for Visit * Reason Comments Med Refill Encounter Details Date Type Department Care Team (Late st Contact Info) Description 04/17/2023 Refill [facility] MEDICINE [address] [place] [address] Zee Camacho MD [address] [place], [place] [phone] Social History Tobacco Use Types Packs/Day Years [...] on filedocumented in this encounter Care Teams Director Software Quality Assurance Relationship Specialty Start Date End Date Zee Camacho MD [address] [place], [place] [phone] PCP - General Family Medicine 09/17/20 Sebastián Duncan, PharmD [address] [place] [address] Pharmacist Internal Medicine 05/01/24 Johnnie Avalos, ALICIA [address] [place] [phone] Registered Nurse Family Medicine 02/04/25 Cheyenne García 02/04/25 [facility] 03/13/24 02/02/25 documented as of this encounter
--- OUTSIDE RECORDS SUMMARY | 2025-02-14 20:19 | XMS_ITS | Encounter Summary ---
Author Organization [employer] Address [address] [facility] [address] [place] [address] Care Team Providers Care Claims Coordinator Name Role Phone Zee Camacho MD Primary Care Provide r Sebastián Duncan PharmD Unavailable [phone] Johnnie Avalos RN Unavailable [phone] Cheyenne García Unavailable Reason for Visit * Reason Comments Care Coordination CM/CHW outreach Encounter Details Date Type Department Care Team (Latest Contact Info) Description 02/09/2025 Patient Outreach [facility] MEDICINE [address] [place], [place] [phone] Zee Camacho MD [address] [place], [place] [phone] Care Coordination (CM/CHW outreach) Social History Tobacco Use Types Packs/Day Years [...] encounter Progress Notes * Cheyenne García - 02/09/2025 3:07 PM EST CHW Cheyenne García, placed outbound call to patient in regards to help with SDOH services and to introduce Adult Complex Care Program CHW LVM introducing herself from [facility] CM Department with CHW's name, department and direct contact number requesting call back. Will re-attempt to contact within 5 days. and address not confirmed. documented in this encounter Plan of Treatment [...] Plan Patient has chronic kidney disease No Jojo Keith [place] Weekly blood pressure task Care Plan Weekly blood pressure task No Jojo Keith [place] Patient has chronic kidney disease Care Plan Patient has chronic kidney disease No Keith, [place], [place] Weekly blood pressure task Care Plan Weekly blood pressure task No JefferyFrancoYumiko, [employer] Weekly blood pressure task Care Plan Weekly blood pressure task No JefferyFrancoYumiko, [employer] Patient has chronic kidney disease Care Plan Patient has chronic kidney disease No JefferyFrancoYumiko, [employer] Patient has chronic kidney disease Care Plan Patient has chronic kidney disease No JefferyFrancoYumiko, [employer] Weekly blood pressure task Care Plan Weekly blood pressure task No JefferyFrancoYumiko, [employer] Weekly blood pressure task Care Plan Weekly blood pressure task No JefferyFrancoYumiko, [employer] Patient has chronic kidney disease Care Plan Patient has chronic kidney disease No JefferyFrancoYumiko, [employer] Patient has chronic kidney disease Care Plan Patient has chronic kidney disease No JefferyYumiko stearns, [employer] Weekly blood pressure task Care Plan Weekly [...] Weekly blood pressure task No JefferyYumiko stearns, [employer] Weekly blood pressure task Care Plan Weekly blood pressure task No JefferyFrancoYumiko, [employer] Patient has chronic kidney disease Care Plan Patient has chronic kidney disease No JefferyYumiko, [employer] Patient has chronic kidney disease Care Plan Patient has chronic kidney disease Yumiko Serna LPN documented as of this encounter Visit [...] documented as of this encounter Care Teams Claims Coordinator Relationship Specialty Start Date End Date Zee Camacho MD [address] [place] [phone] PCP - General Family Medicine 09/17/20 Sebastián Duncan, AdelitaD [address] [place] [address] Pharmacist Internal Medicine 05/01/24 Johnnie Avalos, RN [address] [place] [phone] Registered Nurse Family Medicine 02/04/25 Cheyenne García 02/04/25 documented as of this encounter
--- OUTSIDE RECORDS SUMMARY | 2025-02-14 20:19 | XMS_ITS | Encounter Summary ---
Author Organization [employer] Address [address] [place] [address] Care Team Providers Care Motor Vehicle Or Caravan Salesperson Name Role Phone Zee Camacho MD Primary Care Provide r Sebastián Duncan PharmD Unavailable [phone] Johnnie Avalos RN Unavailable [phone] Cheyenne García Unavailable Encounter Details Date Type Department Care Team (Late st Contact Info) Description 02/14/2025 Orders Only GENERIC EXTERNAL DATA DEPARTMENT Provider, Generic External Data Social History Tobacco Use Types Packs/Day Years [...] Weekly blood pressure task No Yumiko Gil LEAD PRINCIPAL TECHNICAL ARCHITECT Patient has chronic kidney disease Care Plan Patient has chronic kidney disease No Yumiko Gil LPN Patient has chronic kidney disease Care Plan Patient has chronic kidney disease No Yumiko Gil LPN Weekly blood pressure [...] chronic kidney disease No Yumiko Gil LPN Weekly blood pressure task Care Plan Weekly blood pressure task No Ilana Abraham, RN Weekly blood pressure task Care Plan Weekly blood pressure task No Ilana Abraham, ALICIA Patient has chronic kidney disease Care Plan [...] Gil LPN documented as of this encounter Procedures Procedure Name Priority Date/Time Associated Diagnosis Comments CBC WITH AUTO DIFFERENTIAL Routine 02/14/2025 5:12 PM EST SED RATE BY MODIFIED WESTERGREN Routine 02/14/2025 5:12 PM EST C-REACTIVE PROTEIN Routine 02/14/2025 5: 12 PM EST LACTIC ACID Routine 02/14/2025 5:12 PM EST COMPREHENSIVE METABOLIC PANEL Routine 02/14/2025 5:12 PM EST documented in this encounter Results * (ABNORMAL) Lactic Acid (02/14/2025 5:12 PM EST) Pathologist [facility] Lactic Acid 2.3(HH) 0.5 - 2.0 mmol/L [facility] Comment:Critical value for t est(s):LA Results called to and readback by:REBECCA Person calling:FRANK Date: [id number] 02/14/2025 5:12 PM EST 02/14/2025 5:18 PM EST Generic External Data Provider LAB BLOOD ORDERAB LES Final Result Performing Organization Address [facility] Co de Phone Number [facility] [address] [place] [phone] * (ABNORMAL) C-reactive Protein (02/14/2025 5:12 PM EST) [facility] C Reactive Protein 2.44(H) < or = 0.50 mg/dL [facility] 02/14/2025 5:12 PM EST 02/14/2025 5:18 PM EST [employer] External Data Provider LAB BLOOD ORDERAB LES Final Result Performing Organization Address [facility] Phone Number [facility] [address] [place] [phone] * (ABNORMAL) Comprehensive Metabolic Panel (02/14/2025 5:12 PM EST) Pathologist [facility] Sodium 142 135 - 145 mmol/L [facility] Potassium 4.7 3.3 - 5.1 mmol/L [facility] Chloride 102 96 - 108 mmol/L [facility] Carbon Dioxide 33(H) 22 - 29 mmol/L [facility] Anion Gap 12 12 - 20 [facility] Urea Nitrogen (BUN) 18(H) 9 - 16 mg/dL [facility] Creatinine, Serum 0.78 0.5 - 1.4 mg/dL [facility] Creatinine Clr Calc Pharmacy 111.9 [facility] Comment:eGFR (calculated fro m the MDRD study equation) and eCrCl(calculated from the Cockcroft-Gault equation) are based ondifferent parameters and may not yield comparable results.If eCrCl result is absurd, please check patient'sheight/weight. Estimated Glomerular Filt Rate >60 [facility] Comment:Chronic Kidney Disea se: Estimated GFR < 60 mL/min/[id number] Kidney Disease: Estimated GFR < 15 mL/min/1.73m2 Glucose 209(H) 60 - 115 mg/dL [facility] Calcium 9.3 8.4 - 10.2 mg/dL [facility] Bilirubin, Total 0.2 0.0 - 1.0 mg/dL [facility] Aspartate Amino Transferase 22 5 - 37 U/L [facility] Alanine Aminotransferase 20 0 - 40 U/L [facility] Total Protein 6.8 6.5 - 8.0 g/dL [facility] Albumin Level 3.7 3.5 - 5.0 g/dL [facility] Alkaline Phosphatase 129(H) 39 - 117 U/L [facility] 02/14/2025 5:12 PM EST 02/14/2025 5:18 PM EST Generic External Data Provider LAB BLOOD ORDERAB LES Final Result Performing Organization Address [facility] de Phone Number [facility] [address] [place] [phone] * (ABNORMAL) Sed Rate by Modified Ahsanren (02/14/2025 5:12 PM EST) Erythrocyte Sedimentation Rate 41(H) 1 - 20 MM/HR [facility] Comment:Patients with polycy themia and many hemoglobin abnormalitiesmay have depressed sed rates whereas patients with anemiamay have elevated sed rates. 02/14/2025 5:12 PM EST 02/14/2025 5:18 PM EST us Generic External Data Provider LAB BLOOD ORDERAB LES Final Result Performing Organization Address [facility] Co de Phone Number [facility] [address] [place] [address] [phone] * (ABNORMAL) CBC auto differential (02/14/2025 5:12 PM EST) White Blood Count 10.8 4.8 - 10.8 X10*3/uL [facility] Red Blood Count 4.27(L) 4.60 - 5.80 X10*6/uL [facility] Hemoglobin 13.1(L) 14.0 - 18.0 g/dl [facility] Hematocrit 39.5(L) 42.0 - 52.0 % [facility] Mean Corpuscular Volume 92.5 80.0 - 98.0 fL [facility] Mean Corpuscular Hemoglobin 30.7 27.0 - 33.0 pg [facility] Mean Corpuscular HGB Conc 33.2 31.0 - 36.0 g/dl [facility] Red Cell Distribution Width 14.4 11.0 - 16.0 % [facility] Platelet Count 253 160 - 400 X10*3/uL [facility] Mean Platelet Volume 11.3 9.4 - 12.4 fL [facility] Neutrophils Percent Auto 69.5 45 - 73 % [facility] Imm Gran Pct Auto 0.3 0.0 - 0.4 % [facility] Lymphocytes Percent Auto 22.4 20 - 40 % [facility] Monocytes Percent Auto 4.2 2 - 11 % [facility] Eosinophils Percent Auto 2.8 0 - 4 % [facility] Basophils Percent Auto 0.8 0 - 2 % [facility] NRBC Pct Auto 0.0 0.0 - 0.2 /100WBC [facility] Neutrophils Absolute Auto 7.5 2.0 - 8.3 x10*3/uL [facility] Imm Gran Abs Auto 0.03 0.00 - 0.03 X10*3/uL [facility] Lymphocytes Absolute Auto 2.4 1.2 - 4.9 X10*3/uL [facility] Monocytes Absolute Auto 0.5 0.1 - 1.2 X10*3/uL [facility] Eosinophils Absolute Auto 0.3 0.0 - 0.4 X10*3/uL [facility] Basophils Absolute Auto 0.1 0.0 - 0.2 X10*3/uL [facility] NRBC Abs Auto 0.000 0.0 - 0.012 X10*3/uL [facility] 02/14/2025 5:12 PM EST 02/14/2025 5:18 PM EST us Generic External Data Provider LAB BLOOD ORDERAB LES Final Result Performing Organization Address City/State/[facility] Co de Phone Number [facility] [address] [place] [phone] documented in this encounter Visit Diagnoses [...] documented as of this encounter Care Teams Motor Vehicle Or Caravan Salesperson Relationship Specialty Start Date End Date Zee Camacho MD [address] [place] [address] PCP - General Family Medicine 09/17/20 Sebastián Duncan, AdelitaD [address] [place] [address] Pharmacist Internal Medicine 05/01/24 Johnnie Avalos RN [address] [place] [phone] Registered Nurse Family Medicine 02/04/25 Cheyenne García 02/04/25 documented as of this encounter
== END 2025-02-14 20:29 | disposition left against medical advice (07) ==
PROVIDERS: Physician Assistant; Emergency Provider Emergency Medicine; PCP Internal Medicine
DX: L03.116 Cellulitis of left lower limb (principal); L03.115 Cellulitis of right lower limb; I10 Essential (primary) hypertension; E11.9 Type 2 diabetes mellitus without complications; E78.00 Pure hypercholesterolemia, unspecified; J45.909 Unspecified asthma, uncomplicated; F17.210 Nicotine dependence, cigarettes, uncomplicated; F19.10 Other psychoactive substance abuse, uncomplicated; Z79.4 Long term (current) use of insulin
CPT/HCPCS: 36415; 80053; 83605; 85025; 85652; 86140; 87040; 99281

== ENCOUNTER 2025-02-17 15:02 | Emergency (ER) | payer MEDICAID, SELFPAY ==
--- NOTE | ~2025-02-17 | XR_ITS ---
CLINICAL HISTORY: osteo? 2 view left tibia-fibula Comparison: None provided Findings No fractures or dislocations. No radiopaque foreign body. IMPRESSION: 1. No acute disease. This document has been electronically signed by: Kimberly Medina MD on 02/17/2025 22:54:44
--- OUTSIDE RECORDS SUMMARY | 2025-02-17 10:30 | XMS_ITS | Encounter Summary ---
Author Organization [employer] Address [address] [place] [address] Care Team Providers Care Assurance Senior Manager Insurance Name Role Phone Zee Camacho MD Primary Care Provide r Sebastián Duncan PharmD Unavailable [phone] Johnnie Avalos RN Unavailable [phone] Cheyenne García Unavailable Reason for Referral * Consultation (Routine) - Authorized Specialty Diagnoses / Procedures Referred By Jazmin chinchilla Referred To Contact Pharmacy Diagnoses Type 2 diabetes mellitus with hyperglycemia, with long-term current use of insulin (HCC) Barbara Shoemaker MD [address] [place] [address] Phone: tel: fax: Referral ID Status Reason Start Date Expiration Date Visits Requested Visits Authorized [id number] Authorized Consult and Treat 02/17/2025 02/17/2026 6 6 * Consultation (Routine) - Pending Review Specialty Diagnoses / Procedures Referred By Jazmin chinchilla Referred To Contact Wound Care Diagnoses Wound of left lower extremity, initial encounter Barbara Shoemaker MD [address] [place] [address] Phone: tel: fax: Referral ID Status Reason Start Date Expiration Date Visits Requested Visits Authorized [id number] Pending Review Specialty Services Required 02/17/2026 1 1 * Consultation (Routine) - Authorized Specialty Diagnoses / Procedures Referred By Contac t Referred To Contact Addiction Medicine Diagnoses Opioid use disorder Uncomplicated opioid dependence (CMS/HCC) (HCC) Barbara Shoemaker MD [address] [place] [id number] Phone: tel: fax: Referral ID Status Reason Start Date Expiration Date Visits Requested Visits Authorized [id number] Authorized Specialty Services Required 5 02/17/2026 1 1 Reason for Visit * Reason Comments sickonsite Encounter Details Date Type Department Care Team (Late st Contact Info) Description 02/17/2025 10:30 AM EST Office Visit [facility] [address] [place] [address] [phone] Barbara Shoemaker MD [address] [place] [address] Opioid use disorder (Primary Dx); Wound of left lower extremity, initial encounter; Type 2 diabetes mellitus with hyperglycemia, with long-term current use of insulin (HCC); Uncomplicated opioid dependence (CMS/HCC) (HCC) Social History Tobacco Use Types Packs/Day Years Used Date Smoking Tobacco: Some Days Cigarettes Passive Smoke Exposure: Current Smokeless Tobacco: Never Alcohol Use Standard Drinks/Week Comments Yes 0 (1 standard drink = 0.6 oz pur e alcohol) Depression Answer Date Recorded Patient Health Questionnaire-9 Score 19 02/17/2025 Patient Health Questionnaire-9 Score 19 02/17/2025 Last PHQ-9: Questionnaire Data Not on file 1 Housing Stability Answer Date Recorded What is your housing situati on today? I do not have housing (Staying with others, in a hotel, in a half-way, living outside on the street, on a beach, in a car, or in a park 02/17/[address] you li ve. Do you have problems with any of the following? No or not working smoke detectors 02/17/2025 Food Insecurity Answer Date Recorded Within the past 12 months, y ou worried that your food would run out before you got money to buy more: Often true 02/17/2025 Within the past 12 months,th e food you bought just didn't last and you didn't have enough money to get more: Often true Transportation Answer Date Recorded In the past 12 months, has l ack of transportation kept you from medical appts, meetings, work or from getting things needed for daily living? No 02/17/2025 Utilities Answer Date Recorded In the past 12 months, has t he electric, gas, oil or water company threatened to shut off services in your home? Yes 02/17/2025 Depression Answer Date Recorded Patient Health Questionnaire-2 Score 4 02/17/2025 Internet Access Answer Date Recorded Internet Access Q1 I am not sure 02/17/2025 Internet Access Q2 Not on file 02/17/2025 Sex and Gender Information Value Date Recorded Sex Assigned at Male 12/19/2021 10:20 AM EDT Legal Sex Male 10:20 AM EDT Gender Identity Male 12/19/2021 10:20 AM EDT Sexual Orientation Straight 12/19/2021 10 :20 AM EDT documented as of this encounter Last Filed Vital Signs Vital Sign Reading Time Taken Comments Blood Pressure 124/68 02/17/2025 10:30 AM EST Pulse 120 02/17/2025 10:30 AM EST Temperature 36.4 C (97.5 F) 02/17/2025 10:30 AM EST Respiratory Rate 16 02/17/2025 10:30 AM EST Oxygen Saturation 97% 02/17/2025 10:30 AM EST Inhaled Oxygen Concentration - - Weight 119 kg (262 lb) 02/17/2025 10:30 AM EST Height - - Body Mass Index 44.97 12/28/2023 2:08 PM EST documented in this encounter Functional Status * SBIRT - Drugs Question Answer Date of Assessment Author How many times in the past y ear have you used an illegal drug or used a prescription medication for non-medical reasons? 1 02/17/2025 11:10 AM EST Wellington Avalos MA Score 1 02/17/2025 11:10 AM EST Lisa Rodriguez MA * Over the past 2 weeks, how often have you been bothered by any of the following problems? Question Answer Date of Assessment Author Patient Health Questionnaire -2 Score 4 02/17/2025 11:10 AM EST Wellington Avalos MA * Little interest or pleasure in doing things Answer Date of Assessment Author More than half the days 02/17/2025 11:10 AM Lisa Joy MA * Feeling down, depressed, or hopeless Answer Date of Assessment Author More than half the days 02/17/2025 11:10 AM Lisa Joy MA * Trouble falling or staying asleep, or sleeping too much Answer Date of Assessment Author More than half the days 02/17/2025 11:10 AM Lisa Joy MA * Feeling tired or having little energy Answer Date of Assessment Author More than half the days 02/17/2025 11:10 AM Lisa Joy MA * Poor appetite or overeating Answer Date of Assessment Author Nearly every day 02/17/2025 11:10 AM Lisa Joy MA * Feeling bad about yourself - or that you are a failure or have let yourself or your family down Answer Date of Assessment Author More than half the days 02/17/2025 11:10 AM Lisa Joy MA * Trouble concentrating on things, such as reading the newspaper or watching television Answer Date of Assessment Author More than half the days 02/17/2025 11:10 AM Lisa Joy MA * Moving or speaking so slowly that other people could have noticed? Or the opposite - being so fidgety or restless that you have been moving around a lot more than usual. Answer Date of Assessment Author More than half the days 02/17/2025 11:10 AM Lisa Joy MA * Thoughts that you would be better off or hurting yourself in some way Answer Date of Assessment Author More than half the days 02/17/2025 11:10 AM Lisa Joy MA * Patient Health Questionnaire-9 Score Answer Date of Assessment Author 19 02/17/2025 11:10 AM Lisa Joy MA * Over the last 2 weeks, how often have you been bothered by any of the following problems? Question Answer Date of Assessment Author Feeling nervous, anxious, or on edge 0 02/17/2025 11:10 AM Wellington Joy MA Not being able to stop or control worrying 0 02/17/2025 11:10 AM Wellington Joy MA Worrying too much about different things 0 02/17/2025 11:10 AM Wellington Joy MA Trouble relaxing 0 02/17/2025 11:10 AM Lisa Joy MA Being so restless that it is hard to sit still 0 02/17/2025 11:10 AM Wellington Joy MA Becoming easily annoyed or irritable 0 02/17/2025 11:10 AM Wellington Joy MA Feeling afraid as if somethi ng awful might happen 0 02/17/2025 11:10 AM Wellington Joy MA LEONORA-7 Total Score 0 02/17/2025 11:10 AM Lisa Joy MA * How difficult have these problems made it for you to do your work, take care of things at home, or get along with other people? Answer Date of Assessment Author Not difficult at all 02/17/2025 11:10 AM Lisa Carlisle MA documented as of this encounter Progress Notes * Barbara Shoemaker MD - 02/17/2025 10:30 AM EST Subjective Merlin Cm is a 64 y.o. male who has hypertension, diabetes mellitus type 2, history bilateral leg cellulitis, CRISTOPHER, depression, , and patient presents for sick visit / recent ED visit follow up. Background: Problem List[1] Last PCP visit on 12/28/2023. Last CD[facility] visit on 06/19/2024. Last visit with mixer whipped topping in May 2024. History WEN due to renal hypoperfusion when using cocaine. Resolved by the time of the visit. Patient's care management team CHW contacted patient after recent ED visit. Outreach note as following: The patient reported going to the ED on 02/14/25 but left without being seen. He stated he has been unable to obtain his diabetes medications. The patient reports bilateral leg swelling with blisters and an open wound on one leg approximately the size of a quarter, which he believes appears infected. CHW advised the patient to [facility]. The patient requested a scheduled appointment instead. Please contact the patient to clarify and arrange follow-up care. Triage nurse contacted patient and documents as following: Pt reporting ongoing bilateral lower extremity edema that he states has been present for ~ 1yr but is worsening. He reports it is weeping and that he gets, water blisters . Pt confirms that it is pitting and that edema extends up to bilateral knees. He reports he has tried compression stockings but his skin sloughs off when he takes them off d/t the water blisters. He reports he can't wear shoesd/t the edema in his feet and he can hardly bend his toes. He reports new wound on left lateral ankle x2 days where a water blister opened per pt. Wound is the size of a quarter and has serosanguinous drainage. Pt denies it having any pus, being red, or yellow, or hot to the touch. Pt reports it is fairly superficial. He doesn't believe it is infected but is painful to the touch and he would likeit evaluated. Pt denies any SOB, new cough, fever, chest pain, or any other Sx. Pt denies change incolor of his feet, numbness, tingling, change in temperature of feet or toes, loss of bowel or bladder function. Pt informed no appts on the floor this afternoon. Pt would like an appt for tomorrow. Booked for tomorrow with [facility]. Reviewed patient's lab from 02/14/2025, notable for elevated lactic acid, CRP, and ESR. Previously following with Dr. Echeverria, vascular specialist, for venous insufficiency and lymphedema. Last seen in Oct 2023. Last seen by supervisor kennel, Dr. Whitman in Sep 2023. Today: Reports checking blood sugar at home, with a value of 192 mg/dL this morning. He has CGM. Describes a history of lymphedema for over a year and notes receiving compression stockings for management, but discontinued their use due to development of water blisters. Denies having received a pump for lymphedema. No fever or chills. Previously used methadone and buprenorphine / naloxone (Suboxone) to stop using heroin, but he stopped treatment because he was incarcerated. Not currently using methadone and denies current injection drug use. Reports using drugs alone and possesses naloxone, with partner aware of how to administer it in case of overdose. He would like to stop using drugs, and is interested in [facility]. Review of Systems Constitutional: Negative for activity change, appetite change and fever. Respiratory: Negative for shortness of breath. Cardiovascular: Negative for chest pain. Objective Vitals: 02/17/25 1030 BP: 124/68 BP Location: Left arm Patient Position: Sitting BP Cuff Size: Adult Pulse: (!) 120 Resp: 16 Temp: 97.5 ??F (36.4 ??C) TempSrc: Oral SpO2: 97% Weight: 262 lb (119 kg) Physical Exam Constitutional: General: He is not in acute distress. Appearance: Normal appearance. He is not ill-appearing. HENT: Head: Normocephalic and atraumatic. Mouth/Throat: Mouth: Mucous membranes are moist. Eyes: Extraocular Movements: Extraocular movements intact. Pupils: Pupils are equal, round, and reactive to light. Cardiovascular: Rate and Rhythm: Tachycardia present. Pulmonary: Effort: Pulmonary effort is normal. No respiratory distress. Breath sounds: Normal breath sounds. No wheezing or rhonchi. Skin: General: Skin is warm. Comments: Bilateral leg swelling. RLE - erythematous, a small scab on the anterior aspect of mid-[place]. LLE - erythematous, drainage from the wound on the anterior aspect Neurological: Mental Status: He is alert. Mental status is at baseline. Psychiatric: Mood and Affect: Mood normal. Results: Lab Results Component Value Date NA 144 02/17/2025 K 4.9 02/17/2025 CL 102 02/17/2025 CO2 34 (H) 02/17/2025 BUN 19 (H) 02/17/2025 CREATININE 0.91 02/17/2025 CRCLCALCPH 95.1 02/17/2025 EGFR >60 02/17/2025 GLUCOSE 136 (H) 02/17/2025 TOTALBILIRUB 0.2 02/17/2025 AST 20 02/17/2025 ALT 15 02/17/2025 TOTPROTEIN 6.8 02/17/2025 ALB 3.6 02/17/2025 ALP 113 02/17/2025 Lab Results Component Value Date HGBA1C 13.6 (A) 02/17/2025 MICROALBUR 409.0 05/05/2024 CREATUR 106.85 05/05/2024 MICROALBCREU 382.7 (H) 05/05/2024 Lab Results Component Value Date WBC 11.2 (H) 02/17/2025 HGB 12.4 (L) 02/17/2025 HCT 37.2 (L) 02/17/2025 PLT 252 02/17/2025 MCV 92.3 02/17/2025 Hyperglycemia: - Elevated blood glucose noted, with home reading of 192 mg/dL. Need for further evaluation of glycemic control. - Ordered hemoglobin A1c test. Recommended follow-up appointment with PCP and [facility] for diabetes management. Lymphedema with infection: - Lymphedema complicated by infection, not currently bacteremic per recent emergency department blood work. Concern for severity of infection requiring intravenous antibiotics. - Recommended immediate evaluation at emergency department for possible intravenous antibiotic therapy. Will call hospital to notify of arrival. Will request wound dressing prior to transfer. Recommended follow-up appointment with Dr. Echeverria for consideration of lymphedema pump. Methadone use and opioid overdose risk: - No current methadone use. Patient aware of opioid overdose risk and possesses naloxone. Partner trained in naloxone administration. - Reinforced importance of overdose prevention - Refer to [facility] Assessment/Plan Problem List Items Addressed This Visit Type 2 diabetes mellitus (HCC) A1C 13.8% on 02/17/2025 Patient has CGM Reschedule appointment with PCP Refer to [facility] Relevant Orders POCT glycosylated hemoglobin (Hgb A1c) (Completed) Referral to Pharmacy [facility] Uncomplicated opioid dependence (CMS/HCC) (HCC) Patient states he would like to be referred to [facility] Relevant Orders Referral to [facility] Leg wound, left Recurrent Patient seems to need IV antibiotic Recently went to [facility], elevated CRP, ESR, and lactic acid. Blood Cx negative Patient is high-risk for complication / infection, given uncontrolled diabetes mellitus, venous insufficiency / lymphedema Will send to [facility] for further evaluation / imaging / lab and treatment Patient states he will leave his car at home, and will have someone drive him to the ED Relevant Orders Wound Care Referral to Wound Clinic Other Visit Diagnoses Opioid use disorder - Primary Relevant Orders Referral to [facility] Allergies[2] Current Outpatient Medications Medication Instructions Aspirin Low Dose 81 mg, Oral, Daily atorvastatin (Lipitor) 80 MG tablet TAKE 1 TABLET BY MOUTH EVERY DAY bacitracin 500 UNIT/GM ointment Topical, 2 times daily chlorthalidone (Hygroton) 25 MG tablet TAKE 1 TABLET BY MOUTH EVERY DAY Continuous Glucose Human Relations Manager (FreeStyle Omer [employer]) device 1 each, Does not apply, Daily, Use asdirected for CGM Continuous Glucose Sensor (FreeStyle Omer 3 Plus Sensor) misc 1 each, Does not apply, Every 15 days, Apply 1 every 15 days as directed for CGM glucose blood (FreeStyle Precision Leo Test) test strip Use to test blood sugar 3 times daily in case of CGM failure or extremes of BG insulin aspart FlexPen (NovoLOG) 100 UNIT/ML pen INJECT 10 UNITS SUBCUTANEOUSLY WITH BREAKFAST, LUNCH AND EVENING MEAL insulin degludec (Tresiba FlexTouch) 200 UNIT/ML injection Inject 112 units subcutaneously daily. insulin pen needle (B-D UF III MINI PEN NEEDLES) 31G x 5 mm misc Please 4 times a day INSTRUCTED Jardiance 10 MG 1 tablet, Daily lidocaine (Lidoderm) 5 % patch APPLY 1 TO 2 PATCHES TOPICALLY EVERY DAY. MAY WEAR FOR 12 HOURS NEEDED FOR PAIN lisinopril 40 mg, Oral, Daily metFORMIN (Glucophage) 1000 MG tablet TAKE 1 TABLET BY MOUTH TWICE A DAY WITH BREAKFAST AND DINNER Ozempic (1 MG/DOSE) 1 mg, Subcutaneous, Weekly pantoprazole (PROTONIX) 40 mg, Oral, Daily Ventolin HFA 108 (90 Base) MCG/ACT inhaler INHALE 2 PUFFS EVERY 6 HOURS IF NEEDED FOR WHEEZING. Follow-up: with PCP within 1 mo or sooner if any problem arises. This note was drafted using Ambient (AI) technology. The patient/patient's guardian has been informed and has consented to the use of this technology [1] Patient Active Problem List Diagnosis Essential hypertension Fracture of multiple ribs Depressive disorder Paresthesia of foot Polysubstance abuse (HCC) Tubular adenoma Type 2 diabetes mellitus (HCC) Bilateral primary osteoarthritis of knee Lower extremity edema Stage 3a chronic kidney disease (CMS/HCC) ([facility]) Mild intermittent asthma Uncomplicated opioid dependence (CMS/HCC) ([facility]) Bilateral lower leg cellulitis Onychomycosis Leg wound, left [2] Allergies Allergen Reactions Penicillin G Other reaction(s): Rash, Rash * Lucie Thomas RN - 02/17/2025 10:30 AM ESTAssociated Order(s): Wound Care Post-Procedure Diagnose(s): Wound of left lower extremity, initial encounter Patient ID: Merlin Cm is a 64 y.o. male. Wound Care Date/Time: 02/17/2025 11:06 AM Performed by: Lucie Thomas RN Authorized by: Barbara Shoemaker MD Consent: Consent obtained: Verbal Consent given by: Patient Risks discussed: Pain [place] protocol: Patient identity confirmed: Verbally with patient Procedure details: Wound location: Leg Leg location: L lower leg Post-procedure details: Procedure completion: Tolerated Comments: Wrapped with kerlix for protection, left existing dressing in placed. Educated on importance of keeping wound clean and dry and keeping blood sugar under control. Pt verbalized understanding. documented in this encounter Miscellaneous Notes * Assessment & Plan Note - Barbara Shoemaker MD - 02/17/2025 6:05 PM ESTAssociated Problem(s): Leg wound, left Recurrent Patient seems to need IV antibiotic Recently went to [facility], elevated CRP, ESR, and lactic acid. Blood Cx negative Patient is high-risk for complication / infection, given uncontrolled diabetes mellitus, venous insufficiency / lymphedema Will send to [facility] for further evaluation / imaging / lab and treatment Patient states he will leave his car at home, and will have someone drive him to the ED * Assessment & Plan Note - Barbara Shoemaker MD - 02/17/2025 6:01 PM ESTAssociated Problem(s): Uncomplicated opioid dependence (CMS/HCC) (HCC) Patient states he would like to be referred to [facility] * Assessment & Plan Note - Barbara Shoemaker MD - 02/17/2025 6:00 PM ESTAssociated Problem(s): Type 2 diabetes mellitus (HCC) A1C 13.8% on 02/17/2025 Patient has CGM Reschedule appointment with PCP Refer to [facility] documented in this encounter Plan of Treatment Scheduled Referrals Name Type Priority Associated Diagnoses Orde r Schedule Referral to [facility] Outpatient Referral Routine Opioid use disorder Uncomplicated opioid dependence (CMS/HCC) (HCC) Expected: 02/17/2025 (Approximate), Expires: 02/17/2026 Referral to Wound Clinic Outpatient Referral Routine Wound of left lower extremity, initial encounter Expected: 02/17/2025 (Approximate), Expires: 02/17/2026 Referral to Pharmacy [facility] Outpatient Referral Routine Type 2 diabetes mellitus with hyperglycemia, with long-term current use of insulin (HCC) Ordered: 02/17/2025 documented as of this encounter Goals Goal Patient Goal Type Associated Problems Recent Progress Patient-Stated? Author Help patients manage their type 2 diabetes Care Plan Help patients manage their type 2 diabetes No KeithJojo merino MA Weekly blood pressure task Care Plan Weekly blood pressure task No KeithFifi merinouyomy MA Help patients manage their type 2 diabetes Care Plan Help patients manage their type 2 diabetes No KiethFifiuyomy, [place] Patient has chronic kidney disease Care Plan Patient has chronic kidney disease No KeithFifi merinouyomy, [place] Weekly blood pressure task Care Plan Weekly blood pressure task No KeithFifiuyomy, [place] Patient has chronic kidney disease Care Plan Patient has chronic kidney disease No KeithFifi merinouyomy, [place] Weekly blood pressure task Care Plan Weekly blood pressure task No Yumiko Gil, DIAMOND ASSORTER Weekly blood pressure task Care Plan Weekly blood pressure task No Franco Gilura DIAMOND ASSORTER Patient has chronic kidney disease Care Plan Patient has chronic kidney disease No JefferyFranco stearnsura, DIAMOND ASSORTER Patient has chronic kidney disease Care Plan Patient has chronic kidney disease No Yumiko Gil DIAMOND ASSORTER Weekly blood pressure task Care Plan Weekly blood pressure task No JefferyYumiko stearns DIAMOND ASSORTER Weekly blood pressure task Care Plan Weekly blood pressure task No JefferyFranco stearnsura, DIAMOND ASSORTER Patient has chronic kidney disease Care Plan Patient has chronic kidney disease No Yumiko Gil, DIAMOND ASSORTER Patient has chronic kidney disease Care Plan Patient has chronic kidney disease No Yumiko Gil DIAMOND ASSORTER Weekly blood pressure task Care Plan Weekly [...] Plan Weekly blood pressure task No JefferyYumiko lopez, DIAMOND ASSORTER Weekly blood pressure task Care Plan Weekly blood pressure task No Jeffery Yumiko, DIAMOND ASSORTER Patient has chronic kidney disease Care Plan Patient has chronic kidney disease No Jeffery Yumiko, DIAMOND ASSORTER Patient has chronic kidney disease Care Plan Patient has chronic kidney disease No JefferyFranco stearnsura, DIAMOND ASSORTER Weekly blood pressure task Care Plan Weekly blood pressure task No Ashley Ortez Weekly blood pressure task Care Plan Weekly blood pressure task No Ashley Ortez Patient has chronic kidney disease Care Plan Patient has chronic kidney disease No Ashley Ortez Patient has chronic kidney disease Care Plan Patient has chronic kidney disease No Ashley Ortez Weekly blood pressure task Care Plan Weekly [...] Care Plan Weekly blood pressure task No Sally Contreras MA Weekly blood pressure task Care Plan Weekly blood pressure task No Sally Contreras MA Patient has chronic kidney disease Care Plan Patient has chronic kidney disease No Sally Contreras MA Patient has chronic kidney disease Care Plan Patient has chronic kidney disease No Sally Contreras MA Weekly blood pressure task Care Plan Weekly blood pressure task No Sally Contreras MA Weekly blood pressure task Care Plan Weekly blood pressure task No Sally Contreras MA Patient has chronic kidney disease Care Plan Patient has chronic kidney disease No Sally Contreras MA Patient has chronic kidney disease Care Plan Patient has chronic kidney disease No Sally Contreras MA Weekly blood pressure task Care Plan Weekly blood pressure task No Shannan Guadarrama Weekly blood pressure task Care Plan Weekly blood pressure task No Shannan Guadarrama Patient has chronic kidney disease Care Plan Patient has chronic kidney disease No Shannan Guadarrama Patient has chronic kidney disease Care Plan Patient has chronic kidney disease No Shannan Guadarrama documented as of this encounter Procedures Procedure Name Priority Date/Time Associated Diagnosis Comments POCT GLYCOSYLATED HEMOGLOBIN (HGB A1C) Routine 02/17/2025 11:08 AM EST Type 2 diabetes mellitus with hyperglycemia, with long-term current use of insulin (HCC) WOUND CARE Routine 02/17/2025 11:06 AM EST Wound of left lower extremity, initial encounter documented in this encounter Results * (ABNORMAL) POCT glycosylated hemoglobin (Hgb A1c) (02/17/2025 11:08 AM EST) Hemoglobin A1C 13.6(A) 4.0 - 5.7 % QC Media Lot # [id number] Lot# Expiration Date Blood Capillary blood specimen / Unknown 02/17/2025 11:08 AM EST Barbara Shoemaker MD POINT OF CARE TEST ENTER/EDIT OR DERABLES Final Result * Wound Care (02/17/2025 11:06 AM EST) Lucie Blanton RN - 02/17/2025 11:06 AM EST Lucie Thomas RN 02/17/2025 6:16 PM Wound Care Date/Time: 02/17/2025 11:06 AM Performed by: Lucie Thomas RN Authorized by: Barbara Shoemaker MD Consent: Consent obtained: Verbal Consent given by: Patient Risks discussed: Pain [place] protocol: Patient identity confirmed: Verbally with patient Procedure details: Wound location: Leg Leg location: L lower leg Post-procedure details: Procedure completion: Tolerated Comments: Wrapped with kerlix for protection, left existing dressing in placed. Educated on importance of keeping wound clean and dry and keeping blood sugar under control. Pt verbalized understanding. us Barbara Shoemaker MD IN CLINIC/BEDSIDE ORDERABLES Fin al Result documented in this encounter Visit Diagnoses Diagnosis Opioid use disorder- Primary Wound of left lower extremity, initial encounter Type 2 diabetes mellitus with hyperglycemia, with long-term current use of insulin (HCC) Uncomplicated opioid dependence (CMS/HCC) (HCC) documented in this encounter Additional Health Concerns Active [...] kidney disease 02/09/2025 Weekly blood pressure task 02/16/2025 Weekly blood pressure task 02/16/2025 Patient has chronic kidney disease 02/16/2025 Patient has chronic kidney disease 02/16/2025 Weekly blood pressure task 02/16/2025 Weekly blood pressure task 02/16/2025 Patient has chronic kidney disease 02/16/2025 Patient has chronic kidney disease 02/16/2025 Weekly blood pressure task 02/16/2025 Weekly blood pressure task 02/16/2025 Patient has chronic kidney disease 02/16/2025 Patient has chronic kidney disease 02/16/2025 Weekly blood pressure task 02/16/2025 Weekly blood pressure task 02/16/2025 Patient has chronic kidney disease 02/16/2025 Patient has chronic kidney disease 02/16/2025 Weekly blood pressure task 02/16/2025 Weekly blood pressure task 02/16/2025 Patient has chronic kidney disease 02/16/2025 Patient has chronic kidney disease 02/16/2025 Weekly blood pressure task 02/17/2025 Weekly blood pressure task 02/17/2025 Patient has chronic kidney disease 02/17/2025 Patient has chronic kidney disease 02/17/2025 Assessment Noted Time PHQ-9 Depression Total Score: 19 025 11:10 AM EST documented as of this encounter Care Teams Assurance Senior Manager Insurance Relationship Specialty Start Date End Date Zee Camacho MD [address] [place] [address] PCP - General Family Medicine 09/17/20 Sebastián Duncan, PharmD [address] [place] [address] Pharmacist Internal Medicine 05/01/24 Johnnie Avalos, ALICIA [address] [place] [id number] Registered Nurse Family Medicine 02/04/25 Cheyenne García 02/04/25 documented as of this encounter
[2025-02-17 15:21] VITALS: BP 138/61; PULSE 115; RESP 20; TEMP 36.7; O2SAT 96; BMI 44.0
--- NOTE | 2025-02-17 15:22 | ED.SKABFB ---
HPI - Skin/Abscess/Foreign Bdy General Chief complaint: Wound/Laceration Stated complaint: Blisters L leg Time Seen by Provider: 02/17/25 21:49 Source: patient Limitations: no limitations History of Present Illness ED Provider: Fariha Baum PA-C HPI narrative: 64-year-old male with a history of diabetes, peripheral neuropathy, morbid obesity, chronic lymphedema with chronic diabetic ulceration over anterior left boyer, chronic kidney disease, hypertension, hyperlipidemia, polysubstance abuse, who presents with concerns for worsening diabetic wound. Patient states he has had the wound for years, he has not followed by wound care. Patient states he applies an ?rqlj-uag-banflsj cream he is not sure which one?, and keeps it clean and covered with Band-Aids. Denies new purulence from the site or fever. He does state he feels some of the skin sloughed off in the ulceration has increased in size. Related Data Home Medications ?Medication ?Instructions ?Recorded ?Confirmed albuterol sulfate 90 mcg/actuation 2 puff inhalation Q6H PRN 01/09/20 10/09/23 aerosol inhaler (ProAir HFA) Shortness Of Breath aspirin 81 mg tablet,delayed 81 mg PO DAILY 01/09/20 10/09/23 release (Adult Low Dose Aspirin) atorvastatin 80 mg tablet 80 mg PO BEDTIME 01/09/20 10/09/23 lisinopril 40 mg tablet 40 mg PO DAILY 01/09/20 10/09/23 pantoprazole 40 mg tablet,delayed 40 mg PO DAILY 01/09/20 10/09/23 release blood sugar diagnostic (FreeStyle #10 ea 03/10/20 10/09/23 Test strips) lancets 28 gauge (FreeStyle #100 ea 03/10/20 10/09/23 Lancets) loratadine 10 mg capsule 10 mg PO DAILY PRN Allergy Symptoms 03/10/20 10/09/23 chlorthalidone 25 mg tablet 25 mg PO QAM 12/05/22 10/09/23 insulin lispro 100 unit/mL See Protocol subcut QIDACHS 12/05/22 10/09/23 subcutaneous pen (Humalog KwikPen (U-100) Insulin) lidocaine 5 % topical patch 1 patch topical DAILY pain 12/05/22 10/09/23 metformin 1,000 mg tablet 1,000 mg PO BID 12/05/22 10/09/23 naproxen 500 mg tablet 500 mg PO DAILY pain 12/05/22 10/09/23 semaglutide 0.25 mg or 0.5 mg (2 0.25 mg subcut QWEEK 10/29/23 mg/1.5 mL) subcutaneous pen injector (Ozempic) insulin glargine 100 unit/mL (3 70 unit subcut BID 06/06/24 mL) subcutaneous pen (Lantus Solostar U-100 Insulin) Previous Rx's ?Medication ?Instructions ?Recorded fredi.stocking,knee,reg,xlrg #12 ea 07/20/20 cyclobenzaprine 10 mg tablet 10 mg PO BEDTIME PRN muscle spasm 02/02/21 #7 tabs pen needle, diabetic 32 gauge x #100 ea 02/08/22 (BD Ashly 2nd Gen Pen Needle) gabapentin 300 mg capsule 300 mg PO BEDTIME #30 caps 12/06/22 albuterol sulfate 90 mcg/actuation 2 puff inhalation Q4-6H PRN 10/20/23 aerosol inhaler shortness of breath or wheezing #6.7 grams empagliflozin 10 mg tablet 10 mg PO DAILY #30 tabs 06/06/24 (Jardiance) cephalexin 500 mg capsule 500 mg PO QID 14 days #56 caps 02/18/25 sulfamethoxazole 800 1 tab PO Q12H 14 days #28 tabs 02/18/25 mg-trimethoprim 160 mg tablet (Bactrim DS) Allergies Allergy/AdvReac Type Severity Reaction Status Date / Time sulfamethoxazole (From Allergy Intermediate RASH Verified 02/17/25 15:24 BACTRIM DS) trimethoprim (From BACTRIM Allergy Intermediate RASH Verified 02/17/25 15:24 DS) Penicillins Allergy Mild all Verified 02/17/25 15:24 Review of Systems Review of Systems: Yes all other systems are reviewed and are negative Constitutional: Constitutional: Denies fatigue and Denies fever(s) Cardiovascular: Cardiovascular: Denies chest pain Gastrointestinal: Gastrointestinal: Denies abdominal pain Musculoskeletal: Musculoskeletal: Denies arthralgias and Denies joint swelling Integumentary/Breasts: Skin/Breast: Reports erythema, Reports sores and Reports wounds Endocrine: Endocrine: Denies fatigue PMF Past Medical History Attestation statement: The following information was validated with the patient. 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 of insulin Diabetes type 2, uncontrolled Hypercholesteremia Asthma Surgical History Hx of colonoscopy Status post laser lithotripsy of ureteral calculus H/O knee surgery H/O hernia repair Family History Family History Father Diabetes Glaucoma Mother Diabetes HTN (hypertension) Asthma Diabetic kidney Brother Spinal cord injuries Diabetes Sister Asthma Social History Social History Household Members: Other Household Members Other:: room mate Housing: Apartment Housing Other:: handicapped facility Do you presently have visiting nurse or other home services: No Unable to assess alcohol history related to: Unknown Alcohol intake: current Alcohol intake frequency: a few times a week Patient Tobacco Use Status: Current everyday Tobacco user Tobacco use type: Cigarette Cigarettes Per Day: 1 Smoked in Last 30 Days: No Second Hand Smoke Exposure: No Use of substances other than those prescribed or required for medical reasons: No Substance Use Type: Prescription Drugs Advance Directives: No Advance Directives Information Provided: No Do you have a plan to hurt others: No Plan Current occupational status: employed 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 Physical Exam Vital Signs: Vital Signs: Last Vital Signs Temp 98.5 F 02/18/25 00:40 Pulse 94 02/18/25 01:21 Resp 13 02/18/25 01:21 BP 132/60 02/18/25 01:21 Pulse Ox 96 02/18/25 01:21 O2 Del Method Room Air 02/18/25 01:21 BMI result Body Mass Index 44.0 Const: Other: Alert Orientation/consciousness: patient oriented x3 Resp: Effort & Inspection: normal respiratory effort Cardio: Other: Normal peripheral perfusion, pitting edema is chronic Skin: Other: Warm dry no rash Neuro: General: patient oriented x3, gait normal, no focal motor deficits and CN's II-XI intact bilaterally Extrem: Other: There was no purulence from either site, the wounds were dressed in some sort of ointment which I removed, there was overlying erythema and warmth, some chronicity that has definite, overlying shininess of the skin, and hyperpigmentation consistent with the his chronic venous insufficiency/lymphedema Psych: Other: Cooperative Course Course Course Narrative: This is a Rapid Medical Exam performed in triage by Annmarie Medellin PA-C. Full HPI, ROS and PE to be performed by primary ED provider. 64-year-old male with a possible placement HTN, sleep apnea, obesity, asthma, presenting to the ED c/o bilateral lower extremity blisters, erythema, swelling, and drainage > left. Sent in from [facility]. PE: + motor edema. Left lower extremity with appreciable erythema. Seeping drainage noted on dressing. Plan: lab, blood Cx Reevaluation(s) Reevaluation #1: A 05/08/2002 on February 17, a sepsis focused exam was performed. The patient's lactic is elevated, no temperature, he is 98.7 rectally, adding on ideal body weight IV fluids, the total bolus we will be 1776 mL, starting ceftriaxone and doxy Time: 23:03 Reevaluation #2: Patient has been requesting to leave, the other day he left without completing treatment, his lactic is improved, we will discharge, he does not want to be admitted. Time: 01:56 Medications Administered Discontinued Medications Generic Name Dose Route Start Last Admin Trade Name Freq PRN Reason Stop Dose Admin Magnesium Sulfate 2 gm in 50 mls @ 150 mls/hr 02/17/25 21:54 02/17/25 23:39 Magnesium Sulfate/H2o IV 02/17/25 22:13 Infused ONCE ONE Infusion Sodium Chloride 1,000 mls @ 999 mls/hr 02/17/25 23:15 02/18/25 00:36 Ns IV 02/18/25 00:15 Infused .Q1H1M BETHEL Infusion Ceftriaxone Sodium 2 gm/ 50 mls @ 100 mls/hr 02/17/25 23:03 02/17/25 23:47 Sodium Chloride IV 02/17/25 23:32 Infused ONCE ONE Infusion Doxycycline Hyclate 100 mg/ 250 mls @ 166.67 mls/hr 02/17/25 23:03 02/18/25 01:20 Sodium Chloride IV 02/18/25 00:32 Infused ONCE ONE Infusion Sodium Chloride 1,000 mls @ 999 mls/hr 02/17/25 23:15 02/17/25 23:47 Ns IV 02/18/25 00:15 999 mls/hr .Q1H1M COUNT INCLUDES THE [facility] Administration Medical Decision Making Medical Decision Making MDM Narrative: 64-year-old male with a history of diabetes, peripheral neuropathy, morbid obesity, chronic lymphedema with chronic diabetic ulceration over anterior left boyer, chronic kidney disease, hypertension, hyperlipidemia, polysubstance abuse, who presents with concerns for worsening diabetic wound. Patient states he has had the wound for years, he has not followed by wound care. Patient states he applies an ?fmfe-por-ikzimhs cream he is not sure which one?, and keeps it clean and covered with Band-Aids. Denies new purulence from the site or fever. He does state he feels some of the skin sloughed off in the ulceration has increased in size. Problem: Diabetes, neuropathy, chronic wound , lymphedema History: Per patient I have considered the following differential diagnoses: Cellulitis, purulent cellulitis, abscess, chronic venous stasis wound, osteomyelitis, sepsis Plan: There was definite chronicity to the wound, his labs were reassuring, adding on inflammatory markers, his magnesium was subtly low, we will give 2 g IV, obtaining imaging. Likely just outpatient follow up with the wound care and a course of antibiotic. I do not foresee him requiring admission. However, Patient was seen here on the , had labs, no leukocytosis at that time, a lactic was drawn and it was 2.3, no repeat. He left without completing treatment. We will repeat lactic, and obtain blood cultures. A 05/08/2002 on February 17, a sepsis focused exam was performed. The patient's lactic is elevated, no temperature, he is 98.7 rectally, adding on ideal body weight IV fluids, the total bolus we will be 1776 mL, starting ceftriaxone and doxy..... No osteo on x-ray I have independently reviewed the following tests: Labs: Leukocytosis with left shift, not anemic, magnesium subtly low at 1.4, no additional electrolyte abnormality, ESR 37, CRP 3.21 , lactic 3.5 , repeat 1.4 X-ray left tib-fib:Findings No fractures or dislocations. No radiopaque foreign body. IMPRESSION: 1. No acute disease. Differential Diagnosis Differential Diagnoses: The differential diagnosis associated with the presentation includes See [facility] Admission/Observation Consideration of admission/observation: Escalation of care including admission/observation considered Lab Data [facility] Lab Attestation statement: I reviewed the patient's lab results. 02/17/25 16:06 02/17/25 16:06 Labs: Lab Results 02/17/25 02/17/25 02/18/25 Range/Units 16:06 22:33 01:09 WBC 11.2 H (4.8-10.8) X10*3/uL RBC 4.03 L (4.60-5.80) X10*6/uL Hgb 12.4 L (14.0-18.0) g/dl Hct 37.2 L (42.0-52.0) % MCV 92.3 (80.0-98.0) fL MCH 30.8 (27.0-33.0) pg MCHC 33.3 (31.0-36.0) g/dl RDW 14.2 (11.0-16.0) % Plt Count 252 (160-400) X10*3/uL MPV 10.6 (9.4-12.4) fL Immature Gran % (Auto) 0.3 (0.0-0.4) % Neut % (Auto) 75.2 H (45-73) % Lymph % (Auto) 18.3 L (20-40) % [place]born % (Auto) 4.2 (2-11) % Eos % (Auto) 1.3 (0-4) % Baso % (Auto) 0.7 (0-2) % Lymph # (Auto) 2.1 (1.2-4.9) X10*3/uL [place] # (Auto) 0.5 (0.1-1.2) X10*3/uL Eos # (Auto) 0.2 (0.0-0.4) X10*3/uL Baso # (Auto) 0.1 (0.0-0.2) X10*3/uL Abs Immat Gran (auto) 0.03 (0.00-0.03) X10*3/uL Absolute Neuts (auto) 8.4 H (2.0-8.3) x10*3/uL Absolute Nucleated RBC 0.000 (0.0-0.012) X10*3/uL Nucleated RBC % (auto) 0.0 (0.0-0.2) /100WBC ESR 37 H (1-20) MM/HR Sodium 144 (135-145) mmol/L Potassium 4.9 (3.3-5.1) mmol/L Chloride 102 (96-108) mmol/L Carbon Dioxide 34 H (22-29) mmol/L Anion Gap 13 (12-20) BUN 19 H (9-16) mg/dL Creatinine 0.91 (0.5-1.4) mg/dL Estim Creat Clear Calc 95.1 Estimated GFR > 60 Random Glucose 136 H (60-115) mg/dL Lactic Acid 3.5 H* (0.5-2.0) mmol/L Lactic Acid F/U @ 2Hr 1.4 (0.5-2.0) mmol/L Calcium 8.9 (8.4-10.2) mg/dL Magnesium 1.4 L* (1.6-2.6) mg/dL Total Bilirubin 0.2 (0.0-1.0) mg/dL Direct Bilirubin < 0.2 (0.0-0.5) mg/dL AST 20 (5-37) U/L ALT 15 (0-40) U/L Alkaline Phosphatase 113 (39-117) U/L C-Reactive Protein 3.21 H (< or = 0.50) mg/dL NT-Pro-B Natriuret Pep 225.7 (<300) pg/mL Total Protein 6.8 (6.5-8.0) g/dL Albumin 3.6 (3.5-5.0) g/dL Radiology Impression Discussion of test interpretation with radiology: I have reviewed the radiologist's reading. Critical Care Time Critical Care Time Critical Care Time: Yes Total Critical Care Time: 35 Attestation: I Fariha Baum PA-C have personally performed 35 minutes of critical care time not including lines and procedures; sepsis Discharge Plan Discharge Clinical Impression: Diabetic ulcer of lower leg, Lymphedema, Cellulitis of left lower extremity Patient Disposition: Home, Self-Care Instructions: Cellulitis (ED), Lymphedema (ED), Chronic Wounds (ED) Additional Instructions: You are being treated for an infection of your left lower extremity. See home care instructions. You are being placed on 2 antibiotics, you need to complete the course of each antibiotic, this is extremely important. Take both the cephalexin and the Bactrim as directed. I am providing you with a contact for our wound care clinic, call February 20 to schedule an appointment. Prescriptions: New cephalexin 500 mg capsule 500 mg PO QID 14 Days Qty: 56 0RF sulfamethoxazole-trimethoprim [Bactrim DS] 800-160 mg tablet 1 tab PO Q12H 14 Days Qty: 28 0RF No Action (DME) pen needle, diabetic [BD Ashly 2nd Gen Pen Needle] 32 gauge x 5/32 needle See Rx Instructions .MEDSUPPLY Qty: 100 4RF Rx Instructions: Twice a day (DME) fredi.stocking,knee,reg,xlrg Misc See Rx Instructions .ROUTE .MEDSUPPLY Qty: 12 0RF Rx Instructions: As directed cyclobenzaprine 10 mg tablet 10 mg PO BEDTIME PRN (Reason: muscle spasm) Qty: 7 0RF chlorthalidone 25 mg tablet 25 mg PO QAM metformin 1,000 mg tablet 1,000 mg PO BID lidocaine 5 % adhesive patch,medicated 1 patch topical DAILY Rx Instructions: leave on most painful area for up to 12 hrs naproxen 500 mg tablet 500 mg PO DAILY Rx Instructions: Take with food insulin lispro [Humalog KwikPen Insulin] 100 unit/mL insulin pen See Protocol subcut QIDACHS Protocol: Insulin Correction Scale Less than or equal to 110 ---- Give (units): 0 111 to 150 Give (units): 0 151 to 200 Give (units): 2 201 to 250 Give (units): 4 251 to 300 Give (units): 6 301 to 350 Give (units): 8 Greater than 350 Give (units): 10 Call MD if Blood Glucose > : 350 gabapentin 300 mg capsule 300 mg PO BEDTIME Qty: 30 1RF albuterol sulfate 90 mcg/actuation HFA aerosol inhaler 2 puff inhalation Q4-6H PRN (Reason: shortness of breath or wheezing) Qty: 6.7 0RF loratadine 10 mg capsule 10 mg PO DAILY PRN (Reason: Allergy Symptoms) (DME) lancets [FreeStyle Lancets] 28 gauge misc See Rx Instructions .ROUTE .MEDSUPPLY Qty: 100 Rx Instructions: As directed (DME) FreeStyle Test Strip See Rx Instructions .ROUTE .MEDSUPPLY Qty: 10 Rx Instructions: As directed aspirin [Adult Low Dose Aspirin] 81 mg tablet,delayed release (DR/EC) 81 mg PO DAILY lisinopril 40 mg tablet 40 mg PO DAILY atorvastatin 80 mg tablet 80 mg PO BEDTIME pantoprazole 40 mg tablet,delayed release (DR/EC) 40 mg PO DAILY albuterol sulfate [ProAir HFA] 90 mcg/actuation HFA aerosol inhaler 2 puff inhalation Q6H PRN (Reason: Shortness Of Breath) Ozempic 0.25 mg or 0.5 mg(2 mg/1.5 mL) pen injector 0.25 mg subcut QWEEK Rx Instructions: for 4 weeks insulin glargine [Lantus Solostar U-100 Insulin] 100 unit/mL (3 mL) insulin pen 70 unit subcut BID Jardiance 10 mg tablet 10 mg PO DAILY Qty: 30 3RF Referrals: [facility] [Outside] Referral Note: infected diabetic ulcer/cellulitis LLE Print Language: Scottish
[2025-02-17 16:11] LABS: MANUAL DIFF FLAG NO
[2025-02-17 16:18] LABS: Hematocrit 37.2 % (42.0-52.0); Hemoglobin 12.4 g/dl (14.0-18.0); Imm Gran Abs Auto 0.03 X10*3/uL (0.00-0.03); Imm Gran Pct Auto 0.3 % (0.0-0.4); Lymphocytes Absolute Auto 2.1 X10*3/uL (1.2-4.9); Mean Corpuscular HGB Conc 33.3 g/dl (31.0-36.0); Mean Corpuscular Hemoglobin 30.8 pg (27.0-33.0); Mean Corpuscular Volume 92.3 fL (80.0-98.0); NRBC Abs Auto 0.000 X10*3/uL (0.0-0.012); NRBC Pct Auto 0.0 /100WBC (0.0-0.2); Platelet Count 252 X10*3/uL (160-400); Red Blood Count 4.03 X10*6/uL (4.60-5.80); White Blood Count 11.2 X10*3/uL (4.8-10.8)
[2025-02-17 16:31] LABS: Alanine Aminotransferase 15 U/L (0-40); Albumin Level 3.6 g/dL (3.5-5.0); Alkaline Phosphatase 113 U/L (39-117); Anion Gap 13 (12-20); Aspartate Amino Transferase 20 U/L (5-37); Blood Urea Nitrogen 19 mg/dL (9-16); Calcium 8.9 mg/dL (8.4-10.2); Carbon Dioxide 34 mmol/L (22-29); Chloride 102 mmol/L (96-108); Creatinine Clr Calc Pharmacy 95.1; Estimated Glomerular Filt Rate > 60; Potassium 4.9 mmol/L (3.3-5.1); Sodium 144 mmol/L (135-145); Total Protein 6.8 g/dL (6.5-8.0)
[2025-02-17 16:34] LABS: NT Pro B Type Natriuretic Pept 225.7 pg/mL (<300)
[2025-02-17 16:48] LABS: Magnesium 1.4 mg/dL (1.6-2.6)
--- OUTSIDE RECORDS SUMMARY | 2025-02-17 19:04 | XMS_ITS | Encounter Summary ---
Author Organization [employer] Address [address] [place] [address] Care Team Providers Care Hr Intern Name Role Phone Zee Camacho MD Primary Care Provide r Sebastián Duncan PharmD Unavailable [phone] Johnnie Avalos RN Unavailable [phone] Cheyenne García Unavailable Reason for Visit * Reason Comments Med Refill Encounter Details Date Type Department Care Team (Late st Contact Info) Description 12/04/2024 Refill [facility] [address] [place], [place] [phone] Zee Camacho MD [address] [place], [place] [phone] Bilateral lower leg cellulitis; Wound of left [...] documented as of this encounter Care Teams Hr Intern Relationship Specialty Start Date End Date Zee Camacho MD [address] [place] [address] PCP - General Family Medicine 09/17/20 Sebastián Duncan, AdelitaD [address] [place] [address] Pharmacist Internal Medicine 05/01/24 Johnnie Avalos, ALICIA [address] [place] [phone] Registered Nurse Family Medicine 02/04/25 Cheyenne García 02/04/25 Verito 03/13/24 02/02/25 documented as of this encounter
--- OUTSIDE RECORDS SUMMARY | 2025-02-17 19:04 | XMS_ITS | Encounter Summary ---
Author Organization [employer] Address [address] [place] [address] Care Team Providers Care Editor Greeting Card Name Role Phone Zee Camacho MD Primary Care Provide r Sebastián Duncan PharmD Unavailable [phone] Johnnie Avalos RN Unavailable [phone] Cheyenne García Unavailable Encounter Details Date Type Department Care Team (Late st Contact Info) Description 08/27/2023 Telephone [facility] [address] [place], [place] [phone] Zee Camacho MD [address] [place], [place] [phone] Social History Tobacco Use Types Packs/Day Years [...] documented as of this encounter Care Teams Editor Greeting Card Relationship Specialty Start Date End Date Zee Camacho MD [address] [place] [address] PCP - General Family Medicine 09/17/20 Sebastián Duncan, AdelitaD [address] [place] [address] Pharmacist Internal Medicine 05/01/24 Johnnie Avalos, ALICIA [address] [place] [id number] Registered Nurse Family Medicine 02/04/25 Cheyenne García 02/04/25 Verito 03/13/24 02/02/25 documented as of this encounter
--- OUTSIDE RECORDS SUMMARY | 2025-02-17 19:04 | XMS_ITS | Clinical Summary ---
Author Organization [employer] Address [address] [place] [address] Care Team Providers Care Sidewalk Repairer Name Role Phone Zee Camacho MD Primary Care Provide r Sebastián Duncan PharmD Unavailable Johnnie Avalos RN Unavailable [phone] Cheyenne García Unavailable Allergies Active Allergy [...] 90 tablet 1 025 Active Continuous Glucose Ep Tech (FreeStyle Omer 3 [place]) deviceIndicatio ns:Type 2 diabetes mellitus with hyperglycemia, with long-term current use of insulin ([facility]) 1 each Once per day. Use as directed for CGM 1 each 025 Active Continuous Glucose Sensor (FreeStyle Omer 3 Plus Sensor) miscIndications :Type 2 diabetes mellitus with hyperglycemia, with long-term current use of insulin ([facility]) 1 each every 15 days. Apply 1 every 15 days as directed for CGM 2 each 01/27/20 10:45 AM EST 025 Active glucose blood (FreeStyle Precision Leo Test) test stripIndication s:Type 2 diabetes mellitus with hyperglycemia, with long-term current use of insulin ([facility]) Use to test blood sugar 3 times daily in case of CGM failure or extremes of BG 100 each 01/27/20 10:45 AM EST 025 2025 Active semaglutide (Ozempic, 1 MG/DOSE,) 4 MG/3ML solution pen-injectorInd ications:Type 2 diabetes mellitus with hyperglycemia, with long-term current use of insulin ([facility]) Inject 1 mg under the skin 1 (one) time per week. 3 mL 5 025 Active Jardiance 10 MG Take 1 tablet by mouth Once per day. 025 Active insulin degludec (Tresiba FlexTouch) 200 UNIT/ML injectionIndica tions:Type 2 diabetes mellitus with hyperglycemia, with long-term current use of insulin ([facility]) Inject 112 units subcutaneously daily. 9 mL 5 025 Active metFORMIN (Glucophage) 1000 MG tablet TAKE 1 TABLET BY MOUTH TWICE A DAY WITH BREAKFAST AND DINNER 180 tablet 1 025 Active insulin aspart FlexPen (NovoLOG) 100 UNIT/ML penIndications: Type 2 diabetes mellitus with hyperglycemia, with long-term current use of insulin ([facility]) INJECT 10 UNITS SUBCUTANEOUSLY WITH BREAKFAST, LUNCH [...] 12/28/2023 Onychomycosis 12/28/2023 Leg wound, left 12/28/2023 Assessment & Plan (02/17/2025 6:05 PM EST): Recurrent Patient seems to need IV antibiotic Recently went [place] [facility], elevated CRP, ESR, and lactic acid. Blood Cx negative Patient is high-risk for complication / infection, given uncontrolled diabetes mellitus, venous insufficiency / lymphedema Will send to [facility] for further evaluation / imaging / lab and treatment Patient states he will leave his car at home, and will have someone drive him to the ED Lower extremity edema 06/20/2023 Assessment & Plan (06/20/2023 11:01 AM EDT): Echocardiogram ordered Cardiology and vascular referral Stage 3a chronic kidney disease ([facility]) 2023 Mild intermittent asthma 06/20/2023 Assessment & Plan (06/20/2023 10:58 AM EDT): Patient educated to avoid asthma triggers Albuterol inhaler prescribed Uncomplicated opioid dependence ([facility]) 2023 Assessment & Plan (02/17/2025 6:01 PM EST): Patient states he would like to be referred to [facility] Assessment & Plan (06/20/2023 11:05 AM EDT): [...] diabetes mellitus 03/04/2015 024 Assessment & Plan (02/17/2025 6:00 PM EST): A1C 13.8% on 02/17/2025 Patient has CGM Reschedule appointment with PCP Refer to CDTM Assessment & Plan (09/14/2023 8:13 PM EDT): [...] BID Continue Metformin 1000mg BID Referred to pharamacy CDTM Labs done today Fracture of multiple ribs 03/02/20102023 Encounters Date Type Department Care Team Description 02/17/2025 10:30 AM EST Office Visit [address] [phone] Barbara Shoemaker MD Opioid use disorder (Primary Dx); Wound of left lower extremity, initial encounter; Type 2 diabetes mellitus with hyperglycemia, with long-term current use of insulin (HCC); Uncomplicated opioid dependence (CMS/HCC) (HCC) 02/17/2025 Orders Only GENERIC EXTERNAL DATA DEPARTMENT Provider, Generic External Data 02/17/[address] [phone] Zee Camacho MD Appointment Request 02/17/2025 Travel 02/16/[address] [address] Barabra Shoemaker MD chart prep 02/16/2025 Patient Outreach [address] [address] Zee Camacho MD Care Coordination (triage) 02/16/2025 Patient Outreach [address] [address] Zee Camacho MD Care Coordination (CM/CHW outreach) 02/16/2025 Patient Outreach [address] [address] Zee Camacho MD 02/14/2025 Orders Only GENERIC EXTERNAL DATA DEPARTMENT Provider, Generic External Data 02/09/[address] [address] Zee Camacho MD Care Coordination (Home Care utilization Review) 02/09/2025 Patient Outreach [address] [address] Zee Camacho MD Care Coordination (CM/CHW outreach) 02/04/2025 Patient Outreach [address] [address] Zee Camacho MD Care Coordination (CHW chart review) 02/04/2025 Patient Outreach [address] [address] Zee Camacho MD Care Management ([facility]- chart review) 02/04/2025 Patient Outreach [address] [address] Zee Camacho MD 02/03/2025 Telephone [facility] [address] [place] [address] Zee Camacho MD Care Coordination (Utilization Review) 01/22/2025 Telephone [facility] [address] [place] [address] Zee Camacho MD Care Coordination (Utilization Review) 01/20/2025 Telephone [facility] [address] [place] [address] Zee Camacho MD outreach 01/17/2025 Refill [facility] [address] [place] [address] Zee Camacho MD Primary hypertension 01/04/2025 Refill [facility] [address] [place] [address] Zee Camacho MD Gastroesophageal reflux disease, unspecified whether esophagitis present 12/15/2024 Refill [facility] [address] [place] [address] Zee Camacho MD Essential hypertension 12/04/2024 Refill [facility] [address] [place] [address] Zee Camacho MD Bilateral lower leg cellulitis; Wound of left lower extremity, initial encounter from Last 3 Months Immunizations Immunization Administration Dates Next Due Hep A, Adult 09/25/2017 Influenza Injectable Quadriv alant Preservative Free IIV4 MDCK 11/01/2022,02/14/2021,01/05/2020 Influenza injectable quadriv alent IIV4 with preservative 12/08/2016,12/28/2015 Influenza, Injectable, MDCK, preservative free 10/08/2023 Influenza, Recombinant, inje ctable, preservative free 11/20/2024 Pneumococcal Conjugate PCV 20 10/08/2023 Pneumococcal Polysaccharide PPSV23 01/24/2020 Tdap 12/28/2015 Zoster, Recombinant 11/20/2024,11/01/2022 Family History Medical History Relation Name Comments [...] with others, in a hotel, in a fci, living outside on the street, on a [...] (262 lb) 02/17/2025 10:30 AM EST Height 162.6 cm (5' 4 ) 12/28/2023 2:08 PM EST Body Mass Index 44.97 12/28/2023 2:08 PM EST Plan of Treatment Health Maintenance Due Date Last Done Comments CT Colonography 1960 FIT DNA/Cologuard 1960 FIT 1960 FOBT 1960 HIV Screening 1960 Sigmoidoscopy 1960 Diabetes: Foot Exam 1970 RSV Patients and Patients Aged 60 years or older (1 - Risk 50-74 years 1-dose series) 2010 Colonoscopy 09/15/2020 03/18/2020 Colorectal Cancer Screening 09/15/2020 Lipid Panel 03/26/2024 03/26/2023, 09/20, 06/08/2020, Additional history exists Eye Exam 04/18/2024 04/19/2023, 03/23, 04/19/2023, Additional history exists COVID-19 Vaccine ( season) 2024 02/10/2021, 07/26/2020, 06/10/2020 Diabetes: Urine Protein Screening 05/05/2025 05/05/2024, 05/05/2024, 03/26/2023, Additional history exists Diabetes: Hemoglobin A1C 05/18/2025 025, 05/05/2024, 06/20/2023, Additional history exists Depression Monitoring 08/18/2025 02/17/2025, 025 DTaP/Tdap/Td Vaccines (2 - Td or Tdap) 12/27/2025 12/28/2015 Alcohol/Substance Use Screening 02/17/2026 02/17/2025 Disability Screening 02/17/2026 02/17/2025 SDOH Screening 02/17/2026 02/17/2025 Tobacco Screening 02/17/2026 02/17/2025 Hepatitis A Vaccines Aged Out 09/25/2017 No long er eligible based on patient's age to complete this topic Hepatitis C Screening Completed 11/12/2020 Pneumococcal Vaccine: 50+ Years Completed 10/08/2023, 01/24/2020 Influenza Vaccine Completed 11/20/2024, , 11/01/2022, Additional history exists Zoster Vaccines Completed 11/20/2024, 11/01/2022 HIB Vaccines Aged Out No longer eligi [...] Plan Patient has chronic kidney disease No Jeffery, Yumiko, [employer]HO[employer]ER [employer] Patient has chronic kidney disease Care Plan Patient has chronic kidney disease No JefferyYumiko stearns, [employer] Weekly blood pressure task Care Plan Weekly blood pressure task No JefferyFranco stearnsura, [employer]HO[employer]PER Weekly blood pressure task Care Plan Weekly blood pressure task No JefferyFrancoYumiko, [employer]HO[employer]PER Patient has chronic kidney disease Care Plan Patient has chronic kidney disease No JefferyYumiko stearns, [employer]HO[employer] Patient has chronic kidney disease Care Plan Patient has chronic kidney disease No JefferyYumiko stearns, [employer]HO[employer]PER Weekly blood pressure task Care Plan Weekly [...] Weekly blood pressure task No JefferyYumiko stearns, [employer]HO[employer]PER Weekly blood pressure task Care Plan Weekly blood pressure task No JefferyYumiko stearns, [employer]HO[employer] Patient has chronic kidney disease Care Plan Patient has chronic kidney disease No JefferyYumiko stearns, [employer]HO[employer] Patient has chronic kidney disease Care Plan Patient has chronic kidney disease No JefferyYumiko stearns, [employer]HO[employer]PER Weekly blood pressure task Care Plan Weekly [...] has chronic kidney disease No Shannan Guadarrama Procedures Procedure Name Priority Date/Time Associated Diagnosis Comments MAGNESIUM Routine 02/17/2025 4:06 PM EST NT-PROBNP Routine 02/17/2025 4:06 PM EST BASIC METABOLIC PANEL Routine 02/17/2025 4:06 PM EST HEPATIC FUNCTION PANEL Routine 4:06 PM EST CBC WITH AUTO DIFFERENTIAL Routine 02/17/2025 4:06 PM EST POCT GLYCOSYLATED HEMOGLOBIN (HGB A1C) Routine 02/17/2025 11:08 AM EST Type 2 diabetes mellitus with hyperglycemia, with long-term current use of insulin (HCC) WOUND CARE Routine 02/17/2025 11:06 AM EST Wound of left lower extremity, initial encounter LACTIC ACID Routine 02/14/2025 5:12 PM EST C-REACTIVE PROTEIN Routine 02/14/2025 5: 12 PM EST COMPREHENSIVE METABOLIC PANEL Routine 02/14/2025 5:12 PM EST SED RATE BY MODIFIED WESTERGREN Routine 02/14/2025 5:12 PM EST CBC WITH AUTO DIFFERENTIAL Routine 02/14/2025 5:12 PM EST BLOOD CULTURE (FIRST) Routine 02/14/2025 5:12 PM EST BLOOD CULTURE (SECOND) Routine 5:12 PM EST ALBUMIN, RANDOM URINE W/CREATININE Routine 05/05/2024 8:55 AM EDT LIPID PANEL, STANDARD Routine 03/26/2023 2:33 PM EST Type 2 diabetes mellitus with hyperglycemia, with long-term current use of insulin (CMS/HCC) ZZZ HISTORICAL HEPATITIS C AB W/REFL TO HCV RNA, QN, PCR Routine 11/12/2020 3:53 PM EDT HM COLONOSCOPY Routine 03/18/2020 from Last 3 Months or Most Recently Relevant to Health Maintenance Results * NT-proBNP (02/17/2025 4:06 PM EST) NT-proBNP 225.7 <300 pg/mL [facility] Comment:Reference Range:Age Group (years) NT-proBNP (pg/ml) InterpretationAll <300 Negative: HF unlikelyFor patients presenting to the ED with clinical suspicion ofnew onset or worsening HF, see below:18 to <50 >299.9 to <450.0 Grayzone: [id number] to 75 >299.9 to <900.0 other causes of>75 >299.9 to <1800.0 NT-proBNP [id number] to <50 >449.9 Positive: HF [id number] >899.9>75 >1799.9Note: Elevated NT-proBNP levels should be interpreted inthe context of other clinical information. 02/17/2025 4:06 PM EST 02/17/2025 4:10 PM EST us Generic External Data Provider LAB BLOOD ORDERAB LES Final Result [facility] [address] [place] [phone] * (ABNORMAL) CBC auto differential (02/17/2025 4:06 PM EST) Only the most recent of2 resultswithin the time period is included. White Blood Count 11.2(H) 4.8 - 10.8 X10*3/uL [facility] Red Blood Count 4.03(L) 4.60 - 5.80 X10*6/uL [facility] Hemoglobin 12.4(L) 14.0 - 18.0 g/dl [facility] Hematocrit 37.2(L) 42.0 - 52.0 % [facility] Mean Corpuscular Volume 92.3 80.0 - 98.0 fL [facility] Mean Corpuscular Hemoglobin 30.8 27.0 - 33.0 pg [facility] Mean Corpuscular HGB Conc 33.3 31.0 - 36.0 g/dl [facility] Red Cell Distribution Width 14.2 11.0 - 16.0 % [facility] Platelet Count 252 160 - 400 X10*3/uL [facility] Mean Platelet Volume 10.6 9.4 - 12.4 fL [facility] Neutrophils Percent Auto 75.2(H) 45 - 73 % [facility] Imm Gran Pct Auto 0.3 0.0 - 0.4 % [facility] Lymphocytes Percent Auto 18.3(L) 20 - 40 % [facility] Monocytes Percent Auto 4.2 2 - 11 % [facility] Eosinophils Percent Auto 1.3 0 - 4 % [facility] Basophils Percent Auto 0.7 0 - 2 % [facility] NRBC Pct Auto 0.0 0.0 - 0.2 /100WBC [facility] Neutrophils Absolute Auto 8.4(H) 2.0 - 8.3 x10*3/uL [facility] Imm Gran Abs Auto 0.03 0.00 - 0.03 X10*3/uL [facility] Lymphocytes Absolute Auto 2.1 1.2 - 4.9 X10*3/uL [facility] Monocytes Absolute Auto 0.5 0.1 - 1.2 X10*3/uL [facility] Eosinophils Absolute Auto 0.2 0.0 - 0.4 X10*3/uL [facility] Basophils Absolute Auto 0.1 0.0 - 0.2 X10*3/uL [facility] NRBC Abs Auto 0.000 0.0 - 0.012 X10*3/uL [facility] 02/17/2025 4:06 PM EST 02/17/2025 4:10 PM EST us Generic External Data Provider LAB BLOOD ORDERAB LES Final Result [facility] [address] [place], [place] [phone] * (ABNORMAL) Magnesium (02/17/2025 4:06 PM EST) Magnesium 1.4(LL) 1.6 - 2.6 mg/dL [facility] Comment:Critical value for M AGS: Results called to and read tyrese MARTINEZ Person calling: VERONIQUE Date: 02/17/25Time:1644 02/17/2025 4:06 PM EST 02/17/2025 4:10 PM EST Generic External Data Provider LAB BLOOD ORDERAB LES Final Result Performing Organization Address [facility] Co de Phone Number [facility] [address] [place] [phone] * Hepatic Function Panel (02/17/2025 4:06 PM EST) Bilirubin, Total 0.2 0.0 - 1.0 mg/dL [facility] Bilirubin, Direct <0.2 0.0 - 0.5 mg/dL [facility] Aspartate Amino Transferase 20 5 - 37 U/L [facility] Alanine Aminotransferase 15 0 - 40 U/L [facility] Total Protein 6.8 6.5 - 8.0 g/dL [facility] Albumin Level 3.6 3.5 - 5.0 g/dL [facility] Alkaline Phosphatase 113 39 - 117 U/L [facility] 02/17/2025 4:06 PM EST 02/17/2025 4:10 PM EST Generic External Data Provider LAB BLOOD ORDERAB LES Final Result Performing Organization Address [facility] de Phone Number [facility] [address] [place] [phone] * (ABNORMAL) Basic Metabolic Panel (02/17/2025 4:06 PM EST) Sodium 144 135 - 145 mmol/L [facility] Potassium 4.9 3.3 - 5.1 mmol/L [facility] Chloride 102 96 - 108 mmol/L [facility] Carbon Dioxide 34(H) 22 - 29 mmol/L [facility] Anion Gap 13 12 - 20 [facility] Urea Nitrogen (BUN) 19(H) 9 - 16 mg/dL [facility] Creatinine, Serum 0.91 0.5 - 1.4 mg/dL [facility] Creatinine Clr Calc Pharmacy 95.1 [facility] Comment:eGFR (calculated fro m the MDRD study equation) and eCrCl(calculated from the Cockcroft-Gault equation) are based ondifferent parameters and may not yield comparable results.If eCrCl result is absurd, please check patient'sheight/weight. Estimated Glomerular Filt Rate >60 [facility] Comment:Chronic Kidney Disea se: Estimated GFR < 60 mL/min/[id number] Kidney Disease: Estimated GFR < 15 mL/min/1.73m2 Glucose 136(H) 60 - 115 mg/dL [facility] Calcium 8.9 8.4 - 10.2 mg/dL [facility] 02/17/2025 4:06 PM EST 02/17/2025 4:10 PM EST us Generic External Data Provider LAB BLOOD ORDERAB LES Final Result [facility] [address] [place] [phone] * (ABNORMAL) POCT glycosylated hemoglobin (Hgb A1c) (02/17/2025 11:08 AM EST) Hemoglobin A1C 13.6(A) 4.0 - 5.7 % QC Media Lot # [id number] Lot# Expiration Date Blood Capillary blood specimen / Unknown 02/17/2025 11:08 AM EST us Barbara Shoemaker MD POINT OF CARE TEST ENTER/EDIT OR DERABLES Final Result * Wound Care (02/17/2025 11:06 AM EST) Narrative Lucie Thomas RN - 02/17/2025 11:06 AM EST Lucie Thomas RN 02/17/2025 6:16 PM Wound Care Date/Time: 02/17/2025 11:06 AM Performed by: Lucie Thomas RN Authorized by: Barbara Shoemaker MD Consent: Consent obtained: Verbal Consent given by: Patient Risks discussed: Pain [place] protocol: Patient identity confirmed: Verbally with patient Procedure details: Wound location: Leg Leg location: L lower leg Post-procedure details: Procedure completion: Tolerated Comments: Wrapped with kerlix for protection, left existing dressing in placed. Educated on importance of keeping wound clean and dry and keeping blood sugar under control. Pt verbalized understanding. Barbara Shoemaker MD IN CLINIC/BEDSIDE ORDERABLES Fin al Result * (ABNORMAL) Sed Rate by Modified Westergren (02/14/2025 5:12 PM EST) Erythrocyte Sedimentation Rate 41(H) 1 - 20 MM/HR [facility] Comment:Patients with polycy themia and many hemoglobin abnormalitiesmay have depressed sed rates whereas patients with anemiamay have elevated sed rates. 02/14/2025 5:12 PM EST 02/14/2025 5:18 PM EST Generic External Data Provider LAB BLOOD ORDERAB LES Final Result Performing Organization Address [facility]/ZIP Co de Phone Number [facility] [address] [place] [phone] * (ABNORMAL) C-reactive Protein (02/14/2025 5:12 PM EST) C Reactive Protein 2.44(H) < or = 0.50 mg/dL [facility] 02/14/2025 5:12 PM EST 02/14/2025 5:18 PM EST Generic External Data Provider LAB BLOOD ORDERAB LES Final Result Performing Organization Address City/[facility]/ZIP Co de Phone Number [facility] [address] [place] [phone] * (ABNORMAL) Lactic Acid (02/14/2025 5:12 PM EST) Lactic Acid 2.3(HH) 0.5 - 2.0 mmol/L [facility] Comment:Critical value for t est(s):LA Results called to and readback by:REBECCA Person calling:FRANK Date: [id number] 02/14/2025 5:12 PM EST 02/14/2025 5:18 PM EST us Generic External Data Provider LAB BLOOD ORDERAB LES Final Result [facility] [address] [place] [phone] * (ABNORMAL) Comprehensive Metabolic Panel (02/14/2025 5:12 PM EST) Sodium 142 135 - 145 mmol/L [facility] Potassium 4.7 3.3 - 5.1 mmol/L [facility] Chloride 102 96 - 108 mmol/L [facility] Carbon Dioxide 33(H) 22 - 29 mmol/L [facility] Anion Gap 12 12 - 20 [facility] Urea Nitrogen (BUN) 18(H) 9 - 16 mg/dL [facility] Creatinine, Serum 0.78 0.5 - 1.4 mg/dL [facility] Creatinine Clr Calc Pharmacy 111.9 [facility] Comment:eGFR (calculated fro m the MDRD study equation) and eCrCl(calculated from the Cockcroft-Gault equation) are based ondifferent parameters and may not yield comparable results.If eCrCl result is absurd, please check patient'sheight/weight. Estimated Glomerular Filt Rate >60 [facility] Comment:Chronic Kidney Disea se: Estimated GFR < 60 mL/min/[id number] Kidney Disease: Estimated GFR < 15 mL/min/1.73m2 Glucose 209(H) 60 - 115 mg/dL [facility] Calcium 9.3 8.4 - 10.2 mg/dL [facility] Bilirubin, Total 0.2 0.0 - 1.0 mg/dL [facility] Aspartate Amino Transferase 22 5 - 37 U/L [facility] Alanine Aminotransferase 20 0 - 40 U/L [facility] Total Protein 6.8 6.5 - 8.0 g/dL [facility] Albumin Level 3.7 3.5 - 5.0 g/dL [facility] Alkaline Phosphatase 129(H) 39 - 117 U/L [facility] 02/14/2025 5:12 PM EST 02/14/2025 5:18 PM EST us Generic External Data Provider LAB BLOOD ORDERAB LES Final Result Performing Organization Address [facility] Co de Phone Number [facility] [address] [place] [phone] * (ABNORMAL) Albumin, Random Urine W/Creatinine (05/05/2024 8:55 AM EDT) Creatinine, Urine 106.85 mg/dL [facility] Microalbumin Urine 409.0 mg/L [facility] Microalbum Creatinine Ratio Ur 382.7(H) <30 ug/mg cr [facility] Comment:Albumin/Creatinine R atio Reference Ranges: Normal: < 30 ug/mg creatinine Microalbuminuria: 30 - 300 ug/mg creatinineClinical Albuminuria: > 300 ug/mg creatinine 05/05/2024 8:55 AM EDT 05/05/2024 11:50 AM EDT us Zee Vasquez MD LAB URINE ORDERABLES Final Result Performing Organization Address [facility]/ZIP Co de Phone Number [facility] [address] [place] [phone] * (ABNORMAL) Lipid Panel, Standard (03/26/2023 2:33 PM EST) Triglycerides 214(H) <150 mg/dL [facility] Comment:Desirable Triglyceri de: less than 150 mg/dLBorderline High Triglyceride 150-199 mg/dLHigh Triglyceride: 200-499 mg/dLVery High Triglyceride: greater than or equal to 5OO mg/dL Cholesterol 122 <200 mg/dL [facility] Comment:Desirable Cholestero l: less than 200 mg/dLBorderline High Cholesterol: 200-239 mg/dLHigh Cholesterol: greater than 239 mg/dL LDL Cholesterol Calculated 49 <100 mg/dL [facility] Comment:Desirable LDL: less than 100 mg/dLNear Optimal/Above Optimal LDL: 110- 129 mg/dLBorderline High LDL: 130-159 mg/dLHigh LDL: 160-189 mg/dLVery High LDL: greater than or equal to 190 mg/dL HDL Cholesterol 31(L) >40 mg/dL [facility] Comment:Desirable HDL: great er than 40 mg/dL Note: This HDL assay may give artificially low results in patients with liver disease. Blood Venous blood specimen / Unknown 03/26/2023 2:33 PM EST 03/26/2023 4:18 PM EST us Елена Duron MD LAB BLOOD ORDERABLES Final Res ult Performing Organization Address [facility] Co de Phone Number [facility] [address] [place] [phone] [phone] * HEPATITIS C AB W/REFL TO HCV RNA, QN, PCR (11/12/2020 3:53 PM EDT) HEPATITIS C ANTIBODY NON-REACT URI NON-REACT URI [facility] INDEX 0.01 <1.00 [facility] Comment: HCV antibody was non-reactive. There is no laboratory evidence of HCV infection. In most cases, no further action is required. However, if recent HCV exposure is suspected, a test for HCV RNA (test code 85114) is suggested. For additional information please refer to [email or web address]/MHM51b1 (This link is being provided for informational/ educational purposes only.) 11/12/2020 3:53 PM EDT us Osiris Conte MANAGER OF SOFTWARE HISTORICAL/NON ORDERABLE LABS Final Result Performing Organization Address City/[facility]/ZIP Co de Phone Number [facility] [address] [place] [address], [place] * Hm Colonoscopy (03/18/2020) us Historical Provider MD HEALTH MAINTENANCE Final Result from Last 3 [...] 02/17/2025 Patient has chronic kidney disease 02/17/2025 Insurance [facility] C3 Care Teams Sidewalk Repairer Relationship Specialty Start Date End Date Zee Camacho MD [address] [place] [address] PCP - General Family Medicine 09/17/20 Sebastián Duncan, AdelitaD [address] [place] [address] Pharmacist Internal Medicine 05/01/24 Johnnie Avalos, ALICIA [address] [place] [address] Registered Nurse Family Medicine 02/04/25 Cheyenne García 02/04/25
--- OUTSIDE RECORDS SUMMARY | 2025-02-17 19:04 | XMS_ITS | Encounter Summary ---
Author Organization [employer] Address 75 [facility] 7t [place] [address] Care Team Providers Care Pilot Control Operator Name Role Phone Zee Camacho MD Primary Care Provide r Sebastián Duncan PharmD Unavailable [phone] Johnnie Avalos RN Unavailable [phone] Cheyenne García Unavailable Reason for Visit * Reason Comments Med Refill Encounter Details Date Type Department Care Team (Late st Contact Info) Description 03/27/2024 Refill [facility] 230 [place], [place] [phone] Zee Camacho MD 230 [place], [place] [phone] Social History Tobacco Use Types Packs/Day Years [...] documented as of this encounter Care Teams Pilot Control Operator Relationship Specialty Start Date End Date Zee Camacho MD [address] [place] [address] PCP - General Family Medicine 09/17/20 Sebastián Duncan, AdelitaD [address] [place] [address] Pharmacist Internal Medicine 05/01/24 Johnnie Avalos, ALICIA [address] [place] [address] Registered Nurse Family Medicine 02/04/25 Cheyenne García 02/04/25 Verito 03/13/24 02/02/25 documented as of this encounter
--- OUTSIDE RECORDS SUMMARY | 2025-02-17 19:04 | XMS_ITS | Encounter Summary ---
Author Organization [employer] Address 75 [facility] 7t [place] [address] Care Team Providers Care Chief Librarian Branch Or Department Name Role Phone Zee Camacho MD Primary Care Provide r Sebastián Duncan PharmD Unavailable [phone] Johnnie Avalos RN Unavailable [phone] Cheyenne García Unavailable Reason for Visit * Reason Comments Med Refill Encounter Details Date Type Department Care Team (Late st Contact Info) Description 08/21/2023 Refill [facility] 230 [place], [place] [phone] Zee Camacho MD 230 [place], [place] [phone] Mild intermittent asthma, unspecified whether complicated Social [...] documented as of this encounter Care Teams Chief Librarian Branch Or Department Relationship Specialty Start Date End Date Zee Camacho MD [address] [place] [address] PCP - General Family Medicine 09/17/20 Sebastián Duncan PharmD [address] [place] [address] Pharmacist Internal Medicine 05/01/24 Johnnie Avalos, ALICIA [address] [place] [address] Registered Nurse Family Medicine 02/04/25 Cheyenne García 02/04/25 Verito 03/13/24 02/02/25 documented as of this encounter
--- OUTSIDE RECORDS SUMMARY | 2025-02-17 19:04 | XMS_ITS | Encounter Summary ---
Author Organization [employer] Address 75 [facility] 7t [place] [address] Care Team Providers Care Plant Packer Name Role Phone Zee Camacho MD Primary Care Provide r Sebastián Duncan PharmD Unavailable [phone] Johnnie Avalos RN Unavailable [phone] Cheyenne García Unavailable Reason for Visit * Reason Comments Med Refill Encounter Details Date Type Department Care Team (Late st Contact Info) Description 01/15/2024 Refill [facility] 230 [place], [place] [phone] Zee Camacho MD [address] [place], [place] [phone] Primary hypertension; Onychomycosis Social History Tobacco Use [...] documented as of this encounter Care Teams Plant Packer Relationship Specialty Start Date End Date Zee Camacho MD [address] [place] [address] PCP - General Family Medicine 09/17/20 Sebastián Duncan, AdelitaD [address] [place] [address] Pharmacist Internal Medicine 05/01/24 Johnnie Avalos, ALICIA [address] [place] [address] Registered Nurse Family Medicine 02/04/25 Cheyenne García 02/04/25 Verito 03/13/24 02/02/25 documented as of this encounter
--- OUTSIDE RECORDS SUMMARY | 2025-02-17 19:04 | XMS_ITS | Encounter Summary ---
Author Organization [employer] Address 75 [facility] 7t [place] [address] Care Team Providers Care Sales Lead Generator Name Role Phone Zee Camacho MD Primary Care Provide r Sebastián Duncan PharmD Unavailable Johnnie Avalos RN Unavailable [phone] Cheyenne García Unavailable Encounter Details Date Type Department Care Team (Late st Contact Info) Description 10/30/2022 Orders Only [facility] MED[facility]INE 230 [place], [place] [phone] Provider, MD [employer] Social History Tobacco Use [...] on filedocumented in this encounter Care Teams Sales Lead Generator Relationship Specialty Start Date End Date Zee Camacho MD 230 [place], [place] [phone] PCP - General Family Medicine 7/30/21 Sebastián Duncan, AdelitaD [address] [place] [address] Pharmacist Internal Medicine 05/01/24 Johnnie Avalos, ALICIA [address] [place] [address] Registered Nurse Family Medicine 02/04/25 Cheyenne García 02/04/25 Verito 03/13/24 02/02/25 documented as of this encounter
--- OUTSIDE RECORDS SUMMARY | 2025-02-17 19:04 | XMS_ITS | Encounter Summary ---
Author Organization [employer] Address 75 [facility] 7t [place] [address] Care Team Providers Care Lime Kiln Worker Helper Name Role Phone Zee Camacho MD Primary Care Provide r Sebastián Duncan PharmD Unavailable [phone] Johnnie Avalos RN Unavailable [phone] Cheyenne García Unavailable Reason for Visit * Reason Comments Med Refill Encounter Details Date Type Department Care Team (Late st Contact Info) Description 08/29/2023 Refill [facility] 230 [place], [place] [phone] Zee Camacho MD 230 [place], [place] [phone] Social History Tobacco Use Types Packs/Day Years [...] documented as of this encounter Care Teams Lime Kiln Worker Helper Relationship Specialty Start Date End Date Zee Camacho MD 230 [place] [address] PCP - General Family Medicine 09/17/20 Sebastián Duncan, AdelitaD [address] [place] [address] Pharmacist Internal Medicine 05/01/24 Johnnie Avalos, ALICIA [address] [place] [address] Registered Nurse Family Medicine 02/04/25 Cheyenne García 02/04/25 Verito 03/13/24 02/02/25 documented as of this encounter
--- OUTSIDE RECORDS SUMMARY | 2025-02-17 19:04 | XMS_ITS | Encounter Summary ---
Author Organization [employer] Address [address] [facility] [address] 7t [place] [address] Care Team Providers Care Form Presser Name Role Phone Zee Camacho MD Primary Care Provide r Sebastián Duncan PharmD Unavailable [phone] Johnnie Avalos RN Unavailable [phone] Cheyenne García Unavailable Reason for Visit * Reason Comments Med Refill Encounter Details Date Type Department Care Team (Late st Contact Info) Description 04/27/2024 Refill [facility] 230 [place], [place] [phone] Zee Camacho MD 230 [place], [place] [phone] Onychomycosis Social History Tobacco Use Types Packs/Day [...] documented as of this encounter Care Teams Form Presser Relationship Specialty Start Date End Date Zee Camacho MD 230 [place] [address] PCP - General Family Medicine 09/17/20 Sebastián Duncan PharmD [address] [place] [address] Pharmacist Internal Medicine 05/01/24 Johnnie Avalos, ALICIA [address] [place] [address] Registered Nurse Family Medicine 02/04/25 Cheyenne García 02/04/25 Verito 03/13/24 02/02/25 documented as of this encounter
--- OUTSIDE RECORDS SUMMARY | 2025-02-17 19:04 | XMS_ITS | Encounter Summary ---
Author Organization [employer] Address [address] [facility] [address] 7t [place] [address] Care Team Providers Care Innovations Paraprofessional Name Role Phone Zee Camacho MD Primary Care Provide r Sebastián Duncan PharmD Unavailable [phone] Johnnie Avalos RN Unavailable [phone] Cheyenne García Unavailable Encounter Details Date [...] as of this encounter Plan of Treatment Pending Results Name Type Priority Associated Diagnoses Date /Time Blood Culture (Second) Microbiology Routine 02/14/2025 5:12 PM EST Blood Culture (First) Microbiology Routine 02/14/2025 5:12 PM EST documented as of this encounter Goals Goal [...] Procedure Name Priority Date/Time Associated Diagnosis Comments BLOOD CULTURE (FIRST) Routine 02/14/2025 5:12 PM EST BLOOD CULTURE (SECOND) Routine 5:12 PM EST CBC WITH AUTO DIFFERENTIAL Routine 02/14/2025 5:12 PM EST SED RATE BY MODIFIED WESTERGREN Routine 02/14/2025 5:12 PM EST C-REACTIVE PROTEIN Routine 02/14/2025 5: 12 PM EST LACTIC ACID Routine 02/14/2025 5:12 PM EST COMPREHENSIVE METABOLIC PANEL Routine 02/14/2025 5:12 PM EST documented in this encounter Results * (ABNORMAL) Lactic Acid (02/14/2025 5:12 PM EST) Pathologist [facility] Lactic Acid 2.3(HH) 0.5 - 2.0 mmol/L [facility] Comment:Critical value for t est(s):LA Results called to and readback by:REBECCA Person calling:KUSF Date: [id number] 02/14/2025 5:12 PM EST 02/14/2025 5:18 PM EST Generic External Data Provider LAB BLOOD ORDERAB LES Final Result Performing Organization Address [facility] Co de Phone Number [facility] [address] [place] [address] [phone] * (ABNORMAL) C-reactive Protein (02/14/2025 5:12 PM EST) Pathologist [facility] C Reactive Protein 2.44(H) < or = 0.50 mg/dL [facility] 02/14/2025 5:12 PM EST 02/14/2025 5:18 PM EST Generic External Data Provider LAB BLOOD ORDERAB LES Final Result Performing Organization Address [facility] Co de Phone Number [facility] [address] [place] [phone] * (ABNORMAL) Comprehensive Metabolic Panel (02/14/2025 5:12 PM EST) Pathologist [facility] Sodium 142 135 - 145 mmol/L [facility] Potassium 4.7 3.3 - 5.1 mmol/L [facility] Chloride 102 96 - 108 mmol/L [facility] Carbon Dioxide 33(H) 22 - 29 mmol/L [facility] Anion Gap 12 12 - 20 [facility] Urea Nitrogen (BUN) 18(H) 9 - 16 mg/dL [facility] Creatinine, Serum 0.78 0.5 - 1.4 mg/dL [facility] Creatinine Clr Calc Pharmacy 111.9 [facility] Comment:eGFR (calculated fro m the MDRD study equation) and eCrCl(calculated from the Cockcroft-Gault equation) are based ondifferent parameters and may not yield comparable results.If eCrCl result is absurd, please check patient'sheight/weight. Estimated Glomerular Filt Rate >60 [facility] Comment:Chronic Kidney Disea se: Estimated GFR < 60 mL/min/1.08q5Bxmuna Kidney Disease: Estimated GFR < 15 mL/min/1.73m2 Glucose 209(H) 60 - 115 mg/dL [facility] Calcium 9.3 8.4 - 10.2 mg/dL [facility] Bilirubin, Total 0.2 0.0 - 1.0 mg/dL [facility] Aspartate Amino Transferase 22 5 - 37 U/L [facility] Alanine Aminotransferase 20 0 - 40 U/L [facility] Total Protein 6.8 6.5 - 8.0 g/dL [facility] Albumin Level 3.7 3.5 - 5.0 g/dL [facility] Alkaline Phosphatase 129(H) 39 - 117 U/L [facility] 02/14/2025 5:12 PM EST 02/14/2025 5:18 PM EST us Generic External Data Provider LAB BLOOD ORDERAB LES Final Result [facility] [address] [place] [address] [phone] * (ABNORMAL) Sed Rate by Modified Latonia (02/14/2025 5:12 PM EST) Erythrocyte Sedimentation Rate 41(H) 1 - 20 MM/HR [facility] Comment:Patients with polycy themia and many hemoglobin abnormalitiesmay have depressed sed rates whereas patients with anemiamay have elevated sed rates. 02/14/2025 5:12 PM EST 02/14/2025 5:18 PM EST us Generic External Data Provider LAB BLOOD ORDERAB LES Final Result [facility] [address] [place] [address] [phone] * (ABNORMAL) CBC auto differential (02/14/2025 5:12 PM EST) White Blood Count 10.8 4.8 - 10.8 X10*3/uL [facility] Red Blood Count 4.27(L) 4.60 - 5.80 X10*6/uL [facility] Hemoglobin 13.1(L) 14.0 - 18.0 g/dl [facility] Hematocrit 39.5(L) 42.0 - 52.0 % [facility] Mean Corpuscular Volume 92.5 80.0 - 98.0 fL [facility] Mean Corpuscular Hemoglobin 30.7 27.0 - 33.0 pg [facility] Mean Corpuscular HGB Conc 33.2 31.0 - 36.0 g/dl [facility] Red Cell Distribution Width 14.4 11.0 - 16.0 % [facility] Platelet Count 253 160 - 400 X10*3/uL [facility] Mean Platelet Volume 11.3 9.4 - 12.4 fL [facility] Neutrophils Percent Auto 69.5 45 - 73 % [facility] Imm Gran Pct Auto 0.3 0.0 - 0.4 % [facility] Lymphocytes Percent Auto 22.4 20 - 40 % [facility] Monocytes Percent Auto 4.2 2 - 11 % [facility] Eosinophils Percent Auto 2.8 0 - 4 % [facility] Basophils Percent Auto 0.8 0 - 2 % [facility] NRBC Pct Auto 0.0 0.0 - 0.2 /100WBC [facility] Neutrophils Absolute Auto 7.5 2.0 - 8.3 x10*3/uL [facility] Imm Gran Abs Auto 0.03 0.00 - 0.03 X10*3/uL [facility] Lymphocytes Absolute Auto 2.4 1.2 - 4.9 X10*3/uL [facility] Monocytes Absolute Auto 0.5 0.1 - 1.2 X10*3/uL [facility] Eosinophils Absolute Auto 0.3 0.0 - 0.4 X10*3/uL [facility] Basophils Absolute Auto 0.1 0.0 - 0.2 X10*3/uL [facility] NRBC Abs Auto 0.000 0.0 - 0.012 X10*3/uL [facility] 02/14/2025 5:12 PM EST 02/14/2025 5:18 PM EST us Generic External Data Provider LAB BLOOD ORDERAB LES Final Result Performing Organization Address [facility]/State/[facility] de Phone Number [facility] [address] [place] [phone] documented in this encounter Visit Diagnoses [...] documented as of this encounter Care Teams Innovations Paraprofessional Relationship Specialty Start Date End Date Zee Camacho MD [address] [place] [address] PCP - General Family Medicine 09/17/20 Sebastián Duncan, AdelitaD [address] [place] [address] Pharmacist Internal Medicine 05/01/24 Johnnie Avalos, ALICIA [address] [place] [address] Registered Nurse Family Medicine 02/04/25 Cheyenne García 02/04/25 documented as of this encounter
--- OUTSIDE RECORDS SUMMARY | 2025-02-17 19:04 | XMS_ITS | Encounter Summary ---
Author Organization [employer] Address [address] [facility] [address] 7t [place] [address] Care Team Providers Care Regional Environmental Manager Name Role Phone Zee Camacho MD Primary Care Provide r Sebastián Duncan PharmD Unavailable [phone] Johnnie Avalos RN Unavailable [phone] Cheyenne García Unavailable Encounter Details Date Type Department Care Team (Late st Contact Info) Description 08/27/2023 Orders Only [facility] MEDICINE [address] [place], [place] [phone] Zee Camacho MD [address] [place], [place] [phone] Social History Tobacco Use Types Packs/Day Years [...] documented as of this encounter Care Teams Regional Environmental Manager Relationship Specialty Start Date End Date Zee Camacho MD [address] [place] [address] PCP - General Family Medicine 09/17/20 Sebastián Duncan, AdelitaD [address] [place] [address] Pharmacist Internal Medicine 05/01/24 Johnnie Avalos, ALICIA [address] [place] [address] Registered Nurse Family Medicine 02/04/25 Cheyenne García 02/04/25 Verito 03/13/24 02/02/25 documented as of this encounter
--- OUTSIDE RECORDS SUMMARY | 2025-02-17 19:04 | XMS_ITS | Encounter Summary ---
Author Organization [employer] Address 75 [facility] 7t [place] [address] Care Team Providers Care Alteration Manager Name Role Phone Zee Camacho MD Primary Care Provide r Sebastián Duncan PharmD Unavailable [phone] Johnnie Avalos RN Unavailable [phone] Cheyenne García Unavailable Reason for Visit * Reason Comments Med Refill Encounter Details Date Type Department Care Team (Late st Contact Info) Description 12/07/2022 Refill [facility] [address] [place] [phone] Adam Cazares MD [address] [place] [address] Social History Tobacco Use Types Packs/Day Years [...] on filedocumented in this encounter Care Teams Alteration Manager Relationship Specialty Start Date End Date Zee Camacho MD [address] [place] [address] PCP - General Family Medicine 09/17/20 Sebastián Duncan, PharmD [address] [place] [address] Pharmacist Internal Medicine 05/01/24 Johnnie Avalos RN [address] [place] [address] Registered Nurse Family Medicine 02/04/25 Cheyenne García 02/04/25 Verito 03/13/24 02/02/25 documented as of this encounter
--- OUTSIDE RECORDS SUMMARY | 2025-02-17 19:04 | XMS_ITS | Encounter Summary ---
Author Organization [employer] Address 75 [facility] 7t [place] [address] Care Team Providers Care Trimming Press Operator Name Role Phone Zee Camacho MD Primary Care Provide r Sebastián Duncan PharmD Unavailable Johnnie Avalos RN Unavailable [phone] Cheyenne García Unavailable Encounter Details Date Type Department Care Team (Late st Contact Info) Description 09/20/2022 Orders Only [facility] [address] [place] [address] Charlene Aranda LPN Social History Tobacco Use [...] on filedocumented in this encounter Care Teams Trimming Press Operator Relationship Specialty Start Date End Date Zee Camacho MD [address] [place], [place] PCP - General Family Medicine 09/17/20 Sebastián Duncan, PharmD [address] [place] [address] Pharmacist Internal Medicine 05/01/24 Johnnie Avalos, RN [address] [place] [address] Registered Nurse Family Medicine 02/04/25 Cheyenne García 02/04/25 Verito 03/13/24 02/02/25 documented as of this encounter
--- OUTSIDE RECORDS SUMMARY | 2025-02-17 19:04 | XMS_ITS | Encounter Summary ---
Author Organization [employer] Address 75 [facility] 7t [place] [address] Care Team Providers Care Guitar Maker Hand Name Role Phone Zee Camacho MD Primary Care Provide r Sebastián Duncan PharmD Unavailable Johnnie Avalos RN Unavailable [phone] Cheyenne García Unavailable Encounter Details Date Type Department Care Team (Late st Contact Info) Description 06/26/2022 Orders Only [facility] [address] [place] [address] Charlene Aranda LPN Social History Tobacco Use [...] on filedocumented in this encounter Care Teams Guitar Maker Hand Relationship Specialty Start Date End Date Zee Camacho MD [address] [place], [place] PCP - General Family Medicine 09/17/20 Sebastián Duncan, PharmD [address] [place] [address] Pharmacist Internal Medicine 05/01/24 Johnnie Avalos, RN [address] [place] [address] Registered Nurse Family Medicine 02/04/25 Cheyenne García 02/04/25 Verito 03/13/24 02/02/25 documented as of this encounter
--- OUTSIDE RECORDS SUMMARY | 2025-02-17 19:05 | XMS_ITS | Encounter Summary ---
Author Organization [employer] Address 75 [facility] 7t [place] [address] Care Team Providers Care Sand Mill Operator Name Role Phone Zee Camacho MD Primary Care Provide r Sebastián Duncan PharmD Unavailable [phone] Johnnie Avalos RN Unavailable [phone] Cheyenne García Unavailable Reason for Visit * Reason Comments Care Coordination CM/CHW outreach Encounter Details Date Type Department Care Team (Latest Contact Info) Description 02/16/2025 Patient Outreach [facility] [address] [place], [place] [phone] Zee Camacho MD [address] [place], [place] [phone] Care Coordination (CM/CHW outreach) Social History Tobacco [...] with others, in a hotel, in a jail, living outside on the street, on a [...] encounter Progress Notes * Cheyenne García - 02/16/2025 10:47 AM EST CHW Cheyenne García, placed outbound call to patient introducing herself from [facility] CM Department, in regards to offering services. Patient's name and was confirmed. Patient agreesto participate in program. Appt. for initial assessment scheduled for 03/10/25 @ 10AM tele with JUAN R Avalos RN. CHW reinforced direct contact information or CM for any additional questions or concerns and extended clinic hours on Mondays and Wednesdays, and Walk-In Urgent Care Located in [facility] of [facility]. Patient provided with after-hours line for [facility], ,which offer night time triage service and option to transfer to automobile brake bonder provider if needed. Patient verbalizes understanding, and able to repeat back to health underwriter. documented in this encounter Plan of Treatment [...] Care Plan Weekly blood pressure task No KeithJojo merino [place] Patient has chronic kidney disease Care Plan Patient has chronic kidney disease No Jojo Keith MA Weekly blood pressure task Care Plan Weekly blood pressure task No Yumiko Gil SPORTS TEAM MANAGER Weekly blood pressure task Care Plan Weekly blood pressure task No JefferyYumiko stearns SPORTS TEAM MANAGER Patient has chronic kidney disease Care Plan Patient has chronic kidney disease No Yumiko Gil SPORTS TEAM MANAGER Patient has chronic kidney disease Care Plan Patient has chronic kidney disease No Yumiko Gil SPORTS TEAM MANAGER Weekly blood pressure task Care Plan Weekly blood pressure task No JefferyYumiko stearns SPORTS TEAM MANAGER Weekly blood pressure task Care Plan Weekly blood pressure task No JefferyYumiko stearns, SPORTS TEAM MANAGER Patient has chronic kidney disease Care Plan Patient has chronic kidney disease No Yumiko Gil SPORTS TEAM MANAGER Patient has chronic kidney disease Care Plan Patient has chronic kidney disease No Yumiko Gil SPORTS TEAM MANAGER Weekly blood pressure task Care Plan Weekly [...] Patient has chronic kidney disease No Johnnie Avalos, RN Weekly blood pressure task Care Plan [...] Weekly blood pressure task No JefferyYumiko stearns SPORTS TEAM MANAGER Weekly blood pressure task Care Plan Weekly blood pressure task No JefferyYumiko stearns, SPORTS TEAM MANAGER Patient has chronic kidney disease Care Plan Patient has chronic kidney disease No JefferyYumiko lopez, SPORTS TEAM MANAGER Patient has chronic kidney disease Care Plan Patient has chronic kidney disease No JefferyYumiko stearns SPORTS TEAM MANAGER Weekly blood pressure task Care Plan Weekly blood pressure task No Ashley Ortez Weekly blood pressure task Care Plan Weekly blood pressure task No Pérez Ashley Patient has chronic kidney disease Care Plan [...] Care Plan Patient has chronic kidney disease Sally Arenas MA Patient has chronic kidney disease Care Plan Patient has chronic kidney disease Sally Arenas MA documented as of this encounter Visit Diagnoses [...] 02/16/2025 Patient has chronic kidney disease 02/16/2025 Assessment Noted Time PHQ-9 Depression Total Score: 16 024 10:03 AM EDT documented as of this encounter Care Teams Sand Mill Operator Relationship Specialty Start Date End Date Zee Camacho MD [address] [place] [address] PCP - General Family Medicine 09/17/20 Sebastián Duncan, AdelitaD [address] [place] [address] Pharmacist Internal Medicine 05/01/24 Johnnie Avalos, ALICIA [address] [place] [address] Registered Nurse Family Medicine 02/04/25 Cheyenne aGrcía 02/04/25 documented as of this encounter
--- OUTSIDE RECORDS SUMMARY | 2025-02-17 19:05 | XMS_ITS ---
Author Organization [employer] Address 75 [facility] 7t [place] [address] Care Team Providers Care Infantry Officer Name Role Phone Zee Camacho MD Primary Care Provide r Sebastián Duncan PharmD Unavailable Johnnie Avalos RN Unavailable [phone] Cheyenne García Unavailable CM Complex Status:Outreach In Progress (Enrolling) Start date:02/04/2025 Enrollment reason:Home Health Overview Home Health Utilization- Collaboration with HH Utilization nurse for connection with appropriate resources for reduction of skilled home care services. Case Team Name Relationship Phone Johnnie Avalos RN(Responsible Staff) Registered Nurse [phone] Continued Care and Services Coordination
--- OUTSIDE RECORDS SUMMARY | 2025-02-17 19:05 | XMS_ITS | Encounter Summary ---
Author Organization [employer] Address [address] [facility] [address] 7t [place] [address] Care Team Providers Care Supervisor Concrete Stone Fabricating Name Role Phone Zee Camacho MD Primary Care Provide r Sebastián Duncan PharmD Unavailable [phone] Johnnie Avalos RN Unavailable [phone] Cheyenne García Unavailable Encounter Details Date Type Department Care Team (Latest Contact Info) Description 02/17/2025 Travel Social History Tobacco Use Types Packs/Day Years [...] with others, in a hotel, in a residential, living outside on the street, on a [...] has chronic kidney disease No Jeffery, Yumiko, SHOP TAILOR Weekly blood pressure task Care Plan Weekly blood pressure task No Ilana Abraham, RN Weekly blood pressure task Care Plan Weekly blood pressure task No Ilana Abraham, RN Patient has chronic kidney disease Care [...] Weekly blood pressure task No Yumiko Gil, SHOP TAILOR Weekly blood pressure task Care Plan Weekly blood pressure task No JefferyYumiko stearns, SHOP TAILOR Patient has chronic kidney disease Care Plan Patient has chronic kidney disease No JefferyYumiko stearns, SHOP TAILOR Patient has chronic kidney disease Care Plan Patient has chronic kidney disease No Yumiko Gil, SHOP TAILOR Weekly blood pressure task Care Plan Weekly [...] Shannan Guadarrama documented as of this encounter Visit Diagnoses [...] as of this encounter Care Teams Supervisor Concrete Stone Fabricating Relationship Specialty Start Date End Date Zee Camacho MD [address] [place] [phone] PCP - General Family Medicine 09/17/20 Sebastián Duncan, Val [address] [place] [address] Pharmacist Internal Medicine 05/01/24 Johnnie Avalos, ALICIA [address] [place] [address] Registered Nurse Family Medicine 02/04/25 Cheyenne García 02/04/25 documented as of this encounter
--- OUTSIDE RECORDS SUMMARY | 2025-02-17 19:05 | XMS_ITS | Encounter Summary ---
Author Organization [employer] Address 75 [facility] 7t [place] [address] Care Team Providers Care Atv Mechanic Name Role Phone Zee Camacho MD Primary Care Provide r Sebastián Duncan PharmD Unavailable [phone] Johnnie Avalos RN Unavailable [phone] Cheyenne García Unavailable Reason for Visit * Reason Onset Date Comments chart prep 02/16/2025 Encounter Details Date Type Department Care Team ([facility] st Contact Info) Description 02/16/[address] [facility] MEDICINE [address] [place], [place] [phone] Barbara Shoemaker MD [address] [place], [place] [phone] chart prep Social History Tobacco Use Types Packs/Day Years [...] with others, in a hotel, in a detention, living outside on the street, on a [...] the past 12 months, has t he [employer], gas, oil or water [employer] threatened to shut off services in your [...] encounter Miscellaneous Notes * Telephone Encounter - Sally Contreras MA - 02/16/2025 1:11 PM EST Chart Prep Labs: done Images: done Screenings: Colonoscopy , Eye Exam, and Foot Exam Vaccines due: RSV in Pharmacy Due Referrals: Completed Overdue care gaps: Sbirt, SDOH, PHQ9, GAD7, Disability , and Oral Health documented in this encounter Plan of Treatment Not on file documented as of this encounter Goals Goal Patient Goal Type Associated Problems Recent Progress Patient-Stated? Author Help patients manage their type 2 diabetes Care Plan Help patients manage their type 2 diabetes Jojo Frausto MA Weekly blood pressure task Care Plan Weekly blood pressure task Jojo Frausto MA Help patients manage their type 2 diabetes Care Plan Help patients manage their type 2 diabetes Jojo Frausto MA Patient has chronic kidney disease Care Plan Patient has chronic kidney disease No Keith, Louyomy, MA Weekly blood pressure task Care Plan Weekly blood pressure task No Keith Louyomy, [place] Patient has chronic kidney disease Care Plan Patient has chronic kidney disease No KeithMelvina merinoomy, MA Weekly blood pressure task Care Plan Weekly blood pressure task No JefferyFrancoYumiko, ROAD SIGN INSTALLER Weekly blood pressure task Care Plan Weekly blood pressure task No JefferyFrancoYumiko, ROAD SIGN INSTALLER Patient has chronic kidney disease Care Plan Patient has chronic kidney disease No JefferyFrancoYumiko, ROAD SIGN INSTALLER Patient has chronic kidney disease Care Plan Patient has chronic kidney disease No JefferyFrancoYumiko, ROAD SIGN INSTALLER Weekly blood pressure task Care Plan Weekly blood pressure task No JefferyFrancoYumiko, ROAD SIGN INSTALLER Weekly blood pressure task Care Plan Weekly blood pressure task No JefferyYumiko stearns, ROAD SIGN INSTALLER Patient has chronic kidney disease Care Plan Patient has chronic kidney disease No JefferyYumiko, ROAD SIGN INSTALLER Patient has chronic kidney disease Care Plan Patient has chronic kidney disease No JefferyYumiko, ROAD SIGN INSTALLER Weekly blood pressure task Care Plan Weekly [...] has chronic kidney disease No Johnnie Avalos, ALICIA Patient has chronic kidney disease Care [...] Weekly blood pressure task No JefferyYumiko stearns, ROAD SIGN INSTALLER Weekly blood pressure task Care Plan Weekly blood pressure task No Yumiko Gil LPN Patient has chronic kidney disease Care Plan Patient has chronic kidney disease No Yumiko Gil LPN Patient has chronic kidney disease Care Plan Patient has chronic kidney disease No Yumiko Gil LPN Weekly blood pressure task Care Plan Weekly blood pressure task No PérezAshley sullivan Weekly blood pressure task Care Plan Weekly blood pressure task No Pérez, Ashley Patient has chronic kidney disease Care Plan Patient has chronic kidney disease No Pérez, Ashley Patient has chronic kidney disease Care Plan Patient has chronic kidney disease No Pérez, Ashley Weekly blood pressure task Care Plan Weekly [...] chronic kidney disease No Sally Contreras MA documented as of this encounter Visit [...] documented as of this encounter Care Teams Atv Mechanic Relationship Specialty Start Date End Date Zee Camacho MD [address] [place] [address] PCP - General Family Medicine 09/17/20 Sebastián Duncan, AdelitaD [address] [place] [address] Pharmacist Internal Medicine 05/01/24 Johnnie Avalos, RN [address] [place] [phone] Registered Nurse Family Medicine 02/04/25 Cheyenne García 02/04/25 documented as of this encounter
--- OUTSIDE RECORDS SUMMARY | 2025-02-17 19:05 | XMS_ITS | Encounter Summary ---
Author Organization [employer] Address 75 [facility] 7t [place] [address] Care Team Providers Care Photographic Intelligence Officer Name Role Phone Zee Camacho MD Primary Care Provide r Sebastián Duncan PharmD Unavailable [phone] Johnnie Avalos RN Unavailable [phone] Cheyenne García Unavailable Reason for Visit * Reason Comments Med Refill Encounter Details Date Type Department Care Team (Late st Contact Info) Description 04/15/2023 Refill [facility] MEDICINE [address] [place] [address] Zee Camacho MD [address] [place], [place] [phone] Social History Tobacco Use Types Packs/Day Years [...] on filedocumented in this encounter Care Teams Photographic Intelligence Officer Relationship Specialty Start Date End Date Zee Camacho MD [address] [place], [place] [phone] PCP - General Family Medicine 09/17/20 Sebastián Duncan, PharmD [address] [place] [address] Pharmacist Internal Medicine 05/01/24 Johnnie Avalos, ALICIA [address] [place] [phone] Registered Nurse Family Medicine 02/04/25 Cheyenne García 02/04/25 Verito 03/13/24 02/02/25 documented as of this encounter
--- OUTSIDE RECORDS SUMMARY | 2025-02-17 19:05 | XMS_ITS | Encounter Summary ---
Author Organization [employer] Address [address] [facility] [address] 7t [place] [address] Care Team Providers Care Dental Instructor Name Role Phone Zee Camacho MD Primary Care Provide r Sebastián Duncan PharmD Unavailable [phone] Johnnie Avalos RN Unavailable [phone] Cheyenne García Unavailable Reason for Visit * Reason Onset Date Comments Appointment Request 02/17/2025 Encounter Details Date Type Department Care Team ([facility] st Contact Info) Description 02/17/2025 Telephone [facility] MEDICINE 230 [place], [place] [phone] Zee Camacho MD [address] [place], [place] [phone] Appointment Request Social History Tobacco Use Types Packs/Day Years [...] with others, in a hotel, in a custodial, living outside on the street, on a [...] t he electric, gas, oil or water [employer] threatened to shut off services in your [...] encounter Miscellaneous Notes * Telephone Encounter - Shannan Guadarrama - 02/17/2025 11:54 AM EST Called Patient no answer left vm. Advised to call back and schedule 30 min f/u extended or PE with PCP within 1 month. Ok to schedule if Patient calls back documented in this encounter Plan of Treatment [...] Plan Weekly blood pressure task No JefferyFrancoYumiko, ASSEMBLY STOCK SUPERVISOR Weekly blood pressure task Care Plan Weekly blood pressure task No JefferyFrancoYumiko, ASSEMBLY STOCK SUPERVISOR Patient has chronic kidney disease Care Plan Patient has chronic kidney disease No JefferyFrancoYumiko, ASSEMBLY STOCK SUPERVISOR Patient has chronic kidney disease Care Plan Patient has chronic kidney disease No JefferyFrancoYumiko, ASSEMBLY STOCK SUPERVISOR Weekly blood pressure task Care Plan Weekly blood pressure task No JefferyFrancoYumiko, ASSEMBLY STOCK SUPERVISOR Weekly blood pressure task Care Plan Weekly blood pressure task No JefferyFrancoYumiko, ASSEMBLY STOCK SUPERVISOR Patient has chronic kidney disease Care Plan Patient has chronic kidney disease No JefferyYumiko, ASSEMBLY STOCK SUPERVISOR Patient has chronic kidney disease Care Plan Patient has chronic kidney disease No JefferyYumiko, ASSEMBLY STOCK SUPERVISOR Weekly blood pressure task Care Plan Weekly [...] Care Plan Weekly blood pressure task No JefferyYumiko, ASSEMBLY STOCK SUPERVISOR Weekly blood pressure task Care Plan Weekly blood pressure task No JefferyYumiko, ASSEMBLY STOCK SUPERVISOR Patient has chronic kidney disease Care Plan Patient has chronic kidney disease No Jeffery, Yumiko, ASSEMBLY STOCK SUPERVISOR Patient has chronic kidney disease Care Plan [...] documented as of this encounter Care Teams Dental Instructor Relationship Specialty Start Date End Date Zee Camacho MD [address] [place] [address] PCP - General Family Medicine 09/17/20 Sebastián Duncan, AdelitaD [address] [place] [address] Pharmacist Internal Medicine 05/01/24 Johnnie Avalos, ALICIA [address] [place] [phone] Registered Nurse Family Medicine 02/04/25 Cheyenne García 02/04/25 documented as of this encounter
--- OUTSIDE RECORDS SUMMARY | 2025-02-17 19:05 | XMS_ITS | Encounter Summary ---
Author Organization [employer] Address 75 [facility] 7t [place] [address] Care Team Providers Care Actuarial Technician Name Role Phone Zee Camacho MD Primary Care Provide r Sebastián Duncan PharmD Unavailable [phone] Johnnie Avalos RN Unavailable [phone] Cheyenne García Unavailable Reason for Visit * Reason Comments Care Coordination triage Encounter Details Date Type Department Care Team (Latest Contact Info) Description 02/16/2025 Patient Outreach [facility] MEDICINE 230 [place], [place] [phone] Zee Camacho MD [address] [place], [place] [phone] Care Coordination (triage) Social History Tobacco Use Types Packs/Day Years [...] with others, in a hotel, in a long-term, living outside on the street, on a [...] Progress Notes * Cheyenne García - 02/16/2025 10:50 AM EST CHW Cheyenne García spoke with the patient today for ED follow-up. The patient reported going to theED on 02/14/25 but left without being seen. [...] patient to clarify and arrange follow-up care. * Rachna Huddleston RN - 02/16/2025 10:50 AM EST T/C placed to pt to triage. Pt reporting ongoing bilateral lower extremity edema that he states hasbeen present for ~ 1yr but is worsening. He reports it is weeping and that he gets, water blisters . Pt confirms that it is pitting and that edema extends up to bilateral knees. He reports he has tried compression stockings but his skin sloughs off when he takes them off d/t the water blisters. Hereports he can't wear shoes d/t the edema in his feet and he can hardly bend his toes. He reports new wound on left lateral ankle x2 days where a water blister opened per pt. Wound is the size of a quarter and has serosanguinous drainage. Pt denies it having any pus, being red, or yellow, or hot tothe touch. Pt reports it is fairly superficial. He doesn't believe it is infected but is painful tothe touch and he would like it evaluated. Pt denies any SOB, new cough, fever, chest pain, or any other Sx. Pt denies change in color of his feet, numbness, tingling, change in temperature of feet ortoes, loss of bowel or bladder function. Pt informed no appts on the floor this afternoon. Pt wouldlike an appt for tomorrow. Booked for tomorrow with [facility]. Protocols Used (2): Leg Swelling and Edema (Adult), Sores (Adult) Disposition for Call: Go to Office or Video Visit Now Protocol Used: Leg Swelling and Edema (Adult) Protocol-Based Disposition: Go to Office or Video Visit Now Positive Triage Question: * Severe swelling (e.g., swelling extends above knee, entire leg is swollen, weeping fluid) * All higher-acuity triage questions were negative. Protocol Used: Sores (Adult) Protocol-Based Disposition: See in Office or Video Visit within 3 Days Positive Triage Question: * Lower leg sore and venous ulcer suspected (e.g., brownish pigment around sore, leg edema, varicose veins) * All higher-acuity triage questions were negative. Care Advice Discussed: * Reasons To Call Back - Redness or red streaks occur - New sores occur - You become worse documented in this encounter Plan of Treatment [...] Weekly blood pressure task No Yumiko Gil EXHIBIT BUILDER Weekly blood pressure task Care Plan Weekly blood pressure task No JefferyYumiko stearns EXHIBIT BUILDER Patient has chronic kidney disease Care Plan Patient has chronic kidney disease No Yumiko Gil EXHIBIT BUILDER Patient has chronic kidney disease Care Plan Patient has chronic kidney disease No Yumiko Gil EXHIBIT BUILDER Weekly blood pressure task Care Plan Weekly blood pressure task No JefferyYumiko stearns, EXHIBIT BUILDER Weekly blood pressure task Care Plan Weekly blood pressure task No Yumiko Gil EXHIBIT BUILDER Patient has chronic kidney disease Care Plan Patient has chronic kidney disease No Yumiko Gil, EXHIBIT BUILDER Patient has chronic kidney disease Care Plan Patient has chronic kidney disease No Yumiko Gil, EXHIBIT BUILDER Weekly blood pressure task Care Plan Weekly [...] Plan Weekly blood pressure task No JefferyYumiko, EXHIBIT BUILDER Weekly blood pressure task Care Plan Weekly blood pressure task No JefferyFrancoYumiko, EXHIBIT BUILDER Patient has chronic kidney disease Care Plan Patient has chronic kidney disease No Jeffery, Yumiko, EXHIBIT BUILDER Patient has chronic kidney disease Care Plan Patient has chronic kidney disease No Jeffery, Yumiko, EXHIBIT BUILDER Weekly blood pressure task Care Plan Weekly blood pressure task No Pérez Ashley Weekly blood pressure task Care Plan Weekly blood pressure task No Pérez Ashley Patient has chronic kidney disease Care Plan Patient has chronic kidney disease No Pérez Ashley Patient has chronic kidney [...] documented as of this encounter Care Teams Actuarial Technician Relationship Specialty Start Date End Date Zee Camacho MD [address] [place] [address] PCP - General Family Medicine 09/17/20 Sebastián Duncan, AdelitaD [address] [place] [address] Pharmacist Internal Medicine 05/01/24 Johnnie Avalos, ALICIA [address] [place] [phone] Registered Nurse Family Medicine 02/04/25 Cheyenne García 02/04/25 documented as of this encounter
--- OUTSIDE RECORDS SUMMARY | 2025-02-17 19:05 | XMS_ITS | Encounter Summary ---
Author Organization [employer] Address 75 [facility] 7t [place] [address] Care Team Providers Care Dexigraph Operator Name Role Phone Zee Camacho MD Primary Care Provide r Sebastián Duncan PharmD Unavailable [phone] Johnnie Avalos RN Unavailable [phone] Cheyenne García Unavailable Reason for Visit * Reason Comments Med Refill Encounter Details Date Type Department Care Team (Late st Contact Info) Description 04/17/2023 Refill [facility] MEDICINE [address] [place] [address] Zee Camacho MD [address] [place], [place] [phone] Social History Tobacco Use Types Packs/Day Years [...] on filedocumented in this encounter Care Teams Dexigraph Operator Relationship Specialty Start Date End Date Zee Camacho MD [address] [place], [place] [phone] PCP - General Family Medicine 09/17/20 Sebastián Duncan, PharmD [address] [place] [address] Pharmacist Internal Medicine 05/01/24 Johnnie Avalos, ALICIA [address] [place] [phone] Registered Nurse Family Medicine 02/04/25 Cheyenne García 02/04/25 Verito 03/13/24 02/02/25 documented as of this encounter
--- OUTSIDE RECORDS SUMMARY | 2025-02-17 19:05 | XMS_ITS | Encounter Summary ---
Author Organization [employer] Address [address] [facility] [address] 7t [place] [address] Care Team Providers Care Senior Media Planner Name Role Phone Zee Camacho MD Primary Care Provide r Sebastián Duncan PharmD Unavailable Johnnie Avalos RN Unavailable [phone] Cheyenne García Unavailable Encounter Details Date Type Department Care Team (Late st Contact Info) Description 12/07/2022 Orders Only [facility] [address] [place] [address] Charlene Aranda LPN Social History Tobacco Use [...] Whole Blood 478(HH) 60 - 115 mg/dL [facility] Comment:METER #: [id number] 12/07/2022 8:18 PM EDT 12/07/2022 8:22 PM EDT [facility] External Provider LAB BLO OD ORDERABLES Final Result Performing Organization Address [facility] de Phone Number [facility] [address] [place] [phone] * (ABNORMAL) Glucose, Whole Blood (12/07/2022 7:31 PM EDT) Glucose, Whole Blood 486(HH) 60 - 115 mg/dL [facility] Comment:METER #: [id number] 12/07/2022 7:31 PM EDT 12/07/2022 7:35 PM EDT Result [facility] External Provider LAB BLO OD ORDERABLES Final Result Performing Organization Address [facility] Co de Phone Number [facility] [address] [place] [phone] * (ABNORMAL) Glucose, Whole Blood (12/07/2022 7:10 PM EDT) Glucose, Whole Blood 530(HH) 60 - 115 mg/dL [facility] Comment:METER #: [id number] 12/07/2022 7:10 PM EDT 12/07/2022 7:15 PM EDT [facility] External Provider LAB BLO OD ORDERABLES Final Result Performing Organization Address [facility]/ZIP Co de Phone Number [facility] [address] [place] [phone] * (ABNORMAL) CBC auto differential (12/07/2022 7:04 PM EDT) White Blood Count 9.8 4.8 - 10.8 X10*3/uL [facility] Red Blood Count 5.22 4.60 - 5.80 X10*6/uL [facility] Hemoglobin 14.9 14.0 - 18.0 g/dl [facility] Hematocrit 44.9 42.0 - 52.0 % [facility] Mean Corpuscular Volume 86.0 80.0 - 98.0 fL [facility] Mean Corpuscular Hemoglobin 28.5 27.0 - 33.0 pg [facility] Mean Corpuscular HGB Conc 33.2 31.0 - 36.0 g/dl [facility] Red Cell Distribution Width 13.4 11.0 - 16.0 % [facility] Platelet Count 150(L) 160 - 400 X10*3/uL [facility] Mean Platelet Volume 11.9 9.4 - 12.4 fL [facility] Neutrophils Percent Auto 68.6 45 - 73 % [facility] Imm Gran Pct Auto 0.3 0.0 - 0.4 % [facility] Lymphocytes Percent Auto 19.0(L) 20 - 40 % [facility] Monocytes Percent Auto 4.4 2 - 11 % [facility] Eosinophils Percent Auto 6.9(H) 0 - 4 % [facility] Basophils Percent Auto 0.8 0 - 2 % [facility] NRBC Pct Auto 0.0 0.0 - 0.2 /100WBC [facility] Neutrophils Absolute Auto 6.8 2.0 - 8.3 x10*3/uL [facility] Imm Gran Abs Auto 0.03 0.00 - 0.03 X10*3/uL [facility] Lymphocytes Absolute Auto 1.9 1.2 - 4.9 X10*3/uL [facility] Monocytes Absolute Auto 0.4 0.1 - 1.2 X10*3/uL [facility] Eosinophils Absolute Auto 0.7(H) 0.0 - 0.4 X10*3/uL [facility] Basophils Absolute Auto 0.1 0.0 - 0.2 X10*3/uL [facility] NRBC Abs Auto 0.000 0.0 - 0.012 X10*3/uL [facility] 12/07/2022 7:04 PM EDT 12/07/2022 7:07 PM EDT us [employer] External Provider LAB BLO OD ORDERABLES Final Result [facility] [address] [place] [phone] * (ABNORMAL) Comprehensive Metabolic Panel (12/07/2022 7:04 PM EDT) Sodium 136 135 - 145 mmol/L [facility] Potassium 4.0 3.3 - 5.1 mmol/L [facility] Chloride 100 96 - 108 mmol/L [facility] Carbon Dioxide 23 22 - 29 mmol/L [facility] Anion Gap 17 12 - 20 [facility] Urea Nitrogen (BUN) 18(H) 9 - 16 mg/dL [facility] Creatinine, Serum 1.25 0.5 - 1.4 mg/dL [facility] Creatinine Clr Calc Pharmacy 65.7 [facility] Comment:eGFR (calculated fro m the MDRD study equation) and eCrCl(calculated from the Cockcroft-Gault equation) are based ondifferent parameters and may not yield comparable results.If eCrCl result is absurd, please check patient'sheight/weight. Estimated Glomerular Filt Rate 59 [facility] Comment:NOTE: For -Am erican individuals, multiply the result by 1.210.Chronic Kidney Disease: Estimated GFR < 60 mL/min/1.92c6[place] Kidney Disease: Estimated GFR < 15 mL/min/1.73m2 Glucose 550(HH) 60 - 115 mg/dL [facility] Comment:Critical value for t est(s): GLUR Results called to and readback by: ARIAS Person calling: NASRINMINC Date: 12/07/22Time: 1926 Calcium 9.2 8.4 - 10.2 mg/dL [facility] Bilirubin, Total 0.5 0.0 - 1.0 mg/dL [facility] Aspartate Amino Transferase 13 5 - 37 U/L [facility] Alanine Aminotransferase 20 0 - 40 U/L [facility] Total Protein 7.6 6.5 - 8.0 g/dL [facility] Albumin Level 3.9 3.5 - 5.0 g/dL [facility] Alkaline Phosphatase 125(H) 39 - 117 U/L [facility] 12/07/2022 7:04 PM EDT 12/07/2022 7:07 PM EDT us [employer] External Provider LAB BLO OD ORDERABLES Final Result [facility] [address] [place] [address] [phone] documented in this encounter Visit Diagnoses Not on filedocumented in this encounter Care Teams Senior Media Planner Relationship Specialty Start Date End Date Zee Camacho MD [address] [place] [address] PCP - General Family Medicine 09/17/20 Sebastián Duncan, PharmD [address] [place] [address] Pharmacist Internal Medicine 05/01/24 Johnnie Avalos, ALICIA [address] [place] [phone] Registered Nurse Family Medicine 02/04/25 Cheyenne García 02/04/25 Verito 03/13/24 02/02/25 documented as of this encounter
--- OUTSIDE RECORDS SUMMARY | 2025-02-17 19:05 | XMS_ITS ---
Author Organization [employer] Address [address] [facility] 7t [place] [address] Care Team Providers Care Bag Adjuster Name Role Phone Zee Camacho MD Primary Care Provide r Sebastián Duncan PharmD Unavailable Johnnie Avalos RN Unavailable [phone] Cheyenne García Unavailable [facility] Complex Status:Outreach In Progress (Enrolling) Start date:02/04/2025 Enrollment reason:Home Health Overview Home Health Utilization- Collaboration with HH Utilization nurse for connection with appropriate resources for reduction of skilled home care services. Please outreach for enrollment. Case Team Name Relationship Phone Cheyenne García(Responsible Staff) [phone] Continued Care and Services Coordination
--- OUTSIDE RECORDS SUMMARY | 2025-02-17 19:05 | XMS_ITS | Encounter Summary ---
Author Organization [employer] Address [address] [facility] 7t [place] [address] Care Team Providers Care Firmware Test Engineer Name Role Phone Zee Camacho MD Primary Care Provide r Sebastián Duncan PharmD Unavailable [phone] Johnnie Avalos RN Unavailable [phone] Cheyenne García Unavailable Reason for Visit * Reason Comments Med Refill Encounter Details Date Type Department Care Team (Late st Contact Info) Description 01/07/2023 Refill [facility] [address] [place] [phone] Adam Cazares MD [address] [place] [address] [phone] Social History Tobacco Use Types Packs/Day Years [...] on filedocumented in this encounter Care Teams Firmware Test Engineer Relationship Specialty Start Date End Date Zee Camacho MD [address] [place] [phone] PCP - General Family Medicine 09/17/20 Sebastián Duncan, PharmD [address] [place] [address] Pharmacist Internal Medicine 05/01/24 Johnnie Avalos RN [address] [place] [phone] Registered Nurse Family Medicine 02/04/25 Cheyenne García 02/04/25 Verito 03/13/24 02/02/25 documented as of this encounter
--- OUTSIDE RECORDS SUMMARY | 2025-02-17 19:05 | XMS_ITS | Encounter Summary ---
Author Organization [employer] Address [address] [facility] [facility] [address] 7[address] [place] [address] Care Team Providers Care Skiver Welt End Name Role Phone Zee Camacho MD Primary Care Provide r Sebastián Duncan PharmD Unavailable [phone] Johnnie Avalos RN Unavailable [phone] Cheyenne García Unavailable Encounter Details Date Type Department Care Team (Late st Contact Info) Description 02/16/2025 Patient Outreach [facility] [address] [place], [place] [phone] Zee Camacho MD [address] [place], [place] [phone] Social History Tobacco Use Types Packs/Day Years [...] with others, in a hotel, in a snf, living outside on the street, on a [...] Care Plan Weekly blood pressure task No Jeffery, Yumiko, LETTER OF CREDIT DOCUMENT EXAMINER Weekly blood pressure task Care Plan Weekly blood pressure task No JefferyFrancoYumiko, LETTER OF CREDIT DOCUMENT EXAMINER Patient has chronic kidney disease Care Plan Patient has chronic kidney disease No JefferyYumiko stearns, LETTER OF CREDIT DOCUMENT EXAMINER Patient has chronic kidney disease Care Plan Patient has chronic kidney disease No JefferyYumiko stearns, LETTER OF CREDIT DOCUMENT EXAMINER Weekly blood pressure task Care Plan Weekly [...] Plan Weekly blood pressure task No Johnnie Aavlos RN Weekly blood pressure task Care Plan [...] Weekly blood pressure task No Yumiko Gil, LETTER OF CREDIT DOCUMENT EXAMINER Weekly blood pressure task Care Plan Weekly blood pressure task No JefferyYumiko stearns, LETTER OF CREDIT DOCUMENT EXAMINER Patient has chronic kidney disease Care Plan Patient has chronic kidney disease No JefferyYumiko stearns, LETTER OF CREDIT DOCUMENT EXAMINER Patient has chronic kidney disease Care Plan Patient has chronic kidney disease No Yumiko Gil, LETTER OF CREDIT DOCUMENT EXAMINER Weekly blood pressure task Care Plan Weekly [...] documented as of this encounter Care Teams Skiver Welt End Relationship Specialty Start Date End Date Zee Camacho MD [address] [place] [phone] PCP - General Family Medicine 09/17/20 Sebastián Duncan, PharmD [address] [place] [address] Pharmacist Internal Medicine 05/01/24 Johnnie Avalos RN [address] [place] [phone] Registered Nurse Family Medicine 02/04/25 Cheyenne García 02/04/25 documented as of this encounter
--- OUTSIDE RECORDS SUMMARY | 2025-02-17 19:05 | XMS_ITS | Clinical Summary ---
Author Organization [address] [facility] Address [address] [place] [address] Phone Care Team Providers Care Mechanic/Welder Name Role Phone Zee Camacho MD Primary [...] topic Insurance MEDICAID - [place] Care Teams Mechanic/Welder Relationship Specialty Start Date End Date Zee Camacho MD [address] [place] [phone] PCP - General Internal Medicine 01/08/24
--- OUTSIDE RECORDS SUMMARY | 2025-02-17 19:05 | XMS_ITS | Encounter Summary ---
Author Organization [employer] Address [address] [facility] [address] 7[address] [place] [address] Care Team Providers Care Executive Account Manager Name Role Phone Zee Camacho MD Primary Care Provide r Sebastián Duncan PharmD Unavailable [phone] Johnnie Avalos RN Unavailable [phone] Cheyenne García Unavailable Encounter Details Date Type Department Care Team (Late st Contact Info) Description 02/17/2025 Orders Only GENERIC EXTERNAL DATA DEPARTMENT [...] manage their type 2 diabetes No Jojo Ketih MA Weekly blood pressure task Care Plan [...] has chronic kidney disease No JefferyYumiko stearns, WIRE STRIPPER Weekly blood pressure task Care Plan Weekly [...] Weekly blood pressure task No Yumiko Gil, WIRE STRIPPER Weekly blood pressure task Care Plan Weekly blood pressure task No Yumiko Gil, WIRE STRIPPER Patient has chronic kidney disease Care Plan Patient has chronic kidney disease No Yumiko Gil, WIRE STRIPPER Patient has chronic kidney disease Care Plan Patient has chronic kidney disease No Yumiko Gil, WIRE STRIPPER Weekly blood pressure task Care Plan Weekly [...] Procedure Name Priority Date/Time Associated Diagnosis Comments NT-PROBNP Routine 02/17/2025 4:06 PM EST CBC WITH AUTO DIFFERENTIAL Routine 02/17/2025 4:06 PM EST MAGNESIUM Routine 02/17/2025 4:06 PM EST HEPATIC FUNCTION PANEL Routine 02/17/2025 4:06 PM EST BASIC METABOLIC PANEL Routine 02/17/2025 4:06 PM EST documented in this encounter Results * (ABNORMAL) Magnesium (02/17/2025 4:06 PM EST) Magnesium 1.4(LL) 1.6 - 2.6 mg/dL [facility] Comment:Critical value for M AGS: Results called to and read tenay: MICHELLE Person calling: VERONIQUE Date: 02/17/25Time:1644 02/17/2025 4:06 PM EST 02/17/2025 4:10 PM EST Generic External Data Provider LAB BLOOD ORDERAB LES Final Result Performing Organization Address City/[facility] Co de Phone Number [facility] [address] [place] [address] [phone] * NT-proBNP (02/17/2025 4:06 PM EST) Pathologist [facility] [place] NT-proBNP 225.7 <300 pg/mL [facility] Comment:Reference Range:Age Group (years) NT-proBNP (pg/ml) InterpretationAll <300 Negative: HF unlikelyFor patients presenting to the ED with clinical suspicion ofnew onset or worsening HF, see below:18 to <50 >299.9 to <450.0 Grayzone: [id number] to 75 >299.9 to <900.0 other causes of>75 >299.9 to <1800.0 NT-proBNP [id number] to <50 >449.9 Positive: HF [id number] >899.9>75 >1799.9Note: Elevated NT-proBNP levels should be interpreted inthe context of other clinical information. 02/17/2025 4:06 PM EST 02/17/2025 4:10 PM EST us Generic External Data Provider LAB BLOOD ORDERAB LES Final Result Performing Organization Address [facility] Co de Phone Number [facility] [address] [place] [phone] * (ABNORMAL) Basic Metabolic Panel (02/17/2025 4:06 PM EST) Sodium 144 135 - 145 mmol/L [facility] Potassium 4.9 3.3 - 5.1 mmol/L [facility] Chloride 102 96 - 108 mmol/L [facility] Carbon Dioxide 34(H) 22 - 29 mmol/L [facility] Anion Gap 13 12 - 20 [facility] Urea Nitrogen (BUN) 19(H) 9 - 16 mg/dL [facility] Creatinine, Serum 0.91 0.5 - 1.4 mg/dL [facility] Creatinine Clr Calc Pharmacy 95.1 [facility] Comment:eGFR (calculated fro m the MDRD study equation) and eCrCl(calculated from the Cockcroft-Gault equation) are based ondifferent parameters and may not yield comparable results.If eCrCl result is absurd, please check patient'sheight/weight. Estimated Glomerular Filt Rate >60 [facility] Comment:Chronic Kidney Disea se: Estimated GFR < 60 mL/min/1.19n9Adwikh Kidney Disease: Estimated GFR < 15 mL/min/1.73m2 Glucose 136(H) 60 - 115 mg/dL [facility] Calcium 8.9 8.4 - 10.2 mg/dL [facility] 02/17/2025 4:06 PM EST 02/17/2025 4:10 PM EST us Generic External Data Provider LAB BLOOD ORDERAB LES Final Result [facility] [address] [place] [phone] * Hepatic Function Panel (02/17/2025 4:06 PM EST) Bilirubin, Total 0.2 0.0 - 1.0 mg/dL [facility] Bilirubin, Direct <0.2 0.0 - 0.5 mg/dL [facility] Aspartate Amino Transferase 20 5 - 37 U/L [facility] Alanine Aminotransferase 15 0 - 40 U/L [facility] Total Protein 6.8 6.5 - 8.0 g/dL [facility] Albumin Level 3.6 3.5 - 5.0 g/dL [facility] Alkaline Phosphatase 113 39 - 117 U/L [facility] 02/17/2025 4:06 PM EST 02/17/2025 4:10 PM EST us Generic External Data Provider LAB BLOOD ORDERAB LES Final Result [facility] [address] [place], [place] [phone] * (ABNORMAL) CBC auto differential (02/17/2025 4:06 PM EST) White Blood Count 11.2(H) 4.8 - 10.8 X10*3/uL [facility] Red Blood Count 4.03(L) 4.60 - 5.80 X10*6/uL [facility] Hemoglobin 12.4(L) 14.0 - 18.0 g/dl [facility] Hematocrit 37.2(L) 42.0 - 52.0 % [facility] Mean Corpuscular Volume 92.3 80.0 - 98.0 fL [facility] Mean Corpuscular Hemoglobin 30.8 27.0 - 33.0 pg [facility] Mean Corpuscular HGB Conc 33.3 31.0 - 36.0 g/dl [facility] Red Cell Distribution Width 14.2 11.0 - 16.0 % [facility] Platelet Count 252 160 - 400 X10*3/uL [facility] Mean Platelet Volume 10.6 9.4 - 12.4 fL [facility] Neutrophils Percent Auto 75.2(H) 45 - 73 % [facility] Imm Gran Pct Auto 0.3 0.0 - 0.4 % [facility] Lymphocytes Percent Auto 18.3(L) 20 - 40 % [facility] Monocytes Percent Auto 4.2 2 - 11 % [facility] Eosinophils Percent Auto 1.3 0 - 4 % [facility] Basophils Percent Auto 0.7 0 - 2 % [facility] NRBC Pct Auto 0.0 0.0 - 0.2 /100WBC [facility] Neutrophils Absolute Auto 8.4(H) 2.0 - 8.3 x10*3/uL [facility] Imm Gran Abs Auto 0.03 0.00 - 0.03 X10*3/uL [facility] Lymphocytes Absolute Auto 2.1 1.2 - 4.9 X10*3/uL [facility] Monocytes Absolute Auto 0.5 0.1 - 1.2 X10*3/uL [facility] Eosinophils Absolute Auto 0.2 0.0 - 0.4 X10*3/uL [facility] Basophils Absolute Auto 0.1 0.0 - 0.2 X10*3/uL [facility] NRBC Abs Auto 0.000 0.0 - 0.012 X10*3/uL [facility] 02/17/2025 4:06 PM EST 02/17/2025 4:10 PM EST us Generic External Data Provider LAB BLOOD ORDERAB LES Final Result Performing Organization Address City/State/[facility] Co de Phone Number [facility] [address] [place] [phone] [phone] documented in this encounter Visit Diagnoses [...] documented as of this encounter Care Teams Executive Account Manager Relationship Specialty Start Date End Date Zee Caamcho MD [address] [place] [phone] PCP - General Family Medicine 09/17/20 Sebastián Duncan, Val [address] [place] [address] Pharmacist Internal Medicine 05/01/24 Johnnie Avalos, ALICIA [address] [place] [address] Registered Nurse Family Medicine 02/04/25 Cheyenne García 02/04/25 documented as of this encounter
[2025-02-17 21:49] VITALS: BP 140/88; PULSE 109; RESP 16; TEMP 36.6; O2SAT 97
[2025-02-17] MEDS: Magnesium Sulfate/H2O 2 GM/50 ML PIGGYBACK IV (23:04)
[2025-02-17 23:09] VITALS: TEMP 37.1
[2025-02-18 00:40] VITALS: BP 128/65; PULSE 90; RESP 14; TEMP 36.9; O2SAT 93
[2025-02-18 00:43] LABS: Reflex Lactate? Lactic Acid Added
[2025-02-18 01:21] VITALS: BP 132/60; PULSE 94; RESP 13; O2SAT 96
[2025-02-18 01:30] LABS: ~Lactic Acid-LAB USE ONLY 1.4 mmol/L (0.5-2.0)
[2025-02-18 02:26] VITALS: BP 132/60; PULSE 94; RESP 13; TEMP 36.1; O2SAT 96
== END 2025-02-18 02:27 | disposition home or self-care (01) ==
PROVIDERS: Physician Assistant; Physician Assistant Medical; Emergency Provider Emergency Medicine; PCP Internal Medicine
DX: E11.622 Type 2 diabetes mellitus with other skin ulcer (principal); L97.229 Non-pressure chronic ulcer of left calf with unspecified severity; I89.0 Lymphedema, not elsewhere classified; L03.116 Cellulitis of left lower limb; E11.22 Type 2 diabetes mellitus with diabetic chronic kidney disease; I12.9 Hypertensive chronic kidney disease with stage 1 through stage 4 chronic kidney disease, or unspecified chronic kidney disease; N18.31 Chronic kidney disease, stage 3a; E78.5 Hyperlipidemia, unspecified; F19.10 Other psychoactive substance abuse, uncomplicated; Z79.4 Long term (current) use of insulin; F17.210 Nicotine dependence, cigarettes, uncomplicated
CPT/HCPCS: 36415; 73590; 80048; 80076; 83605; 83735; 83880; 85025; 85652; 86140; 87040; 96361; 96365; 96366; 96367; 96368; 96375; 99284; 99285; J0696; J1271; J3475

== ENCOUNTER → 2025-02-17 22:02 | Outpatient (BNV) | payer MEDICAID, SELFPAY | PROVIDERS: Emergency Provider Emergency Medicine; PCP Internal Medicine; Visit Provider Student in an Organized Health Care Education/Training Program | DX: Z03.89 Encounter for observation for other suspected diseases and conditions ruled out (principal) | CPT/HCPCS: 73590 ==